=== PATIENT | male | born 1930 | race Caucasian/White ===

== ENCOUNTER 2018-06-18 09:21 | Observation (INO) | payer OTHER ==
[2018-06-18 09:54] LABS: Absolute Lymphocytes (CBC) 0.6 K/uL (0.7-4.9); Absolute Monocytes 0.5 K/uL (0.1-1.3); Basophils % 0.8 % (0-1.3); Eosinophils % 1.4 % (0-4.4); Hematocrit 35.7 % (39.6-49.0); Lymphocytes % 14.3 % (15.3-44.8); MCH 29.4 pg (27.0-35.0); MCV 88.3 fL (80-100); Monocytes % 11.3 % (3.3-12.3); RBC Red Blood Cell Count 4.05 M/uL (4.33-5.43)
[2018-06-18 09:59] LABS: Potassium 3.8 mmol/L (3.5-5.1)
--- NOTE | 2018-06-18 10:04 | RAD REPORT ---
EXAM DESCRIPTION: CT - CTHCSPWOC - 06/18/2018 9:44 am CLINICAL HISTORY: Fall, head and neck injury COMPARISON: CT trauma study January 2017 TECHNIQUE: Axial 5 mm thick images of the head were obtained. Axial 2 mm thick images of the cervic al spine were obtained with sagittal and coronal reconstruction images generated and reviewed. All CT scans are performed using dose optimization technique as appropriate and may include automated exposure control or mA/KV adjustment according to patient size. FINDINGS: No intracranial hemorrhage, mass, edema or acute intracranial finding. No suspicion for acute infarct ion. Moderate atrophy and chronic ischemic changes are present. Ventricles are in proportion to volum e loss. Mastoid air cells and paranasal sinuses are clear. No globe or orbit abnormality seen. Stable or chronic C4 and C5 partial compression noted similar to the examination 16 months earlier. C 4-5 and C5-6 disc space narrowing seen with posterior endplate spurring. No fracture or acute bony ab normality. Dense carotid calcifications are present. Prominent facet joint degenerative change presen t on the left at C2-3 and on the right at C3-4. Prominent endplate spurring and facet hypertrophy cau ses significant bony foraminal encroachment on the left at C4-5 with mild to moderate bilateral willian inal encroachment at C5-6. C4-5 canal of is stenotic. Severe facet degenerative change at C6-7. No paraspinal mass or hematoma. IMPRESSION: Moderate atrophy and chronic ischemic change with no acute intracranial finding. No sign ificant change from January 2017. Advanced cervical spine degenerative change as detailed. No fracture seen and no significant change f rom comparison.
[2018-06-18] MEDS ORDERED: D50W 25 GM/50 ML SYRINGE IV ONE (10:59)
[2018-06-18] MEDS ORDERED: D5 0.9 NS 1,000 ML IV ONE (11:14)
--- NOTE | 2018-06-18 11:19 | ER ---
Nurse's Notes [facility] Name: Dalton Díaz Age: 87 yrs Sex: Male : 1930 Arrival Date: 06/18/2018 Time: 09:26 Bed 4 Private MD: Diagnosis: Bradycardia, unspecified;Hypoglycemia, unspecified Presentation: 06/18 09:20 Presenting complaint: EMS states: unwitnessed fall by [facility] employees. c/o pain all sv over, pt was alert to person but normally is A\T\O x4. BS-48 oral glucose given BS-58, 22G left hand started and D10 administered, BS-66 before arrival to ER. Care prior to arrival: IV initiated. 22 GA, in the left hand, Glucose check: 48. Mechanism of Injury: Fall unknown from where. Trauma event details: Injury occurred in the [facility], Injury occurred: at home. Injury occurred: June 18, 2018. 09:20 Acuity: LEÓN 2 sv 09:20 Method Of Arrival: EMS: [facility] sv 09:20 Transition of care: patient was received from another setting of care (long-term care facility), [facility]. Onset of symptoms was June 18, 2018. Risk Assessment: Do you want to hurt yourself or someone else? Patient reports no desire to harm self or others. Initial Sepsis Screen: Does the patient meet any 2 criteria? No. Patient's initial sepsis screen is negative. Does the patient have a suspected source of infection? No. Patient's initial sepsis screen is negative. Trauma Activation: Alert Physician: ED Physician; Name: Dr Balderas; Notified At: 09:18; Arrived At: Physician: General Surgeon; Name: ; Notified At: 09:18; Arrived At: Physician: Radiology; Name: Negra Odom Jennifer, Tracy; Notified At: 09:18; Arrived At: 09:21 Physician: Respiratory; Name: ; Notified At: 09:18; Arrived At: Physician: Lab; Name: ; Notified At: 09:18; Arrived At: Historical: - Allergies: 09:46 Amoxicillin; sv - Home Meds: 09:46 bumetanide 1 mg Oral tab 1 tab 2 times per day [Active]; Coreg 3.125 mg oral tab 2 sv times per day [Active]; docusate sodium 100 mg Oral tab 1 tab 2 times per day [Active]; finasteride 5 mg Oral tab 1 tab once daily [Active]; gabapentin 600 mg Oral tab 3 times per day [Active]; Levemir FlexTouch 100 unit/mL (3 mL) subcutaneous inpn 33 unit nightly [Active]; Levemir FlexTouch 100 unit/mL (3 mL) subcutaneous inpn 30 unit daily [Active]; Glucophage 1,000 mg oral tab 2 times per day [Active]; metolazone 5 mg oral tab 3x weekly [Active]; pravastatin 20 mg Oral tab 1 tab once daily [Active]; spironolactone 25 mg oral tab once daily [Active]; Flomax 0.4 mg Oral cp24 1 cap once daily [Active]; Victoza 2-Jacob 0.6 mg/0.1 mL (18 mg/3 mL) subcutaneous pnij [Active]; Vitamin D2 50,000 unit oral cap 1 cap once wkly [Active]; warfarin 13 mg daily Oral tab [Active]; - PMHx: 09:46 Dementia; Diabetes - NIDDM; Hyperlipidemia; Hypertension; CHF; COPD; Atrial Fib; BPH; sv venous insufficiency; Neuropathy; Chronic hyponatremia; constipation; - Immunization history: Last tetanus immunization: - up to date. - Social history:: Smoking status: Patient/guardian denies using tobacco. - Ebola Screening: : No symptoms or risks identified at this time. Screenin:47 Abuse screen: Denies threats or abuse. Denies injuries from another. Nutritional sv screening: No deficits noted. Tuberculosis screening: No symptoms or risk factors identified. Fall Risk No fall in past 12 months (0 pts). Secondary diagnosis (15 points) dementia, IV access (20 points). Ambulatory Aid- None/Bed Rest/Nurse Assist (0 pts). Gait- Normal/Bed Rest/Wheelchair (0 pts) Mental Status- Overestimates/Forgets Limitations (15 pts.). Total Yan Fall Scale indicates High Risk Score (45 or more points). Fall prevention measures have been instituted. Side Rails Up X 2 Placed Close to Nursing Station Frequent Obs/Assessments Occuring As available patient and family educated on Fall Prevention Program and Strategies. Primary Survey: 09:25 A: Airway: patent, No supplemental oxygen in use on arrival. Oral cavity: clear, sv Trachea midline. Breathing/Chest: Respiratory pattern: regular, Respiratory effort: spontaneous, unlabored, Chest inspection: symmetrical rise and fall of the chest. Circulation: Heart tones present. Pulses: palpable right radial artery and left radial artery. Skin color: pink, Skin temperature: warm, dry. Disability Alert. 09:54 Reassessment Airway Airway Patent Oxygen No O2 Oral cavity Clear Trachea Midline sv Breathing/Chest Respiratory pattern Regular Respiratory effort Spontaneous Unlabored Chest inspection Symmetrical Circulation Heart tones Present Pulses Palpable Color [place] Temperature Warm Dry Disability Alert. Secondary Survey: 09:25 HEENT: No deficits noted. Gastrointestinal: No deficits noted. : No deficits noted. sv Musculoskeletal: No deficits noted. Assessment: 11:02 Reassessment: Patient appears in no apparent distress at this time. Patient and/or sv family updated on plan of care and expected duration. Pain level reassessed. Pt sleeping upon entry to the room but easily woken up with verbal stimuli. Son at bedside. 11:35 Reassessment: Patient appears in no apparent distress at this time. Patient and/or sv family updated on plan of care and expected duration. Pain level reassessed. 12:46 Reassessment: Patient appears in no apparent distress at this time. Patient and/or sv family updated on plan of care and expected duration. Pain level reassessed. Vital Signs: 09:30 BP 156 / 80; Pulse 56; Resp 18; Temp 98.8; Pulse Ox 96% ; Pain 0/10; sv 10:00 BP 158 / 70; Pulse 54; Resp 16; Temp 98.8; Pulse Ox 95% on R/A; sv 10:30 BP 160 / 74; Pulse 42; Resp 12; Pulse Ox 96% on R/A; sv 10:40 Pulse 32; sv 11:00 BP 147 / 68; Pulse 45; Resp 11; Pulse Ox 98% on R/A; sv 11:36 BP 159 / 73; Pulse 47; Resp 18; Pulse Ox 96% ; jb1 12:00 BP 147 / 67; Pulse 41; Resp 11; Pulse Ox 97% ; sv 10:40 Notified Valdemar HENSLEY, repeat EKG ordered sv [place] Coma Score: 09:25 Eye Response: spontaneous(4). Verbal Response: confused(4). Motor Response: obeys sv commands(6). Total: 14. Trauma Score (Adult): 09:25 Eye Response: spontaneous(1); Verbal Response: confused(1); Motor Response: obeys sv commands(2); Systolic BP: > 89 mm Hg(4); Respiratory Rate: 10 to 29 per min(4); Theo Score: 14; Trauma Score: 12 ED Course: 09:20 Maintain EMS IV. Dressing intact. Good blood return noted. Site clean \T\ dry. Gauge \T\ sv site: 22G left hand. 09:26 Patient arrived in ED. jr8 09:26 Valdemar Garcia PA is PHCP. jr8 09:26 Mitchel Balderas MD is Attending Physician. jr8 09:30 Patient has correct armband on for positive identification. Placed in gown. Bed in low sv position. Side rails up X2. radiation monitor on. Pulse ox on. NIBP on. Door closed. Warm blanket given. Pillow given. Head of bed elevated. 09:30 Arm band placed on. sv 09:34 Tere Crooks, ASIA is Primary Nurse. sv 09:37 Triage completed. sv 09:44 CT Head C Spine In Process Unspecified. EDMS 09:51 Patient maintains SpO2 saturation greater than 95% on room air. sv 09:[address]. sv 09:53 Thermoregulation: warm blanket given to patient. sv 09:54 XRAY Chest (1 view) In Process Unspecified. EDMS 09:54 XRAY Pelvis In Process Unspecified. EDMS 09:55 Awaiting lab results, Awaiting radiology results. Awaiting re-evaluation by ER provider.sv 10:00 EKG done, by ED staff, reviewed by Valdemar HENSLEY. jb1 11:00 EKG done, by ED staff, reviewed by Valdemar HENSLEY. jb1 11:18 Gabriel Slaughter MD is Hospitalizing Provider. jr8 11:35 Urine collected: clean catch specimen, cloudy, josselyn colored. jb1 12:20 Urine Dipstick--Ancillary (enter results) Sent. sv 12:46 No provider procedures requiring assistance completed. Patient admitted, IV remains in sv place. intact. Administered Medications: 11:05 Drug: D50W 50 ml Route: IVP; Site: left hand; sv 11:30 Follow up: Response: No adverse reaction; Blood sugar is elevated sv 11:11 Drug: D5-NS 1000 ml Route: IV; Rate: 75 ml/hr; Site: left hand; sv 11:30 Follow up: Response: No adverse reaction; Rate change 50 ml/hr sv 12:20 Follow up: Response: No adverse reaction; IV Status: Infusion continued upon admission sv Point of Care Testing: Blood Glucose: 09:20 Blood Glucose: 250 mg/dL; sv 11:03 Blood Glucose: 47 mg/dL; sv 11:35 Blood Glucose: 121 mg/dL; jb1 Ranges: Intake: 09:25 PO: 0ml; Total: 0ml. sv Output: 09:25 Urine: 0ml; Total: 0ml. sv Outcome: 11:19 Decision to Hospitalize by Provider. jrLalitha 12:46 Admitted to Tele accompanied by tech, family with patient, via stretcher, room 419, sv with chart, Report called to Lidya RN 12:46 Condition: stable 12:46 Instructed on the need for admit. 13:10 Patient's length of stay in the Emergency Department was greater than 2 hours. sv Patient's length of stay was extended due to staffing issues within the emergency department. 13:16 Patient left the ED. sv Signatures: Dispatcher [employer] EDLuis Fox jb1 Tere Crooks, RN RN sv Valdemar Garcia PA PA jr8 Corrections: (The following items were deleted from the chart) 09:59 09:25 Blood Glucose: Blood Glucose Oonwxir=848 mg/dL. sv sv 09:59 09:58 Blood Glucose: Blood Glucose Dolrzub=781 mg/dL. sv sv
--- NOTE | 2018-06-18 11:19 | EDPHYS ---
Physician Documentation [facility] Name: Dalton Díaz Age: 87 yrs Sex: Male : 1930 Arrival Date: 06/18/2018 Time: 09:26 Bed 4 Private MD: ED Physician Mitchel Balderas HPI: 06/18 11:22 This 87 yrs old Male presents to ER via EMS with complaints of Fall Injury. jr8 11:22 Details of fall: The patient fell from an upright position. Onset: The symptoms/episode jr8 began/occurred acutely, today. Associated injuries: The patient sustained no obvious injury. Severity of symptoms: At their worst the symptoms were mild, in the emergency department the symptoms are unchanged. It is unknown whether or not the patient has had similar symptoms in the past. The patient has not recently seen a physician. Patient was found at skilled nursing [facility] but laying on bathroom floor. Stated that they had brought his morning insulin and medicine at 0500. Came to check on him from breakfast around 0800 when they found him. Patient with initial glucose of 48. A\T\O x 4 upon arrival. General discomfort but no specific pain . Historical: - Allergies: 09:46 Amoxicillin; sv - Home Meds: 09:46 bumetanide 1 mg Oral tab 1 tab 2 times per day [Active]; Coreg 3.125 mg oral tab 2 sv times per day [Active]; docusate sodium 100 mg Oral tab 1 tab 2 times per day [Active]; finasteride 5 mg Oral tab 1 tab once daily [Active]; gabapentin 600 mg Oral tab 3 times per day [Active]; Levemir FlexTouch 100 unit/mL (3 mL) subcutaneous inpn 33 unit nightly [Active]; Levemir FlexTouch 100 unit/mL (3 mL) subcutaneous inpn 30 unit daily [Active]; Glucophage 1,000 mg oral tab 2 times per day [Active]; metolazone 5 mg oral tab 3x weekly [Active]; pravastatin 20 mg Oral tab 1 tab once daily [Active]; spironolactone 25 mg oral tab once daily [Active]; Flomax 0.4 mg Oral cp24 1 cap once daily [Active]; Victoza 2-Jacob 0.6 mg/0.1 mL (18 mg/3 mL) subcutaneous pnij [Active]; Vitamin D2 50,000 unit oral cap 1 cap once wkly [Active]; warfarin 13 mg daily Oral tab [Active]; - PMHx: 09:46 Dementia; Diabetes - NIDDM; Hyperlipidemia; Hypertension; CHF; COPD; Atrial Fib; BPH; sv venous insufficiency; Neuropathy; Chronic hyponatremia; constipation; - Immunization history: Last tetanus immunization: - up to date. - Social history:: Smoking status: Patient/guardian denies using tobacco. - Ebola Screening: : No symptoms or risks identified at this time. ROS: 11:22 Eyes: Negative for injury, pain, redness, and discharge, ENT: Negative for injury, jr8 pain, and discharge, Neck: Negative for injury, pain, and swelling, Cardiovascular: Negative for chest pain, palpitations, and edema, Respiratory: Negative for shortness of breath, cough, wheezing, and pleuritic chest pain, Abdomen/GI: Negative for abdominal pain, nausea, vomiting, diarrhea, and constipation, Back: Negative for injury and pain, MS/Extremity: Negative for injury and deformity, Skin: Negative for injury, rash, and discoloration, Neuro: Negative for headache, weakness, numbness, tingling, and seizure. Exam: 11:22 Eyes: Pupils equal round and reactive to light, extra-ocular motions intact. Lids and jr8 lashes normal. Conjunctiva and sclera are non-icteric and not injected. Cornea within normal limits. Periorbital areas with no swelling, redness, or edema. ENT: Nares patent. No nasal discharge, no septal abnormalities noted. Tympanic membranes are normal and external auditory canals are clear. Oropharynx with no redness, swelling, or masses, exudates, or evidence of obstruction, uvula midline. Mucous membranes moist. Neck: Trachea midline, no thyromegaly or masses palpated, and no cervical lymphadenopathy. Supple, full range of motion without nuchal rigidity, or vertebral point tenderness. No Meningismus. Cardiovascular: sinus bradycardia with a normal S1 and S2. No gallops, murmurs, or rubs. Normal PMI, no JVD. No pulse deficits. Respiratory: Lungs have equal breath sounds bilaterally, clear to auscultation and percussion. No rales, rhonchi or wheezes noted. No increased work of breathing, no retractions or nasal flaring. Abdomen/GI: Soft, non-tender, with normal bowel sounds. No distension or tympany. No guarding or rebound. No evidence of tenderness throughout. Back: No spinal tenderness. No costovertebral tenderness. Full range of motion. Skin: Warm, dry with normal turgor. Normal color with no rashes, no lesions, and no evidence of cellulitis. smal avulsion of skin to right wrist region MS/ Extremity: Pulses equal, no cyanosis. Neurovascular intact. Full, normal range of motion. Mild pain with palpation or right hip. No pain with ROM Neuro: Awake and alert, GCS 15, oriented to person, place, time, and situation. Cranial nerves II-XII grossly intact. Motor strength 5/5 in all extremities. Sensory grossly intact. Cerebellar exam normal. Normal gait. Vital Signs: 09:30 BP 156 / 80; Pulse 56; Resp 18; Temp 98.8; Pulse Ox 96% ; Pain 0/10; sv 10:00 BP 158 / 70; Pulse 54; Resp 16; Temp 98.8; Pulse Ox 95% on R/A; sv 10:30 BP 160 / 74; Pulse 42; Resp 12; Pulse Ox 96% on R/A; sv 10:40 Pulse 32; sv 11:00 BP 147 / 68; Pulse 45; Resp 11; Pulse Ox 98% on R/A; sv 11:36 BP 159 / 73; Pulse 47; Resp 18; Pulse Ox 96% ; jb1 12:00 BP 147 / 67; Pulse 41; Resp 11; Pulse Ox 97% ; sv 10:40 Notified Valdemar HENSLEY, repeat EKG ordered sv Theo Coma Score: 09:25 Eye Response: spontaneous(4). Verbal Response: confused(4). Motor Response: obeys sv commands(6). Total: 14. Trauma Score (Adult): 09:25 Eye Response: spontaneous(1); Verbal Response: confused(1); Motor Response: obeys sv commands(2); Systolic BP: > 89 mm Hg(4); Respiratory Rate: 10 to 29 per min(4); Theo Score: 14; Trauma Score: 12 MDM: 09:26 Patient medically screened. [facility] 11:17 Data reviewed: vital signs, nurses notes, lab test result(s), EKG, radiologic studies, jr CT scan, plain films, and as a result, I will admit patient. Data interpreted: Pulse oximetry: on room air is 96 %. Interpretation: normal. Counseling: I had a detailed discussion with the patient and/or guardian regarding: the historical points, exam findings, and any diagnostic results supporting the discharge/admit diagnosis, lab results, radiology results, the need for further work-up and treatment in the hospital. Physician consultation: Gabriel Slaughter MD was called at 11:18, was contacted at 11:18, regarding admission, to the telemetry unit. consult, patient's condition, and will see patient. 06/18 09:27 Order name: CBC with Diff; Complete Time: 10:58 jr8 06/18 09:27 Order name: Basic Metabolic Panel; Complete Time: 10:58 jr8 06/18 09:33 Order name: Glucose, Ancillary Testing; Complete Time: 09:42 EDMS 06/18 10:54 Order name: Glucose, Ancillary Testing; Complete Time: 10:58 EDMS 06/18 11:44 Order name: Urine Dipstick--Ancillary (enter results) eb 06/18 12:12 Order name: Urine Dipstick-Ancillary; Complete Time: 12:13 EDMS 06/18 09:27 Order name: CT Head C Spine; Complete Time: 10:58 jr8 06/18 09:27 Order name: XRAY Chest (1 view); Complete Time: 12:41 jr8 06/18 09:27 Order name: XRAY Pelvis; Complete Time: 12:41 jr8 06/18 09:27 Order name: Glucose Level; Complete Time: 09:56 jr8 06/18 09:27 Order name: IV; Complete Time: 09:56 [facility] 06/18 10:45 Order name: EKG; Complete Time: 10:45 sv 06/18 10:45 Order name: EKG - Nurse/Tech; Complete Time: 10:54 sv Administered Medications: 11:05 Drug: D50W 50 ml Route: IVP; Site: left hand; sv 11:30 Follow up: Response: No adverse reaction; Blood sugar is elevated sv 11:11 Drug: D5-NS 1000 ml Route: IV; Rate: 75 ml/hr; Site: left hand; sv 11:30 Follow up: Response: No adverse reaction; Rate change 50 ml/hr sv 12:20 Follow up: Response: No adverse reaction; IV Status: Infusion continued upon admission sv Point of Care Testing: Blood Glucose: 09:20 Blood Glucose: 250 mg/dL; sv 11:03 Blood Glucose: 47 mg/dL; sv 11:35 Blood Glucose: 121 mg/dL; jb1 Ranges: Critical Glucose Levels:Adult <50 mg/dl or >400 mg/dl <40 mg/dl or >180 mg/dl Disposition: 17:51 Co-signature as Attending Physician, Mitchel Balderas MD. Disposition: 06/18/18 11:19 Hospitalization ordered by Gabriel Slaughter for Inpatient Admission. Preliminary diagnosis are Bradycardia, unspecified, Hypoglycemia, unspecified. - Bed requested for Telemetry/MedSurg (Inpatient). - Status is Inpatient Admission. sv - Condition is Stable. - Problem is new. - Symptoms have improved. UTI on Admission? No Signatures: Dispatcher [employer] EDMS Tere Crooks RN RN Valdemar Garcia, PA PA jr8 Mitchel Balderas MD MD Jerilyn Harry Corrections: (The following items were deleted from the chart) 12:14 11:19 Hospitalization Ordered by Gabriel Slaughter MD for Inpatient Admission. eb Preliminary diagnosis is Bradycardia, unspecified; Hypoglycemia, unspecified. Bed requested for Telemetry/MedSurg (Inpatient). Status is Inpatient Admission. Condition is Stable. Problem is new. Symptoms have improved. UTI on Admission? No. jr8 12:15 12:14 06/18/2018 11:19 Hospitalization Ordered by Gabriel Slaughter MD for Inpatient eb Admission. Preliminary diagnosis is Bradycardia, unspecified; Hypoglycemia, unspecified. Bed requested for [facility] ER HOLD. Status is Inpatient Admission. Condition is Stable. Problem is new. Symptoms have improved. UTI on Admission? No. eb 13:16 12:15 06/18/2018 11:19 Hospitalization Ordered by Gabriel Slaughter MD for Inpatient sv Admission. Preliminary diagnosis is Bradycardia, unspecified; Hypoglycemia, unspecified. Bed requested for Telemetry/MedSurg (Inpatient). Status is Inpatient Admission. Condition is Stable. Problem is new. Symptoms have improved. UTI on Admission? No. eb
[2018-06-18 12:11] LABS: Urine Blood TRACE (NEG); Urine Glucose NEGATIVE (NEG); Urine Protein NEGATIVE (NEG); Urine Specific Gravity 1.015 (1.005-1.030)
--- NOTE | 2018-06-18 12:38 | RAD REPORT ---
EXAM DESCRIPTION: RAD - Pelvis - 06/18/2018 10:01 am CLINICAL HISTORY: Fall, pelvic pain COMPARISON: None. TECHNIQUE: AP imaging of the pelvis was obtained. FINDINGS: No fracture of the bony pelvis. No fracture, dislocation or other acute hip joint finding. SI joint degenerative changes are present. SI joints and sacral ala are obscured by osteopenia and o verlying bowel content. Prominent lower lumbar degenerative changes only partially imaged. Hip joint degenerative changes mild for age. Dense arterial tree calcifications. No soft tissue abnormality. IMPRESSION: Negative pelvis for acute or significant findings. Degenerative changes are present.
--- NOTE | 2018-06-18 12:38 | RAD REPORT ---
EXAM DESCRIPTION: RAD - Chest Single View - 06/18/2018 9:54 am CLINICAL HISTORY: Chest pain, chest trauma COMPARISON: January 2017 TECHNIQUE: AP portable chest image was obtained 0937 hours . FINDINGS: Diffusely prominent interstitial markings are present. Pattern is not substantially differ ent from the comparison. Interstitial edema and infiltrate are easily masked. Patient has a pronounce d cardiomegaly. Upper lobe vasculature is slightly increased but not clearly different from compariso n. Heart size is similar to slightly enlarged. No pneumothorax. Right costophrenic angle blunting is present. No acute bony abnormality seen. No acute aortic findings suspected. IMPRESSION: Diffuse interstitial lung disease not substantially different from comparison. This can mask early edema or infiltrate. Significant cardiomegaly.
[2018-06-18] MEDS ORDERED: GLUCAGON 1 MG/VIAL IM PRN (13:17)
[2018-06-18] MEDS ORDERED: D50W 25 GM/50 ML SYRINGE IV PRN (13:17)
[2018-06-18 13:40] VITALS: BMI 32.3
[2018-06-18] MEDS ORDERED: LACTULOSE 20 GM/30 ML UCUP PO PRN (22:48)
[2018-06-19] MEDS ORDERED: TEMAZEPAM 15 MG CAP PO PRN (00:33)
--- NOTE | 2018-06-19 04:14 | P.HP ---
Certification for Inpatient Patient admitted to: Inpatient With expected LOS: >2 Midnights Patient will require the following post-hospital care: None Practitioner: I am a practitioner with admitting privileges, knowledge of patient current condition, hospital course, and medical plan of care. Services: Services provided to patient in accordance with Admission requirements found in Title 42 Section 412.3 of the Code of Federal Regulations Patient History Date of Service: 06/19/18 Reason for admission: Altered mental status History of Present Illness: Patient is an 87-year-old gentleman who came into the hospital with altered mental status. Patient had apparently suffered a fall at the assisted living. He suffered some abrasions and when he was evaluated it was found that his blood sugars were in the 50s. He was brought into the hospital for further evaluation. Patient still feeling weak; however, he does feel better than he did earlier today. He is requesting something to help him sleep tonight. We will go ahead and check his A1c level. Will also check is insulin level. Will monitor his blood sugars throughout the next 24 hr then he may get to go home in the morning. Allergies amoxicillin Allergy (Verified 01/25/17 10:28) Rash Home Medications: Bumetanide 1 mg PO BID 06/18/18 Carvedilol 3.125 mg PO BID 06/18/18 Docusate Sodium 100 mg PO DAILY 06/18/18 Ergocalciferol (Vitamin D2) [Vitamin D2] 50,000 unit PO EVERY 7TH DAY 06/18/18 Finasteride [Proscar*] 5 mg PO DAILY 06/18/18 Gabapentin 600 mg PO TID 06/18/18 Insulin Detemir [Levemir Flextouch] 30 units SQ DAILY 06/18/18 Insulin Detemir [Levemir Flextouch] 33 units SQ BEDTIME 06/18/18 Lactulose 1 tbsp PO Q8HP PRN 06/18/18 Liraglutide [Victoza 2-Jacob] 0.6 mcg SQ DAILY 06/18/18 Metformin HCl 1,000 mg PO BID 06/18/18 Metolazone [Zaroxolyn] 5 mg PO M,W,F 06/18/18 Pravastatin Sodium 20 mg PO BEDTIME 06/18/18 Spironolactone [Aldactone*] 25 mg PO DAILY 06/18/18 Tamsulosin HCl 0.4 mg PO BEDTIME 06/18/18 Warfarin Sodium 13 mg PO DAILY 6PM 06/18/18 - Past Medical/Surgical History Diabetic: Yes -: Diabetes mellitus type 2 -: HTN -: Atrial fibrillation, chronic anti coagulation-Coumadin -: CHF -: PVD -: Hyperlipidemia -: Cataracts -: Dementia -: COPD -: History of falls -: History of hypoglycemia -: Diabetic Neuropathy -: (R) upper lobectomy -: Appendectomy -: Tonsillectomy Psychosocial/ Personal History: The patient is a . He has 3 children. He currently lives at [facility]. - Family History Father Medical History: Other (see notes) Notes: parkinsons Brother Medical History: Heart disease, Diabetes - Social History Smoking Status: Former smoker Alcohol use: No CD- Drugs: No Caffeine use: No Place of Residence: [facility] Review of Systems 10-point ROS is otherwise unremarkable Physical Examination - Vital Signs Temperature: 98.8 F Blood Pressure: 125/64 Pulse: 57 Respirations: 18 Pulse Ox (%): 93 - Physical Exam General: Alert, In no apparent distress, Oriented x2 HEENT: Atraumatic, PERRLA, Mucous membr. moist/pink, EOMI, Sclerae nonicteric Neck: Supple, 2+ carotid pulse no bruit, No LAD, Without JVD or thyroid abnormality Respiratory: Clear to auscultation bilaterally, Normal air movement Cardiovascular: Regular rate/rhythm, Normal S1 S2, Systolic murmur Gastrointestinal: Normal bowel sounds, Soft and benign, Non-distended, No tenderness Musculoskeletal: No clubbing, No swelling, No tenderness Integumentary: No rashes Neurological: Normal speech, Normal tone, Sensation intact, Cranial nerves 3-12 intact, Normal affect, Abnormal gait, Abnormal strength Lymphatics: No axilla or inguinal lymphadenopathy - Studies Laboratory Data (last 24 hrs) 06/18/18 09:25: Sodium 134 L, Potassium 3.8, BUN 22 H, Creatinine 1.00, Glucose 319 H 06/18/18 09:25: WBC 4.2 L, Hgb 11.9 L, Hct 35.7 L, Plt Count 108 L Assessment & Plan - Problems (Diagnosis) (1) Hypoglycemia Current Visit: Yes Status: Acute (2) Altered mental status Current Visit: Yes Status: Acute (3) Acute exacerbation of CHF (congestive heart failure) Onset Date: 01/08/17 Current Visit: No Status: Acute Qualifiers: Qualified Code(s): I50.23 - Acute on chronic systolic (congestive) heart failure (4) Diabetes type 2, controlled Onset Date: 01/08/17 Current Visit: No Status: Acute Qualifiers: Diabetes mellitus oysterman insulin use: without oysterman use Diabetes mellitus complication status: with unspecified complications Qualified Code(s) : E11.8 - Type 2 diabetes mellitus with unspecified complications (5) Fall Onset Date: 01/26/17 Current Visit: No Status: Acute Qualifiers: Encounter type: initial encounter Qualified Code(s): W19.XXXA - Unspecified fall, initial encounter (6) Warfarin-induced coagulopathy Onset Date: 01/08/17 Current Visit: No Status: Acute (7) Atrial fibrillation Onset Date: 01/08/17 Current Visit: No Status: Chronic Qualifiers: Atrial fibrillation type: chronic Qualified Code(s): I48.2 - Chronic atrial fibrillation (8) COPD (chronic obstructive pulmonary disease) Onset Date: 01/26/17 Current Visit: No Status: Chronic Qualifiers: COPD type: chronic bronchitis Chronic bronchitis type: unspecified Qualified Code(s): J42 - Unspecified chronic bronchitis (9) Dementia Onset Date: 01/26/17 Current Visit: No Status: Chronic Qualifiers: Dementia type: unspecified type Dementia behavioral disturbance: without behavioral disturbance Qualified Code(s): F03.90 - Unspecified dementia without behavioral disturbance (10) Diabetes mellitus Onset Date: 01/26/17 Current Visit: No Status: Chronic Qualifiers: Diabetes mellitus type: type 2 Diabetes mellitus oysterman insulin use: with correction use Diabetes mellitus complication status: with hypoglycemia Diabetes mellitus complication detail: without coma Qualified Code(s): E11.649 - Type 2 diabetes mellitus with hypoglycemia without coma; Z79.4 - longterm (current) use of insulin (11) Hyperlipidemia Onset Date: 01/26/17 Current Visit: No Status: Chronic Qualifiers: Hyperlipidemia type: unspecified Qualified Code(s): E78.5 - Hyperlipidemia , unspecified (12) Hypertension Onset Date: 01/08/17 Current Visit: No Status: Chronic Qualifiers: Hypertension type: essential hypertension Qualified Code(s): I10 - Essential (primary) hypertension - Plan Plan: 1. IV hydration 2. Monitor blood sugars closely 3. Hold insulin 4. Check A1c 5. Check insulin level 6. Check thyroid and cortisol level 7. Check additional labs in the morning and make adjustments a long-acting insulin 8. GI and DVT prophylax Discharge Plan: Home Plan to discharge in: 48 Hours - Advance Directives Does patient have a Living Will: No Does patient have a Durable POA for Healthcare: Yes - Code Status/Comfort Care Code Status Assessed: Yes Code Status: Full Code Critical Care: No Time Spent Managing PTS Care (In Minutes): 50
[2018-06-19 06:33] LABS: Absolute Lymphocytes (CBC) 1.1 K/uL (0.7-4.9); Absolute Monocytes 0.7 K/uL (0.1-1.3); Absolute Neutrophil 2.7 K/uL (1.8-8.0); Basophils % 1.2 % (0-1.3); Eosinophils % 4.6 % (0-4.4); Hematocrit 34.7 % (39.6-49.0); Lymphocytes % 22.8 % (15.3-44.8); MCH 29.4 pg (27.0-35.0); MCV 86.1 fL (80-100); MPV 7.9 fL (7.6-11.3); Monocytes % 14.7 % (3.3-12.3); RBC Red Blood Cell Count 4.03 M/uL (4.33-5.43)
[2018-06-19 06:51] LABS: Albumin 3.5 g/dL (3.4-5.0); Bilirubin Total 1.1 mg/dL (0.2-1.0); Magnesium 1.7 mg/dL (1.8-2.4); Phosphorus 2.7 mg/dL (2.5-4.9); Protein, Total 6.5 g/dL (6.4-8.2); Protime INR 3.85
[2018-06-19 06:56] LABS: Thyroid Stimulating Hormone 2.02 uIU/mL (0.360-3.740)
[2018-06-19] MEDS: INSULIN GLARGINE 100 UNITS/ML SQ SCH ×2 (08:56→20:28)
[2018-06-19] MEDS: BUMETANIDE 1 MG TABLET PO SCH ×2 (08:56→20:27)
[2018-06-19] MEDS: SPIRONOLACTONE 25 MG TABLET PO SCH (08:57)
[2018-06-19] MEDS: DOCUSATE NA 100 MG CAP PO SCH (08:57)
[2018-06-19] MEDS: FINASTERIDE 5 MG TAB PO SCH (08:58)
[2018-06-19] MEDS: GABAPENTIN 300 MG CAP PO SCH ×3 (08:58→20:29)
[2018-06-19] MEDS: METFORMIN HCL 500 MG TAB PO SCH ×2 (08:58→20:28)
[2018-06-19] MEDS ORDERED: LIRAGLUTIDE SQ SCH (09:00)
[2018-06-19] MEDS ORDERED: CARVEDILOL 3.125 MG TAB PO SCH (09:00)
[2018-06-19 17:19] VITALS: O2SAT 95
[2018-06-19] MEDS ORDERED: WARFARIN SODIUM PO SCH (18:00)
--- NOTE | 2018-06-19 18:31 | PN ---
Subjective: Currently, the patient lying in bed. He looks comfortable. He had no chest pain. No a bdominal pain. No fever. No chills overnight. His heart rate in the range of 50 to 61. He has not had any bradycardia below 50 today. His son at the bedside. Review of Systems: Otherwise as below. Physical Examination: Vital Signs: Blood pressure is 148/70, respiratory rate 20, pulse 55, temperature 98.6. General: The patient is alert and oriented x3. Does not look in any distress. HEENT: Atraumatic, normocephalic. PERRLA. Oral mucosa is moist. Neck: Supple. No JVD. No bruits. Chest: Clear to auscultation. No expiratory wheezing. Heart: Regular rate and rhythm. S1, S2 normal. No gallop or murmur. Abdomen: Soft, nontender. No masses. No hepatosplenomegaly. Positive bowel sounds. Obese. Extremities: No clubbing, cyanosis, or edema. No calf tenderness. Neurologic: Grossly intact. The patient has some tenderness in his buttocks secondary to his recent fall. Laboratory Data: Labs today showed CBC within normal except for hemoglobin of 11.8, platelets 124, I NR is 3.85. Chemistry today within normal except for GFR of 80, carbon dioxide of 34, glucose 115, m agnesium 1.7. Assessment And Plan: 1.Hypoglycemia episode with recent fall, most likely secondary to hypoglycemia. The patient was not getting his snack while he was on insulin. Son discussed that with the assisted living facility and they will make sure the patient receives his snack before his insulin given in the morning. 2.Altered mental status resolved, most likely secondary to his recent episode of hypoglycemia. 3.History of CHF, well compensated. Continue home medication. I will hold Coreg given the episode of bradycardia, pending Cardiology eval. 4.New onset of bradycardia with history of atrial fibrillation. Coreg is on hold. Dr. Pelayo will be consulted for further recommendation. The patient's heart rate went all the way down to 30 yeste rday. 5.Warfarin-induced coagulopathy. INR is still high at 3.85. I will hold Coumadin. I think with th e dangerous fluctuation of the patient's INR according to his son and recent fall, it would be much m ore safe to place the patient on Eliquis or Xarelto upon discharge, but will discuss that with Cardio logy. 6.History of COPD, well compensated. 7.History of enlarged prostate. Continue Flomax. 8.Insomnia. Continue Restoril at bedtime. 9.History of constipation. He is on p.r.n. lactulose. 10.History of hyperlipidemia. Continue atorvastatin at bedtime. 11.Discharge plan will depend on Cardiology and if any further workup needing or placement of a pace maker. REUBEN/CALEB Voice ID: [id number] Report ID: [id number]
--- NOTE | 2018-06-19 19:17 | EKG ---
Test Date: 2018-06-18 Test Time: 10:57:48 Janitor Cleaner: JORDI MEASUREMENT RESULTS: Intervals: Rate: 41 AR: QRSD: 140 QT: 512 QTc: 422 Lena: P: AR: QRS: -41 T: -4 INTERPRETIVE STATEMENTS: Atrial fibrillation with slow ventricular response Left axis deviation Nonspecific intraventricular block Nonspecific T wave abnormality, probably digitalis effect Abnormal ECG Compared to ECG 01/25/2017 02:50:56 T-wave abnormality now present Ventricular premature complex(es) no longer present Electronically Signed On 06-19-18 19:14:56 CDT by August Pelayo
[2018-06-19] MEDS: TAMSULOSIN 0.4 MG SR CAP PO SCH (20:28)
[2018-06-19] MEDS: ATORVASTATIN 10 MG TAB PO SCH (20:29)
--- NOTE | 2018-06-20 04:02 | CON ---
Date of Consultation: 06/19/[address] Slaughter's service on 06/18/2018, the patient seen on 06/19/2018. Reason For Consultation: Syncope and fall, also bradycardia. History Of Present Illness: Mr. Díaz is an 87-year-old. He has chronic bradycardia. In 2016, his EKG showed a heart rate of 50, atrial fibrillation. Echocardiogram in December of 2016 showed an ejectio n fraction between 45% to 49%. He came in with syncope. Does not have any symptoms before or afterw ards. Denied any chest pain, nausea, vomiting, diaphoresis, PND, orthopnea, palpitation or pedal olga ma. His workup so far includes an INR of 3.85 on Coumadin. He has an EKG showed atrial fibrillation , magnesium 1.7. Past Medical History: Includes dementia, CHF, diabetes, dyslipidemia, hypertension, atrial fibrillat ion, and COPD. Allergies: AMOXICILLIN. Review of Systems: Negative. Social History: Negative. Family History: Noncontributory. Physical Examination: Vital Signs: Stable, in atrial fibrillation, rate of 56. HEENT: Negative. Neck: Supple, no bruit. Chest: Clear. Cardiac: Revealed atrial fibrillation. No murmurs, gallops, or rubs. Abdomen: Benign. Extremities: Revealed no clubbing, cyanosis, or edema. Diagnostic Data: As stated earlier. Impression And Plan: 1.Chronic bradycardia and atrial fibrillation. I would hold his Coreg. 2.Syncope. I would get an echocardiogram and consider a carotid Doppler and he is on telemetry. I think his syncope is most likely orthostatic secondary to his multiple medication. The patient is pr esently taking Coreg, Bumex, Zaroxolyn, Pravachol, insulin, glyburide, Victoza, Coumadin, Aldactone. 3.Dementia. 4.History of congestive heart failure. 5.Diabetes. 6.Dyslipidemia. 7.Hypertension. 8.Chronic obstructive pulmonary disease. We will see what his echocardiogram shows and his other wo rkup. Hold the beta-vladimir. Hopefully, he will be able to go home. I do not feel the need of norris strong any further cardiac workup at this point. SWATI/DENISSEL Voice ID: [id number] Report ID: [id number]
[2018-06-20] MEDS: BUMETANIDE 1 MG TABLET PO SCH ×2 (09:41→20:04)
[2018-06-20] MEDS: INSULIN GLARGINE 100 UNITS/ML SQ SCH ×2 (09:41→21:00)
[2018-06-20] MEDS: GABAPENTIN 300 MG CAP PO SCH ×3 (09:42→20:05)
[2018-06-20] MEDS: METFORMIN HCL 500 MG TAB PO SCH (09:42)
[2018-06-20] MEDS: SPIRONOLACTONE 25 MG TABLET PO SCH (09:42)
[2018-06-20] MEDS: FINASTERIDE 5 MG TAB PO SCH (09:42)
[2018-06-20] MEDS: DOCUSATE NA 100 MG CAP PO SCH (09:43)
[2018-06-20 11:59] LABS: Protime INR 1.98
--- NOTE | 2018-06-20 15:58 | ECHO ---
HEIGHT: 6 ft 5 in WEIGHT: 272 lb 6.4 oz DATE OF STUDY: 06/20/[address]: August Pelayo MD 2-DIMENSIONAL: YES M.MODE: YES DOPPLER: YES COLOR FLOW: YES TDS: YES PORTABLE: NO DEFINITY: NO BUBBLE STUDY: NO DIAGNOSIS: CONGESTIVE HEART FAILURE CARDIAC HISTORY: CATHERIZATION: NO SURGERY: NO PROSTHETIC VALVE: NO PACEMAKER: NO MEASUREMENTS (cm) DIASTOLIC (NORMALS) SYSTOLIC (NORMALS) IVSd (0.6-1.2) LA Diam (1.9-4.0) LVEF 60-69% LVIDd (3.5-5.7) LVIDs (2.0-3.5) %FS % LVPWd (0.6-1.2) Ao Diam (2.0-3.7) 2 DIMENSIONAL ASSESSMENT: RIGHT ATRIUM: DILATED LEFT ATRIUM: DILATED RIGHT VENTRICLE: NORMAL LEFT VENTRICLE: NORMAL TRICUSPID VALVE: NORMAL MITRAL VALVE: MITRAL ANNULAR CALCIFICATION PULMONIC VALVE: NORMAL AORTIC VALVE: SCLEROSIS PERICARDIAL EFFUSION: NONE AORTIC ROOT: NORMAL LEFT VENTRICULAR WALL MOTION: PARADOXICAL SEPTAL MOTION. DOPPLER/COLOR FLOW: MILD TRICUSPID REGURGITATION. NORMAL RIGHT VENTRICULAR SYSTOLIC PRESSURE. COMMENTS: NORMAL LEFT VENTRICULAR EJECTION FRACTION WITH PARADOXICAL SEPTAL MOTION. DILATED LEFT AND RIGHT ATRIUM. MITRAL ANNULAR CALCIFICATION. AORTIC SCLEROSIS WITH NO AORTIC STENOSIS OR AORTIC REGURGITATION. MILD TRICUSPID REGURGITATION. ATRIAL FIBRILLATION. HEART RATE 50-60 BEATS PER MINUTE. TECHNOLOGIST: Audrey LAURENT
[2018-06-20] MEDS ORDERED: ONDANSETRON 4 MG/2 ML VIAL IV PRN (16:09)
[2018-06-20] MEDS ORDERED: METOLAZONE 5 MG TABLET PO SCH (17:00)
--- NOTE | 2018-06-20 18:14 | P.PN ---
Subjective Date of Service: 06/20/18 Chief Complaint: Altered mental status Patient seen and examined at bedside. 7 bedside. Mentation back to baseline. Patient denying any complaints at this time. He is on multiple medications. Review of Systems As noted above Physical Examination - Vital Signs Temperature: 98.7 F Blood Pressure: 168/77 Pulse: 73 Respirations: 18 Pulse Ox (%): 98 - Physical Exam General: Alert, In no apparent distress HEENT: Atraumatic, PERRLA, EOMI Neck: Supple, JVD not distended Respiratory: Clear to auscultation bilaterally, Normal air movement Cardiovascular: Regular rate/rhythm, Normal S1 S2 Gastrointestinal: Normal bowel sounds, No tenderness Musculoskeletal: No tenderness Integumentary: No rashes Neurological: Normal speech, Normal tone, Normal affect Lymphatics: No axilla or inguinal lymphadenopathy - Studies Medications List Reviewed: Yes Assessment And Plan - Plan - hypoglycemic episode with recent fall, most likely secondary to hypoglycemia. He is on insulin and her son, with did not get this back at assisted living like it normally does. - altered mental status, back to baseline. Likely secondary to his hypoglycemic episode. - history of CHF, well compensated continues home medications. Hold [facility] cardiology evaluation. - in new onset bradycardia with history of AFib. Coreg is on hold. Cardiology consulted, appreciate recommendations. Stable at this time. - warfarin induced coagulopathy INR back to cold. Restart Coumadin at a regular dosage. Monitor INR. Will discuss switched to his cerebral toe or eloquent upon discharge. - history of COPD: Stable - BPH: Continue Flomax, stable - insomnia: Continue home resttorill -history of constipation: P.r.n. lactulose - hyperlipidemia: Continue atorvastatin Will need a med reconciliation prior to discharge. Likely tomorrow
[2018-06-20] MEDS: TAMSULOSIN 0.4 MG SR CAP PO SCH (20:05)
[2018-06-20] MEDS: ATORVASTATIN 10 MG TAB PO SCH (20:05)
--- NOTE | 2018-06-21 03:32 | PN ---
Date of Progress Note: 06/20/2018 Mr. Díaz had an issue with bradycardia, but off beta blockers. Heart rate was 60. Echocardiogram today that was done showed a normal ejection fraction, some aortic sclerosis, but no wall motion abno rmalities. No effusion. He is fairly asymptomatic today. His vital signs remained stable. He was afebrile. He can go home from our standpoint. I will see him in the office in the next 2 weeks. SWATI/CALEB Voice ID: [id number] Report ID: [id number]
[2018-06-21] MEDS: INSULIN GLARGINE 100 UNITS/ML SQ SCH (10:51)
[2018-06-21] MEDS: DOCUSATE NA 100 MG CAP PO SCH (10:52)
[2018-06-21] MEDS: SPIRONOLACTONE 25 MG TABLET PO SCH (10:52)
[2018-06-21] MEDS: BUMETANIDE 1 MG TABLET PO SCH (10:52)
[2018-06-21] MEDS: GABAPENTIN 300 MG CAP PO SCH ×2 (10:53→13:14)
[2018-06-21] MEDS: FINASTERIDE 5 MG TAB PO SCH (10:53)
[2018-06-21 12:53] VITALS: BP 138/67; TEMP 98
--- NOTE | 2018-06-21 13:02 | P.DS ---
Admission Date: 06/18/18 Discharge Date: 06/21/18 Disposition: ROUTINE DISCHARGE Discharge Condition: GOOD Reason for Admission: Altered mental status Consultations: Cardiology Brief History of Present Illness: Patient is an 87-year-old gentleman who came into the hospital with altered mental status. Patient had apparently suffered a fall at the assisted living. He suffered some abrasions and when he was evaluated it was found that his blood sugars were in the 50s. He was brought into the hospital for further evaluation. Patient still feeling weak; however, he does feel better than he did earlier today. He is requesting something to help him sleep tonight. We will go ahead and check his A1c level. Will also check is insulin level. Will monitor his blood sugars throughout the next 24 hr then he may get to go home in the morning. Hospital Course: Patient was admitted for hypoglycemia episodes, with a fall. It seems like the patient was not getting his back while he was on insulin. He is currently on an insulin, metformin and victoza. I will not make any changes to his medications, as he does have a follow up with his primary care physician in less than 1 week. Did discuss with son about talking to assisted living about seeing him take his insulin/medications about 30 min to an hr prior to eating. The son discussed this with the assisted-living, they agreed. Hypoglycemic symptoms/signs discussed with patient and son. Altered mental status on admission, which resolved. This is likely secondary to his hypoglycemia. See above for discharge instructions. For his history of CHF, we continued his home medications. We did hold his Coreg since he was bradycardic on admission. Cardiology was consulted. Throughout the rest of his stay his heart rate remained at a stable 50s. Restarted his Coreg, with instructions for patient is to discuss with primary care physician/hired worker on Coreg dosage changes if necessary. Warfarin induced coagulopathy, INR subtherapeutic at 3 point any feminine mission. At the time of discharge INR was in therapeutic range. Will restart the Coumadin though patient may need to be switched to Eliquis or Xarelto . Instructed patient and son to discuss this with cardiology outpatient. For his COPD/BPH/constipation and hyperlipidemia, no medication changes were made throughout the stay and he remained stable. Discussed in detail with the son and patient at the bedside. Vital Signs/Physical Exam: Temp Pulse Resp BP Pulse Ox 98.0 F 55 18 138/67 95 06/21/18 12:00 06/21/18 12:00 06/21/18 12:00 06/21/18 12:00 06/21/18 12:00 General: Alert, In no apparent distress HEENT: Atraumatic, PERRLA, EOMI Neck: Supple, JVD not distended Respiratory: Clear to auscultation bilaterally, Normal air movement Cardiovascular: Regular rate/rhythm, Normal S1 S2 Gastrointestinal: Normal bowel sounds, No tenderness Musculoskeletal: No tenderness Integumentary: No rashes Neurological: Normal speech, Normal tone, Normal affect Laboratory Data at Discharge: WBC 4.8 K/uL (4.3-10.9) D 06/19/18 05:38 Hgb 11.8 g/dL (13.6-17.9) L 06/19/18 05:38 Hct 34.7 % (39.6-49.0) L 06/19/18 05:38 Plt Count 124 K/uL (152-406) L 06/19/18 05:38 PT 23.5 SECONDS (9.5-12.5) H 06/20/18 11:38 INR 1.98 06/20/18 11:38 Sodium 140 mmol/L (136-145) 06/19/18 05:38 Potassium 4.0 mmol/L (3.5-5.1) 06/19/18 05:38 BUN 17 mg/dL (7-18) 06/19/18 05:38 Creatinine 0.90 mg/dL (0.55-1.3) 06/19/18 05:38 Glucose 115 mg/dL (74-106) H 06/19/18 05:38 Phosphorus 2.7 mg/dL (2.5-4.9) 06/19/18 05:38 Magnesium 1.7 mg/dL (1.8-2.4) L 06/19/18 05:38 Total Bilirubin 1.1 mg/dL (0.2-1.0) H 06/19/18 05:38 AST 24 U/L (15-37) 06/19/18 05:38 ALT 21 U/L (12-78) 06/19/18 05:38 Alkaline Phosphatase 66 U/L (45-117) 06/19/18 05:38 Home Medications: Bumetanide 1 mg PO BID 06/18/18 Carvedilol 3.125 mg PO BID 06/18/18 Docusate Sodium 100 mg PO DAILY 06/18/18 Ergocalciferol (Vitamin D2) [Vitamin D2] 50,000 unit PO EVERY 7TH DAY 06/18/18 Finasteride [Proscar*] 5 mg PO DAILY 06/18/18 Gabapentin 600 mg PO TID 06/18/18 Insulin Detemir [Levemir Flextouch] 30 units SQ DAILY 06/18/18 Insulin Detemir [Levemir Flextouch] 33 units SQ BEDTIME 06/18/18 Lactulose 1 tbsp PO Q8HP PRN 06/18/18 Liraglutide [Victoza 2-Jacob] 0.6 mcg SQ DAILY 06/18/18 Metformin HCl 1,000 mg PO BID 06/18/18 Metolazone [Zaroxolyn] 5 mg PO M,W,F 06/18/18 Pravastatin Sodium 20 mg PO BEDTIME 06/18/18 Spironolactone [Aldactone*] 25 mg PO DAILY 06/18/18 Tamsulosin HCl 0.4 mg PO BEDTIME 06/18/18 Warfarin Sodium 13 mg PO DAILY 6PM 06/18/18 Patient Discharge Instructions: Please follow up with their primary care physician in 1 week. Please be sure if you are taking insulin and her other diabetes medications, you eat regularly. Please continue the Coreg as previously taking. Discuss with cardiology. Follow up with cardiology in 1-2 weeks. For Coumadin, her INR was very high on admission. It has now stabilized though I would like you to discuss checking an INR when you go to your primary care physician in 1 week Diet: ADA Activity: Fall precautions Followup: Inna Torres MD [Primary Care Provider] - Time spent managing pt's care (in minutes): 55
[2018-06-25] MEDS ORDERED: DRISDOL (VITAMIN D=ERGOCALCIFEROL) 50000 UNIT CAP PO SCH (09:00)
== END 2018-06-21 15:07 | disposition home health service (06) ==
LOC: ER 09:21 → INTOOBSV 11:33 → ERHOLD 11:33 → 4TH 12:21
PROVIDERS: ADMIT Internal Medicine; ATTEND Hospitalist
DX: E11.649 Type 2 diabetes mellitus with hypoglycemia without coma (principal); I48.2 Chronic atrial fibrillation; R00.1 Bradycardia, unspecified; J44.9 Chronic obstructive pulmonary disease, unspecified; E78.5 Hyperlipidemia, unspecified; D68.8 Other specified coagulation defects; G47.00 Insomnia, unspecified; N40.0 Benign prostatic hyperplasia without lower urinary tract symptoms; I11.0 Hypertensive heart disease with heart failure; I50.22 Chronic systolic (congestive) heart failure; Z79.01 Long term (current) use of anticoagulants; Z88.0 Allergy status to penicillin
CPT/HCPCS: 36415 ×2; 70450; 71045; 72125; 72170; 80048; 80053; 81003; 82533; 82962 ×16; 83036; 83525; 83735; 84100; 84439; 84443; 85025 ×2; 85610 ×2; 93005; 93306; 96365; 96375; 99285; G0378 ×2; J2405

== ENCOUNTER 2018-09-14 15:09 | Emergency (ER) | payer OTHER ==
--- NOTE | 2018-09-14 15:47 | RAD REPORT ---
EXAM DESCRIPTION: CT - [id number] - 09/14/2018 3:26 pm CLINICAL HISTORY: Fall, trauma to the posterior skull, head and neck pain COMPARISON: CT head and cervical May 2018 TECHNIQUE: Axial 5 mm thick images of the head were obtained. Axial 2 mm thick images of the cervic al spine were obtained with sagittal and coronal reconstruction images generated and reviewed. All CT scans are performed using dose optimization technique as appropriate and may include automated exposure control or mA/KV adjustment according to patient size. FINDINGS: No intracranial hemorrhage, mass, edema or acute intracranial finding. No suspicion for ac [place] infarction. Moderate severity atrophy and chronic ischemic changes are present. Ventricles are in proportion to volume loss. Mastoid air cells and paranasal sinuses are clear. No globe or orbit abno rmality seen. Moderate right posterior scalp hematoma is present. Underlying bone is intact. Dense ar terial tree calcifications are present. Cervical body height is similar to the comparison. No acute fracture changes identifiable. Advanced d egenerative changes present at the dens C1 articulation with there is calcification of the transverse ligament and prominent calcifications along the superior and inferior margin of the anterior arch C1 . C4-5 and C5-6 disc space narrowing seen. There is a mild anterior subluxation of C5 relative to 6. Prominent facet joint degenerative changes are present on the left at C2-3 and the right on C3-4. Jordan ateral foraminal encroachment, left greater than right at C4-5. Prominent right facet degenerative ch [place] at C5-6 without significant foramen stenosis. Central canal detail is inherently limited. No paraspinal mass or hematoma. IMPRESSION: Prominent atrophy and chronic ischemic change with ventricular size in proportion. No he morrhage or acute intracranial finding. Moderate-sized posterior right scalp hematoma with underlying bone intact. Advanced cervical spine degenerative change as detailed. Findings are similar to May 2018. No fra cture or acute finding.
[2018-09-14 16:07] LABS: Absolute Lymphocytes (CBC) 1.4 K/uL (0.7-4.9); Absolute Monocytes 0.5 K/uL (0.1-1.3); Absolute Neutrophil 2.7 K/uL (1.8-8.0); Eosinophils % 4.7 % (0-4.4); Hematocrit 39.6 % (39.6-49.0); Lymphocytes % 28.9 % (15.3-44.8); MPV 8.2 fL (7.6-11.3); Monocytes % 10.6 % (3.3-12.3)
[2018-09-14] MEDS ORDERED: ACETAMINOPHEN 500 MG TAB ONE (16:09)
[2018-09-14 16:12] LABS: Protime INR 1.54
[2018-09-14] MEDS ORDERED: LIDOCAINE 1% W/EPI 1:100,000 MDV 50 ML VIAL ONE (16:24)
[2018-09-14] MEDS ORDERED: LIDOCAINE VISCOUS 2% SOLN 15 ML UDC ONE (16:26)
[2018-09-14 16:43] LABS: Potassium 2.7 mmol/L (3.5-5.1)
[2018-09-14] MEDS ORDERED: POTASSIUM 25 MEQ EFFERV TAB ONE ×2 (17:00→19:32)
[2018-09-14] MEDS ORDERED: KCL 20 MEQ/100 mL IVPB 20 MEQ/100 ML BAG IV ONE (17:00)
[2018-09-14] MEDS ORDERED: NA CHLORIDE 0.9% 1,000 ML ONE (17:00)
[2018-09-14 19:06] LABS: Potassium 3.3 mmol/L (3.5-5.1)
--- NOTE | 2018-09-14 19:15 | ER ---
Nurse's Notes [facility] Name: Dalton Díaz Age: 88 yrs Sex: Male : 1930 Arrival Date: 09/14/2018 Time: 15:11 Bed 6 Private MD: Diagnosis: Other slipping, tripping and stumbling and falls;Laceration without foreign body of scalp;Hypokalemia Presentation: 09/14 15:12 Presenting complaint: EMS states: Pt attempting to pull up pants after voiding, lost jl7 his footing and fell and hit the back of his head, small laceration noted, denies LOC. Care prior to arrival: None. Mechanism of Injury: Fall from standing position. Trauma event details: Injury occurred in the [facility], Injury occurred: at home. Injury occurred: September 14, 2018 Injury occurred at: 14:50. 15:12 Acuity: LEÓN 3 jl7 15:12 Method Of Arrival: EMS: [facility] jl7 15:22 Transition of care: patient was not received from another setting of care. Onset of jl7 symptoms was September 14, 2018 at 14:50. Risk Assessment: Do you want to hurt yourself or someone else? Patient reports no desire to harm self or others. Initial Sepsis Screen: Does the patient meet any 2 criteria? No. Patient's initial sepsis screen is negative. Does the patient have a suspected source of infection? No. Patient's initial sepsis screen is negative. Trauma Activation: Alert Physician: ED Physician; Name: Joy; Notified At: 15:03; Arrived At: 15:03 Physician: General Surgeon; Name: ; Notified At: 15:03; Arrived At: Physician: Radiology; Name: Rigoberto; Notified At: 15:03; Arrived At: 15:03 Physician: Respiratory; Name: ; Notified At: 15:03; Arrived At: Physician: Lab; Name: ; Notified At: 15:03; Arrived At: Historical: - Allergies: 15:28 Amoxicillin; jl7 - Home Meds: 15:28 warfarin 13 mg daily Oral tab [Active]; bumetanide 1 mg Oral tab 1 tab 2 times per day jl7 [Active]; docusate sodium 100 mg Oral tab 1 tab 2 times per day [Active]; finasteride 5 mg Oral tab 1 tab once daily [Active]; gabapentin 600 mg Oral tab 3 times per day [Active]; Levemir FlexTouch 100 unit/mL (3 mL) subcutaneous inpn 33 unit nightly [Active]; metolazone 5 mg Oral tab 3x weekly [Active]; metformin 500 mg Oral tab 2 tabs 2 times per day [Active]; pravastatin 20 mg Oral tab 1 tab once daily [Active]; spironolactone 25 mg Oral tab once daily [Active]; tamsulosin 0.4 mg oral cp24 1 cap once daily [Active]; Victoza 2-Jacob 0.6 mg/0.1 mL (18 mg/3 mL) subcutaneous pnij [Active]; Vitamin D2 50,000 unit Oral cap 1 cap once wkly [Active]; - PMHx: 15:28 Diabetes - NIDDM; CHF; Hypertension; Atrial Fib; Hyperlipidemia; COPD; BPH; venous jl7 insufficiency; neuropathy; Chronic hyponatremia; constipation; Dementia; - Immunization history: Last tetanus immunization: unknown. - Social history:: Smoking status: unknown. - Ebola Screening: : No symptoms or risks identified at this time. Screenin:12 Abuse screen: Denies threats or abuse. Denies injuries from another. Tuberculosis jl7 screening: No symptoms or risk factors identified. 15:30 Nutritional screening: No deficits noted. jl7 15:30 Fall Risk Fall in past 12 months (25 points). Secondary diagnosis (15 points) dementia, jl7 IV access (20 points). Ambulatory Aid- None/Bed Rest/Nurse Assist (0 pts). Gait- Normal/Bed Rest/Wheelchair (0 pts) Mental Status- Oriented to own ability (0 pts). Total Yan Fall Scale indicates High Risk Score (45 or more points). Fall prevention measures have been instituted. Side Rails Up X 2 Placed Close to Nursing Station Frequent Obs/Assessments Occuring Family Present and informed to notify staff if the need to leave the bedside As available patient and family educated on Fall Prevention Program and Strategies. Primary Survey: 15:12 NO uncontrolled hemorrhage observed. Breathing/Chest: Respiratory pattern: regular, jl7 Respiratory effort: spontaneous, unlabored, Chest inspection: symmetrical rise and fall of the chest. Circulation: Skin color: pink, Skin temperature: warm. Disability Alert. Exposure/Environment: There is no evidence of uncontrolled external bleeding. Obvious injury(ies) are noted at this time: laceration noted to posterior scalp A warming method has been applied: A warm blanket has been provided to the patient. 15:30 Reassessment Airway Airway Patent Breathing/Chest Respiratory pattern Regular jl7 Respiratory effort Spontaneous Unlabored Breath sounds Clear Chest inspection Symmetrical Circulation Heart tones Present Color [place] Disability Alert. Secondary Survey: 15:30 HEENT: Head Other laceration noted to posterior scalp. Gastrointestinal: No deficits jl7 noted. : No deficits noted. Musculoskeletal: No deficits noted. Assessment: 15:12 General: Appears in no apparent distress. uncomfortable, Behavior is calm, cooperative, jl7 appropriate for age. Pain: Complains of pain in occipital area Pain does not radiate. Pain currently is 5 out of 10 on a pain scale. Pain began 30 min ago. Is continuous. Neuro: Level of Consciousness is awake, alert, obeys commands, Oriented to person, place, time, situation. EENT: No signs and/or symptoms were reported regarding the EENT system. Cardiovascular: Patient's skin is warm and dry. Respiratory: Airway is patent Respiratory effort is even, unlabored, Respiratory pattern is regular, symmetrical. GI: No signs and/or symptoms were reported involving the gastrointestinal system. : No signs and/or symptoms were reported regarding the genitourinary system. Derm: Skin is pink, warm \T\ dry. Musculoskeletal: No signs and/or symptoms reported regarding the musculoskeletal system. Injury Description: Laceration sustained to occipital area is 0.5 to 2.5 cm long, was sustained less than 30 minutes ago. a small amount of bleeding noted at this time. 16:30 Reassessment: Patient appears in no apparent distress at this time. Patient and/or jl7 family updated on plan of care and expected duration. Pain level reassessed. Patient is alert, oriented x 3, equal unlabored respirations, skin warm/dry/pink. 17:30 Reassessment: Patient appears in no apparent distress at this time. Patient and/or jl7 family updated on plan of care and expected duration. Pain level reassessed. Patient is alert, oriented x 3, equal unlabored respirations, skin warm/dry/pink. 18:24 Reassessment: Patient appears in no apparent distress at this time. No changes from jl7 previously documented assessment. Patient and/or family updated on plan of care and expected duration. Pain level reassessed. Patient is alert, oriented x 3, equal unlabored respirations, skin warm/dry/pink. Vital Signs: 15:12 BP 169 / 67; Pulse 47; Resp 16 S; Temp 98(O); Pulse Ox 99% on R/A; Pain 5/10; jl7 15:30 BP 146 / 76; Pulse 45; Resp 16 S; Pulse Ox 99% on R/A; jl7 16:00 BP 150 / 79; Pulse 49; Resp 16 S; Pulse Ox 100% on R/A; jl7 17:00 BP 138 / 63; Pulse 51; Resp 12 S; Pulse Ox 97% on R/A; jl7 18:00 BP 127 / 67; Pulse 47; Resp 18 S; Pulse Ox 97% on R/A; jl7 19:09 BP 136 / 83; Pulse 51; Resp 16; Pulse Ox 97% ; ea [place] Coma Score: 15:12 Eye Response: spontaneous(4). Verbal Response: oriented(5). Motor Response: obeys jl7 commands(6). Total: 15. 19:09 Eye Response: spontaneous(4). Verbal Response: oriented(5). Motor Response: obeys ea commands(6). Total: 15. Trauma Score (Adult): 15:12 Eye Response: spontaneous(1); Verbal Response: oriented(1); Motor Response: obeys jl7 commands(2); Systolic BP: > 89 mm Hg(4); Respiratory Rate: 10 to 29 per min(4); [place] Score: 15; Trauma Score: 12 15:30 Eye Response: spontaneous(1); Verbal Response: oriented(1); Motor Response: obeys jl7 commands(2); Systolic BP: > 89 mm Hg(4); Respiratory Rate: 10 to 29 per min(4); [place] Score: 15; Trauma Score: 12 16:00 Eye Response: spontaneous(1); Verbal Response: oriented(1); Motor Response: obeys jl7 commands(2); Systolic BP: > 89 mm Hg(4); Respiratory Rate: 10 to 29 per min(4); [place] Score: 15; Trauma Score: 12 17:00 Eye Response: spontaneous(1); Verbal Response: oriented(1); Motor Response: obeys jl7 commands(2); Systolic BP: > 89 mm Hg(4); Respiratory Rate: 10 to 29 per min(4); Theo Score: 15; Trauma Score: 12 18:00 Eye Response: spontaneous(1); Verbal Response: oriented(1); Motor Response: obeys jl7 commands(2); Systolic BP: > 89 mm Hg(4); Respiratory Rate: 10 to 29 per min(4); Theo Score: 15; Trauma Score: 12 ED Course: 15:11 Patient arrived in ED. em1 15:12 Jean Bridges, ASIA is Primary Nurse. jl7 15:12 Patient has correct armband on for positive identification. Placed in gown. Bed in low jl7 position. Call light in reach. Side rails up X2. 15:12 Patient maintains SpO2 saturation greater than 95% on room air. Thermoregulation: warm jl7 blanket given to patient. 15:14 Kvng Siegel PA is PHCP. cp 15:14 Jeyson Hamilton MD is Attending Physician. cp 15:15 Triage completed. jl7 15:[address] nj 15:25 CT completed. Patient tolerated procedure well. Patient moved back from CT. nj 15:30 Arm band placed on. jl7 15:30 Initial lab(s) drawn, by ny, sent to lab. Inserted saline lock: 20 gauge in right jl7 forearm, using aseptic technique. Blood collected. 15:34 CT Head C Spine In Process Unspecified. EDMS 15:40 EKG done, by injection maintenance technician. reviewed by Kvng HENSLEY. sm3 16:50 Assist provider with laceration repair on occipital area that was between 2.6 to 7.5 cm jl7 using jose alberto. Set up tray. Performed by Kvng HENSLEY Dressed with Neosporin, non-stick gauze Patient tolerated well. 19:30 IV discontinued, intact, bleeding controlled, No redness/swelling at site. Pressure ea dressing applied. Administered Medications: 16:02 Drug: Tylenol 1000 mg Route: PO; jl7 17:00 Follow up: Response: No adverse reaction; Pain is decreased jl7 16:21 Drug: Viscous Lidocaine Liquid (4 %) 5 ml Route: Mucous Membrane; jl7 16:45 Follow up: Response: No adverse reaction; Pain is decreased 7 16:45 Drug: Marcaine-Epinephrine (0.25 %) 10 ml {Note: administered by SHELLIE Fragoso.} jl7 Route: Infiltration; 17:00 Follow up: Response: No adverse reaction; Pain is decreased 7 17:00 Drug: Potassium Effervescent Tablet 50 mEq Route: PO; jl7 18:25 Follow up: Response: No adverse reaction 7 17:00 Drug: Potassium Chloride 20 mEq Route: IV; Rate: calculated rate; Site: right forearm; jl7 18:30 Follow up: Response: No adverse reaction; IV Status: Completed infusion 7 17:00 Drug: NS 0.9% 250 ml Route: IV; Rate: bolus; Site: right forearm; jl7 17:30 Follow up: Response: No adverse reaction; IV Status: Completed infusion 7 19:20 Drug: Potassium Effervescent Tablet 50 mEq Route: PO; ea Intake: 19:36 PO: 8ml (Juice); Total: 8ml. ea Outcome: 19:14 Discharge ordered by . cp 19:30 Patient's length of stay in the Emergency Department was greater than 2 hours. awaiting ea on follow up labsPatient's length of stay extended due to 19:35 Discharged to home via wheelchair, with family. ea 19:35 Condition: improved 19:35 Discharge instructions given to patient, family, Instructed on discharge instructions, follow up and referral plans. Demonstrated understanding of instructions, follow-up care. 19:37 Patient left the ED. ea Signatures: Dispatcher [employer] EDMS Jay Lucero em1 Kvng Siegel PA PA cp Jordan, Nathan nj Leal, Jahala RN RN jl7 Dee Dee Brumfield RN RN Concepcion Montilla 3
--- NOTE | 2018-09-14 19:16 | EDPHYS ---
Physician Documentation [facility] Name: Dalton Díaz Age: 88 yrs Sex: Male : 1930 Arrival Date: 09/14/2018 Time: 15:11 Bed 6 Private MD: ED Physician Jeyson Hamilton HPI: 09/14 15:24 This 88 yrs old Male presents to ER via EMS with complaints of Fall Injury. cp 15:25 Details of fall: The patient fell from an upright position, while standing, and struck cp a tile surface. Onset: The symptoms/episode began/occurred just prior to arrival. Associated injuries: The patient sustained injury to the head, contusion, swelling, tenderness. Historical: - Allergies: 15:28 Amoxicillin; jl7 - Home Meds: 15:28 warfarin 13 mg daily Oral tab [Active]; bumetanide 1 mg Oral tab 1 tab 2 times per day jl7 [Active]; docusate sodium 100 mg Oral tab 1 tab 2 times per day [Active]; finasteride 5 mg Oral tab 1 tab once daily [Active]; gabapentin 600 mg Oral tab 3 times per day [Active]; Levemir FlexTouch 100 unit/mL (3 mL) subcutaneous inpn 33 unit nightly [Active]; metolazone 5 mg Oral tab 3x weekly [Active]; metformin 500 mg Oral tab 2 tabs 2 times per day [Active]; pravastatin 20 mg Oral tab 1 tab once daily [Active]; spironolactone 25 mg Oral tab once daily [Active]; tamsulosin 0.4 mg oral cp24 1 cap once daily [Active]; Victoza 2-Jacob 0.6 mg/0.1 mL (18 mg/3 mL) subcutaneous pnij [Active]; Vitamin D2 50,000 unit Oral cap 1 cap once wkly [Active]; - PMHx: 15:28 Diabetes - NIDDM; CHF; Hypertension; Atrial Fib; Hyperlipidemia; COPD; BPH; venous jl7 insufficiency; neuropathy; Chronic hyponatremia; constipation; Dementia; - Immunization history: Last tetanus immunization: unknown. - Social history:: Smoking status: unknown. - Ebola Screening: : No symptoms or risks identified at this time. ROS: 15:30 Constitutional: Negative for body aches, chills, fever, poor PO intake. cp 15:30 Eyes: Negative for injury, pain, redness, and discharge. cp 15:30 Cardiovascular: Negative for chest pain, edema, palpitations. cp 15:30 Respiratory: Negative for cough, shortness of breath, wheezing. cp 15:30 Abdomen/GI: Negative for abdominal pain, nausea, vomiting, and diarrhea, black/tarry stool, rectal bleeding. 15:30 : Negative for urinary symptoms. 15:30 Skin: Positive for laceration(s), of the scalp. 15:30 Neuro: Positive for headache, Negative for altered mental status, dizziness, loss of consciousness, syncope, weakness. 15:30 All other systems are negative. Exam: 15:35 ECG was reviewed by the Attending Physician. cp 15:35 Constitutional: The patient appears in no acute distress, alert, awake, cp non-diaphoretic, non-toxic, well developed, well nourished. 15:35 Head/face: Noted is a laceration(s), that is linear, 4 cm(s), of the scalp, swelling, cp that is moderate, tenderness, that is moderate. 15:35 Eyes: Periorbital structures: appear normal, Pupils: equal, round, and reactive to light and accomodation, Extraocular movements: intact throughout, Conjunctiva: normal, no exudate, no injection, Lids and lashes: appear normal, bilaterally. 15:35 ENT: External ear(s): are unremarkable, Ear canal(s): are normal, clear, TM's: bulging, is not appreciated, bilaterally, dullness, bilaterally, erythema, is not appreciated, bilaterally, Nose: is normal, Mouth: Lips: moist, Oral mucosa: moist, Posterior pharynx: is normal, airway is patent, no erythema, no exudate. 15:35 Neck: C-spine: vertebral tenderness, is not appreciated, crepitus, is not appreciated, ROM/movement: pain, is not appreciated, limited range of motion, is not appreciated, nuchal rigidity, is not appreciated. 15:35 Chest/axilla: Inspection: normal, Palpation: is normal, no crepitus, no tenderness. 15:35 Cardiovascular: Rate: bradycardic, Rhythm: irregularly irregular, Pulses: Pulses are 2+ in right radial artery and left radial artery. JVD: is not appreciated. 15:35 Respiratory: the patient does not display signs of respiratory distress, Respirations: normal, no use of accessory muscles, no retractions, no splinting, no tachypnea, labored breathing, is not present, Breath sounds: are clear throughout, no decreased breath sounds, no stridor, no wheezing. 15:35 Abdomen/GI: Inspection: abdomen appears normal, Bowel sounds: active, all quadrants, Palpation: abdomen is soft and non-tender, in all quadrants, rebound tenderness, is not appreciated, voluntary guarding, is not appreciated, involuntary guarding, is not appreciated. 18:44 ECG was reviewed by the Attending Physician. cp Vital Signs: 15:12 BP 169 / 67; Pulse 47; Resp 16 S; Temp 98(O); Pulse Ox 99% on R/A; Pain 5/10; jl7 15:30 BP 146 / 76; Pulse 45; Resp 16 S; Pulse Ox 99% on R/A; jl7 16:00 BP 150 / 79; Pulse 49; Resp 16 S; Pulse Ox 100% on R/A; jl7 17:00 BP 138 / 63; Pulse 51; Resp 12 S; Pulse Ox 97% on R/A; jl7 18:00 BP 127 / 67; Pulse 47; Resp 18 S; Pulse Ox 97% on R/A; jl7 19:09 BP 136 / 83; Pulse 51; Resp 16; Pulse Ox 97% ; ea Theo Coma Score: 15:12 Eye Response: spontaneous(4). Verbal Response: oriented(5). Motor Response: obeys jl7 commands(6). Total: 15. 19:09 Eye Response: spontaneous(4). Verbal Response: oriented(5). Motor Response: obeys ea commands(6). Total: 15. Trauma Score (Adult): 15:12 Eye Response: spontaneous(1); Verbal Response: oriented(1); Motor Response: obeys jl7 commands(2); Systolic BP: > 89 mm Hg(4); Respiratory Rate: 10 to 29 per min(4); [place] Score: 15; Trauma Score: 12 15:30 Eye Response: spontaneous(1); Verbal Response: oriented(1); Motor Response: obeys jl7 commands(2); Systolic BP: > 89 mm Hg(4); Respiratory Rate: 10 to 29 per min(4); [place] Score: 15; Trauma Score: 12 16:00 Eye Response: spontaneous(1); Verbal Response: oriented(1); Motor Response: obeys jl7 commands(2); Systolic BP: > 89 mm Hg(4); Respiratory Rate: 10 to 29 per min(4); [place] Score: 15; Trauma Score: 12 17:00 Eye Response: spontaneous(1); Verbal Response: oriented(1); Motor Response: obeys jl7 commands(2); Systolic BP: > 89 mm Hg(4); Respiratory Rate: 10 to 29 per min(4); Theo Score: 15; Trauma Score: 12 18:00 Eye Response: spontaneous(1); Verbal Response: oriented(1); Motor Response: obeys jl7 commands(2); Systolic BP: > 89 mm Hg(4); Respiratory Rate: 10 to 29 per min(4); [place] Score: 15; Trauma Score: 12 Laceration: 17:00 Wound Repair of 4cm ( 1.6in ) subcutaneous laceration to scalp. Linear shaped.. Distal cp neuro/vascular/tendon intact. Anesthesia: Wound infiltrated with 4 mls of 1% lidocaine w/ Epi. Wound prep: Moderate cleansing by nurse, Wound irrigation by nurse. Skin closed with ivette Ivette using staple gun. Dressed with Bacitracin, 4x4's, Kerlix. Patient tolerated well. MDM: 15:15 Patient medically screened. cp 19:13 Data reviewed: vital signs, nurses notes, lab test result(s), EKG, radiologic studies, cp CT scan, I have discussed the patient's presentation/case with the attending Emergency Department Physician; and as a result, I will discharge patient. 19:13 Test interpretation: by ED physician or midlevel provider: ECG. 09/14 15:19 Order name: Basic Metabolic Panel; Complete Time: 16:49 09/14 17:02 Interpretation: Normal except: NA 130; K 2.7; CL 90; GLUC 298; BUN 24; GFR 66. 09/14 15:19 Order name: CBC with Diff; Complete Time: 16:49 09/14 17:03 Interpretation: Normal except: PLT 137. 09/14 15:19 Order name: Creatinine for Radiology; Complete Time: 16:49 09/14 15:19 Order name: Type And Screen; Complete Time: 17:02 09/14 15:19 Order name: PT-INR; Complete Time: 16:49 cp 09/14 15:19 Order name: Ptt, Activated; Complete Time: 16:49 cp 09/14 15:19 Order name: CT Head C Spine; Complete Time: 15:56 cp 09/14 15:58 Interpretation: Reviewed report. cp 09/14 16:50 Order name: ABO/RH no charge; Complete Time: 17:02 EDMS 09/14 18:30 Order name: BMP; Complete Time: 19:12 cp 09/14 19:12 Interpretation: Normal except: NA 130; K 3.3; CL 93; GLUC 233; BUN 23; GFR 80. cp 09/14 15:19 Order name: Labs collected and sent; Complete Time: 15:56 cp 09/14 15:20 Order name: Wound Care: please clean head wound; Complete Time: 16:23 cp 09/14 15:24 Order name: EKG; Complete Time: 15:25 cp 09/14 15:24 Order name: EKG - Nurse/Tech; Complete Time: 16:02 cp 09/14 18:30 Order name: EKG; Complete Time: 18:30 cp 09/14 18:30 Order name: EKG - Nurse/Tech; Complete Time: 18:51 cp EC:35 Rate is 49 beats/min. Rhythm is irregularly irregular. QRS interval is prolonged at 160 cp msec. QT interval is normal. T waves are Inverted in lead aVR. Interpreted by me. Reviewed by me. 18:44 Rate is 39 beats/min. QRS interval is prolonged at 150 msec. QT interval is normal. cp Interpreted by me. Reviewed by me. Administered Medications: 16:02 Drug: Tylenol 1000 mg Route: PO; jl7 17:00 Follow up: Response: No adverse reaction; Pain is decreased jl7 16:21 Drug: Viscous Lidocaine Liquid (4 %) 5 ml Route: Mucous Membrane; jl7 16:45 Follow up: Response: No adverse reaction; Pain is decreased jl7 16:45 Drug: Marcaine-Epinephrine (0.25 %) 10 ml {Note: administered by PA. Fouzia} jl7 Route: Infiltration; 17:00 Follow up: Response: No adverse reaction; Pain is decreased jl7 17:00 Drug: Potassium Effervescent Tablet 50 mEq Route: PO; jl7 18:25 Follow up: Response: No adverse reaction 17:00 Drug: Potassium Chloride 20 mEq Route: IV; Rate: calculated rate; Site: right forearm; 18:30 Follow up: Response: No adverse reaction; IV Status: Completed infusion 17:00 Drug: NS 0.9% 250 ml Route: IV; Rate: bolus; Site: right forearm; 17:30 Follow up: Response: No adverse reaction; IV Status: Completed infusion 19:20 Drug: Potassium Effervescent Tablet 50 mEq Route: PO; ea Disposition: 19:45 Chart complete. cp Disposition: 09/14/18 19:14 Discharged to Home. Impression: Other slipping, tripping and stumbling and falls, Laceration without foreign body of scalp, Hypokalemia. - Condition is Stable. - Discharge Instructions: Potassium Content of Foods, Head Injury, Adult, Stitches, [place], or Adhesive Wound Closure, Hypokalemia. - Medication Reconciliation Form, Thank You Letter, Antibiotic Education, Prescription Opioid Use form. - Follow up: Private Physician; When: Tomorrow; Reason: Recheck today's complaints, as scheduled. - Problem is new. - Symptoms have improved. Addendum: 09/17/2018 07:04 Co-signature as Attending Physician, Jeyson Hamilton MD. r n Signatures: Dispatcher [employer] EDJeyson Perez MD MD rn Page, Corey, PA PA cp Leal, Jahala, RN RN jl7 Antunez, Elena, RN RN ea Corrections: (The following items were deleted from the chart) 09/14 19:37 19:14 09/14/2018 19:14 Discharged to Home. Impression: Other slipping, tripping and ea stumbling and falls; Laceration without foreign body of scalp; Hypokalemia. Condition is Stable. Forms are Medication Reconciliation Form, Thank You Letter, Antibiotic Education, Prescription Opioid Use. Follow up: Private Physician; When: Tomorrow; Reason: Recheck today's complaints, as scheduled. Problem is new. Symptoms have improved. cp
--- NOTE | 2018-09-14 19:46 | EKG ---
Test Date: 2018-09-14 Test Time: 15:30:36 Mental Health Advanced Practice Nurse: ARIANNA MEASUREMENT RESULTS: Intervals: Rate: 49 MN: QRSD: 160 QT: 488 QTc: 440 [place]: P: MN: QRS: -31 T: 71 INTERPRETIVE STATEMENTS: Atrial fibrillation with slow ventricular response Left axis deviation Left bundle branch block Abnormal ECG Compared to ECG 06/18/2018 10:57:48 Left bundle-branch block now present T-wave abnormality no longer present Electronically Signed On 09-14-18 19:45:25 DRILL PRESSER by August Pelayo
[2018-09-14 19:58] VITALS: TEMP 98
[2018-09-14 20:02] VITALS: O2SAT 97
[2018-09-14 20:05] VITALS: BP 136/83
--- NOTE | 2018-09-15 10:45 | EKG ---
Test Date: 2018-09-14 Test Time: 18:32:17 Retail Sales Advisor: MG MEASUREMENT RESULTS: Intervals: Rate: 39 ME: QRSD: 150 QT: 522 QTc: 420 [place]: P: ME: QRS: -18 T: -5 INTERPRETIVE STATEMENTS: Idioventricular rhythm with premature supraventricular complexes in a pattern of bigeminy Left bundle branch block Abnormal ECG Compared to ECG 09/14/2018 15:30:36 Atrial premature complex(es) now present Atrial fibrillation no longer present Left-axis deviation no longer present Electronically Signed On 09-15-18 10:42:57 FLOORMAN by August Pelayo
== END 2018-09-14 19:37 | disposition home or self-care (01) ==
LOC: ER 15:09
PROC: 0JQ00ZZ Repair Scalp Subcutaneous Tissue and Fascia, Open Approach (ICD-10-PCS; principal; 2018-09-14)
DX: S01.01XA Laceration without foreign body of scalp, initial encounter (principal); E87.6 Hypokalemia; W01.0XXA Fall on same level from slipping, tripping and stumbling without subsequent striking against object, initial encounter; Y93.01 Activity, walking, marching and hiking; Y92.9 Unspecified place or not applicable; Z79.4 Long term (current) use of insulin; Z79.01 Long term (current) use of anticoagulants; Z88.1 Allergy status to other antibiotic agents; I10 Essential (primary) hypertension; E11.9 Type 2 diabetes mellitus without complications; I48.91 Unspecified atrial fibrillation; E78.5 Hyperlipidemia, unspecified; F03.90 Unspecified dementia, unspecified severity, without behavioral disturbance, psychotic disturbance, mood disturbance, and anxiety; I50.9 Heart failure, unspecified
CPT/HCPCS: 12002; 36415; 70450; 72125; 80048 ×2; 82962; 85025; 85610; 85730; 86850; 86900; 86901; 93005 ×2; 96365; 99285; J7030; 96368

== ENCOUNTER 2019-01-06 16:40 | Inpatient (IN) | payer OTHER ==
--- NOTE | 2019-01-06 18:01 | P.HP ---
Certification for Inpatient Patient admitted to: Inpatient With expected LOS: >2 Midnights Patient will require the following post-hospital care: Residential Practitioner: I am a practitioner with admitting privileges, knowledge of patient current condition, hospital course, and medical plan of care. Services: Services provided to patient in accordance with Admission requirements found in Title 42 Section 412.3 of the Code of Federal Regulations Patient History Date of Service: 01/06/19 Primary Care Provider: Dr. Vega; Surgery-Dr. Melendez Reason for admission: Osteomyelitis of the left 3rd toe History of Present Illness: 88-year-old male with multiple medical problems was direct admitted for IV antibiotic therapy for osteomyelitis of the left 3rd toe. This all started early in December when he noted an ulcer to the left 3rd distal toe. Patient was given treatment. Inflammation and erythema persisted. His condition did not improve. Patient was seen by surgery. Debridement was done yesterday. X-rays indicate osteomyelitis of the distal toe. Surgery recommends IV antibiotic therapy-vancomycin for 6 weeks. Patient will require a PICC line. Patient was admitted to initiate treatment and arrange for skilled placement. Patient with mild pain to the area. Patient with underlying history of atrial fibrillation on chronic anti coagulation therapy, hypertension, diabetes, CHF, COPD, dementia. When I saw the patient he appeared comfortable. Swelling and erythema noted to the distal 3rd toe. Varicosities noted to the feet. Some swelling noted to the foot as well. Allergies amoxicillin Allergy (Verified 01/25/17 10:28) Rash Home medications list reviewed: Yes Home Medications: Bumetanide 1 mg PO BID 06/18/18 Carvedilol 3.125 mg PO BID 06/18/18 Docusate Sodium 100 mg PO DAILY 06/18/18 Ergocalciferol (Vitamin D2) [Vitamin D2] 50,000 unit PO EVERY 7TH DAY 06/18/18 Finasteride [Proscar*] 5 mg PO DAILY 06/18/18 Gabapentin 600 mg PO TID 06/18/18 Insulin Detemir [Levemir Flextouch] 30 units SQ DAILY 06/18/18 Insulin Detemir [Levemir Flextouch] 33 units SQ BEDTIME 06/18/18 Lactulose 1 tbsp PO Q8HP PRN 06/18/18 Liraglutide [Victoza 2-Jacob] 0.6 mcg SQ DAILY 06/18/18 Metformin HCl 1,000 mg PO BID 06/18/18 Metolazone [Zaroxolyn] 5 mg PO M,W,F 06/18/18 Pravastatin Sodium 20 mg PO BEDTIME 06/18/18 Spironolactone [Aldactone*] 25 mg PO DAILY 06/18/18 Tamsulosin HCl 0.4 mg PO BEDTIME 06/18/18 Warfarin Sodium 13 mg PO DAILY 6PM 06/18/18 - Past Medical/Surgical History Diabetic: Yes -: Diabetes mellitus type 2 -: HTN -: Atrial fibrillation, chronic anti coagulation-Coumadin -: CHF -: PVD -: Hyperlipidemia -: Cataracts -: Dementia -: COPD -: History of falls -: History of hypoglycemia -: Diabetic Neuropathy -: (R) upper lobectomy -: Appendectomy -: Tonsillectomy Psychosocial/ Personal History: The patient is a . He has 3 children. He currently lives at [facility] - Family History Father -: Other (see notes) Notes: parkinsons Brother -: Heart disease, Diabetes - Social History Smoking Status: Former smoker Alcohol use: No CD- Drugs: No Caffeine use: No Place of Residence: Skilled Nursing (Assisted living facility) Review of Systems General: As per HPI Eyes: Unremarkable ENT: Unremarkable Respiratory: Unremarkable Cardiovascular: Unremarkable Gastrointestinal: Unremarkable Genitourinary: Unremarkable Musculoskeletal: Pedal edema, As per HPI Integumentary: As per HPI Neurological: Unremarkable Lymphatics: Unremarkable Physical Examination - Physical Exam General: Alert, In no apparent distress, Oriented x3, Cooperative HEENT: Atraumatic, Normocephalic, Mucous membr. moist/pink Neck: Supple, No Thyromegaly Respiratory: Clear to auscultation bilaterally, Normal air movement Cardiovascular: Normal pulses, Regular rate/rhythm Gastrointestinal: Normal bowel sounds, Soft and benign, Non-distended, No tenderness, No masses, No rebound, No guarding Musculoskeletal: No contractures Integumentary: Other (Ulcer to the left distal 3rd toe. Erythema and swelling noted. Varicosities noted to the feet. Some swelling noted to the feet as well.) Assessment and Plan - Plan Impression: Osteomyelitis of the left distal 3rd toe likely with underlying peripheral vascular disease Atrial fibrillation on chronic anti coagulation therapy Hypertension Chronic diastolic CHF Diabetes mellitus type 2, insulin-dependent BPH Diabetic neuropathy COPD Former tobacco use Plan: Osteomyelitis of the left distal 3rd toe likely with underlying peripheral vascular disease: Will start IV vancomycin. Will have pharmacy monitor and adjust. Will arrange for PICC line. Case discussed at length with surgery. Will obtain arterial Doppler to evaluate for peripheral vascular disease. Will consult director social welfare to arrange for skilled placement and long-term IV antibiotic therapy for 6 weeks. Will continue with wound care as per surgery. If his condition does not improve patient may require amputation in the near future. Patient and son understand this. Will elevate leg when sitting or lying. I will turn the service over to Dr. Anton tomorrow. I will go over the plan of care with her. Anticipate discharge to skilled facility as early as Wednesday if arrangements for antibiotics can be arranged. Atrial fibrillation on chronic anti coagulation therapy: Will continue with Coumadin 13 mg daily. Will hold Coumadin if INR greater than 3.0. Will need to adjust antibiotic therapy since he continues on Coumadin. Hypertension: Continue with medication. Will monitor and adjust appropriately. Chronic diastolic CHF: Continue with diuretic therapy. Continue 1500 cc per day fluid restriction. Will monitor weight daily. Diabetes mellitus type 2, insulin-dependent: Will provide basal insulin and sliding scale. Will monitor and adjust appropriately. BPH: Will continue with his medications. Diabetic neuropathy: Continue with his medication gabapentin. COPD: Will maintain sats above 90%. Will provide medication. Former tobacco use: Patient no longer smokes. Discharge Plan: Other (Skilled facility) Plan to discharge in: 72 Hours - Advance Directives Does patient have a Living Will: No Does patient have a Durable POA for Healthcare: Yes - Code Status/Comfort Care Code Status Assessed: No (Will need to address advanced directives.) Time Spent Managing Pts Care (In Minutes): 55
[2019-01-06] MEDS ORDERED: ACETAMINOPHEN 500 MG TAB PO PRN (18:33)
[2019-01-06] MEDS ORDERED: HYDRALAZINE HCL 20 MG/ML VIAL IV PRN (18:33)
[2019-01-06] MEDS ORDERED: GLUCAGON 1 MG/VIAL IM PRN (18:33)
[2019-01-06] MEDS ORDERED: D50W 25 GM/50 ML SYRINGE IV PRN (18:33)
[2019-01-06] MEDS ORDERED: IPRATROPIUM BROM 0.5MG/2.5ML NEB PRN (18:33)
[2019-01-06] MEDS ORDERED: ONDANSETRON 4 MG/2 ML VIAL IV PRN (18:33)
[2019-01-06 18:44] VITALS: BMI 29.2
[2019-01-06 19:15] LABS: Absolute Lymphocytes (CBC) 2.2 K/uL (0.7-4.9); Absolute Monocytes 1.1 K/uL (0.1-1.3); Absolute Neutrophil 5.9 K/uL (1.8-8.0); Basophils % 1.2 % (0-1.3); Eosinophils % 2.9 % (0-4.4); Hematocrit 40.4 % (39.6-49.0); Lymphocytes % 22.8 % (15.3-44.8); MPV 7.1 fL (7.6-11.3); Monocytes % 11.1 % (3.3-12.3)
[2019-01-06 19:26] LABS: Protime INR 2.44
[2019-01-06 19:33] LABS: Magnesium 1.9 mg/dL (1.8-2.4); Potassium 3.6 mmol/L (3.5-5.1)
--- NOTE | 2019-01-06 19:58 | RAD REPORT ---
EXAM DESCRIPTION: US - Lower Extremity Arterial Bilat - 01/06/2019 7:47 pm CLINICAL HISTORY: Osteomyelitis, peripheral vascular disease COMPARISON: None. TECHNIQUE: Bilateral brachial artery pressure measurements were obtained. Waveforms were obtained al scottie the length of each lower extremity. Ankle pressure measurements were obtained with index values c alculated. Visual inspection of the lower extremity arterial tree performed. FINDINGS: Brachial artery pressure measurements are relatively symmetric. CHINO value on the right is normal range at 0.96 in value. Toe index is also normal range at 0.66 in value. Left CHINO is far below normal at 0.37 value. Left toe index could not be obtained. A biphasic to monophasic waveform pattern was seen along the length of the right lower extremity. Lef t lower extremity showed monophasic waveform along the entire length. Arterial calcifications are misty ntifiable. No one focal flow restricting lesions seen. No occlusion. Significant elevation seen in th e right superficial femoral artery without a specific associated lesion. IMPRESSION: Right lower extremity shows normal CHINO and normal toe index values. However, there is a biphasic or monophasic waveform pattern present. Left lower extremity abnormal CHINO value with monophasic waveform pattern. Patient likely has signific ant left iliac disease. No occlusion and no one focal flow restricting lesion was identifiable.
[2019-01-06] MEDS: INSULIN GLARGINE 100 UNITS/ML SQ SCH (20:48)
[2019-01-06] MEDS: ATORVASTATIN 10 MG TAB PO SCH (20:49)
[2019-01-06] MEDS: SPIRONOLACTONE 25 MG TABLET PO SCH (20:49)
[2019-01-06] MEDS: TAMSULOSIN 0.4 MG SR CAP PO SCH (20:50)
[2019-01-06] MEDS: GABAPENTIN 300 MG CAP PO SCH (20:50)
[2019-01-06] MEDS: DOCUSATE NA 100 MG CAP PO SCH (20:50)
[2019-01-06] MEDS: FINASTERIDE 5 MG TAB PO SCH (20:50)
[2019-01-06] MEDS: INSULIN -REGULAR HUMAN 50 UNIT/0.5 ML ML SQ SCH (20:51)
[2019-01-06] MEDS: CARVEDILOL 3.125 MG TAB PO SCH (20:53)
[2019-01-06] MEDS ORDERED: VANCOMYCIN/NS 1 gm 1 GM/250 ML BAG IVPB SCH (21:00)
[2019-01-06] MEDS: BUMETANIDE 1 MG TABLET PO SCH (22:19)
[2019-01-06] MEDS: ARFORMOTEROL TARTRATE 15 MCG/2 ML VIAL.NEB NEB SCH (22:30)
[2019-01-07 02:08] LABS: Urine Appearance CLEAR; Urine Bilirubin NEGATIVE (NEG); Urine Blood NEGATIVE (NEG); Urine Color YELLOW; Urine Glucose NEGATIVE (NEG); Urine Protein NEGATIVE (NEG); Urine Urobilinogen 0.2 mg/dL (0.2-1.0); Urine pH 6.5 (5.0-7.0)
[2019-01-07 02:19] LABS: Urine Microscopic Reflex NO UMIC
[2019-01-07] MEDS: CARVEDILOL 3.125 MG TAB PO SCH ×2 (05:05→17:18)
[2019-01-07 05:58] LABS: Protime INR 2.73
[2019-01-07 05:59] LABS: Absolute Lymphocytes (CBC) 1.7 K/uL (0.7-4.9); Absolute Monocytes 0.8 K/uL (0.1-1.3); Absolute Neutrophil 3.4 K/uL (1.8-8.0); Basophils % 1.2 % (0-1.3); Eosinophils % 3.9 % (0-4.4); Hematocrit 36.4 % (39.6-49.0); Lymphocytes % 27.7 % (15.3-44.8); MPV 7.5 fL (7.6-11.3); Monocytes % 12.2 % (3.3-12.3)
[2019-01-07 06:08] LABS: Magnesium 1.7 mg/dL (1.8-2.4)
[2019-01-07 06:12] LABS: Potassium 2.9 mmol/L (3.5-5.1)
[2019-01-07] MEDS: INSULIN -REGULAR HUMAN 50 UNIT/0.5 ML ML SQ SCH ×4 (07:30→21:03)
[2019-01-07] MEDS: ARFORMOTEROL TARTRATE 15 MCG/2 ML VIAL.NEB NEB SCH ×2 (08:10→20:00)
[2019-01-07] MEDS: BUMETANIDE 1 MG TABLET PO SCH ×2 (08:32→21:02)
[2019-01-07] MEDS: GABAPENTIN 300 MG CAP PO SCH ×3 (08:32→21:04)
[2019-01-07] MEDS: DOCUSATE NA 100 MG CAP PO SCH ×2 (08:39→21:04)
[2019-01-07] MEDS: SPIRONOLACTONE 25 MG TABLET PO SCH ×2 (08:43→21:05)
[2019-01-07] MEDS ORDERED: VANCOMYCIN 1 GM in NA CHLORIDE 0.9% 500 ML IVPB SCH (09:00)
[2019-01-07] MEDS ORDERED: MAGNESIUM SULFATE 1 gm IVPB 1 GM/100 ML BAG IV ONE (09:00)
[2019-01-07] MEDS: KCL 20 MEQ/100 mL IVPB 20 MEQ/100 ML BAG IV SCH ×3 (09:48→15:15)
[2019-01-07] MEDS ORDERED: NA CHLORIDE 0.9% 250 ML ONE (09:55)
[2019-01-07] MEDS: VANCOMYCIN 2 GM in NA CHLORIDE 0.9% 500 ML IVPB SCH (10:19)
--- NOTE | 2019-01-07 14:02 | P.PN ---
Subjective Date of Service: 01/07/19 Primary Care Provider: Dr. Vega; Surgery-Dr. Melendez Chief Complaint: Osteomyelitis of the left 3rd toe pt seen and examined no overnight events on IV vancomycin for OM of left middle toe cardiology consulted for angiogram of left iliac disease Review of Systems 10-point ROS is otherwise unremarkable Physical Examination - Vital Signs Temperature: 97.8 F Blood Pressure: 128/55 Pulse: 53 Respirations: 16 Pulse Ox (%): 97 - Physical Exam General: Alert, In no apparent distress, Oriented x3 HEENT: Atraumatic, Normocephalic, PERRLA Neck: JVD not distended Respiratory: Clear to auscultation bilaterally, Normal air movement Cardiovascular: No edema, Regular rate/rhythm, Normal S1 S2 Gastrointestinal: Normal bowel sounds, Soft and benign, Non-distended, No tenderness Musculoskeletal: No clubbing, No swelling, No erythema Integumentary: No rashes Neurological: Normal speech Other Physical/Emotional Findings: left middle toe ulcer with erythema - Studies Laboratory Data (last 24 hrs) 01/07/19 05:00: Sodium 137, Potassium 2.9 L*, BUN 29 H, Creatinine 1.11, Glucose 88, Magnesium 1.7 L 01/07/19 05:00: PT 31.0 H, INR 2.73 01/07/19 05:00: WBC 6.2 D, Hgb 13.1 L, Hct 36.4 L, Plt Count 174 D 01/06/19 19:08: PT 27.8 H, INR 2.44 01/06/19 19:08: Sodium 136, Potassium 3.6, BUN 30 H, Creatinine 1.13, Glucose 112 H, Magnesium 1.9 01/06/19 19:08: WBC 9.5, Hgb 14.1, Hct 40.4, Plt Count 225 Microbiology Data (last 24 hrs): 01/07/19 05:30 Wound - Other Gram Stain - Final Assessment And Plan - Plan Osteomyelitis of the left middle toe PVD Atrial fibrillation on Coumadin Hypertension-controlled Chronic diastolic CHF-not in exacerbation Diabetes mellitus type 2, insulin-dependent BPH Diabetic neuropathy COPD-not in exacerbation Plan: IV abx vancomycin to finish 6 weeks pt had picc line placed monitor esr pending snf placment with IV abx arrangement cardiology consult for angiogram continue other home meds for other comorbidities dvt ppx Discharge Plan: [facility] Plan to discharge in: 72 Hours
[2019-01-07] MEDS: COLLAGENASE 30 GM OINTMENT TOP SCH (15:21)
--- NOTE | 2019-01-07 15:40 | RAD REPORT ---
EXAM DESCRIPTION: - CT ANGIO ABD/PELVIS W CONTRAST - 01/07/2019 3:11 pm CLINICAL HISTORY: Peripheral vascular disease/osteomyelitis left foot Abdominal pain COMPARISON: None TECHNIQUE: Computed tomography angiography of the abdomen and pelvis were obtained. 100 cc Isovue 37 0 was administered intravenously. Coronal and sagittal reconstruction were performed. MIP 3D reconstruction was performed All CT scans are performed using dose optimization technique as appropriate and may include automated exposure control or mA/KV adjustment according to patient size. FINDINGS: An aortic dissection is not seen. An aortic aneurysm is not displayed. Moderate calcified plaque is present within the abdominal aorta, common iliac, internal and external iliac arteries and common femoral arteries. A high-grade stenosis is not present. Mild to moderate calcified plaque origin of the celiac artery. Moderate calcified plaque origin super ior mesenteric artery. DERICK is patent Mild calcified plaque renal arteries Marked chronic compression L5 vertebral body. Spondylosis lumbar spine resulting in spinal stenosis IMPRESSION: Moderate calcified plaque is present within the abdominal aorta, common iliac, internal and external iliac and common femoral arteries without visualization of a high-grade stenosis. Moderate stenosis superior mesenteric artery
--- NOTE | 2019-01-07 16:14 | CON ---
Date of Consultation: 01/07/2019 Chief Complaint: Left foot third toe with gangrene. Reason For Cardiology Consult: Doppler still showing severe left iliac artery stenosis. History Of Present Illness: Mr. Díaz has not had any peripheral vascular interventions before. Fo r quite some time his legs have hurt him a lot, and he has not sought medical attention at least that he remembers, but it is fairly evident he has pretty bad peripheral vascular disease. Studies: Doppler study showed ankle-brachial indices around 0.4 on the left and most of the problem seems to be in the iliac artery rather than the superficial femoral or common femoral. The waveforms are monophasic, but no focal stenosis. He is now getting antibiotics. It is presumed he has osteom yelitis of the toe. He has underlying diabetes, hypertension, atrial fibrillation, chronic congestiv e heart failure, dyslipidemia, cataracts, dementia, history of falling, history of diabetic neuropath y. He has had a right upper lobectomy, appendectomy, and tonsillectomy. He does not use tobacco now . Physical Examination: General: He is awake, alert, slightly confused, not in distress. There seems to be a left femoral b ruit. The left foot looks dusky and blue. Distal pulses are not palpable. Pulses on the right are diminished but palpable and much better than on the left. Heart: Exam does not reveal any significant abnormalities. Impression: The patient probably has a left iliac stenosis that if treated would probably make heali ng of the wounds in his left foot much better. I am not sure if an amputation is planned, but it loo ks like there is gangrene and osteomyelitis in that toe, so most likely at least a total amputation i s planned and I think healing would be much more likely to occur if we can get better blood flow. I have recommended a CT angio of the aorta and iliac, femoral arteries, and we can plan a simple approach to put a stent in the left iliac artery based on the CT results. RICK/CALEB Voice ID: [id number] Report ID: [id number]
--- NOTE | 2019-01-07 16:35 | CON ---
Date of Consultation: 01/06/2019 Reason: Osteo of left third toe. History Of Present Illness: The patient is an 88-year-old gentleman with multiple medical problems w yecenia [facility] He had an open wound with left third toe. I suspe cted osteomyelitis. He was started on oral antibiotics. X-ray was ordered and the x-ray showed the patient had osteomyelitis. Therefore he needs IV antibiotics. His wound was debrided a little bit b ut could not be aggressively debrided as he is on Coumadin therapy. So, the patient was supposed to have an outpatient PICC line, however, he lives at an assisted living facility group home. Therefo re he was admitted for discharge planning, wound care, and further workup. He had a venous Doppler i n lower extremity, does not show any DVT but he does have evidence of I believe varicose veins. He i s awake, but he is somewhat confused and he does not really complain about the foot. The wound was n oted by his son approximately 10 days ago. Review of Systems: No fever or chills. No purulent discharge. Otherwise unremarkable. Past Medical History: Significant for diabetes type 2, hypertension, AFib on chronic anticoagulation Coumadin, CHF, peripheral vascular disease, hyperlipidemia, dementia, COPD, weakness, debility, hist ory of falls, hyperglycemia, and diabetic neuropathy. Past Surgical History: Right upper lobectomy, appendectomy, tonsillectomy. Allergies: AMOXICILLIN, RASH. Social History: The patient currently does not smoke or drink. He used to smoke in the past. Family History: Significant for heart disease and diabetes and father with Parkinson's. Physical Examination: Vital Signs: Stable. He is afebrile. General: He is awake, alert, confused. Head and Neck: No masses. Chest: Clear. Heart: S1 and S2. Abdomen: Soft. Extremities: Diminished dorsalis pedis and posterior tibial pulses. There is evidence of varicositi es in both lower extremities with venous stasis. There is also an open wound on the distal part of t he left third toe. Wound itself has an eschar as well as some necrotic tissue. Again, some of it wa s debr[facility] the [facility] and the patient was started on collagenase dressing. Once thi s softens up, it could probably be debrided in the clinic. Laboratory Data: He had a sed rate as 36, white count is 6.2, and INR is 2.73, potassium is low, mag nesium is low being replaced. He had a Doppler study done, which right lower extremity shows normal CHINO, normal toe index values, however, there are biphasic and monophasic wave pattern present. Left lower extremity, abnormal CHINO value of 0.66 with monophasic waveform pattern. The patient likely has significant left iliac disease. No occlusion and one focal flow-restrictive lesion was identifiable . Assessment: An 88-year-old gentleman with left third toe osteomyelitis and peripheral vascular disea se. Recommendations: We will start patient on vancomycin, collagenase dressing for the wound as I could debride the wound further or do a partial toe amputation as an outpatient. He needs discharge planni for 6 weeks IV antibiotics. We will get Cardiology to evaluate the patient for angiogram to see i f there is any intervention necessary with the iliac disease. Further care is discussed in detail with Dr. Anton. /MODL Voice ID: [id number] Report ID: [id number]
[2019-01-07] MEDS ORDERED: WARFARIN SODIUM 5 MG TAB PO SCH (17:00)
[2019-01-07] MEDS: WARFARIN SODIUM 5 MG TAB PO SCH ×2 (17:17)
[2019-01-07] MEDS ORDERED: POTASSIUM CL SA 10 MEQ TAB PO ONE (20:52)
[2019-01-07] MEDS: INSULIN GLARGINE 100 UNITS/ML SQ SCH (21:02)
[2019-01-07] MEDS: FINASTERIDE 5 MG TAB PO SCH (21:04)
[2019-01-07] MEDS: TAMSULOSIN 0.4 MG SR CAP PO SCH (21:04)
[2019-01-07] MEDS: ATORVASTATIN 10 MG TAB PO SCH (21:04)
[2019-01-08] MEDS: VANCOMYCIN 2 GM in NA CHLORIDE 0.9% 500 ML IVPB SCH ×2 (02:20→21:23)
[2019-01-08 04:50] LABS: Protime INR 3.44
[2019-01-08 04:58] LABS: Magnesium 1.9 mg/dL (1.8-2.4); Potassium 3.3 mmol/L (3.5-5.1)
[2019-01-08 04:59] LABS: Absolute Lymphocytes (CBC) 1.5 K/uL (0.7-4.9); Absolute Monocytes 0.8 K/uL (0.1-1.3); Absolute Neutrophil 4.1 K/uL (1.8-8.0); Basophils % 1.1 % (0-1.3); Eosinophils % 3.8 % (0-4.4); Hematocrit 38.2 % (39.6-49.0); Lymphocytes % 21.7 % (15.3-44.8); MPV 7.5 fL (7.6-11.3); Monocytes % 11.9 % (3.3-12.3); RBC Red Blood Cell Count 4.51 M/uL (4.33-5.43)
[2019-01-08] MEDS: CARVEDILOL 3.125 MG TAB PO SCH ×2 (05:20→17:59)
[2019-01-08] MEDS ORDERED: POTASSIUM 25 MEQ EFFERV TAB PO ONE (06:34)
[2019-01-08] MEDS ORDERED: POTASSIUM CL SA 10 MEQ TAB PO ONE ×3 (06:35→17:35)
[2019-01-08] MEDS: ARFORMOTEROL TARTRATE 15 MCG/2 ML VIAL.NEB NEB SCH ×2 (08:38→20:15)
[2019-01-08] MEDS: GABAPENTIN 300 MG CAP PO SCH ×3 (09:59→21:24)
[2019-01-08] MEDS: BUMETANIDE 1 MG TABLET PO SCH ×2 (09:59→21:25)
[2019-01-08] MEDS: DOCUSATE NA 100 MG CAP PO SCH ×2 (09:59→21:24)
[2019-01-08] MEDS: INSULIN -REGULAR HUMAN 50 UNIT/0.5 ML ML SQ SCH ×4 (10:00→21:00)
[2019-01-08] MEDS: SPIRONOLACTONE 25 MG TABLET PO SCH ×2 (10:00→21:23)
[2019-01-08] MEDS: LACTULOSE 20 GM/30 ML UCUP PO PRN (10:00)
[2019-01-08] MEDS: COLLAGENASE 30 GM OINTMENT TOP SCH (10:01)
--- NOTE | 2019-01-08 12:45 | P.PN ---
Subjective Date of Service: 01/08/19 Primary Care Provider: Dr. Vega; Surgery-Dr. Melendez Chief Complaint: Osteomyelitis of the left 3rd toe pt seen and examined no overnight events on IV vancomycin for OM of left middle toe Review of Systems 10-point ROS is otherwise unremarkable Physical Examination - Vital Signs Temperature: 97.7 F Blood Pressure: 144/63 Pulse: 58 Respirations: 16 Pulse Ox (%): 99 - Physical Exam General: Alert, Oriented x3 HEENT: Atraumatic, Normocephalic, PERRLA Neck: Supple, JVD not distended Respiratory: Clear to auscultation bilaterally, Normal air movement Cardiovascular: No edema, Regular rate/rhythm, Normal S1 S2 Gastrointestinal: Normal bowel sounds, Soft and benign, Non-distended Musculoskeletal: No swelling, No erythema, No tenderness Integumentary: No rashes Neurological: Normal speech Other Physical/Emotional Findings: left middle toe ulcer with erythema - Studies Laboratory Data (last 24 hrs) 01/08/19 04:14: Sodium 138, Potassium 3.3 L, BUN 27 H, Creatinine 0.99, Glucose 171 H, Magnesium 1.9 01/08/19 04:14: PT 38.7 H, INR 3.44 01/08/19 04:14: WBC 6.7, Hgb 13.0 L, Hct 38.2 L, Plt Count 173 01/07/19 19:59: Potassium 3.6 Microbiology Data (last 24 hrs): 01/07/19 05:30 Wound - Other Gram Stain - Final Assessment And Plan - Plan Osteomyelitis of the left middle toe PVD Atrial fibrillation on Coumadin Hypertension-controlled Chronic diastolic CHF-not in exacerbation Diabetes mellitus type 2, insulin-dependent BPH Diabetic neuropathy COPD-not in exacerbation Plan: IV abx vancomycin to finish 6 weeks pt had picc line placed monitor esr pending snf placment with IV abx arrangement cardiology consult for angiogram continue other home meds for other comorbidities dvt ppx
--- NOTE | 2019-01-08 13:42 | CON ---
Date of Consultation: 01/08/2019 History Of Present Illness: Mr. Díaz is an 88-year-old male with past medical history significant for history of severe diastolic heart failure, peripheral vascular disease, type 2 diabetes, and mild dementia, who lives at an assisted living facility. He was evaluated few weeks ago for severe swell ing in his right lower extremity and he had a Doppler done, which was negative for DVT, however, he a lso was noted to have ulcer on his second toe. He was referred to Dr. Melendez for further evaluation a nd he underwent debridement of the ulcer in his second toe and was noted to have osteomyelitis and sherman s been recommended PICC line placement and initiation of IV antibiotics. In the meanwhile, the patien charlotte has been to the [place] and had blood work and urine analysis done over there and was told that he had u rinary tract infection and was prescribed antibiotics as well. The patient has been having altered m ental status and has been belligerent with the staff over at the assisted living facility and hence evelyn sampson has been admitted to the hospital for further evaluation and for optimization of antibiotics and to set him up at the snf for PICC line placement and antibiotics. The patient states that he is doing much better at this time and denies any other complaints. Past Medical History: Significant for history of type 2 diabetes, which has been uncontrolled most r ecently secondary to noncompliance with diet, history of AFib on anticoagulation with Coumadin, histo ry of chronic venous insufficiency with lower extremity edema, history of diastolic heart failure. Evelyn sampson is also noted to have severe left iliac artery stenosis and he is planned for a CT angio of the aor ta and iliac and femoral arteries. Social History: He lives at assisted living facility. Remote history of smoking. No history of alc ohol use reported. Family History: Noncontributory. Review of Systems: Positive for pain in his right toe. Otherwise, denies any other complaints. Physical Examination: Vital Signs: Showing temperature of 98, pulse rate of 52, respiratory rate of 15, and blood pressure of 141/63. General: He appears, in no acute distress. HEENT: Atraumatic head. Lungs: Clear to auscultation. Heart: Auscultation of the heart revealed irregular rate and rhythm. Abdomen: Soft, obese, and nontender. Extremities: Right lower extremity was noted to be in dressing. Laboratory Data: At this time are showing stable hemoglobin, hematocrit, and platelet count. No justice kocytosis was noted. BMP results showing sodium of 138, potassium of 3.3, chloride of 98, BUN of 27, creatinine of 0.9. Current Medications: Include Tylenol p.r.n. for pain, atorvastatin, Bumex 1 mg p.o. b.i.d., carvedil ol 3.125 mg b.i.d., docusate, finasteride, gabapentin 600 mg 3 times a day, hydralazine p.r.n., Lantu s 10 units at bedtime, metolazone 5 mg on Wednesday and Wednesday, potassium replacement x1 time dose yeste rd and again today, spironolactone 25 mg b.i.d., tramadol p.r.n. for pain and Coumadin per protocol . He is receiving vancomycin 2 g every 18 hours for his osteomyelitis. Impression: 1.Chronic renal insufficiency secondary to type 2 diabetes, currently with stable renal function. 2.Hypokalemia secondary to diuretic use, being repleted. Continue with spironolactone. 3.Osteomyelitis of the toes with severe iliac artery stenosis. The patient is being planned for a C TA and possible revascularization and stent placement. He is also receiving antibiotics for osteomye litis of the toe and PICC line has been placed. 4.Atrial fibrillation, on Coumadin. Continue to monitor Coumadin levels and adjust as needed. Plan: The patient is doing okay at this time. Agree with antibiotics. Continue potassium replaceme nt. Volume status is doing okay. Continue with current diuretic therapy. Thank you very much for this consultation. Please do not hesitate to call us with any questions or c oncerns. VV/MODL Voice ID: [id number] Report ID: [id number]
--- NOTE | 2019-01-08 14:27 | PN ---
Date of Progress Note: 01/08/2019 Subjective: The patient is awake and alert. No new complaint. Objective: Vital Signs: Stable, afebrile. Physical exam; no change in the wound. Dr. Hill saw the patient, thinks that he may need intervention on the left iliac. We will await hi s recommendation further. Assessment: Osteomyelitis with peripheral vascular disease, left lower extremity. Recommendation: Await cardiology recommendations. IV antibiotics and discharge planning. [facility]. We will determine the timing of the toe amputation versus further debri foster as an outpatient. /MODL Voice ID: [id number] Report ID: [id number]
[2019-01-08] MEDS: WARFARIN SODIUM 5 MG TAB PO SCH ×2 (16:26)
--- NOTE | 2019-01-08 16:59 | PN ---
Mr. Díaz's CT angio of the aorta and iliac shows plaque, but no stenosis and I do not think we shou ld proceed with any angiography or attempt at stenting. He probably has microvascular disease withou t any focal stenosis and trying to do an angiogram would be more likely to cause complications than h elp any. I will sign off the case and I think he could undergo a toe amputation whenever Dr. Nora hopkins it is appropriate to do so. RICK/CALEB Voice ID: [id number] Report ID: [id number]
[2019-01-08] MEDS: INSULIN GLARGINE 100 UNITS/ML SQ SCH (21:23)
[2019-01-08] MEDS: FINASTERIDE 5 MG TAB PO SCH (21:23)
[2019-01-08] MEDS: ATORVASTATIN 10 MG TAB PO SCH (21:24)
[2019-01-08] MEDS: TAMSULOSIN 0.4 MG SR CAP PO SCH (21:24)
[2019-01-08] MEDS: TRAMADOL HCL 50 MG TAB PO PRN (23:16)
[2019-01-09 04:59] LABS: Absolute Lymphocytes (CBC) 1.5 K/uL (0.7-4.9); Absolute Monocytes 0.7 K/uL (0.1-1.3); Absolute Neutrophil 4.7 K/uL (1.8-8.0); Basophils % 1.2 % (0-1.3); Eosinophils % 4.4 % (0-4.4); Hematocrit 38.9 % (39.6-49.0); Lymphocytes % 20.7 % (15.3-44.8); MPV 7.5 fL (7.6-11.3); RBC Red Blood Cell Count 4.54 M/uL (4.33-5.43)
[2019-01-09] MEDS: CARVEDILOL 3.125 MG TAB PO SCH ×2 (05:16→17:28)
[2019-01-09 05:20] LABS: Protime INR 3.01
[2019-01-09 05:28] LABS: Magnesium 1.7 mg/dL (1.8-2.4); Potassium 3.2 mmol/L (3.5-5.1)
[2019-01-09] MEDS ORDERED: POTASSIUM CL SA 10 MEQ TAB PO ONE ×2 (05:36→21:00)
[2019-01-09] MEDS ORDERED: MAGNESIUM SULFATE 1 gm IVPB 1 GM/100 ML BAG IV ONE (05:37)
[2019-01-09] MEDS ORDERED: METOLAZONE 5 MG TABLET PO SCH (08:00)
[2019-01-09] MEDS: INSULIN -REGULAR HUMAN 50 UNIT/0.5 ML ML SQ SCH ×4 (08:19→21:10)
[2019-01-09] MEDS: LACTULOSE 20 GM/30 ML UCUP PO PRN (08:21)
[2019-01-09] MEDS: SPIRONOLACTONE 25 MG TABLET PO SCH ×2 (08:21→20:58)
[2019-01-09] MEDS: DOCUSATE NA 100 MG CAP PO SCH ×2 (08:21→20:58)
[2019-01-09] MEDS ORDERED: GABAPENTIN 100 MG CAP ONE ×2 (08:21→08:40)
[2019-01-09] MEDS: BUMETANIDE 1 MG TABLET PO SCH ×2 (08:21→20:58)
[2019-01-09] MEDS: COLLAGENASE 30 GM OINTMENT TOP SCH (08:23)
[2019-01-09] MEDS: ARFORMOTEROL TARTRATE 15 MCG/2 ML VIAL.NEB NEB SCH ×2 (08:36→20:15)
[2019-01-09] MEDS: GABAPENTIN 300 MG CAP PO SCH ×3 (08:36→20:58)
--- NOTE | 2019-01-09 10:24 | P.PN ---
Subjective Date of Service: 01/09/19 Primary Care Provider: Dr. Vega; Surgery-Dr. Melendez Chief Complaint: Osteomyelitis of the left 3rd toe Pt seen and examined at bedside. Chart Reviewed. Case DW with CM and Pt at bedside. Awaiting Placement for IV abx Review of Systems 10-point ROS is otherwise unremarkable Physical Examination - Vital Signs Temperature: 97.8 F Blood Pressure: 138/63 Pulse: 56 Respirations: 18 Pulse Ox (%): 99 - Physical Exam General: Alert, In no apparent distress Respiratory: Clear to auscultation bilaterally, Normal air movement Cardiovascular: Regular rate/rhythm, Normal S1 S2 Gastrointestinal: Normal bowel sounds, No tenderness Musculoskeletal: No tenderness Integumentary: Skin lesion, Tenderness/swelling Neurological: Normal speech, Normal tone, Normal affect Lymphatics: No axilla or inguinal lymphadenopathy Other Physical/Emotional Findings: left middle toe ulcer with erythema - Studies Laboratory Data (last 24 hrs) 01/09/19 04:20: Sodium 137, Potassium 3.2 L, BUN 28 H, Creatinine 0.91, Glucose 226 H, Magnesium 1.7 L 01/09/19 04:20: PT 34.0 H, INR 3.01 01/09/19 04:20: WBC 7.3, Hgb 13.1 L, Hct 38.9 L, Plt Count 152 01/08/19 16:16: Potassium 3.6 01/08/19 13:00: Sodium Cancelled, Potassium Cancelled, BUN Cancelled, Creatinine Cancelled, Glucose Cancelled 01/08/19 13:00: WBC Cancelled, Hgb Cancelled, Hct Cancelled, Plt Count Cancelled Microbiology Data (last 24 hrs): 01/07/19 05:30 Wound - Other Gram Stain - Final Medications List Reviewed: Yes Assessment And Plan - Current Problems (Diagnosis) (1) Osteomyelitis Current Visit: No Status: Suspected Plan: Osteomyelitis most likely 2.2 to Uncontrolled DM and PVD -MRI of the foot with OSteomyelitis -IV vancomycin for 6 weeks -pt had picc line placed -pending snf placment for 6 weeks of IV antibiotics Qualifiers: Osteomyelitis type: acute hematogenous (2) Atrial fibrillation Onset Date: 01/08/17 Current Visit: No Status: Chronic Plan: On beta-vladimir and anti coagulation at this time Qualifiers: Atrial fibrillation type: chronic Qualified Code(s): I48.2 - Chronic atrial fibrillation (3) CHF (congestive heart failure) Onset Date: 01/26/17 Current Visit: No Status: Chronic Qualifiers: Qualified Code(s): I50.22 - Chronic systolic (congestive) heart failure (4) COPD (chronic obstructive pulmonary disease) Onset Date: 01/26/17 Current Visit: No Status: Chronic Plan: Duo nebs, oxygen as needed Qualifiers: COPD type: chronic bronchitis Chronic bronchitis type: unspecified Qualified Code(s): J42 - Unspecified chronic bronchitis (5) Dementia Onset Date: 01/26/17 Current Visit: No Status: Chronic Qualifiers: Dementia type: unspecified type Dementia behavioral disturbance: without behavioral disturbance Qualified Code(s): F03.90 - Unspecified dementia without behavioral disturbance (6) Diabetes mellitus Onset Date: 01/26/17 Current Visit: No Status: Chronic Plan: Insulin sliding scale and Accu-Chek Qualifiers: Diabetes mellitus type: type 2 Diabetes mellitus long-term insulin use: with long-term use Diabetes mellitus complication status: with hypoglycemia Diabetes mellitus complication detail: without coma Qualified Code(s): E11.649 - Type 2 diabetes mellitus with hypoglycemia without coma; 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
--- NOTE | 2019-01-09 13:50 | RAD REPORT ---
EXAM DESCRIPTION: RAD - Chest Single View - 01/07/2019 2:21 am CLINICAL HISTORY: 8 years Male, PICC placement COMPARISON: None FINDINGS/IMPRESSION: Placement of right upper cavity PICC terminating in the distal SVC. Diffuse prominence of the interstitium and cephalization of the venous structures. No pleural effusion. No pneumothorax. Advanced cardiomegaly. No acute osseous abnormality. Electronically signed by: Mason Gaspar DO 01/07/2019 2:45 AM CDT Due to temporary technical issues with the PACS/Fluency reporting system, reports are being signed by the in house radiologist as a courtesy to ensure prompt reporting. The interpreting radiologist is f ully responsible for the content of the report.
[2019-01-09] MEDS: VANCOMYCIN 2 GM in NA CHLORIDE 0.9% 500 ML IVPB SCH (15:41)
--- NOTE | 2019-01-09 17:16 | P.PN ---
Date of Service: 01/09/19 Vital Signs Temp Pulse Resp BP Pulse Ox 98.5 F 57 16 129/61 97 01/09/19 12:00 01/09/19 12:00 01/09/19 12:00 01/09/19 12:00 01/09/19 12:00 Medications Acetaminophen (Tylenol -Extra Strength) 500 mg PO Q4HP PRN PRN Reason: TEMP > 101' F Stop: 02/05/19 18:34 Arformoterol Tartrate (Brovana) 15 mcg NEB BIDRESP GERSON Stop: 02/05/19 20:01 Last Admin: 01/09/19 08:36 Dose: 15 mcg Atorvastatin Calcium (Lipitor) 10 mg PO BEDTIME GERSON Stop: 02/05/19 21:01 Last Admin: 01/08/19 21:24 Dose: 10 mg Bumetanide (Bumex) 1 mg PO BID GERSON Stop: 02/05/19 21:01 Last Admin: 01/09/19 08:21 Dose: 1 mg Carvedilol (Coreg) 3.125 mg PO BID 6AM 6PM GERSON Stop: 02/05/19 18:34 Last Admin: 01/09/19 05:16 Dose: 3.125 mg Collagenase (Santyl Ointment) 1 appl TOP DAILY GERSON Stop: 02/06/19 10:01 Last Admin: 01/09/19 08:23 Dose: 1 appl Dextrose (Dextrose 50% Syringe) 12.5 gm IV PRN PRN; Protocol PRN Reason: HYPOGLYCEMIA Stop: 02/05/19 18:34 Docusate Sodium (Colace Cap) 100 mg PO BID GERSON Stop: 02/05/19 21:01 Last Admin: 01/09/19 08:21 Dose: 100 mg Finasteride (Proscar) 5 mg PO BEDTIME GERSON Stop: 02/05/19 21:01 Last Admin: 01/08/19 21:23 Dose: 5 mg Gabapentin (Neurontin) 600 mg PO TID GERSON Stop: 02/05/19 21:01 Last Admin: 01/09/19 13:42 Dose: 600 mg Glucagon (Glucagen) 1 mg IM 1X PRN; Protocol PRN Reason: HYPOGLYCEMIA Stop: 02/05/19 18:34 Hydralazine HCl (Apresoline) 10 mg IV Q6HP PRN PRN Reason: Titrate to SBP (MUST DEFINE) Stop: 02/05/19 18:34 Vancomycin HCl 2 gm/ Sodium (Chloride) 500 mls @ 250 mls/hr IVPB Q18H [facility] Stop: 02/06/19 09:01 Last Admin: 01/09/19 15:41 Dose: 500 mls Insulin Glargine (Lantus) 10 units SQ BEDTIME GERSON Stop: 02/05/19 21:01 Last Admin: 01/08/19 21:23 Dose: 10 units Insulin Human Regular (Novolin -R) 0 unit SQ ACHS GERSON; Protocol Stop: 02/05/19 21:01 Last Admin: 01/09/19 11:35 Dose: 8 unit Ipratropium [place] (Atrovent Neb) 0.5 mg NEB [id number] PRN PRN Reason: SHORTNESS OF BREATH Stop: 02/05/19 18:34 Lactulose (Cephulac) 10 gm PO BID PRN PRN Reason: CONSTIPATION Stop: 02/05/19 18:34 Last Admin: 01/09/19 08:21 Dose: 10 gm Levofloxacin (Levaquin) 500 mg PO 1700 [facility] Stop: 02/08/19 17:01 Metolazone (Zaroxolyn) 5 mg PO MoFr@0800 [facility] Stop: 02/08/19 08:01 Last Admin: 01/09/19 08:20 Dose: 5 mg Ondansetron HCl (Zofran) 4 mg IV Q6HP PRN PRN Reason: NAUSEA / VOMITING Stop: 02/05/19 18:34 Sodium Chloride (Normal Saline Flush) 10 ml IV BID [facility] Stop: 02/05/19 21:01 Last Admin: 01/09/19 08:23 Dose: 10 ml Spironolactone (Aldactone) 25 mg PO BID [facility] Stop: 02/05/19 21:01 Last Admin: 01/09/19 08:21 Dose: 25 mg Tamsulosin HCl (Flomax) 0.4 mg PO BEDTIME [facility] Stop: 02/05/19 21:01 Last Admin: 01/08/19 21:24 Dose: 0.4 mg Tramadol HCl (Ultram) 50 mg PO TID PRN PRN Reason: PAIN Stop: 02/05/19 18:34 Last Admin: 01/08/19 23:16 Dose: 50 mg Warfarin Sodium (Coumadin) 10 mg PO DAILY 5 PM GERSON Stop: 02/06/19 17:01 Last Admin: 01/08/19 16:26 Dose: Not Given Warfarin Sodium (Coumadin) 3 mg PO DAILY 5 PM GERSON Stop: 02/06/19 17:01 Last Admin: 01/08/19 16:26 Dose: Not Given Lab Results (last 24 hrs) 01/09/19 20:00: Vancomycin Trough Cancelled 01/09/19 13:35: Vancomycin Trough 18.6 01/09/19 12:05: Potassium 3.7 01/09/19 11:19: POC Glucose 388 H 01/09/19 07:58: POC Glucose 339 H 01/09/19 04:20: Sodium 137, Potassium 3.2 L, Chloride 99, Carbon Dioxide 32, BUN 28 H, Creatinine 0.91, Estimated GFR 79 L, Glucose 226 H, Calcium 9.6, Magnesium 1.7 L 01/09/19 04:20: PT 34.0 H, INR 3.01 01/09/19 04:20: WBC 7.3, RBC 4.54, Hgb 13.1 L, Hct 38.9 L, MCV 85.6, MCH 28.9, MCHC 33.7, RDW 14.6, Plt Count 152, MPV 7.5 L, Neutrophils % 63.7, Lymphocytes % 20.7, Monocytes % 10.0, Eosinophils % 4.4, Basophils % 1.2, Absolute Neutrophils 4.7, Absolute Lymphocytes 1.5, Absolute Monocytes 0.7, Absolute Eosinophils 0.3, Absolute Basophils 0.1 01/08/19 20:12: POC Glucose 195 H Microbiology Results 01/07/19 05:30 Wound - Other Gram Stain - Final 01/07/19 05:30 Wound - Other Culture & Sensitivity - Preliminary Serratia Marcescens Assessment/ Plan: Nephrology Doing well. CPS stable without CP or SOB. No acute events overnight. Vitals, medications, blood work and imaging reviewed in the chart. NAD. MMM. Neck supple. CTA. Irregular. Soft Abd. No C/C/E. No rash. LE varicosities. Left foot wound. AAO. Normal speech. EXAM DESCRIPTION: RAD - Chest Single View - 01/07/2019 2:21 am CLINICAL HISTORY: 8 years Male, PICC placement COMPARISON: None FINDINGS/IMPRESSION: Placement of right upper cavity PICC terminating in the distal SVC. Diffuse prominence of the interstitium and cephalization of the venous structures. No pleural effusion. No pneumothorax. Advanced cardiomegaly. No acute osseous abnormality. EXAM DESCRIPTION: - CT ANGIO ABD/PELVIS W CONTRAST - 01/07/2019 3:11 pm CLINICAL HISTORY: Peripheral vascular disease/osteomyelitis left foot Abdominal pain COMPARISON: None TECHNIQUE: Computed tomography angiography of the abdomen and pelvis were obtained. 100 cc Isovue 370 was administered intravenously. Coronal and sagittal reconstruction were performed. MIP 3D reconstruction was performed All CT scans are performed using dose optimization technique as appropriate and may include automated exposure control or mA/KV adjustment according to patient size. FINDINGS: An aortic dissection is not seen. An aortic aneurysm is not displayed. Moderate calcified plaque is present within the abdominal aorta, common iliac, internal and external iliac arteries and common femoral arteries. A high-grade stenosis is not present. Mild to moderate calcified plaque origin of the celiac artery. Moderate calcified plaque origin superior mesenteric artery. DERICK is patent Mild calcified plaque renal arteries Marked chronic compression L5 vertebral body. Spondylosis lumbar spine resulting in spinal stenosis IMPRESSION: Moderate calcified plaque is present within the abdominal aorta, common iliac, internal and external iliac and common femoral arteries without visualization of a high-grade stenosis. Moderate stenosis superior mesenteric artery A/ SHASHI, improved. Hypokalemia. Hypomagnesemia. DM II. HTN. Serratia Marcescens Osteomyelitis of the left foot. PAD. P/ Continue current POC and Medications. Replete potassium and magnesium. Continue diuretics. May need to increase spironolactone. Agree with abx. Monitor vanc level. Low sodium/ ADA diet. No NSAIDs. AM labs. Daily weight.
[2019-01-09] MEDS: WARFARIN SODIUM 5 MG TAB PO SCH ×2 (17:27)
[2019-01-09] MEDS: levoFLOXacin 500 MG TAB PO SCH (17:28)
[2019-01-09] MEDS: TAMSULOSIN 0.4 MG SR CAP PO SCH (20:57)
[2019-01-09] MEDS: ATORVASTATIN 10 MG TAB PO SCH (20:58)
[2019-01-09] MEDS: FINASTERIDE 5 MG TAB PO SCH (20:58)
[2019-01-09] MEDS: INSULIN GLARGINE 100 UNITS/ML SQ SCH (21:10)
[2019-01-10 03:47] LABS: UR MICROALBUMIN 2.5 mg/dL (< 1.9)
[2019-01-10] MEDS: CARVEDILOL 3.125 MG TAB PO SCH ×2 (05:45→17:08)
[2019-01-10 06:18] LABS: Absolute Lymphocytes (CBC) 1.4 K/uL (0.7-4.9); Absolute Monocytes 0.7 K/uL (0.1-1.3); Basophils % 1.4 % (0-1.3); Hematocrit 39.6 % (39.6-49.0); Lymphocytes % 21.3 % (15.3-44.8); MPV 7.6 fL (7.6-11.3); Monocytes % 10.6 % (3.3-12.3); RBC Red Blood Cell Count 4.69 M/uL (4.33-5.43)
[2019-01-10 06:36] LABS: Phosphorus 2.1 mg/dL (2.5-4.9); Potassium 3.6 mmol/L (3.5-5.1)
[2019-01-10 07:01] LABS: Urine Appearance CLEAR; Urine Bilirubin NEGATIVE (NEG); Urine Blood NEGATIVE (NEG); Urine Color YELLOW; Urine Glucose 1+ (NEG); Urine Protein NEGATIVE (NEG); Urine Specific Gravity 1.015 (1.005-1.030); Urine pH 6.5 (5.0-7.0)
[2019-01-10 07:28] LABS: Urine Bacteria <20 /HPF (NONE SEEN); Urine RBC <5 /HPF (NONE SEEN)
[2019-01-10 07:29] LABS: Urine Culture Reflex Order NOT NEEDED; Urine Mucus 1+ /HPF (NONE SEEN)
[2019-01-10] MEDS: GABAPENTIN 100 MG CAP ONE ×2 (07:38→08:11)
[2019-01-10] MEDS: BUMETANIDE 1 MG TABLET PO SCH ×2 (08:10→20:29)
[2019-01-10] MEDS: DOCUSATE NA 100 MG CAP PO SCH ×2 (08:10→20:30)
[2019-01-10] MEDS: SPIRONOLACTONE 25 MG TABLET PO SCH ×2 (08:11→20:30)
[2019-01-10] MEDS: INSULIN -REGULAR HUMAN 50 UNIT/0.5 ML ML SQ SCH ×4 (08:12→20:31)
[2019-01-10] MEDS: COLLAGENASE 30 GM OINTMENT TOP SCH (08:18)
[2019-01-10] MEDS: ARFORMOTEROL TARTRATE 15 MCG/2 ML VIAL.NEB NEB SCH ×2 (08:20→20:13)
[2019-01-10] MEDS: GABAPENTIN 300 MG CAP PO SCH ×3 (08:21→20:30)
[2019-01-10] MEDS: VANCOMYCIN 2 GM in NA CHLORIDE 0.9% 500 ML IVPB SCH (10:16)
[2019-01-10] MEDS: MAGNESIUM OXIDE 400 MG TAB PO SCH ×2 (10:17→20:30)
--- NOTE | 2019-01-10 16:39 | P.PN ---
Subjective Date of Service: 01/10/19 Primary Care Provider: Dr. Vega; Surgery-Dr. Melendez Chief Complaint: Osteomyelitis of the left 3rd toe Pt seen and examined at bedside. Chart Reviewed. Case DW with CM and Pt at bedside. Awaiting Placement for IV vancomycin 2g q18h for total of 6 weeks Review of Systems 10-point ROS is otherwise unremarkable Physical Examination - Vital Signs Temperature: 98.0 F Blood Pressure: 123/72 Pulse: 54 Respirations: 16 Pulse Ox (%): 98 - Physical Exam General: Alert, In no apparent distress HEENT: Atraumatic, PERRLA, EOMI Neck: Supple, JVD not distended Respiratory: Clear to auscultation bilaterally, Normal air movement Cardiovascular: Regular rate/rhythm, Normal S1 S2 Gastrointestinal: Normal bowel sounds, No tenderness Musculoskeletal: No tenderness Integumentary: Diabetic ulcer Neurological: Normal speech, Normal tone, Normal affect Lymphatics: No axilla or inguinal lymphadenopathy Other Physical/Emotional Findings: left middle toe ulcer with erythema - Studies Laboratory Data (last 24 hrs) 01/10/19 14:05: PT 23.0 H, INR 2.00 01/10/19 05:45: Sodium 137, Potassium 3.6, BUN 28 H, Creatinine 0.97, Glucose 229 H, Uric Acid 7.0, Phosphorus 2.1 L, Magnesium 2.0 01/10/19 05:45: WBC 6.6, Hgb 13.5 L, Hct 39.6, Plt Count 167 Microbiology Data (last 24 hrs): 01/07/19 05:30 Wound - Other Gram Stain - Final Medications List Reviewed: Yes Assessment And Plan - Current Problems (Diagnosis) (1) Osteomyelitis Current Visit: No Status: Suspected Plan: Osteomyelitis most likely 2.2 to Uncontrolled DM and PVD -MRI of the foot with OSteomyelitis -IV vancomycin for 6 weeks -pt had picc line placed -pending snf placment for 6 weeks of IV antibiotics -No plans for amputation -Pt can f.u with Wound care Dr Hooper at the [place] Qualifiers: Osteomyelitis type: acute hematogenous (2) Atrial fibrillation Onset Date: 01/08/17 Current Visit: No Status: Chronic Plan: On beta-vladimir and anti coagulation at this time Qualifiers: Atrial fibrillation type: chronic Qualified Code(s): I48.2 - Chronic atrial fibrillation (3) CHF (congestive heart failure) Onset Date: 01/26/17 Current Visit: No Status: Chronic Qualifiers: Qualified Code(s): I50.22 - Chronic systolic (congestive) heart failure (4) COPD (chronic obstructive pulmonary disease) Onset Date: 01/26/17 Current Visit: No Status: Chronic Plan: Duo nebs, oxygen as needed Qualifiers: COPD type: chronic bronchitis Chronic bronchitis type: unspecified Qualified Code(s): J42 - Unspecified chronic bronchitis (5) Dementia Onset Date: 01/26/17 Current Visit: No Status: Chronic Qualifiers: Dementia type: unspecified type Dementia behavioral disturbance: without behavioral disturbance Qualified Code(s): F03.90 - Unspecified dementia without behavioral disturbance (6) Diabetes mellitus Onset Date: 01/26/17 Current Visit: No Status: Chronic Plan: Insulin sliding scale and Accu-Chek Qualifiers: Diabetes mellitus type: type 2 Diabetes mellitus 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 Diabetes mellitus complication status: with hypoglycemia Diabetes mellitus complication detail: without coma Qualified Code(s): E11.649 - Type 2 diabetes mellitus with hypoglycemia without coma; 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 Not on isolation here and will not need isolation. Discharge Plan: [facility] Plan to discharge in: 48 Hours - Code Status/Comfort Care Code Status Assessed: Yes Critical Care: No
[2019-01-10] MEDS: levoFLOXacin 500 MG TAB PO SCH (17:07)
[2019-01-10] MEDS: WARFARIN SODIUM 5 MG TAB PO SCH ×2 (17:07→17:08)
[2019-01-10] MEDS: TAMSULOSIN 0.4 MG SR CAP PO SCH (20:29)
[2019-01-10] MEDS: ATORVASTATIN 10 MG TAB PO SCH (20:30)
[2019-01-10] MEDS: FINASTERIDE 5 MG TAB PO SCH (20:30)
[2019-01-10] MEDS: INSULIN GLARGINE 100 UNITS/ML SQ SCH (20:31)
--- NOTE | 2019-01-10 20:53 | PN ---
Date of Progress Note: 01/10/2019 Subjective: Mr. Díaz is an 88-year-old who was admitted by Dr. Gomez for osteomyelitis. He was no leighton on a CT angiogram to have mostly peripheral arterial disease below the knee distal and diffuse. No proximal iliac or common femoral SFA stenosis. We decided not to do an angiography. There were n o need for intervening from a vascular standpoint. Apparently, amputation was not done. The plan is for medical therapy. A PICC line was done today. The patient has other issues include dementia, at rial fibrillation, CHF, COPD, diabetes, and dyslipidemia, all of which are stable. We will sign off his case for now. SWATI/CALEB Voice ID: [id number] Report ID: [id number]
--- NOTE | 2019-01-10 22:06 | P.PN ---
Date of Service: 01/10/19 Vital Signs Temp Pulse Resp BP Pulse Ox 98.0 F 60 16 123/57 L 98 01/10/19 16:39 01/10/19 20:30 01/10/19 16:39 01/10/19 20:30 01/10/19 16:39 Medications Acetaminophen (Tylenol -Extra Strength) 500 mg PO Q4HP PRN PRN Reason: TEMP > 101' F Stop: 02/05/19 18:34 Arformoterol Tartrate (Brovana) 15 mcg NEB BIDRESP [facility]ERSON Stop: 02/05/19 20:01 Last Admin: 01/10/19 20:13 Dose: 15 mcg Atorvastatin Calcium (Lipitor) 10 mg PO BEDTIME [facility] Stop: 02/05/19 21:01 Last Admin: 01/10/19 20:30 Dose: 10 mg Bumetanide (Bumex) 1 mg PO BID [facility] Stop: 02/05/19 21:01 Last Admin: 01/10/19 20:29 Dose: 1 mg Carvedilol (Coreg) 3.125 mg PO BID 6AM 6PM [facility] Stop: 02/05/19 18:34 Last Admin: 01/10/19 17:08 Dose: 3.125 mg Collagenase (Santyl Ointment) 1 appl TOP DAILY [facility] Stop: 02/06/19 10:01 Last Admin: 01/10/19 08:18 Dose: 1 appl Dextrose (Dextrose 50% Syringe) 12.5 gm IV PRN PRN; Protocol PRN Reason: HYPOGLYCEMIA Stop: 02/05/19 18:34 Docusate Sodium (Colace Cap) 100 mg PO BID [facility]ERSON Stop: 02/05/19 21:01 Last Admin: 01/10/19 20:30 Dose: 100 mg Finasteride (Proscar) 5 mg PO BEDTIME [facility] Stop: 02/05/19 21:01 Last Admin: 01/10/19 20:30 Dose: 5 mg Gabapentin (Neurontin) 600 mg PO TID [facility] Stop: 02/05/19 21:01 Last Admin: 01/10/19 20:30 Dose: 600 mg Glucagon (Glucagen) 1 mg IM 1X PRN; Protocol PRN Reason: HYPOGLYCEMIA Stop: 02/05/19 18:34 Hydralazine HCl (Apresoline) 10 mg IV Q6HP PRN PRN Reason: Titrate to SBP (MUST DEFINE) Stop: 02/05/19 18:34 Vancomycin HCl 2 gm/ Sodium (Chloride) 500 mls @ 250 mls/hr IVPB Q18H [facility] Stop: 02/06/19 09:01 Last Admin: 01/10/19 10:16 Dose: 500 mls Insulin Glargine (Lantus) 10 units SQ BEDTIME [facility] Stop: 02/05/19 21:01 Last Admin: 01/10/19 20:31 Dose: 10 units Insulin Human Regular (Novolin -R) 0 unit SQ ACHS [facility]; Protocol Stop: 02/05/19 21:01 Last Admin: 01/10/19 20:31 Dose: 2 unit Ipratropium [place] (Atrovent Neb) 0.5 mg NEB [id number] PRN PRN Reason: SHORTNESS OF BREATH Stop: 02/05/19 18:34 Lactulose (Cephulac) 10 gm PO BID PRN PRN Reason: CONSTIPATION Stop: 02/05/19 18:34 Last Admin: 01/09/19 08:21 Dose: 10 gm Levofloxacin (Levaquin) 500 mg PO 1700 [facility] Stop: 02/08/19 17:01 Last Admin: 01/10/19 17:07 Dose: 500 mg Metolazone (Zaroxolyn) 5 mg PO MoFr@0800 [facility] Stop: 02/08/19 08:01 Last Admin: 01/09/19 08:20 Dose: 5 mg Ondansetron HCl (Zofran) 4 mg IV Q6HP PRN PRN Reason: NAUSEA / VOMITING Stop: 02/05/19 18:34 Sodium Chloride (Normal Saline Flush) 10 ml IV BID [facility] Stop: 02/05/19 21:01 Last Admin: 01/10/19 20:31 Dose: 10 ml Spironolactone (Aldactone) 25 mg PO BID [facility] Stop: 02/05/19 21:01 Last Admin: 01/10/19 20:30 Dose: 25 mg Tamsulosin HCl (Flomax) 0.4 mg PO BEDTIME [facility] Stop: 02/05/19 21:01 Last Admin: 01/10/19 20:29 Dose: 0.4 mg Tramadol HCl (Ultram) 50 mg PO TID PRN PRN Reason: PAIN Stop: 02/05/19 18:34 Last Admin: 01/08/19 23:16 Dose: 50 mg Warfarin Sodium (Coumadin) 10 mg PO DAILY 5 PM [facility] Stop: 02/06/19 17:01 Last Admin: 01/10/19 17:07 Dose: 10 mg Warfarin Sodium (Coumadin) 3 mg PO DAILY 5 PM [facility] Stop: 02/06/19 17:01 Last Admin: 01/10/19 17:08 Dose: 3 mg Lab Results (last 24 hrs) 01/10/19 19:56: POC Glucose 242 H 01/10/19 14:05: PT 23.0 H, INR 2.00 01/10/19 07:48: POC Glucose 246 H 01/10/19 05:45: Urine Color Yellow, Urine Appearance Clear, Urine pH 6.5, Ur Specific [place] 1.015, Urine Ketones Negative, Urine Blood Negative, Urine Nitrite Negative, Urine Bilirubin Negative, Urine Urobilinogen 1.0, Ur Leukocyte Esterase Negative, Urine RBC <5, Urine WBC <5, Ur Squamous Epith Cells 10-20 H, Urine Bacteria <20, Urine Mucus 1+, Urine Culture Reflexed Not needed, Urine Glucose 1+ H, Urine Total Protein Negative 01/10/19 05:45: Urine RBC Cancelled, Urine WBC Cancelled, Ur Squamous Epith Cells Cancelled, Ur Urothelial Cells Cancelled, Calcium Oxalate Crystal Cancelled, Uric Acid Crystals Cancelled, Triple Phos Crystals Cancelled, Other Crystals Cancelled, Amorphous Sediment Cancelled, Glitter Cells Cancelled, Urine Bacteria Cancelled, Hyaline Casts Cancelled, Fine Granular Casts Cancelled , Coarse Granular Casts Cancelled, Waxy Casts Cancelled, RBC Casts Cancelled, WBC Casts Cancelled, Urine Mucus Cancelled, Urine Other Cancelled, Urine Trichomonas Cancelled, Urine Yeast Cancelled, Ur Yeast w Hyphae Cancelled, Urine Yeast (Budding) Cancelled, Urine Sperm Cancelled, Urine Culture Reflexed Cancelled, Urine Total Volume Cancelled 01/10/19 05:45: Sodium 137, Potassium 3.6, Chloride 98, Carbon Dioxide 32, BUN 28 H, Creatinine 0.97, Estimated GFR 73 L, Glucose 229 H, Uric Acid 7.0, Calcium 9.9, Phosphorus 2.1 L, Magnesium 2.0, NT-Pro-B Natriuret Pep 594 H 01/10/19 05:45: WBC 6.6, RBC 4.69, Hgb 13.5 L, Hct 39.6, MCV 84.3, MCH 28.7, MCHC 34.1, RDW 14.4, Plt Count 167, MPV 7.6, Neutrophils % 60.7, Lymphocytes % 21.3, Monocytes % 10.6, Eosinophils % 6.0 H, Basophils % 1.4 H, Absolute Neutrophils 4.0, Absolute Lymphocytes 1.4, Absolute Monocytes 0.7, Absolute Eosinophils 0.4, Absolute Basophils 0.1 01/10/19 03:20: Ur Random Microalbumin 2.5 H, Urine Creatinine 80.0, Microalb/ Creat Ratio 31.3 H 01/09/19 20:27: POC Glucose 285 H Microbiology Results 01/07/19 05:30 Wound - Other Gram Stain - Final 01/07/19 05:30 Wound - Other Culture & Sensitivity - Preliminary Serratia Marcescens Assessment/ Plan: Nephrology Doing well. Constipation. CPS stable without CP or SOB. No acute events overnight. Vitals, medications, blood work and imaging reviewed in the chart. NAD. MMM. Neck supple. CTA. Irregular. Soft Abd. No C/C/E. No rash. LE varicosities. Left foot wound. AAO. Normal speech. EXAM DESCRIPTION: RAD - Chest Single View - 01/07/2019 2:21 am CLINICAL HISTORY: 8 years Male, PICC placement COMPARISON: None FINDINGS/IMPRESSION: Placement of right upper cavity PICC terminating in the distal SVC. Diffuse prominence of the interstitium and cephalization of the venous structures. No pleural effusion. No pneumothorax. Advanced cardiomegaly. No acute osseous abnormality. EXAM DESCRIPTION: - CT ANGIO ABD/PELVIS W CONTRAST - 01/07/2019 3:11 pm CLINICAL HISTORY: Peripheral vascular disease/osteomyelitis left foot Abdominal pain COMPARISON: None TECHNIQUE: Computed tomography angiography of the abdomen and pelvis were obtained. 100 cc Isovue 370 was administered intravenously. Coronal and sagittal reconstruction were performed. MIP 3D reconstruction was performed All CT scans are performed using dose optimization technique as appropriate and may include automated exposure control or mA/KV adjustment according to patient size. FINDINGS: An aortic dissection is not seen. An aortic aneurysm is not displayed. Moderate calcified plaque is present within the abdominal aorta, common iliac, internal and external iliac arteries and common femoral arteries. A high-grade stenosis is not present. Mild to moderate calcified plaque origin of the celiac artery. Moderate calcified plaque origin superior mesenteric artery. DERICK is patent Mild calcified plaque renal arteries Marked chronic compression L5 vertebral body. Spondylosis lumbar spine resulting in spinal stenosis IMPRESSION: Moderate calcified plaque is present within the abdominal aorta, common iliac, internal and external iliac and common femoral arteries without visualization of a high-grade stenosis. Moderate stenosis superior mesenteric artery A/ SHASHI, improved. Hypokalemia. Hypomagnesemia. DM II. HTN. Serratia Marcescens Osteomyelitis of the left foot. PAD. Slow transit constipation. P/ Continue current POC and Medications. Replete potassium and magnesium as needed. Give MagOx for constipation. Continue diuretics. May need to increase spironolactone. Agree with abx. Monitor vanc level. Low sodium/ ADA diet. No NSAIDs. AM labs. Daily weight.
[2019-01-11] MEDS: TRAMADOL HCL 50 MG TAB PO PRN (02:06)
[2019-01-11] MEDS: VANCOMYCIN 2 GM in NA CHLORIDE 0.9% 500 ML IVPB SCH (04:50)
[2019-01-11] MEDS: CARVEDILOL 3.125 MG TAB PO SCH (05:00)
[2019-01-11 05:25] LABS: Absolute Lymphocytes (CBC) 1.2 K/uL (0.7-4.9); Absolute Monocytes 0.7 K/uL (0.1-1.3); Absolute Neutrophil 7.5 K/uL (1.8-8.0); Basophils % 1.1 % (0-1.3); Eosinophils % 2.7 % (0-4.4); Hematocrit 40.3 % (39.6-49.0); Lymphocytes % 11.9 % (15.3-44.8); MPV 7.6 fL (7.6-11.3); Monocytes % 7.5 % (3.3-12.3); RBC Red Blood Cell Count 4.76 M/uL (4.33-5.43)
[2019-01-11 05:40] LABS: Phosphorus 2.1 mg/dL (2.5-4.9); Potassium 3.5 mmol/L (3.5-5.1)
[2019-01-11] MEDS: INSULIN -REGULAR HUMAN 50 UNIT/0.5 ML ML SQ SCH ×3 (07:30→12:16)
[2019-01-11] MEDS: ARFORMOTEROL TARTRATE 15 MCG/2 ML VIAL.NEB NEB SCH (08:04)
[2019-01-11 08:32] VITALS: O2SAT 93
[2019-01-11] MEDS: GABAPENTIN 300 MG CAP PO SCH ×2 (08:32→14:05)
[2019-01-11] MEDS: DOCUSATE NA 100 MG CAP PO SCH (08:32)
[2019-01-11] MEDS: BUMETANIDE 1 MG TABLET PO SCH (08:32)
[2019-01-11] MEDS: SPIRONOLACTONE 25 MG TABLET PO SCH (08:33)
[2019-01-11] MEDS ORDERED: POTASSIUM CL SA 10 MEQ TAB PO ONE (09:00)
[2019-01-11 09:01] VITALS: TEMP 98.2
--- NOTE | 2019-01-11 12:15 | P.DS ---
Admission Date: 01/06/19 Discharge Date: 01/11/19 Primary Care Provider: Dr. Vega; Surgery-Dr. Melendez Disposition: TRANSFER TO JAIL Discharge Condition: GOOD Reason for Admission: Osteomyelitis of the left 3rd toe Consultations: General surgery - Problems (1) Osteomyelitis Current Visit: No Status: Suspected Qualifiers: Osteomyelitis type: acute hematogenous (2) Atrial fibrillation Onset Date: 01/08/17 Current Visit: No Status: Chronic Qualifiers: Atrial fibrillation type: chronic Qualified Code(s): I48.2 - Chronic atrial fibrillation (3) CHF (congestive heart failure) Onset Date: 01/26/17 Current Visit: No Status: Chronic Qualifiers: Qualified Code(s): I50.22 - Chronic systolic (congestive) heart failure (4) COPD (chronic obstructive pulmonary disease) Onset Date: 01/26/17 Current Visit: No Status: Chronic Qualifiers: COPD type: chronic bronchitis Chronic bronchitis type: unspecified Qualified Code(s): J42 - Unspecified chronic bronchitis (5) Dementia Onset Date: 01/26/17 Current Visit: No Status: Chronic Qualifiers: Dementia type: unspecified type Dementia behavioral disturbance: without behavioral disturbance Qualified Code(s): F03.90 - Unspecified dementia without behavioral disturbance (6) Diabetes mellitus Onset Date: 01/26/17 Current Visit: No Status: Chronic Qualifiers: Diabetes mellitus type: type 2 Diabetes mellitus jail insulin 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 Diabetes mellitus complication status: with hypoglycemia Diabetes mellitus complication detail: without coma Qualified Code(s): E11.649 - Type 2 diabetes mellitus with hypoglycemia without coma; Z79.4 - jinrikisha driver (current) use of insulin (7) Hyperlipidemia Onset Date: 01/26/17 Current Visit: No Status: Chronic Qualifiers: Hyperlipidemia type: mixed hyperlipidemia Qualified Code(s): E78.2 - Mixed hyperlipidemia (8) Hypertension Onset Date: 01/08/17 Current Visit: No Status: Chronic Qualifiers: Hypertension type: essential hypertension Qualified Code(s): I10 - Essential (primary) hypertension Brief History of Present Illness: 88-year-old male with multiple medical problems was direct admitted for IV antibiotic therapy for osteomyelitis of the left 3rd toe. This all started early in December when he noted an ulcer to the left 3rd distal toe. Patient was given treatment. Inflammation and erythema persisted. His condition did not improve. Patient was seen by surgery. Debridement was done yesterday. X-rays indicate osteomyelitis of the distal toe. Surgery recommends IV antibiotic therapy-vancomycin for 6 weeks. Patient will require a PICC line. Patient was admitted to initiate treatment and arrange for skilled placement. Patient with mild pain to the area. Patient with underlying history of atrial fibrillation on chronic anti coagulation therapy, hypertension, diabetes, CHF, COPD, dementia. When I saw the patient he appeared comfortable. Swelling and erythema noted to the distal 3rd toe. Varicosities noted to the feet. Some swelling noted to the foot as well. Hospital Course: Overall during the hospital stay patient remained stable Patient was initially admitted to the hospital for right foot diabetic ulcer that was feeling outpatient therapy. General surgery was consulted here in the hospital. Patient had right foot MRI along with extremity ultrasound done. Right foot MRI was consistent with osteomyelitis. Patient also had wound cultures done from the area. General surgery recommending at that time that patient can have IV antibiotics for total of 6 weeks for osteomyelitis. Patient 's wound culture was positive for Serratia and Klebsiella which was sensitive to oral antibiotics as patient was also started on p.o. Levaquin Patient was given IV vancomycin for osteomyelitis. At that time long term facility [facility] was consulted for transfer to nursing facility for further IV antibiotics. Patient will need total of 6 weeks of IV antibiotics specifically vancomycin for osteomyelitis and will need to complete Levaquin for wound culture that was positive for Serratia Klebsiella. Infectious disease doctor care home was consulted agreed with the plan. Once patient was accepted at the care home he was transferred there for further care. While here in the hospital patient also had cardiology consulted for clearance Whipple surgery however at this time medical management was opted. Patient will be followed up with infectious disease and wound care the care home. Will continue IV antibiotics for 6 weeks along with oral antibiotics for 14 days. Vital Signs/Physical Exam: Temp Pulse Resp BP Pulse Ox 98.2 F 53 18 128/67 98 01/11/19 08:00 01/11/19 08:33 01/11/19 08:00 01/11/19 08:33 01/11/19 08:00 General: Alert, In no apparent distress HEENT: Atraumatic, PERRLA, EOMI Neck: Supple, JVD not distended Respiratory: Clear to auscultation bilaterally, Normal air movement Cardiovascular: Regular rate/rhythm, Normal S1 S2 Gastrointestinal: Normal bowel sounds, No tenderness Integumentary: No rashes Neurological: Normal speech, Normal tone, Normal affect Lymphatics: No axilla or inguinal lymphadenopathy Other Physical/Emotional Findings: left middle toe ulcer with erythema Laboratory Data at Discharge: WBC 9.7 K/uL (4.3-10.9) D 01/11/19 05:00 Hgb 14.0 g/dL (13.6-17.9) 01/11/19 05:00 Hct 40.3 % (39.6-49.0) 01/11/19 05:00 Plt Count 142 K/uL (152-406) L 01/11/19 05:00 PT 23.0 SECONDS (9.5-12.5) H 01/10/19 14:05 INR 2.00 01/10/19 14:05 Sodium 136 mmol/L (136-145) 01/11/19 05:00 Potassium 3.5 mmol/L (3.5-5.1) 01/11/19 05:00 BUN 34 mg/dL (7-18) H 01/11/19 05:00 Creatinine 1.04 mg/dL (0.55-1.3) 01/11/19 05:00 Glucose 273 mg/dL (74-106) H 01/11/19 05:00 Uric Acid 7.0 mg/dL (3.5-7.2) 01/10/19 05:45 Phosphorus 2.1 mg/dL (2.5-4.9) L 01/11/19 05:00 Magnesium 2.0 mg/dL (1.8-2.4) 01/10/19 05:45 Home Medications: Bumetanide 1 mg PO BID 01/06/19 Carvedilol [Coreg*] 3.125 mg PO BID 01/06/19 Docusate Sodium 100 mg PO DAILY 01/06/19 Ergocalciferol (Vitamin D2) [Vitamin D2] 50,000 unit PO SEECOM 01/06/19 Finasteride [Proscar*] 5 mg PO DAILY 01/06/19 Gabapentin 600 mg PO TID 01/06/19 Insulin Detemir [Levemir Flextouch] 34 units SQ BEDTIME 01/06/19 Insulin Detemir [Levemir Flextouch] 40 units SQ DAILY 01/06/19 Metformin HCl 1,000 mg PO BID 01/06/19 Potassium Chloride [K-Dur] 20 meq PO DAILY 01/06/19 Pravastatin Sodium [Pravachol] 20 mg PO BEDTIME 01/06/19 Semaglutide [Ozempic] 0.5 mg SQ SEECOM 01/06/19 Spironolactone [Aldactone*] 25 mg PO BID 01/06/19 Tamsulosin HCl 0.4 mg PO BEDTIME 01/06/19 Warfarin Sodium 13 mg PO BEDTIME 01/06/19 metOLazone [Zaroxolyn*] 5 mg PO SEECOM 01/06/19 Vancomycin [Vancomycin 1 Gram/250 ml Ns Ivpb] 2 gm IV Q18H #21 bag 01/10/19 levoFLOXacin [Levaquin*] 500 mg PO 1700 #14 tab 01/10/19 New Medications: levoFLOXacin [Levaquin*] 500 mg PO 1700 #14 tab Vancomycin [Vancomycin 1 Gram/250 ml Ns Ivpb] 2 gm IV Q18H #21 bag Diet: Regular Activity: Ad rodrigue Followup: Ryan Hooper MD [ACTIVE - CAN ADMIT] - 1 Week
[2019-01-11 12:19] VITALS: BP 115/51
--- NOTE | 2019-01-11 18:21 | PN ---
Date of Progress Note: 01/11/2019 Subjective: The patient was seen and examined at bedside. He is unable to give much history seconda ry to his dementia, but otherwise no overnight events were noted. Objective: Vital Signs: Reviewed and are stable. General: He appears in no acute distress. Lungs: Clear to auscultation. Abdomen: Soft and nontender. Extremities: Left lower extremity was noted to be in dressing. Current Medications: Have been reviewed in detail. Laboratory Data: Has been also reviewed as well. Impression: 1.Uncontrolled type 2 diabetes leading to diabetic foot ulcer leading to osteomyelitis of the toe. The patient is receiving intravenous vancomycin and p.o. Levaquin for Serratia and Klebsiella noted f rom his cultures. The patient is being transferred to group home for antibiotics as well as wound care. 2.Chronic congestive heart failure. Remains on Bumex and metolazone 2 times a week with stable volu me status. 3.Congestive heart failure, stable. 4.Atrial fibrillation, rate controlled. 5.Chronic anticoagulation for atrial fibrillation. Remains on Coumadin. INR is at goal. 6.Hypertension, stable. 7.Dementia. Plan: The patient is overall doing okay. Has been evaluated by Cardiology for possible stent, but w as only found to have small-vessel distal disease. Hence, no intervention was planned. Continue antibiotics as recommended and continue wound care and will follow up as outpatient. JUVENAL/CALEB Voice ID: [id number] Report ID: [id number]
== END 2019-01-11 15:22 | DRG 638 ==
LOC: 4TH 17:17
PROVIDERS: ADMIT Family Medicine; ATTEND Family Medicine
PROC: 02HV33Z Insertion of Infusion Device into Superior Vena Cava, Percutaneous Approach (ICD-10-PCS; principal; 2019-01-06)
DX: E11.69 Type 2 diabetes mellitus with other specified complication (principal); M86.072 Acute hematogenous osteomyelitis, left ankle and foot; I50.32 Chronic diastolic (congestive) heart failure; B96.89 Other specified bacterial agents as the cause of diseases classified elsewhere; B96.1 Klebsiella pneumoniae [K. pneumoniae] as the cause of diseases classified elsewhere; E11.51 Type 2 diabetes mellitus with diabetic peripheral angiopathy without gangrene; E11.40 Type 2 diabetes mellitus with diabetic neuropathy, unspecified; I70.201 Unspecified atherosclerosis of native arteries of extremities, right leg; N17.9 Acute kidney failure, unspecified; I48.2 Chronic atrial fibrillation; I11.0 Hypertensive heart disease with heart failure; J44.9 Chronic obstructive pulmonary disease, unspecified; E78.2 Mixed hyperlipidemia; F03.90 Unspecified dementia, unspecified severity, without behavioral disturbance, psychotic disturbance, mood disturbance, and anxiety; E11.65 Type 2 diabetes mellitus with hyperglycemia; Z91.11 Patient's noncompliance with dietary regimen; E11.649 Type 2 diabetes mellitus with hypoglycemia without coma; E87.6 Hypokalemia; E83.42 Hypomagnesemia; N40.0 Benign prostatic hyperplasia without lower urinary tract symptoms; K59.01 Slow transit constipation; Z79.4 Long term (current) use of insulin; Z79.01 Long term (current) use of anticoagulants; Z87.891 Personal history of nicotine dependence; Z90.2 Acquired absence of lung [part of]; Z88.1 Allergy status to other antibiotic agents
CPT/HCPCS: 11042; 36415; 71045; 74174; 80048; 80202; 81001; 81003; 82043; 82570; 82962; 83735; 83880; 84100; 84132; 84550; 85025; 85610; 85652; 87070; 87077; 87186; 87205; 93925; 94640; 96365; 96367; 99204; J2405; J3370; J3475; J3590; J7605; Q9967

== ENCOUNTER 2019-04-14 13:56 | Inpatient (IN) | payer OTHER ==
[2019-04-14 15:11] LABS: Absolute Lymphocytes (CBC) 1.1 K/uL (0.7-4.9); Basophils % 0.8 % (0-1.3); Hematocrit 33.2 % (39.6-49.0); MPV 8.2 fL (7.6-11.3); RBC Red Blood Cell Count 3.98 M/uL (4.33-5.43)
[2019-04-14 15:19] LABS: Protime INR 2.32
[2019-04-14 15:35] LABS: ALT/SGPT 22 U/L (12-78); AST/SGOT 16 U/L (15-37); Albumin 3.5 g/dL (3.4-5.0); Alkaline Phosphatase 88 U/L (45-117); BUN Blood Urea Nitrogen 44 mg/dL (7-18); Bicarbonate 31 mmol/L (21-32); Bilirubin Direct 0.2 mg/dL (0-0.2); Bilirubin Total 0.5 mg/dL (0.2-1.0); Glucose Level 255 mg/dL (74-106); Magnesium 2.3 mg/dL (1.8-2.4); NT PRO-BNP 981 pg/mL (<450); Protein, Total 6.9 g/dL (6.4-8.2); Sodium Level 131 mmol/L (136-145); Troponin (Emerg Dept Use Only) < 0.02 ng/mL (0.0-0.045)
[2019-04-14 15:36] LABS: Potassium 2.6 mmol/L (3.5-5.1)
--- NOTE | 2019-04-14 16:00 | RAD REPORT ---
EXAM DESCRIPTION: RAD - Chest Single View - 04/14/2019 3:31 pm CLINICAL HISTORY: Shortness of breath, hypokalemia, rapidly 18 COMPARISON: December 2018 TECHNIQUE: AP portable chest image was obtained 1503 hours . FINDINGS: Patient has a significant baseline interstitial lung disease pattern. Interstitial thicken ing is present on the prior examination. Vasculature has increased. Cardiac silhouette is enlarged si milar to comparison. Trachea is in midline. No pneumothorax is present. No large pleural effusion. Dodson rgical clips are present at the right hilum. No acute bony abnormality seen. No acute aortic findings suspected. IMPRESSION: CHF/volume overload pattern is present. No focal consolidation.
--- NOTE | 2019-04-14 16:53 | EDPHYS ---
Physician Documentation [facility] Name: Dalton Díaz Age: 88 yrs Sex: Male : 1930 Arrival Date: 04/14/2019 Time: 13:58 Bed 20 Private MD: Inna Torres ED Physician Kvng Mcclain HPI: 04/14 14:28 This 88 yrs old Male presents to ER via Ambulatory with complaints of jmm Abnormal Lab Results. 14:28 abnormal lab results, increased weight. Onset: The symptoms/episode began/occurred jmm gradually. This is an 88 year old male that presents to the ED with no focal complaints. Patient was advised to go to the ED due to abnormal k result which was low along with weight gain over the past week. Son states the patient appears short of breath. . Historical: - Allergies: 14:10 No Known Allergies; la1 - Home Meds: 16:18 finasteride 5 mg Oral tab 1 tab once daily [Active]; docusate sodium 100 mg Oral tab 1 em tab 2 times per day [Active]; carvedilol 3.125 mg oral tab 1 tab 2 times per day [Active]; bumetanide 1 mg Oral tab 1 tab 2 times per day [Active]; gabapentin 600 mg Oral tab 3 times per day [Active]; Levemir FlexTouch 100 unit/mL (3 mL) subcutaneous inpn 33 unit nightly [Active]; metformin 1,000 mg oral tab [Active]; metolazone 5 mg Oral tab 3x weekly [Active]; pravastatin 20 mg Oral tab 1 tab once daily [Active]; pravastatin 20 mg oral tab 1 tab once daily [Active]; spironolactone 25 mg Oral tab [Active]; Flomax 0.4 mg Oral cp24 1 cap once daily [Active]; Victoza 2-Jacob 0.6 mg/0.1 mL (18 mg/3 mL) subcutaneous pnij [Active]; warfarin 13 mg Oral tab [Active]; lactulose 10 gram/15 mL Oral soln [Active]; - PMHx: 14:10 Atrial Fib; BPH; CHF; Chronic hyponatremia; constipation; COPD; Dementia; Diabetes - la1 NIDDM; Hyperlipidemia; Hypertension; neuropathy; venous insufficiency; - Immunization history:: Adult Immunizations up to date. - Social history:: Smoking status: Patient/guardian denies using tobacco. - Ebola Screening: : No symptoms or risks identified at this time. ROS: 14:28 Constitutional: Negative for fever, chills, and weight loss, Cardiovascular: Negative jm for chest pain, palpitations, and edema. 14:28 Respiratory: Positive for shortness of breath. 14:28 All other systems are negative. Exam: 14:28 Constitutional: This is a well developed, well nourished patient who is awake, alert, jmm and in no acute distress. Head/Face: atraumatic. Eyes: EOMI, no conjunctival erythema appreciated ENT: Moist Mucus Membranes Neck: Trachea midline, Supple Chest/axilla: Normal chest wall appearance and motion. Cardiovascular: Regular rate and rhythm. No edema appreciated Respiratory: Normal respirations, no respiratory distress appreciated Abdomen/GI: Non distended, soft Back: Normal ROM Skin: General appearance color normal MS/ Extremity: Moves all extremities, no obvious deformities appreciated, no edema noted to the lower extremities Neuro: Awake and alert, normal gait Psych: Behavior is normal, Mood is normal, Patient is cooperative and pleasant Vital Signs: 14:10 BP 132 / 53; Pulse 85; Resp 16; Temp 98.4; Pulse Ox 98% on R/A; Weight 113.4 kg; la1 15:23 BP 124 / 68; Pulse 51; Resp 15; Pulse Ox 97% on R/A; Pain 0/10; em 16:30 BP 126 / 48; Pulse 52; Resp 18; Pulse Ox 99% on R/A; em 17:29 BP 120 / 46; Pulse 45; Resp 14; Pulse Ox 99% on R/A; Pain 0/10; em 19:35 BP 137 / 53; Pulse 43; Resp 17 S; Temp 98.3(O); Pulse Ox 97% on R/A; Pain 0/10; cc3 20:08 BP 131 / 61; Pulse 50; Resp 16 S; Pulse Ox 99% on R/A; cc3 MDM: 14:28 Patient medically screened. tony 16:46 Data reviewed: vital signs, nurses notes. Counseling: I had a detailed discussion with vitaly the patient and/or guardian regarding: the historical points, exam findings, and any diagnostic results supporting the discharge/admit diagnosis, lab results, radiology results, the need for further work-up and treatment in the hospital. ED course: I discussed the patient with Dr. Cabral whom accepted admission. . 04/14 14:39 Order name: Basic Metabolic Panel; Complete Time: 15:55 [facility] 04/14 14:39 Order name: CBC with Diff; Complete Time: 15:35 [facility] 04/14 14:39 Order name: LFT's; Complete Time: 15:55 [facility] 04/14 14:39 Order name: Magnesium; Complete Time: 15:55 [facility] 04/14 14:39 Order name: NT PRO-BNP; Complete Time: 15:55 [facility] 04/14 14:39 Order name: PT-INR; Complete Time: 15:35 [facility] 04/14 14:39 Order name: Troponin (emerg Dept Use Only); Complete Time: 15:55 [facility] 04/14 14:39 Order name: XRAY Chest (1 view); Complete Time: 16:03 [facility] 04/14 14:39 Order name: EKG; Complete Time: 14:41 [facility] 04/14 14:39 Order name: Cardiac monitoring; Complete Time: 15:03 [facility] 04/14 14:39 Order name: EKG - Nurse/Tech; Complete Time: 15:03 [facility] 04/14 14:54 Order name: Phosphorus; Complete Time: 15:55 [facility] 04/14 17:32 Order name: Diet Ada 1800 Celestino; Complete Time: 17:32 em 04/14 14:39 Order name: IV Saline Lock; Complete Time: 15:03 [facility] 04/14 14:39 Order name: Labs collected and sent; Complete Time: 15:03 [facility] 04/14 14:39 Order name: O2 Per Protocol; Complete Time: 15:03 [facility] 04/14 14:39 Order name: O2 Sat Monitoring; Complete Time: 15:03 [facility] Administered Medications: 17:28 Drug: Potassium Chloride 20 mEq Route: IV; Rate: calculated rate; Site: right wrist; em 19:40 Follow up: Response: No adverse reaction; IV Status: Completed infusion; IV Intake: cc3 100ml Disposition: 04/15 09:10 Co-signature as Attending Physician, Kvng Mcclain MD I agree with the assessment and tony plan of care. Disposition: 04/14/19 16:52 Hospitalization ordered by Francesca Cabral for Inpatient Admission. Preliminary diagnosis are Hypokalemia, Bradycardia, unspecified, Acute on chronic combined systolic (congestive) and diastolic (congestive) heart failure. - Bed requested for Telemetry/MedSurg (Inpatient). - Status is Inpatient Admission. cc3 - Condition is Stable. - Problem is new. - Symptoms are unchanged. UTI on Admission? No Signatures: Dispatcher [employer] EDKvng Jhaveri MD MD cha Mickail, Joel, PA PA vitaly Rodriguez, Abhay, SEPHORA OPERATIONS CONSULTANT SEPHORA OPERATIONS CONSULTANT em Dionisio Mccain RN RN la1 Rose Marie Cole RN RN Annamaria Spaulding cc3 Corrections: (The following items were deleted from the chart) 04/14 19:15 16:52 Hospitalization Ordered by Francesca Cabral MD for Inpatient Admission. Preliminary cg diagnosis is Hypokalemia; Bradycardia, unspecified; Acute on chronic combined systolic (congestive) and diastolic (congestive) heart failure. Bed requested for Telemetry/MedSurg (Inpatient). Status is Inpatient Admission. Condition is Stable. Problem is new. Symptoms are unchanged. UTI on Admission? No. [facility] 20:49 19:15 04/14/2019 16:52 Hospitalization Ordered by Francesca Cabral MD for Inpatient cc3 Admission. Preliminary diagnosis is Hypokalemia; Bradycardia, unspecified; Acute on chronic combined systolic (congestive) and diastolic (congestive) heart failure. Bed requested for Telemetry/MedSurg (Inpatient). Status is Inpatient Admission. Condition is Stable. Problem is new. Symptoms are unchanged. UTI on Admission? No. cg
--- NOTE | 2019-04-14 16:53 | ER ---
Nurse's Notes [facility] Name: Dalton Díaz Age: 88 yrs Sex: Male : 1930 Arrival Date: 04/14/2019 Time: 13:58 Bed 20 Private MD: Inna Torres Diagnosis: Hypokalemia;Bradycardia, unspecified;Acute on chronic combined systolic (congestive) and diastolic (congestive) heart failure Presentation: 04/14 14:08 Presenting complaint: Patient states: My potassium has been running low and they say I la1 have gained almost 40 pounds in the last few days. Transition of care: patient was not received from another setting of care. Onset of symptoms was April 14, 2019. Risk Assessment: Do you want to hurt yourself or someone else? Patient reports no desire to harm self or others. Initial Sepsis Screen: Does the patient meet any 2 criteria? No. Patient's initial sepsis screen is negative. Does the patient have a suspected source of infection? No. Patient's initial sepsis screen is negative. Care prior to arrival: None. 14:08 Method Of Arrival: Ambulatory la1 14:08 Acuity: LEÓN 3 la1 Historical: - Allergies: 14:10 No Known Allergies; la1 - Home Meds: 16:18 finasteride 5 mg Oral tab 1 tab once daily [Active]; docusate sodium 100 mg Oral tab 1 em tab 2 times per day [Active]; carvedilol 3.125 mg oral tab 1 tab 2 times per day [Active]; bumetanide 1 mg Oral tab 1 tab 2 times per day [Active]; gabapentin 600 mg Oral tab 3 times per day [Active]; Levemir FlexTouch 100 unit/mL (3 mL) subcutaneous inpn 33 unit nightly [Active]; metformin 1,000 mg oral tab [Active]; metolazone 5 mg Oral tab 3x weekly [Active]; pravastatin 20 mg Oral tab 1 tab once daily [Active]; pravastatin 20 mg oral tab 1 tab once daily [Active]; spironolactone 25 mg Oral tab [Active]; Flomax 0.4 mg Oral cp24 1 cap once daily [Active]; Victoza 2-Jacob 0.6 mg/0.1 mL (18 mg/3 mL) subcutaneous pnij [Active]; warfarin 13 mg Oral tab [Active]; lactulose 10 gram/15 mL Oral soln [Active]; - PMHx: 14:10 Atrial Fib; BPH; CHF; Chronic hyponatremia; constipation; COPD; Dementia; Diabetes - la1 NIDDM; Hyperlipidemia; Hypertension; neuropathy; venous insufficiency; - Immunization history:: Adult Immunizations up to date. - Social history:: Smoking status: Patient/guardian denies using tobacco. - Ebola Screening: : No symptoms or risks identified at this time. Screenin:50 Abuse screen: Denies threats or abuse. Nutritional screening: No deficits noted. em Tuberculosis screening: No symptoms or risk factors identified. Fall Risk None identified. Assessment: 14:40 General: Appears in no apparent distress. comfortable, Behavior is calm, cooperative, em Denies fever. Pain: Denies pain. Neuro: Level of Consciousness is awake, alert, obeys commands, Oriented to person, place, time, situation, Denies weakness. Cardiovascular: Denies chest pain, Capillary refill < 3 seconds. Respiratory: Airway is patent Respiratory effort is even, unlabored, Respiratory pattern is regular, symmetrical, Denies cough, shortness of breath. GI: Abdomen is round non-distended, Abd is soft and non tender X 4 quads. Patient currently denies nausea, vomiting. : Denies burning with urination. Derm: Skin is intact, is thin, Skin is pink, warm \T\ dry. Musculoskeletal: Capillary refill < 3 seconds, Range of motion: intact in all extremities. 14:45 General: The previous assessment is accurate, call light remains within reach. . ss 15:44 Reassessment: Patient appears in no apparent distress at this time. Patient and/or em family updated on plan of care and expected duration. Pain level reassessed. Patient is alert, oriented x 3, equal unlabored respirations, skin warm/dry/pink. 16:45 Reassessment: Patient appears in no apparent distress at this time. Patient and/or em family updated on plan of care and expected duration. Pain level reassessed. Patient is alert, oriented x 3, equal unlabored respirations, skin warm/dry/pink. Patient denies pain at this time. 17:31 Reassessment: Patient appears in no apparent distress at this time. Patient and/or em family updated on plan of care and expected duration. Pain level reassessed. Patient is alert, oriented x 3, equal unlabored respirations, skin warm/dry/pink. Patient denies pain at this time. 18:12 Reassessment: Patient appears in no apparent distress at this time. son at bedside, em took pt hearing aides home, dinner tray given. 18:50 Reassessment: Patient appears in no apparent distress at this time. Patient and/or em family updated on plan of care and expected duration. Pain level reassessed. Patient is alert, oriented x 3, equal unlabored respirations, skin warm/dry/pink. pending bed assignment Patient denies pain at this time. 19:20 Reassessment: Patient appears in no apparent distress at this time. Patient and/or cc3 family updated on plan of care and expected duration. Pain level reassessed. Patient is alert, oriented x 3, equal unlabored respirations, skin warm/dry/pink. Received this male patient from morning shift [facility] as a case of hypokalemia, bradycardia and acute on chronic CHF for admission waiting for room availability. With IV cannula gauge 22 at the right wrist with ongoing potassium chloride infusion 20 mEq in 100 mL at 50 mL/hr infusing well and about to be completed. Patient denies pain at this time. General: Appears in no apparent distress. comfortable, Behavior is calm, cooperative, appropriate for age. Pain: Denies pain. Neuro: Level of Consciousness is awake, alert, obeys commands, Oriented to person, place, time, situation, Appropriate for age. Cardiovascular: Denies chest pain, diaphoresis, fatigue, lightheadedness, nausea, palpitations, shortness of breath, vomiting, Capillary refill < 3 seconds Patient's skin is warm and dry. Rhythm is bradycardic. Respiratory: Airway is patent Respiratory effort is even, unlabored, Respiratory pattern is regular, symmetrical. GI: Abdomen is round non-distended. : No signs and/or symptoms were reported regarding the genitourinary system. EENT: No signs and/or symptoms were reported regarding the EENT system. Derm: Skin is intact, is fragile, is thin, Skin is pink, warm \T\ dry. normal. Musculoskeletal: Circulation, motion, and sensation intact. Range of motion: intact in all extremities. 19:30 Reassessment: Room available at 213, called for report but was told by in charge Pernell luu that the nurse who will receive will just call me back. Patient denies pain at this time. 20:30 Reassessment: Patient appears in no apparent distress at this time. Patient and/or cc3 family updated on plan of care and expected duration. Pain level reassessed. Patient is alert, oriented x 3, equal unlabored respirations, skin warm/dry/pink. Report called and handed over to RN Pernell for continuity of care and management. Patient denies pain at this time. Patient states feeling better. Patient states symptoms have improved. 20:49 Reassessment: Patient appears in no apparent distress at this time. Patient and/or cc3 family updated on plan of care and expected duration. Pain level reassessed. Patient is alert, oriented x 3, equal unlabored respirations, skin warm/dry/pink. Patient left ER for admission vitally stable by stretcher escorted by cytology technologist Mere and the patient's son. No valuables left in the patient's room. Patient denies pain at this time. Patient states feeling better. Patient states symptoms have improved. Vital Signs: 14:10 BP 132 / 53; Pulse 85; Resp 16; Temp 98.4; Pulse Ox 98% on R/A; Weight 113.4 kg; la1 15:23 BP 124 / 68; Pulse 51; Resp 15; Pulse Ox 97% on R/A; Pain 0/10; em 16:30 BP 126 / 48; Pulse 52; Resp 18; Pulse Ox 99% on R/A; em 17:29 BP 120 / 46; Pulse 45; Resp 14; Pulse Ox 99% on R/A; Pain 0/10; em 19:35 BP 137 / 53; Pulse 43; Resp 17 S; Temp 98.3(O); Pulse Ox 97% on R/A; Pain 0/10; cc3 20:08 BP 131 / 61; Pulse 50; Resp 16 S; Pulse Ox 99% on R/A; cc3 ED Course: 13:58 Patient arrived in ED. mr 13:59 Inna Torres MD is Private Physician. mr 14:09 Triage completed. la1 14:10 Arm band placed on left wrist. la1 14:13 [facility] 14:13 Kvng Mcclain MD is Attending Physician. [facility] 14:42 Abhay Rodriguez LVN is Primary Nurse. em 14:50 Patient has correct armband on for positive identification. Placed in gown. Bed in low em position. Call light in reach. Adult w/ patient. Pulse ox on. NIBP on. 15:02 Initial lab(s) drawn, by me, sent to lab. Inserted saline lock: 22 gauge in right lt1 wrist, using aseptic technique. 15:36 XRAY Chest (1 view) In Process Unspecified. EDMS 16:52 Francesca Cabral MD is Hospitalizing Provider. [facility] 20:30 No provider procedures requiring assistance completed. Patient admitted, IV remains in cc3 place. Administered Medications: 17:28 Drug: Potassium Chloride 20 mEq Route: IV; Rate: calculated rate; Site: right wrist; em 19:40 Follow up: Response: No adverse reaction; IV Status: Completed infusion; IV Intake: cc3 100ml Intake: 19:40 IV: 100ml; Total: 100ml. cc3 Outcome: 16:52 Decision to Hospitalize by Provider. [facility] 20:30 Admitted to Med/surg accompanied by tech, family with patient, via stretcher, room 213, cc3 with chart, Report called to ASIA Gimenez 20:30 Condition: stable 20:30 Instructed on the need for admit, Demonstrated understanding of instructions. 20:49 Patient left the ED. cc3 Signatures: Dispatcher [employer] EDMS Jean Sorensen PA PA jmm ChinoElisa mr Abhay Rodriguez, SOHEILA MANAGER RETAIL Annalisa Persaud RN RN Dionisio Mccain RN RN la1 Cordel, Charlene cc3 Huong Moss [facility]
[2019-04-14] MEDS ORDERED: KCL 20 MEQ/100 mL IVPB 20 MEQ/100 ML BAG IV ONE (17:15)
[2019-04-14] MEDS ORDERED: NA CHLORIDE 0.9% 250 ML ONE (17:16)
[2019-04-14] MEDS ORDERED: D50W 25 GM/50 ML SYRINGE IV PRN (20:56)
[2019-04-14] MEDS ORDERED: ONDANSETRON 4 MG/2 ML VIAL IV PRN (20:56)
[2019-04-14] MEDS ORDERED: GLUCAGON 1 MG/VIAL IM PRN (20:56)
[2019-04-14] MEDS ORDERED: ACETAMINOPHEN 500 MG TAB PO PRN (20:56)
[2019-04-14] MEDS: INSULIN -REGULAR HUMAN 50 UNIT/0.5 ML ML SQ SCH (21:00)
[2019-04-14] MEDS: FUROSEMIDE 40 MG/4 ML VIAL IV SCH (22:49)
--- NOTE | 2019-04-15 02:45 | HP ---
Date of Admission: 04/14/2019 Code Status: Full. Chief Complaint: Abnormal labs, shortness of breath. Primary Care Physician: Dr. Torres. History Of Present Illness: Patient is an 88-year-old male with past medical history of diabetes, hy pertension, peripheral vascular disease, hyperlipidemia, recent history of osteomyelitis, currently b eing seen at the wound healing center, has been having difficulty with his potassium. Patient also r ecently reported gaining 20 pounds of weight. His diuretics have been adjusted. Patient's home [facility] nurse came today to recheck his potassium level and found to be low. Therefore, her PCP recommend ed that he go to the ER. Patient's symptoms also included some shortness of breath. Patient does us e a walker and is a resident of assisted living facility at [facility]. Patient's workup revealed a po tassium of 2.6, sodium was 131. BNP was elevated at 981. Chest x-ray showed volume overload. Kadeem jurado's potassium was replaced and was referred for admission. When seen in the ER, he was awake, alert , oriented x3, in some mild distress. Past Medical History: Diabetes mellitus type 2; hypertension; atrial fibrillation, on anticoagulatio n with Coumadin; congestive heart failure; peripheral vascular disease; hyperlipidemia. Patient also has dementia, COPD, and history of lung cancer status post lobectomy and radiation therapy. Past Surgical History: Cataract surgery, right upper lobectomy for lung cancer, appendectomy, and to nsillectomy. Allergies: TO AMOXICILLIN CAUSES RASH. Medications: List reviewed. Social History: Patient smoked in the past, has not smoked for 30 years. No alcohol use or illicit drug use. Patient is a , 3 children. Lives at [facility]. Family History: Father had Parkinson's. A brother had heart disease and diabetes. Review of Systems: Ten-point system reviewed, negative except as per HPI. Physical Examination: Vital Signs: Blood pressure 132/53, pulse 85, respirations 16, temperature 98.4, O2 of 98% on room a ir. General: Awake, alert, oriented x3. No acute distress. Elderly male. HEENT: Normocephalic, atraumatic. PERRLA. EOMI. Moist mucous membranes. Oropharynx is clear. Po or dentition. Conjunctivae anicteric. Neck: Supple. Trachea midline. CV: S1, S2. Irregularly irregular. Peripheral pulses weak. Respiratory: Diminished breath sounds. Crackles heard. No wheezing or stridor. No use of accessor y muscles. Gastrointestinal: Abdomen is soft, nontender, nondistended. Positive bowel sounds. No guarding or rigidity. Extremities: No clubbing or cyanosis. Patient has 3+ peripheral edema bilaterally. No calf tendern ess. Neuro: Cranial nerves 2 through 12 intact grossly. No focal neurological deficits. Patient does sherman ve overall generalized weakness. Speech is normal. Skin: Patient has a wound on the left 3rd toe. No acute signs of infection. Laboratory Data: Sodium 131, potassium 2.6, chloride 92, CO2 of 31. BUN 44, creatinine 1.21, glucos e 255, calcium 9.2. Phosphorus 2.7, magnesium 2.3. Troponin less than 0.02. BNP 981. INR 2.32. W BCs 6.3, H and H 11.6 and 33.2, platelets 130, neutrophils 67%. Chest x-ray personally reviewed show s volume overload, CHF pattern. No focal consolidation. Surgical clips present in the right hilum. Assessment: 88-year-old male with: 1.Acute congestive heart failure, diastolic dysfunction. We will continue with congestive heart reji lure guidelines. We will continue on fluid restriction and monitor I's and O's, daily weights. 2.Hypokalemia. We will replace and monitor. 3.Atrial fibrillation, chronic, on anticoagulation with Coumadin. INR is therapeutic. We will cont inue to monitor INR. 4.Diabetes mellitus type 2, insulin requiring. We will continue with sliding scale insulin and chele tor blood glucose levels. 5.Benign prostatic hypertrophy. Resume home medications. 6.Chronic obstructive pulmonary disease, chronic bronchitis. We will continue with nebulizer treatm ents as needed. 7.History of right upper lobectomy. 8.Wound on the distal left 3rd toe. No active disease. Currently undergoing wound care. We will c ontinue with wound care. 9.Peripheral vascular disease. 10.Essential hypertension, stable. 11.Hyperlipidemia, stable. 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 Plan: We will admit patient to med-surg, place as inpatient. Length of stay greater than 2 midnight rupert [place]EB Voice ID: [id number]
[2019-04-15 06:21] LABS: Absolute Lymphocytes (CBC) 1.3 K/uL (0.7-4.9); Basophils % 1.2 % (0-1.3); Hematocrit 32.6 % (39.6-49.0); Lymphocytes % 25.6 % (15.3-44.8); MPV 8.5 fL (7.6-11.3); RBC Red Blood Cell Count 3.91 M/uL (4.33-5.43)
[2019-04-15 06:37] LABS: Albumin 3.4 g/dL (3.4-5.0); Bilirubin Total 0.5 mg/dL (0.2-1.0); Magnesium 2.4 mg/dL (1.8-2.4); Phosphorus 2.5 mg/dL (2.5-4.9); Protein, Total 6.6 g/dL (6.4-8.2)
[2019-04-15 06:40] LABS: Potassium 2.6 mmol/L (3.5-5.1)
[2019-04-15] MEDS ORDERED: POTASSIUM CL 40 MEQ in NA CHLORIDE 0.9% 500 ML IV SCH (07:00)
[2019-04-15] MEDS ORDERED: NA CHLORIDE 0.9% 0 ML ONE (07:32)
[2019-04-15] MEDS ORDERED: KCL 20 MEQ/100 mL IVPB 20 MEQ/100 ML BAG IV SCH (08:00)
[2019-04-15] MEDS ORDERED: POLYETHYL GLY 3350 17 GM/DOSE PO PRN (08:44)
[2019-04-15] MEDS: FUROSEMIDE 40 MG/4 ML VIAL IV SCH ×2 (08:53→17:10)
[2019-04-15] MEDS: POTASSIUM CL SA 10 MEQ TAB PO SCH ×3 (08:53→17:11)
[2019-04-15] MEDS: INSULIN -REGULAR HUMAN 50 UNIT/0.5 ML ML SQ SCH ×4 (08:54→21:11)
[2019-04-15] MEDS ORDERED: POTASSIUM CL SA 10 MEQ TAB PO SCH (09:00)
[2019-04-15] MEDS ORDERED: LISINOPRIL 10 MG TAB PO SCH (09:00)
[2019-04-15] MEDS: DOCUSATE NA 100 MG CAP PO SCH ×2 (09:01→21:11)
[2019-04-15] MEDS ORDERED: LACTULOSE PO PRN (10:58)
[2019-04-15] MEDS ORDERED: METOLAZONE 5 MG TABLET PO SCH (11:00)
[2019-04-15] MEDS ORDERED: COLLAGENASE 30 GM OINTMENT TOP SCH (11:00)
[2019-04-15 12:10] LABS: Protime INR 1.78
--- NOTE | 2019-04-15 12:38 | P.CNS ---
Date of Consult: 04/15/19 Reason for Consult: Hypokalemia. Requesting Physician: Francesca Cabral Chief Complaint: Weight gain/ Edema. History of Present Illness: Patient is an 88-year-old male with past medical history of diabetes, hypertension, peripheral vascular disease, hyperlipidemia, recent history of osteomyelitis, currently being seen at the wound healing center, has been having difficulty with his potassium. Patient also recently reported gaining 20 pounds of weight. His diuretics have been adjusted. Patient's home health nurse came today to recheck his potassium level and found to be low. Therefore , her PCP recommended that he go to the ER. Patient's symptoms also included some shortness of breath. Patient does use a walker and is a resident of assisted living facility at [facility]. Patient's workup revealed a potassium of 2.6, sodium was 131. BNP was elevated at 981. Chest x-ray showed volume overload. Patient's potassium was replaced and was referred for admission. When seen in the ER, he was awake, alert, oriented x3, in some mild distress. 14:28 This 88 yrs old Male presents to ER via Ambulatory with complaints of jmm Abnormal Lab Results. 14:28 abnormal lab results, increased weight. Onset: The symptoms/episode began/ occurred jmm gradually. This is an 88 year old male that presents to the ED with no focal complaints. Patient was advised to go to the ED due to abnormal k result which was low along with weight gain over the past week. Son states the patient appears short of breath Allergies amoxicillin Allergy (Verified 01/25/17 10:28) Rash Home medications list reviewed: Yes Home Medications: Bumetanide 2 mg PO BID 01/06/19 Carvedilol [Coreg*] 3.125 mg PO BID 01/06/19 Docusate Sodium 100 mg PO DAILY 01/06/19 Finasteride [Proscar*] 5 mg PO DAILY 01/06/19 Gabapentin 600 mg PO TID 01/06/19 Insulin Detemir [Levemir Flextouch] 33 units SQ DAILY AT SUPPER 01/06/19 Insulin Detemir [Levemir Flextouch] 35 units SQ BREAKFAST 01/06/19 Metformin HCl 1,000 mg PO BID 01/06/19 Pravastatin Sodium [Pravachol] 20 mg PO BEDTIME 01/06/19 Spironolactone [Aldactone*] 25 mg PO DAILY 01/06/19 Tamsulosin HCl 0.4 mg PO BEDTIME 01/06/19 Warfarin Sodium 13 mg PO BEDTIME 01/06/19 metOLazone [Zaroxolyn*] 5 mg PO SEECOM 01/06/19 Lactulose 1 tbsp PO Q8HR PRN 01/11/19 Liraglutide [Victoza 2-Jacob] 0.6 mcg SQ DAILY 01/11/19 Collagenase [Santyl Ointment*] 1 appl TOP SEECOM 04/14/19 Potassium Chloride 20 meq PO BID 04/14/19 - Past Medical/Surgical History Diabetic: Yes -: Diabetes mellitus type 2 -: HTN -: Atrial fibrillation, chronic anti coagulation-Coumadin -: CHF -: PVD -: Hyperlipidemia -: Cataracts -: Dementia -: COPD -: History of falls -: History of hypoglycemia -: Diabetic Neuropathy -: Right upper lobectomy -: Appendectomy -: Tonsillectomy -: Hemorrhoidectomy -: Prostate Surgery -: I&D to left 3rd toe Psychosocial/ Personal History: The patient is a . He has 3 children. He currently lives at [facility] - Family History Father Medical History: Other (see notes) Notes: parkinsons Brother Medical History: Heart disease, Diabetes - Social History Smoking Status: Unknown if ever smoked Alcohol use: No CD- Drugs: No Caffeine use: Yes Place of Residence: Residential Review of Systems 10-point ROS is otherwise unremarkable General: Weakness, Malaise Respiratory: SOB with Excertion Cardiovascular: Edema Physical Examination Temp Pulse Resp BP Pulse Ox 97.2 F 51 18 132/82 98 04/15/19 08:00 04/15/19 08:54 04/15/19 08:00 04/15/19 08:54 04/15/19 08:00 General: Alert, In no apparent distress, Oriented x3, Cooperative HEENT: Atraumatic Neck: Supple Respiratory: Clear to auscultation bilaterally Cardiovascular: Regular rate/rhythm, No rubs, Edema Gastrointestinal: Soft and benign, Non-distended, No guarding Musculoskeletal: No clubbing, No contractures Integumentary: No rashes, No cyanosis, Skin breakdown, Diabetic ulcer Neurological: Normal speech Laboratory Data (last 24 hrs) 04/14/19 15:00: Phosphorus 2.7 04/14/19 15:00: PT 26.5 H, INR 2.32 04/14/19 15:00: WBC 6.3, Hgb 11.6 L, Hct 33.2 L, Plt Count 130 L 04/14/19 15:00: Sodium 131 L, Potassium 2.6 L*, BUN 44 H, Creatinine 1.21, Glucose 255 H, Magnesium 2.3, Total Bilirubin 0.5, AST 16, ALT 22, Alkaline Phosphatase 88 Imagings Data: EXAM DESCRIPTION: RAD - Chest Single View - 04/14/2019 3:31 pm CLINICAL HISTORY: Shortness of breath, hypokalemia, rapidly 18 COMPARISON: December 2018 TECHNIQUE: AP portable chest image was obtained 1503 hours . FINDINGS: Patient has a significant baseline interstitial lung disease pattern. Interstitial thickening is present on the prior examination. Vasculature has increased. Cardiac silhouette is enlarged similar to comparison. Trachea is in midline. No pneumothorax is present. No large pleural effusion. Surgical clips are present at the right hilum. No acute bony abnormality seen. No acute aortic findings suspected. IMPRESSION: CHF/volume overload pattern is present. No focal consolidation. Conclusions/Impression: A/ SHASHI likely CRS, improved. Hypokalemia. Hyponatremia. Alkalosis. CKD III. Diastolic CHF, A/C. DM II with CKD. HTN with CKD/ CHF. Anemia in chronic illness. BPH with LUTS. P/ Continue current POC and Medications. Continue diuresis. Increase spironolactone. Reduce Lisinopril. Replete potassium. Low sodium/ ADA diet. No NSAIDs. AM labs. Daily weight. Thank you kindly for the consultation.
[2019-04-15] MEDS ORDERED: SPIRONOLACTONE 25 MG TABLET PO ONE (13:00)
[2019-04-15] MEDS: GABAPENTIN 300 MG CAP PO SCH ×2 (13:20→21:11)
--- NOTE | 2019-04-15 14:52 | PN ---
Date of Progress Note: 04/15/2019 Subjective: Patient seen and examined. Chart reviewed and case discussed with RN and Dr. Roberson. Patient seems to be doing better. No acute complaints other than constipation. Medications: List reviewed. Physical Examination: Vital Signs: Temperature 97.2, heart rate 51, blood pressure 132/82, respirations 18, O2 of 98% on room air. General: Awake, alert, oriented x2, elderly male, obese. CV: S1, S2, irregularly irregular. Peripheral pulses present. Respiratory: Moving air well bilaterally. No wheezing or stridor. Gastrointestinal: Abdomen is soft, nontender, nondistended. Positive bowel sounds. Extremities: No clubbing, cyanosis, or edema. Neurologic: Nonfocal. Laboratory Data: Sodium 136, potassium 2.6, chloride 95, CO2 of 34, BUN 37, creatinine 1.03, glucose 158, calcium 9.3, phosphorus 2.5, magnesium 2.4. WBC 5.2, H and H 11.4 and 32.6, platelets 122. Assessment And Plan: An 88-year-old male with: 1. Acute congestive heart failure, diastolic dysfunction. We will continue with CHF guidelines. Continue fluid restriction. Monitor I's and O's. Daily weights. Patient seems to be breathing better. We will repeat chest x-ray in a.m. 2. Hypokalemia. We will replace and monitor. 3. Atrial fibrillation, chronic. On anticoagulation with Coumadin. We will recheck INR. 4. Diabetes mellitus type 2, insulin requiring with hyperglycemia. We will continue sliding scale insulin. Monitor blood glucose levels. 5. Benign prostatic hypertrophy. We will continue home medications. 6. Chronic obstructive pulmonary disease, chronic bronchitis. Albuterol as needed. Stable. 7. History of right upper lobectomy. 8. Wound of the distal left 3rd toe. No active disease. Continue with wound care. 9. Peripheral vascular disease, stable. 10. Essential hypertension, stable. Resume home medications as tolerated. 11. Mixed hyperlipidemia, stable. 12. 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 Stable. 13. Constipation. We will add Colace and MiraLax. 14. Disposition. Likely discharge in the next 24 hours once potassium is improved and responding clinically. /CALEB Voice ID: [id number] Report ID: [id number] MTDD
[2019-04-15 15:12] LABS: Urine Appearance CLEAR; Urine Bilirubin NEGATIVE (NEG); Urine Blood 1+ (NEG); Urine Color YELLOW; Urine Glucose 1+ (NEG); Urine Protein NEGATIVE (NEG); Urine Urobilinogen 0.2 mg/dL (0.2-1.0); Urine pH 7.5 (5.0-7.0)
[2019-04-15 15:27] LABS: UR MICROALBUMIN 1.9 mg/dL (< 1.9)
--- NOTE | 2019-04-15 15:51 | EKG ---
Test Date: 2019-04-14 Test Time: 14:52:42 Spiral Winding Machine Helper: AG/V MEASUREMENT RESULTS: Intervals: Rate: 45 NV: QRSD: 170 QT: 520 QTc: 449 [place]: P: NV: QRS: -33 T: 134 INTERPRETIVE STATEMENTS: Atrial fibrillation with slow ventricular response with premature ventricular or aberrantly conducted complexes Left axis deviation Left bundle branch block Abnormal ECG Compared to ECG 09/14/2018 18:32:17 Ventricular premature complex(es) now present Left-axis deviation now present Atrial premature complex(es) no longer present Electronically Signed On 04-15-19 15:50:35 CDT by Sagar Hill
[2019-04-15 15:57] LABS: Urine Bacteria <20 /HPF (NONE SEEN); Urine Culture Reflex Order REFLEXED
[2019-04-15] MEDS: INSULIN GLARGINE 100 UNITS/ML SQ SCH (17:09)
[2019-04-15] MEDS: CARVEDILOL 3.125 MG TAB PO SCH (18:49)
[2019-04-15] MEDS ORDERED: WARFARIN SODIUM PO SCH (21:00)
[2019-04-15] MEDS ORDERED: ATORVASTATIN 10 MG TAB PO SCH (21:00)
[2019-04-15] MEDS ORDERED: TAMSULOSIN 0.4 MG SR CAP PO SCH (21:00)
[2019-04-16 06:14] LABS: Absolute Lymphocytes (CBC) 1.4 K/uL (0.7-4.9); Basophils % 1.2 % (0-1.3); Hematocrit 31.5 % (39.6-49.0); Lymphocytes % 25.5 % (15.3-44.8); MPV 8.2 fL (7.6-11.3); RBC Red Blood Cell Count 3.78 M/uL (4.33-5.43)
[2019-04-16 06:22] LABS: Albumin 3.3 g/dL (3.4-5.0); Bilirubin Total 0.7 mg/dL (0.2-1.0); Magnesium 2.3 mg/dL (1.8-2.4); Phosphorus 3.1 mg/dL (2.5-4.9)
[2019-04-16] MEDS ORDERED: LACTULOSE 20 GM/30 ML UCUP PO PRN (07:15)
[2019-04-16] MEDS: INSULIN -REGULAR HUMAN 50 UNIT/0.5 ML ML SQ SCH ×3 (07:30→16:20)
[2019-04-16] MEDS ORDERED: INSULIN GLARGINE 100 UNITS/ML SQ SCH (08:00)
[2019-04-16] MEDS: FINASTERIDE 5 MG TAB PO SCH ×2 (08:31→08:32)
[2019-04-16] MEDS: POTASSIUM CL SA 10 MEQ TAB PO SCH (08:32)
[2019-04-16] MEDS: FUROSEMIDE 40 MG/4 ML VIAL IV SCH ×2 (08:32→15:53)
[2019-04-16] MEDS: GABAPENTIN 300 MG CAP PO SCH ×2 (08:33→13:15)
[2019-04-16] MEDS: DOCUSATE NA 100 MG CAP PO SCH (08:33)
[2019-04-16] MEDS: CARVEDILOL 3.125 MG TAB PO SCH (08:34)
[2019-04-16] MEDS ORDERED: COLLAGENASE 30 GM OINTMENT PO SCH (09:00)
[2019-04-16] MEDS ORDERED: SPIRONOLACTONE 25 MG TABLET PO SCH ×2 (09:00)
[2019-04-16] MEDS ORDERED: LISINOPRIL 5 MG TAB PO SCH (09:00)
--- NOTE | 2019-04-16 10:43 | EKG ---
Test Date: 2019-04-15 Test Time: 16:31:21 Manager [employer]fit: TASHI Villanueva MEASUREMENT RESULTS: Intervals: Rate: 42 MD: QRSD: 168 QT: 556 QTc: 464 [place]: P: MD: QRS: -37 T: 85 INTERPRETIVE STATEMENTS: Junctional rhythm with occasional PVC s Left bundle branch block Abnormal ECG Compared to ECG 04/14/2019 14:52:42 Atrial fibrillation no longer present Electronically Signed On 04-16-19 10:43:01 CDT by Sagar Hill
[2019-04-16 11:34] VITALS: O2SAT 97
--- NOTE | 2019-04-16 12:19 | RAD REPORT ---
EXAM DESCRIPTION: RAD - Chest Single View - 04/16/2019 12:12 pm CLINICAL HISTORY: CHF Chest pain. COMPARISON: Chest Single View dated 04/14/2019; Chest Single View dated 01/07/2019; Chest Single View dated 06/18/2018; Chest Single View dated 01/25/2017 FINDINGS: Portable technique limits examination quality. Mild interstitial pulmonary edema is again seen, unchanged. No focal consolidation detected. Moderate to significant cardiomegaly. Surgical clips seen right hilum. IMPRESSION: Moderate CHF, unchanged.
--- NOTE | 2019-04-16 14:11 | P.PN ---
Date of Service: 04/16/19 Vital Signs Temp Pulse Resp BP Pulse Ox 97.1 F 51 18 104/53 L 99 04/16/19 12:00 04/16/19 12:00 04/16/19 12:00 04/16/19 12:00 04/16/19 12:00 Medications Acetaminophen (Tylenol -Extra Strength) 500 mg PO Q4HP PRN PRN Reason: Pain scale 2-4 (Mild) Stop: 05/14/19 20:57 Atorvastatin Calcium (Lipitor) 10 mg PO BEDTIME GERSON Stop: 05/15/19 21:01 Last Admin: 04/15/19 21:11 Dose: 10 mg Carvedilol (Coreg) 3.125 mg PO BID GERSON Stop: 05/15/19 21:01 Last Admin: 04/16/19 08:34 Dose: Not Given Dextrose (Dextrose 50% Syringe) 12.5 gm IV PRN PRN; Protocol PRN Reason: HYPOGLYCEMIA Stop: 05/14/19 20:57 Docusate Sodium (Colace Cap) 100 mg PO BID GERSON Stop: 05/15/19 09:01 Last Admin: 04/16/19 08:33 Dose: 100 mg Finasteride (Proscar) 5 mg PO DAILY GERSON Stop: 05/16/19 09:01 Last Admin: 04/16/19 08:32 Dose: 5 mg Furosemide (Lasix) 40 mg IV BIDL GERSON Stop: 05/14/19 21:01 Last Admin: 04/16/19 08:32 Dose: 40 mg Gabapentin (Neurontin) 600 mg PO TID GERSON Stop: 05/15/19 14:01 Last Admin: 04/16/19 13:15 Dose: 600 mg Glucagon (Glucagen) 1 mg IM 1X PRN; Protocol PRN Reason: HYPOGLYCEMIA Stop: 05/14/19 20:57 Home Med (Warfarin Sodium [Warfarin Sodium]) 13 mg PO BEDTIME GERSON Stop: 05/15/19 21:01 Last Admin: 04/15/19 21:00 Dose: Not Given Home Med (Home Med) 1 ea PO DAILY GERSON Stop: 05/16/19 09:01 Insulin Glargine (Lantus) 33 units SQ 1700 GERSON Stop: 05/15/19 17:01 Last Admin: 04/15/19 17:09 Dose: 33 units Insulin Glargine (Lantus) 35 units SQ BREAKFAST [facility] Stop: 05/16/19 08:01 Last Admin: 04/16/19 08:00 Dose: 35 units Insulin Human Regular (Novolin -R) 0 unit SQ ACHS [facility]; Protocol Stop: 05/14/19 21:01 Last Admin: 04/16/19 11:31 Dose: 6 unit Lactulose (Cephulac) 10 gm PO Q8HR PRN PRN Reason: until has a bowel movement Stop: 05/16/19 07:16 Lisinopril (Prinivil) 5 mg PO DAILY GERSON Stop: 05/16/19 09:01 Last Admin: 04/16/19 08:31 Dose: 5 mg Ondansetron HCl (Zofran) 4 mg IV Q4H PRN PRN Reason: NAUSEA / VOMITING Stop: 05/14/19 20:57 Polyethylene Glycol (Glycolax) 17 gm PO DAILY PRN PRN Reason: CONSTIPATION Stop: 05/15/19 08:45 Last Admin: 04/15/19 11:51 Dose: 17 gm Potassium Chloride (Klor-Con 10 Meq Tab) 40 meq PO DAILY GERSON Stop: 05/15/19 09:01 Last Admin: 04/16/19 08:32 Dose: 40 meq Potassium Chloride (Klor-Con 10 Meq Tab) 40 meq PO 1X ONE Stop: 04/16/19 14:06 Sodium Chloride (Normal Saline Flush) 10 ml IV BID GERSON Stop: 05/14/19 21:01 Last Admin: 04/16/19 08:36 Dose: 10 ml Spironolactone (Aldactone) 50 mg PO DAILY GERSON Stop: 05/16/19 09:01 Last Admin: 04/16/19 08:30 Dose: 50 mg Tamsulosin HCl (Flomax) 0.4 mg PO BEDTIME GERSON Stop: 05/15/19 21:01 Last Admin: 04/15/19 21:10 Dose: 0.4 mg Assessment/ Plan: Nephrology. CPS improved without CP or SOB. No acute events overnight. Feeling better. Ambulating. Vitals, medications, blood work and imaging reviewed in the chart. General: Alert, In no apparent distress, Oriented x3, Cooperative HEENT: Atraumatic Neck: Supple Respiratory: Clear to auscultation bilaterally Cardiovascular: Regular rate/rhythm, No rubs, Edema Gastrointestinal: Soft and benign, Non-distended, No guarding Musculoskeletal: No clubbing, No contractures Integumentary: No rashes, No cyanosis, Skin breakdown, Diabetic ulcer Neurological: Normal speech Laboratory Data (last 24 hrs) 04/14/19 15:00: Phosphorus 2.7 04/14/19 15:00: PT 26.5 H, INR 2.32 04/14/19 15:00: WBC 6.3, Hgb 11.6 L, Hct 33.2 L, Plt Count 130 L 04/14/19 15:00: Sodium 131 L, Potassium 2.6 L*, BUN 44 H, Creatinine 1.21, Glucose 255 H, Magnesium 2.3, Total Bilirubin 0.5, AST 16, ALT 22, Alkaline Phosphatase 88 Imagings Data: EXAM DESCRIPTION: RAD - Chest Single View - 04/14/2019 3:31 pm CLINICAL HISTORY: Shortness of breath, hypokalemia, rapidly 18 COMPARISON: December 2018 TECHNIQUE: AP portable chest image was obtained 1503 hours . FINDINGS: Patient has a significant baseline interstitial lung disease pattern. Interstitial thickening is present on the prior examination. Vasculature has increased. Cardiac silhouette is enlarged similar to comparison. Trachea is in midline. No pneumothorax is present. No large pleural effusion. Surgical clips are present at the right hilum. No acute bony abnormality seen. No acute aortic findings suspected. IMPRESSION: CHF/volume overload pattern is present. No focal consolidation. Conclusions/Impression: A/ SHASHI likely CRS, improved. Hypokalemia. Hyponatremia. Alkalosis. CKD III with proteinuria. Diastolic CHF, A/C. DM II with CKD. HTN with CKD/ CHF. Anemia in chronic illness. BPH with LUTS. P/ Continue current POC and Medications. Continue diuresis. Replete potassium. Low sodium/ ADA diet. No NSAIDs. AM labs. Daily weight.
[2019-04-16] MEDS ORDERED: POTASSIUM CL SA 10 MEQ TAB PO ONE ×2 (14:12→17:00)
[2019-04-16 15:55] VITALS: BP 150/66
[2019-04-16] MEDS: INSULIN GLARGINE 100 UNITS/ML SQ SCH (16:20)
[2019-04-16 16:48] VITALS: TEMP 97.6
[2019-04-16 17:15] VITALS: BMI 29.9
--- NOTE | 2019-04-16 18:04 | DS ---
Hooker Laster: Dr. Roberson with Nephrology. Admitting Diagnoses: 1.Acute congestive heart failure diastolic dysfunction. 2.Hypokalemia. 3.Atrial fibrillation, chronic. 4.Diabetes mellitus type 2, insulin requiring. 5.Benign prostatic hypertrophy. 6.Chronic obstructive pulmonary disease, chronic bronchitis. 7.History of right upper lobectomy. 8.Wound on the distal left 3rd toe. 9.Peripheral vascular disease. 10.Essential hypertension. 11.Hyperlipidemia. 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 Discharge Diagnoses: 1.Acute diastolic congestive heart failure, improved. 2.Hypokalemia, corrected. 3.Atrial fibrillation, chronic on anticoagulation. 4.Diabetes mellitus type 2 insulin requiring. 5.Benign prostatic hypertrophy, stable. 6.Chronic obstructive pulmonary disease, chronic bronchitis, stable. 7.History of right upper lobectomy. 8.Wound on the distal left 3rd toe. No active infections, stable. 9.Peripheral vascular disease. 10.Essential hypertension, stable. 11.Hyperlipidemia mixed, stable. 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 Hospital Course: The patient is an 88-year-old male who was admitted for abnormal labs, shortness of breath. Patient was found to have hypokalemia on lab check by home health and was instructed to go to the ER by primary care physician, Dr. Torres. Patient does have history of systolic heart failu re and is a resident of assisted living facility at [facility]. Patient was started on potassium repla cement. He was also given diuretics for his acute heart failure. Patient's symptoms improved. He w as doing well. He was able to be weaned off O2. His cardiac enzymes were negative. Patient's elect rolytes were replaced, including the potassium. Patient was seen by Nephrology, Dr. Roberson. His me dications were adjusted. Aldactone dose was increased. Repeat chest x-ray showed mild interstitial edema, unchanged, however, clinically patient was improving. He was able to ambulate without getting significantly short of breath. He does use a walker. Patient also reported some constipation, was continued on stool softeners. Patient's repeat potassium had improved. He was doing well clinically and was then cleared for discharge from Nephrology standpoint. His wound on the left third toe was stable and did not look infected. There were no signs of sepsis. His white blood cell count was nor mal. His to continue following up with [facility]iatry and [facility] and continue with local wound care. Patient was then discharged back to [facility] in a stable condition. Activity: Fall precautions. Ambulate with assist. Diet: Diabetic. Followup: Follow up with Dr. Torres in 2-3 days. Return to ER for worsening condition. Repeat po tassium level in 2-3 days. Medications: As per medication reconciliation list. Physical Examination: General: Awake, alert, oriented x3. Elderly male. CV: S1, S2. Respiratory: Some diminished breath sounds, otherwise moving air well at the apices. Gastrointestinal: Abdomen is soft, nontender, nondistended. Positive bowel sounds. Extremities: No clubbing, cyanosis, or edema. Neurologic: Nonfocal. Time Spent: Total time spent discharging patient was 36 minutes. VENUS Voice ID: [id number] Report ID: [id number]
== END 2019-04-16 17:35 | disposition home or self-care (01) | DRG 291 ==
LOC: ER 13:56 → ERHOLD 17:18 → 2ND 20:32
PROVIDERS: ADMIT Family Medicine; ATTEND Family Medicine
DX: I13.0 Hypertensive heart and chronic kidney disease with heart failure and stage 1 through stage 4 chronic kidney disease, or unspecified chronic kidney disease (principal); I50.31 Acute diastolic (congestive) heart failure; N17.9 Acute kidney failure, unspecified; E87.3 Alkalosis; E87.1 Hypo-osmolality and hyponatremia; E87.6 Hypokalemia; I48.2 Chronic atrial fibrillation; N40.0 Benign prostatic hyperplasia without lower urinary tract symptoms; J44.9 Chronic obstructive pulmonary disease, unspecified; I73.9 Peripheral vascular disease, unspecified; E78.2 Mixed hyperlipidemia; G30.0 Alzheimer's disease with early onset; F02.80 Dementia in other diseases classified elsewhere, unspecified severity, without behavioral disturbance, psychotic disturbance, mood disturbance, and anxiety; S90.935A Unspecified superficial injury of left lesser toe(s), initial encounter; K59.00 Constipation, unspecified; N18.3 Chronic kidney disease, stage 3 (moderate); E11.22 Type 2 diabetes mellitus with diabetic chronic kidney disease; Z85.118 Personal history of other malignant neoplasm of bronchus and lung; Z79.01 Long term (current) use of anticoagulants; Z88.0 Allergy status to penicillin
CPT/HCPCS: 17250; 36415; 71045; 80048; 80053; 80076; 81001; 82043; 82570; 82962; 83735; 83880; 84100; 84132; 84484; 84550; 85025; 85610; 87086; 87088; 93005; 94760; 96365; 96366; 97110; 97116; 97161; 97530; 97597; 99285; J1940

== ENCOUNTER 2019-08-11 04:32 | Inpatient (IN) | payer OTHER ==
[2019-08-11] MEDS ORDERED: FENTANYL CITR 100 MCG/2 ML ONE ×2 (04:44→05:21)
[2019-08-11] MEDS ORDERED: NA CHLORIDE 0.9% 1,000 ML ONE (05:21)
[2019-08-11 05:22] LABS: Absolute Lymphocytes (CBC) 1.9 K/uL (0.7-4.9); Basophils % 1.1 % (0-1.3); Hematocrit 40.5 % (39.6-49.0); Lymphocytes % 32.1 % (15.3-44.8); RBC Red Blood Cell Count 4.84 M/uL (4.33-5.43)
[2019-08-11 05:23] LABS: Protime INR 2.03
[2019-08-11 06:01] LABS: Albumin 3.8 g/dL (3.4-5.0); Bilirubin Total 0.5 mg/dL (0.2-1.0); Protein, Total 7.1 g/dL (6.4-8.2)
[2019-08-11 06:03] LABS: Potassium 2.9 mmol/L (3.5-5.1)
--- NOTE | 2019-08-11 06:06 | ER ---
Nurse's Notes [facility] Name: Dalton Fields Age: 88 yrs Sex: Male : 1930 Arrival Date: 08/11/2019 Time: 04:34 Bed 6 Private MD: Diagnosis: Displaced fracture of base of neck of left femur Presentation: 08/11 04:35 Presenting complaint: EMS states: patient from [facility] while washing his laundry he rr5 accidentally fell down hit his left hip. unable to straighten his left leg. negative for LOC. 04:35 Transition of care: patient was received from another setting of care (long-term care [facility]), [facility]. Onset of symptoms was August 11, 2019. Risk Assessment: Do you want to hurt yourself or someone else? Patient reports no desire to harm self or others. Initial Sepsis Screen: Does the patient meet any 2 criteria? No. Patient's initial sepsis screen is negative. Does the patient have a suspected source of infection? No. Patient's initial sepsis screen is negative. Care prior to arrival: Placed on backboard. Mechanism of Injury: Fall from standing position to ground. 04:35 Method Of Arrival: EMS: [facility] rr5 04:35 Acuity: LEÓN 2 rr5 Historical: - Allergies: 04:35 No Known Allergies; rr5 - Home Meds: 04:35 bumetanide 1 mg Oral tab 1 tab 2 times per day [Active]; carvedilol 3.125 mg Oral tab 1 rr5 tab 2 times per day [Active]; docusate sodium 100 mg Oral tab 1 tab 2 times per day [Active]; finasteride 5 mg Oral tab 1 tab once daily [Active]; Flomax 0.4 mg Oral cp24 1 cap once daily [Active]; gabapentin 600 mg Oral tab 3 times per day [Active]; Levemir FlexTouch 100 unit/mL (3 mL) subcutaneous inpn 33 unit nightly [Active]; lactulose 10 gram/15 mL Oral soln [Active]; metformin 1,000 mg Oral tab [Active]; metolazone 5 mg Oral tab 3x weekly [Active]; pravastatin 20 mg Oral tab 1 tab once daily [Active]; pravastatin 20 mg Oral tab 1 tab once daily [Active]; spironolactone 25 mg Oral tab [Active]; Victoza 2-Jacob 0.6 mg/0.1 mL (18 mg/3 mL) subcutaneous pnij [Active]; warfarin 13 mg Oral tab [Active]; - PMHx: 04:35 Atrial Fib; BPH; CHF; Chronic hyponatremia; constipation; COPD; Diabetes - NIDDM; rr5 Dementia; Hyperlipidemia; Hypertension; neuropathy; venous insufficiency; - PSHx: 07:00 partial lung removed; Appendectomy; rr5 - Immunization history:: Adult Immunizations up to date. - Social history:: Smoking status: Patient/guardian denies using tobacco. - Ebola Screening: : Patient negative for fever greater than or equal to 101.5 degrees Fahrenheit, and additional compatible Ebola Virus Disease symptoms Patient denies exposure to infectious person Patient denies travel to an Ebola-affected area in the 21 days before illness onset. Screenin:01 Abuse screen: Denies threats or abuse. Denies injuries from another. Nutritional rr5 screening: No deficits noted. Tuberculosis screening: No symptoms or risk factors identified. Fall Risk Fall in past 12 months (25 points). IV access (20 points). Gait- Impaired (20 pts.). Total Yan Fall Scale indicates High Risk Score (45 or more points). Fall prevention measures have been instituted. Side Rails Up X 2 Placed Close to Nursing Station Frequent Obs/Assessments Occuring Family Present and informed to notify staff if the need to leave the bedside As available patient and family educated on Fall Prevention Program and Strategies. Assessment: 04:35 General: Appears in no apparent distress. uncomfortable, Behavior is calm, cooperative. rr5 Pain: Complains of pain in left hip Pain does not radiate. Pain currently is 8 out of 10 on a pain scale. Quality of pain is described as aching, Pain began suddenly, Is intermittent. 04:35 Neuro: Level of Consciousness is awake, alert, obeys commands, Oriented to person, rr5 place, time, situation, Denies LOC. Cardiovascular: Capillary refill < 3 seconds Patient's skin is warm and dry. Respiratory: Airway is patent Respiratory effort is even, unlabored, Respiratory pattern is regular, symmetrical. GI: No signs and/or symptoms were reported involving the gastrointestinal system. : No signs and/or symptoms were reported regarding the genitourinary system. EENT: No signs and/or symptoms were reported regarding the EENT system. Derm: Skin is fragile, is thin, Skin temperature is warm. Musculoskeletal: Capillary refill < 3 seconds, Range of motion: limited in left hip and left knee Reports pain in left hip and left leg. 04:35 Reassessment: as per ED provider not for trauma alert. rr5 05:20 Reassessment: Patient appears in no apparent distress at this time. performing xray of rr5 pelvis at bedside. 05:20 Reassessment: external rotation left leg noted. rr5 05:47 Reassessment: Patient appears in no apparent distress at this time. Patient is alert, rr5 oriented x 3, equal unlabored respirations, skin warm/dry/pink. for CT scan of the pelvis. 06:15 Reassessment: Patient appears in no apparent distress at this time. fentanyl 50 mcg/IV rr5 given prior shifting to CT scan. 06:36 Reassessment: Patient appears in no apparent distress at this time. back from CTscan. rr5 patient for admission updated the patient. 06:50 Reassessment: Patient appears in no apparent distress at this time. Patient and/or rr5 family updated on plan of care and expected duration. Pain level reassessed. Patient is alert, oriented x 3, equal unlabored respirations, skin warm/dry/pink. for admission. hospitalist at bedside. assessing the patient. Rickey fields ( son) [phone] contact number. 07:50 Reassessment: Pt resting comfortably w/ stable vitals, report called to TJ on second ph floor, will check BGL before pt going to floor. 08:10 Reassessment: BGL up to 103 (from 68), pt taken to 4th floor via stretcher. ph Vital Signs: 04:35 BP 117 / 57; Pulse 53; Resp 20; Temp 97.5; Pulse Ox 96% ; Weight 108.86 kg; Height 6 rr5 ft. 5 in. (195.58 cm); Pain 8/10; 05:15 BP 131 / 63; Pulse 51; Resp 19; Pulse Ox 90% on 2 lpm NC; rr5 05:20 Pulse Ox 97% on 2 lpm NC; rr5 06:15 BP 121 / 70; Pulse 56; Resp 16; Pulse Ox 100% 2 lpm ; Pain 8/10; rr5 06:46 BP 142 / 65; Pulse 49; Resp 18; Temp 97.5; Pulse Ox 98% on 2 lpm NC; Pain 7/10; rr5 07:45 BP 133 / 68; Pulse 54; Resp 14; Temp 97.4; Pulse Ox 100% on 2 lpm NC; ph 04:35 Body Mass Index 28.46 (108.86 kg, 195.58 cm) rr5 ED Course: 04:34 Patient arrived in ED. cl3 04:35 Damián Ying MD is Attending Physician. tw4 04:35 Arm band placed on. rr5 04:35 Patient has correct armband on for positive identification. Placed in gown. Bed in low rr5 position. Call light in reach. Side rails up X2. 04:35 front desk monitor on. Pulse ox on. NIBP on. rr5 04:44 Yuan Laws RN is Primary Nurse. rr5 04:49 Triage completed. rr5 04:55 Missed attempt(s): 20 gauge in right antecubital area. Inserted saline lock: 20 gauge lp1 in right forearm, using aseptic technique. Blood collected. 05:36 Hip Left 2 View In Process Unspecified. EDMS 05:37 Pelvis In Process Unspecified. EDMS 06:03 Morenita Garrett MD is Hospitalizing Provider. tw4 06:50 CT-ABD In Process Unspecified. EDMS 08:08 No provider procedures requiring assistance completed. Patient admitted, IV remains in ph place. Administered Medications: 05:00 Drug: fentaNYL (PF) 100 mcg {Note: rass 0.} Route: IVP; Site: right forearm; rr5 05:55 Follow up: Response: No adverse reaction; RASS: Alert and Calm (0) rr5 06:15 Drug: fentaNYL (PF) 50 mcg {Note: rass 0.} Route: IVP; Site: right forearm; rr5 08:11 Follow up: Response: No adverse reaction; Pain is decreased; RASS: Drowsy (-1) ph 06:45 Drug: Potassium Effervescent Tablet 50 mEq {Note: K 2.9.} Route: PO; rr5 08:10 Follow up: Response: No adverse reaction ph Outcome: 06:04 Decision to Hospitalize by Provider. tw4 08:08 Admitted to Med/surg accompanied by tech, family with patient, via stretcher, room 229, ph with oxygen, with chart, Report called to TJ 08:08 Condition: stable 08:08 Instructed on the need for admit. 08:11 Patient left the ED. ph Signatures: Dispatcher [employer] EDOxana Francis, RN RN lp1 Tayler Chaparro RN RN ph Damián Ying MD MD tw4 Yuan Laws RN RN rr5 Abad Kim cl3
--- NOTE | 2019-08-11 06:07 | EDPHYS ---
Physician Documentation [facility] Name: Dalton Díaz Age: 88 yrs Sex: Male : 1930 Arrival Date: 08/11/2019 Time: 04:34 Bed 6 Private MD: ED Physician Damián Ying HPI: 08/11 04:53 This 88 yrs old Male presents to ER via EMS with complaints of Fall Injury. tw4 04:53 Details of fall: The patient fell from an upright position, while standing, while tw4 walking. Onset: The symptoms/episode began/occurred just prior to arrival. Associated injuries: The patient sustained left hip. Severity of symptoms: At their worst the symptoms were severe, in the emergency department the symptoms are unchanged. The patient has not experienced similar symptoms in the past. Historical: - Allergies: 04:35 No Known Allergies; rr5 - Home Meds: 04:35 bumetanide 1 mg Oral tab 1 tab 2 times per day [Active]; carvedilol 3.125 mg Oral tab 1 rr5 tab 2 times per day [Active]; docusate sodium 100 mg Oral tab 1 tab 2 times per day [Active]; finasteride 5 mg Oral tab 1 tab once daily [Active]; Flomax 0.4 mg Oral cp24 1 cap once daily [Active]; gabapentin 600 mg Oral tab 3 times per day [Active]; Levemir FlexTouch 100 unit/mL (3 mL) subcutaneous inpn 33 unit nightly [Active]; lactulose 10 gram/15 mL Oral soln [Active]; metformin 1,000 mg Oral tab [Active]; metolazone 5 mg Oral tab 3x weekly [Active]; pravastatin 20 mg Oral tab 1 tab once daily [Active]; pravastatin 20 mg Oral tab 1 tab once daily [Active]; spironolactone 25 mg Oral tab [Active]; Victoza 2-Jacob 0.6 mg/0.1 mL (18 mg/3 mL) subcutaneous pnij [Active]; warfarin 13 mg Oral tab [Active]; - PMHx: 04:35 Atrial Fib; BPH; CHF; Chronic hyponatremia; constipation; COPD; Diabetes - NIDDM; rr5 Dementia; Hyperlipidemia; Hypertension; neuropathy; venous insufficiency; - PSHx: 07:00 partial lung removed; Appendectomy; rr5 - Immunization history:: Adult Immunizations up to date. - Social history:: Smoking status: Patient/guardian denies using tobacco. - Ebola Screening: : Patient negative for fever greater than or equal to 101.5 degrees Fahrenheit, and additional compatible Ebola Virus Disease symptoms Patient denies exposure to infectious person Patient denies travel to an Ebola-affected area in the 21 days before illness onset. ROS: 04:53 Constitutional: Negative for fever, chills, and weight loss, Eyes: Negative for injury, tw4 pain, redness, and discharge, Cardiovascular: Negative for chest pain, palpitations, and edema, Respiratory: Negative for shortness of breath, cough, wheezing, and pleuritic chest pain, Abdomen/GI: Negative for abdominal pain, nausea, vomiting, diarrhea, and constipation, Back: Negative for injury and pain, Skin: Negative for injury, rash, and discoloration, Neuro: Negative for headache, weakness, numbness, tingling, and seizure. 04:53 MS/extremity: Positive for injury or acute deformity, decreased range of motion, deformity, pain, tenderness, Negative for abrasion, bite, contusion, erythema, laceration, paresthesias, tingling, warmth. Exam: 04:53 Constitutional: This is a well developed, well nourished patient who is awake, alert, tw4 and in no acute distress. Head/Face: Normocephalic, atraumatic. Chest/axilla: Normal chest wall appearance and motion. Nontender with no deformity. No lesions are appreciated. Cardiovascular: Regular rate and rhythm with a normal S1 and S2. No gallops, murmurs, or rubs. Normal PMI, no JVD. No pulse deficits. Respiratory: Lungs have equal breath sounds bilaterally, clear to auscultation and percussion. No rales, rhonchi or wheezes noted. No increased work of breathing, no retractions or nasal flaring. Abdomen/GI: Soft, non-tender, with normal bowel sounds. No distension or tympany. No guarding or rebound. No evidence of tenderness throughout. Skin: Warm, dry with normal turgor. Normal color with no rashes, no lesions, and no evidence of cellulitis. Neuro: Awake and alert, GCS 15, oriented to person, place, time, and situation. Cranial nerves II-XII grossly intact. Motor strength 5/5 in all extremities. Sensory grossly intact. Cerebellar exam normal. Normal gait. 04:53 Constitutional: The patient appears in obvious distress, mildly distressed, in obvious pain. 04:53 Musculoskeletal/extremity: Extremities: noted in the left hip: decreased ROM, deformity, pain, tenderness, There is no evidence of abrasion, bite, ecchymosis, erythema, laceration, puncture, rash, swelling. Vital Signs: 04:35 BP 117 / 57; Pulse 53; Resp 20; Temp 97.5; Pulse Ox 96% ; Weight 108.86 kg; Height 6 rr5 ft. 5 in. (195.58 cm); Pain 8/10; 05:15 BP 131 / 63; Pulse 51; Resp 19; Pulse Ox 90% on 2 lpm NC; rr5 05:20 Pulse Ox 97% on 2 lpm NC; rr5 06:15 BP 121 / 70; Pulse 56; Resp 16; Pulse Ox 100% 2 lpm ; Pain 8/10; rr5 06:46 BP 142 / 65; Pulse 49; Resp 18; Temp 97.5; Pulse Ox 98% on 2 lpm NC; Pain 7/10; rr5 07:45 BP 133 / 68; Pulse 54; Resp 14; Temp 97.4; Pulse Ox 100% on 2 lpm NC; ph 04:35 Body Mass Index 28.46 (108.86 kg, 195.58 cm) rr5 MDM: 04:35 Patient medically screened. tw4 06:01 Differential diagnosis: abrasion, contusion, fracture, multiple trauma, sprain. Data tw4 reviewed: vital signs, nurses notes, lab test result(s), CBC, white blood cell count, hemoglobin, hematocrit, platelets, electrolytes, sodium, potassium, chloride, serum bicarbonate, BUN, creatinine, serum glucose, radiologic studies, plain films. Data interpreted: Pulse oximetry: Interpretation: normal. Counseling: I had a detailed discussion with the patient and/or guardian regarding: the historical points, exam findings, and any diagnostic results supporting the discharge/admit diagnosis, radiology results. Physician consultation: Morenita Garrett MD regarding admission, to the telemetry unit. patient's condition, and will see patient in inpatient room. 08/11 04:37 Order name: Basic Metabolic Panel tw4 08/11 04:37 Order name: CBC with Diff tw4 08/11 04:37 Order name: Creatinine for Radiology tw4 08/11 04:37 Order name: Type And Screen tw4 08/11 04:37 Order name: PT-INR tw4 08/11 04:37 Order name: Ptt, Activated tw4 08/11 04:37 Order name: XRAY Pelvis tw4 08/11 04:37 Order name: Hip Left 2 View XRAY tw4 08/11 05:01 Order name: CBC with Automated Diff; Complete Time: 05:53 EDMS 08/11 05:54 Interpretation: Normal except: PLT 133; EOSINOPHIL % 5.0. tw4 08/11 05:02 Order name: Comprehensive Metabolic Panel EDMS 08/11 05:02 Order name: Protime (+INR); Complete Time: 05:53 EDMS 08/11 05:53 Interpretation: Abnormal: PT 23.3. tw4 08/11 05:02 Order name: PTT, Activated Partial Thromb; Complete Time: 05:53 EDMS 08/11 05:53 Interpretation: Abnormal: PTT 39.5. tw4 08/11 05:08 Order name: Creatinine (Radiology Only); Complete Time: 05:53 EDMS 08/11 05:08 Order name: Type and Screen EDMS 08/11 04:37 Order name: Labs collected and sent; Complete Time: 04:58 tw4 08/11 05:02 Order name: Hip Left 2 View EDMS 08/11 05:02 Order name: Pelvis EDMS 08/11 05:50 Order name: CT-ABD EDMS Administered Medications: 05:00 Drug: fentaNYL (PF) 100 mcg {Note: rass 0.} Route: IVP; Site: right forearm; rr5 05:55 Follow up: Response: No adverse reaction; RASS: Alert and Calm (0) rr5 06:15 Drug: fentaNYL (PF) 50 mcg {Note: rass 0.} Route: IVP; Site: right forearm; rr5 08:11 Follow up: Response: No adverse reaction; Pain is decreased; RASS: Drowsy (-1) ph 06:45 Drug: Potassium Effervescent Tablet 50 mEq {Note: K 2.9.} Route: PO; rr5 08:10 Follow up: Response: No adverse reaction ph Disposition: 08/11/19 06:04 Hospitalization ordered by Morenita Garrett for Inpatient Admission. Preliminary diagnosis is Displaced fracture of base of neck of left femur. - Bed requested for Telemetry/MedSurg (Inpatient). - Status is Inpatient Admission. ph - Condition is Fair. - Problem is new. - Symptoms are unchanged. UTI on Admission? No Signatures: Dispatcher [employer] EDMS Tayler Chaparro RN RN Damián Ying MD MD tw4 Jerilyn Harry Raymond RN RN rr5 Corrections: (The following items were deleted from the chart) 07:41 06:04 Hospitalization Ordered by Morenita Garrett MD for Inpatient Admission. Preliminary eb diagnosis is Displaced fracture of base of neck of left femur. Bed requested for Telemetry/MedSurg (Inpatient). Status is Inpatient Admission. Condition is Fair. Problem is new. Symptoms are unchanged. UTI on Admission? No. tw4 08:11 07:41 08/11/2019 06:04 Hospitalization Ordered by Morenita Garrett MD for Inpatient ph Admission. Preliminary diagnosis is Displaced fracture of base of neck of left femur. Bed requested for Telemetry/MedSurg (Inpatient). Status is Inpatient Admission. Condition is Fair. Problem is new. Symptoms are unchanged. UTI on Admission? No. eb
[2019-08-11] MEDS ORDERED: POTASSIUM 25 MEQ EFFERV TAB ONE (06:39)
--- NOTE | 2019-08-11 07:24 | RAD REPORT ---
EXAM DESCRIPTION: RAD - Pelvis - 08/11/2019 5:36 am CLINICAL HISTORY: Fall, pelvic and hip pain COMPARISON: Pelvis May 2018 TECHNIQUE: AP imaging of the pelvis was obtained. FINDINGS: Single view of the pelvis was obtained. The inferior aspect of each ischium is cut off the field of view. The patient is also significantly rotated to the right limiting this exam significant ly. Prominent lumbar spine degenerative changes are present. Compression at L5 is not excluded and can be further evaluated with CT imaging. No gross fracture of the imaged portions of the pelvis. Sclerotic focus in the iliac crest has not ch anged. Sacral ala assessment is too limited due to the rotation. Right femoral head is in normal position. Remainder of the right femur is obscured. Left femoral neck fracture is evident but poorly visualized. No pathologic component. IMPRESSION: Very limited pelvic examination showing no gross evidence for pelvic fracture. Left femoral neck fracture incompletely visualized. Lumbar spine degenerative change with possible L5 compression. This is also limited examination. If the patient cannot be adequately positioned for pelvis and hip imaging, follow-up CT scan could be performed.
--- NOTE | 2019-08-11 07:25 | RAD REPORT ---
EXAM DESCRIPTION: RAD - Hip Left 2 View - 08/11/2019 5:35 am CLINICAL HISTORY: Fall, hip pain COMPARISON: None. FINDINGS: Single view of the left hip was obtained. Patient is obliquely positioned, rotated to the right. The left femoral neck fracture is present. This appears to be subcapital location with impacti on superiorly. Pathologic component is not evident. No intertrochanteric extension seen on this exami nation. Partially imaged pelvis is grossly normal. Limited imaging of the right femur shows no acute finding . No significant soft tissue finding. IMPRESSION: Limited or incomplete left hip examination showing impacted subcapital fracture.
[2019-08-11] MEDS ORDERED: ACETAMINOPHEN 500 MG TAB PO PRN (08:25)
[2019-08-11] MEDS ORDERED: TRAMADOL HCL 50 MG TAB PO PRN (08:25)
[2019-08-11] MEDS: INSULIN -REGULAR HUMAN 50 UNIT/0.5 ML ML SQ SCH ×4 (08:25→21:13)
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
[2019-08-11 09:11] VITALS: BMI 30.8
[2019-08-11 09:48] LABS: Urine Appearance CLEAR; Urine Bilirubin NEGATIVE (NEG); Urine Blood NEGATIVE (NEG); Urine Color YELLOW; Urine Glucose NEGATIVE (NEG); Urine Protein NEGATIVE (NEG); Urine Specific Gravity 1.015 (1.005-1.030); Urine Urobilinogen 0.2 mg/dL (0.2-1.0)
[2019-08-11 09:51] LABS: Urine Microscopic Reflex NO UMIC
[2019-08-11] MEDS: BUMETANIDE 1 MG TABLET PO SCH ×2 (10:15→21:12)
[2019-08-11] MEDS: TAMSULOSIN 0.4 MG SR CAP PO SCH (10:15)
[2019-08-11] MEDS: GABAPENTIN 300 MG CAP PO SCH ×3 (10:16→21:13)
[2019-08-11] MEDS: HYDROCODONE/APAP 7.5/325 MG TAB PO PRN ×2 (10:16→23:24)
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
[2019-08-11] MEDS: ONDANSETRON 4 MG/2 ML VIAL IV PRN (11:02)
[2019-08-11] MEDS ORDERED: NA CHLORIDE 0.9% 250 ML ONE ×2 (11:52→23:21)
[2019-08-11] MEDS: KCL 20 MEQ/100 mL IVPB 20 MEQ/100 ML BAG IV SCH ×4 (11:56→23:23)
[2019-08-11] MEDS: MORPHINE 2 MG/ML SYR IV PRN (11:58)
[2019-08-11] MEDS ORDERED: LACTULOSE PO PRN (12:37)
[2019-08-11] MEDS ORDERED: LACTULOSE 20 GM/30 ML UCUP PO PRN (12:53)
[2019-08-11] MEDS ORDERED: COLLAGENASE PO SCH (13:00)
[2019-08-11] MEDS: PROMETHAZINE INJ 25 MG/ML AMP IV PRN ×2 (13:55→19:02)
[2019-08-11] MEDS: carvediloL 3.125 MG TAB PO SCH (17:59)
[2019-08-11] MEDS: FINASTERIDE 5 MG TAB PO SCH (21:12)
[2019-08-11] MEDS: ATORVASTATIN 10 MG TAB PO SCH (21:13)
[2019-08-12] MEDS: KCL 20 MEQ/100 mL IVPB 20 MEQ/100 ML BAG IV SCH ×3 (01:20→15:55)
[2019-08-12] MEDS: MORPHINE 2 MG/ML SYR IV PRN ×2 (02:01→11:16)
[2019-08-12] MEDS: carvediloL 3.125 MG TAB PO SCH ×3 (06:00→18:03)
[2019-08-12 06:32] LABS: Absolute Lymphocytes (CBC) 0.6 K/uL (0.7-4.9); Basophils % 0.5 % (0-1.3); Hematocrit 40.5 % (39.6-49.0); MPV 8.2 fL (7.6-11.3); RBC Red Blood Cell Count 4.73 M/uL (4.33-5.43)
[2019-08-12 06:49] LABS: Magnesium 2.1 mg/dL (1.8-2.4)
[2019-08-12] MEDS: INSULIN -REGULAR HUMAN 50 UNIT/0.5 ML ML SQ SCH ×4 (08:12→20:21)
[2019-08-12] MEDS: GABAPENTIN 300 MG CAP PO SCH ×3 (08:13→20:20)
[2019-08-12] MEDS: TAMSULOSIN 0.4 MG SR CAP PO SCH (08:13)
[2019-08-12] MEDS: SPIRONOLACTONE 25 MG TABLET PO SCH (08:14)
[2019-08-12] MEDS: BUMETANIDE 1 MG TABLET PO SCH ×2 (08:15→20:20)
[2019-08-12] MEDS: PROMETHAZINE INJ 25 MG/ML AMP IV PRN (08:46)
[2019-08-12] MEDS ORDERED: HOME MED 1 EA UNK (Spironolactone [Aldactone] 50 MG) PO SCH (09:00)
[2019-08-12] MEDS ORDERED: NA CHLORIDE 0.9% 250 ML ONE (13:32)
[2019-08-12] MEDS: HYDROCODONE/APAP 7.5/325 MG TAB PO PRN ×2 (13:42→22:17)
--- NOTE | 2019-08-12 15:35 | RAD REPORT ---
EXAM DESCRIPTION: Sharmila Single View08/12/2019 2:03 pm CLINICAL HISTORY: Shortness of breath COMPARISON: March 2019 FINDINGS: Mild bilateral interstitial lung opacities. The heart is markedly enlarged IMPRESSION: Mild CHF
[2019-08-12] MEDS ORDERED: INSULIN DETEMIR 33 UNIT SQ SCH (17:00)
[2019-08-12] MEDS: METFORMIN HCL 500 MG TAB PO SCH (17:01)
[2019-08-12] MEDS: INSULIN GLARGINE 100 UNITS/ML SQ SCH (17:02)
--- NOTE | 2019-08-12 17:29 | PN ---
Subjective: Currently patient lying in bed. He is eating his lunch. His son at the bedside. Patie nt has no pain, no chest pain, no shortness of breath, no hip pain. He looks very comfortable. Objective: Vital Signs: Blood pressure 164/71, respiratory rate 18, pulse 65, temperature 98.5. General: Patient is alert and oriented x3. Does not look in any distress. HEENT: Atraumatic, normocephalic. PERRLA. Oral mucosa is moist. Neck: Supple. No JVD. No bruits. Chest: Clear to auscultation. Good air entry. Heart: Irregular rate and rhythm. S1, S2 normal. No gallop. Abdomen: Soft, nontender. No masses. No hepatosplenomegaly. Positive bowel sounds. Extremities: No clubbing, no cyanosis. Trace edema. Varicose vein in the lower extremity. Has mil d tenderness in the left leg, which was externally rotated. Neurologic: Grossly intact. Cranial nerve exam 2 through 12 intact. Normal sensation. Normal refl exes. Normal muscle strength. Laboratory Data: Labs today showed CBC normal except for hemoglobin 13.4, platelets of 110. Clinical Resource Nurse ry within normal limit except for sodium 135, potassium 3, creatinine 1.16, glucose is very high at [address] of the abdomen did not show any acute findings. Assessment And Plan: 88-year-old gentleman with history of diabetes, hypertension, atrial fibrillati on, congestive heart failure, dementia presented with fall and fracture of the left femoral neck. 1.Left femoral neck fracture. Pending surgery, pending cardiology clearance as well as repeat INR. INR today is 2. We will give patient FFP if patient is going to have surgery in a.m. 2.Atrial fibrillation without RVR. Patient on Coreg. We will continue that for now for heart rate control. 3.History of benign prostatic hypertrophy. Patient on Flomax, we will continue, as well as finaster misty. That will need to be addressed with the primary care physician in outpatient because that can c ause orthostatic hypotension. 4.Hyperlipidemia. We will continue statin. 5.Symptomatic treatment for pain with morphine. 6.Hyperglycemia. I will check his hemoglobin A1c. He is on insulin sliding scale. I will resume h is metformin 1000 mg twice a day. 7.Hypokalemia, severe. I will replace with potassium 40 mEq today. He is already on potassium repl acement protocol. 8.Deep vein thrombosis prophylaxis. No need because patient on Coumadin and his INR is high. 9.History of congestive heart failure. Patient on Coreg and Aldactone as well as Bumex. 10.Symptomatic treatment for pain with tramadol and morphine. MT/MODL Voice ID: [id number] Report ID: [id number]
[2019-08-12] MEDS: FINASTERIDE 5 MG TAB PO SCH (20:20)
[2019-08-12] MEDS: ATORVASTATIN 10 MG TAB PO SCH (20:21)
[2019-08-12] MEDS ORDERED: HOME MED 1 EA UNK (Metformin Hcl [Metformin Hcl] 1,000 MG) PO SCH (21:00)
[2019-08-12] MEDS ORDERED: VITAMIN K (ADULT) 10 MG/ML SQ SCH (22:00)
--- NOTE | 2019-08-12 22:40 | CON ---
Date of Consultation: 08/11/2019 Reason For Consultation: Cardiac clearance for hip surgery and chronic atrial fibrillation. History Of Present Illness: Mr. Díaz is 88. He has a history of dementia, hypertension, dyslipide cyndie. He has had a partial lobectomy before. He has a history of venous insufficiency, diabetes, zuri ropathy, chronic atrial fibrillation, chronic diastolic congestive heart failure as well as COPD, adm itted with a hip fracture. INR was elevated. No cardiac symptoms reported. Denied chest pain, naus ea, vomiting, diaphoresis, PND, orthopnea, pedal edema, palpitation, or syncope. Allergies: NONE. Review of Systems: Negative. Social History: Negative. Family History: Negative. Medications: At home include metformin, Pravachol, Aldactone, potassium, Bumex, insulin, Flomax, Cou madin, and Coreg. Physical Examination: Vital Signs: Stable. He was in atrial fibrillation at a rate of 50. HEENT: Negative. Neck: Supple. No bruit. Chest: Clear. Cardiac: Revealed atrial fibrillation. Abdomen: Benign. Extremities: Revealed no clubbing, cyanosis, or edema. Diagnostic Data: His PT was 23.3. Echocardiogram in May 2018 was normal. Potassium was 2.9, sherman s been supplemented. Impression And Plan: 1.This is a patient with chronic diastolic congestive heart failure, normal ejection fraction, chron ic atrial fibrillation with a rate of 50 with no cardiac symptoms. His INR needs to be 1.5 or less b efore he should undergo surgery. From a cardiovascular standpoint, he is otherwise clear once his IN R is adequate. I do not think we need to do any further cardiac workup. He does not have any clinic al evidence of congestive heart failure or coronary artery disease at this point. 2.Dementia. 3.Hypertension, well controlled. 4.Chronic obstructive pulmonary disease. 5.Dyslipidemia, well controlled. 6.Status post partial lobectomy. 7.Venous insufficiency, that is chronic. 8.Diabetes, well controlled. 9.Neuropathy. We will continue to follow him. SWATI/MODL Voice ID: [id number] Report ID: [id number]
--- NOTE | 2019-08-12 22:55 | PN ---
Date of Progress Note: 08/12/2019 Mr. Díaz has a history of chronic atrial fibrillation, rate of 50 with no cardiac symptoms. Has a history of dementia, hypertension, chronic diastolic congestive heart failure, COPD, dyslipidemia, ve nous insufficiency, as well as diabetes and status post partial lobectomy. He is cleared for surgery from my standpoint. No cardiac evidence of CHF or CAD at this point. His last INR was 2. He will still have to wait until his INR is about 1.5 or less prior to surgery. His potassium is still 3.0. I would continue potassium supplementation. Consider continuing the Aldactone without the Bumex and see if his potassium improves. We will be available for questions if the need arises. SWATI/CALEB Voice ID: [id number] Report ID: [id number]
[2019-08-13] MEDS ORDERED: NA CHLORIDE 0.9% 250 ML ONE (00:33)
--- NOTE | 2019-08-13 01:06 | CON ---
Date of Consultation: 08/11/2019 Reason For Consultation: Left hip pain. History Of Present Illness: Mr. Díaz is an 88-year-old male who presented to the ER after sustaini ng a fall early in the morning onto his left side with subsequent pain in his left hip and inability to bear weight. He was brought to the emergency room and had x-rays, which demonstrated a displaced left femoral neck fracture. He was admitted to the hospital on the hospitalist service. He denies a ny other musculoskeletal complaints at this time. He does take Coumadin at home for atrial fibrillat ion. Review of Systems: As above, otherwise negative. Past Medical History: Includes diabetes, hypertension, AFib, CHF, peripheral vascular disease, hyper lipidemia, dementia, COPD. Past Surgical History: Includes right upper lobectomy, appendectomy, tonsillectomy, hemorrhoidectomy , prostate surgery. Allergies: TO AMOXICILLIN. Home Medications: Bumetanide, Colace, Proscar, gabapentin, insulin, metformin, pravastatin, Coumadin , tamsulosin, carvedilol, lactulose, Victoza, potassium chloride, and spironolactone. Social History: Denies any active tobacco or alcohol use. He is a former smoker. He currently live s at [facility]. Physical Examination: General: No apparent distress. HEENT: Normocephalic, atraumatic. Neck: Supple Cardiovascular: Brisk cap refill to all digits. Chest: Nonlabored breathing. Abdomen: Nondistended. Musculoskeletal: Bilateral upper extremities functional range of motion without pain. No gross defo rmities. No obvious dislocations. Right lower extremity functional range of motion without pain. N o gross deformities. No obvious dislocations to left lower extremity. Pain with range of motion in the left hip. Tenderness to palpation on the left hip. No tenderness to palpation over the knee, ti sammy, foot, or ankle. X-rays: X-rays of the left hip demonstrate a displaced left femoral neck fracture. Assessment And Plan: Mr. Díaz is an 88-year-old male with a left displaced femoral neck fracture. Discussed with the patient and his son at length risks and benefits associated with operative and no noperative treatment. Given the displaced fracture pattern, I recommended left hip hemiarthroplasty. With history of AFib and Coumadin use, we will need to wait until his INR normalizes, currently is 2.[address] Reynoso and we will hold Coumadin and monitor the INR. Plan for surgery w hen INR less than 1.5. CV/MODL Voice ID: [id number] Report ID: [id number]
[2019-08-13] MEDS: ONDANSETRON 4 MG/2 ML VIAL IV PRN ×2 (01:41→12:37)
[2019-08-13] MEDS: KCL 20 MEQ/100 mL IVPB 20 MEQ/100 ML BAG IV SCH ×2 (03:04→05:09)
[2019-08-13] MEDS ORDERED: PANTOPRAZOLE 40 MG INJ IVP ONE (03:19)
[2019-08-13] MEDS ORDERED: SODIUM CHLORIDE 0.9% 10ML INJ IV PRN (03:19)
[2019-08-13] MEDS: MORPHINE 2 MG/ML SYR IV PRN ×2 (03:44→16:29)
[2019-08-13 05:36] LABS: Absolute Lymphocytes (CBC) 0.7 K/uL (0.7-4.9); Basophils % 0.5 % (0-1.3); Hematocrit 39.6 % (39.6-49.0); Lymphocytes % 7.3 % (15.3-44.8); MPV 8.2 fL (7.6-11.3); RBC Red Blood Cell Count 4.62 M/uL (4.33-5.43)
[2019-08-13] MEDS: FAMOTIDINE 20 MG/2 ML VIAL IV SCH ×3 (05:36→20:57)
[2019-08-13] MEDS: carvediloL 3.125 MG TAB PO SCH ×2 (05:36→16:28)
[2019-08-13 05:38] LABS: Protime INR 1.8
[2019-08-13 05:54] LABS: Albumin 3.6 g/dL (3.4-5.0); Magnesium 2.3 mg/dL (1.8-2.4); Potassium 3.6 mmol/L (3.5-5.1); Protein, Total 6.9 g/dL (6.4-8.2)
[2019-08-13 06:52] LABS: Anisocytosis 1+; Blood Morphology Comment NOTED (NOT SEEN); Platelet Estimate ADEQ
[2019-08-13] MEDS ORDERED: INSULIN DETEMIR 35 UNIT SQ SCH (08:00)
[2019-08-13] MEDS: INSULIN GLARGINE 100 UNITS/ML SQ SCH ×2 (09:21→16:47)
[2019-08-13] MEDS: INSULIN -REGULAR HUMAN 50 UNIT/0.5 ML ML SQ SCH ×4 (09:21→20:57)
[2019-08-13] MEDS: GABAPENTIN 300 MG CAP PO SCH ×3 (09:22→20:57)
[2019-08-13] MEDS: METFORMIN HCL 500 MG TAB PO SCH ×2 (09:22→16:27)
[2019-08-13] MEDS: BUMETANIDE 1 MG TABLET PO SCH (09:22)
[2019-08-13] MEDS: TAMSULOSIN 0.4 MG SR CAP PO SCH (09:23)
[2019-08-13] MEDS: SPIRONOLACTONE 25 MG TABLET PO SCH (09:23)
[2019-08-13] MEDS ORDERED: VITAMIN K (ADULT) 10 MG/ML IVP SCH (10:00)
[2019-08-13] MEDS: HYDROCODONE/APAP 7.5/325 MG TAB PO PRN ×2 (12:38→21:53)
[2019-08-13 14:45] LABS: Protime INR 1.41
--- NOTE | 2019-08-13 16:10 | PN ---
Subjective: Currently, patient is lying in bed. He looks comfortable. No chest pain. No abdominal pain. No fever, no chills. Review of Systems: Otherwise negative. Objective: Vital Signs: Blood pressure 135/60, respiratory rate 18, pulse 75, temperature 98.7. General: Patient is alert and oriented x3. Does not look in any distress. HEENT: Atraumatic, normocephalic. PERRLA. Oral mucosa moist. Neck: Supple. No JVD. No carotid bruits. Chest: Clear to auscultation. Good air entry. Heart: Regular rate and rhythm. S1-S2 normal. No gallop or murmur. Abdomen: Soft, nontender. No mass. No hepatosplenomegaly. Positive bowel sounds. Neurologic: Grossly intact. Laboratory Data: Today showed CBC normal except for mild anemia of 13.1, platelets of 115. Chemistr y within normal. Potassium 3.6 today, replaced. BUN is 37, creatinine 1.09. Assessment/plan: 1.An 88-year-old gentleman with history of diabetes, hypertension, atrial fibrillation, congestive h eart failure, dementia presented with fall and fracture of the left femoral neck. 2.Femoral neck fracture. Surgery hopefully in a.m., status post cardiology clearance done yesterday by Dr. Pelayo. Pending INR to be below 1.5. 3.Atrial fibrillation without RVR. Patient is on Coreg, continue. He is in rate control. 4.History of benign prostatic hypertrophy. Patient is on Flomax and. 5.finasteride. 6.Hyperlipidemia. Continue statin. 7.Pain, well controlled. 8.Hypokalemia, resolved, on replacement course. 9.Diabetes mellitus, not well controlled. Restarted his metformin and insulin yesterday. We may ne ed to adjust the doses tomorrow if continues not well controlled. We will re-initiate his insulin de temir 33 units. 10.Deep vein thrombosis prophylaxis, on hold for now. Patient is going for surgery. 11.Congestive heart failure history. Patient is on Coreg, Aldactone, and Bumex. I will stop the Bu jaime per Dr. Pelayo's recommendation for now. MT/MODL Voice ID: [id number] Report ID: [id number]
[2019-08-13] MEDS: ATORVASTATIN 10 MG TAB PO SCH (20:57)
[2019-08-13] MEDS: FINASTERIDE 5 MG TAB PO SCH (20:57)
[2019-08-14] MEDS: ONDANSETRON 4 MG/2 ML VIAL IV PRN (04:08)
[2019-08-14] MEDS: MORPHINE 2 MG/ML SYR IV PRN ×3 (04:08→21:41)
[2019-08-14 05:02] LABS: Protime INR 1.18
[2019-08-14 05:03] LABS: Absolute Lymphocytes (CBC) 1.3 K/uL (0.7-4.9); Basophils % 0.7 % (0-1.3); Hematocrit 38.4 % (39.6-49.0); Lymphocytes % 14.3 % (15.3-44.8); RBC Red Blood Cell Count 4.44 M/uL (4.33-5.43)
[2019-08-14 05:14] LABS: Magnesium 1.9 mg/dL (1.8-2.4); Potassium 3.9 mmol/L (3.5-5.1)
[2019-08-14] MEDS: carvediloL 3.125 MG TAB PO SCH ×2 (05:27→17:22)
[2019-08-14] MEDS: INSULIN -REGULAR HUMAN 50 UNIT/0.5 ML ML SQ SCH ×4 (07:30→21:00)
[2019-08-14] MEDS: METFORMIN HCL 500 MG TAB PO SCH ×2 (08:00→16:16)
--- NOTE | 2019-08-14 08:17 | ECHO ---
HEIGHT: 6 ft 5 in WEIGHT: 260 lb 0 oz DATE OF STUDY: 08/11/[address]: Scot Reynoso DO 2-DIMENSIONAL: YES M.MODE: YES DOPPLER: YES COLOR FLOW: YES TDS: YES PORTABLE: NO DEFINITY: NO BUBBLE STUDY: NO DIAGNOSIS: CARDIAC CLEARANCE, ATRIAL FIBRILLATION, HYPERTENSION CARDIAC HISTORY: CATHERIZATION: NO SURGERY: NO PROSTHETIC VALVE: NO PACEMAKER: NO MEASUREMENTS (cm) DIASTOLIC (NORMALS) SYSTOLIC (NORMALS) IVSd 1.1 (0.6-1.2) LA Diam 6.3 (1.9-4.0) LVEF 55% LVIDd 5.5 (3.5-5.7) LVIDs 3.9 (2.0-3.5) %FS 29% LVPWd 1.2 (0.6-1.2) Ao Diam 2.8 (2.0-3.7) 2 DIMENSIONAL ASSESSMENT: RIGHT ATRIUM: NORMAL LEFT ATRIUM: DILATED RIGHT VENTRICLE: NORMAL LEFT VENTRICLE: NORMAL TRICUSPID VALVE: NORMAL MITRAL VALVE: MITRAL ANNULAR CALCIFICATION PULMONIC VALVE: NORMAL AORTIC VALVE: SCLEROSIS PERICARDIAL EFFUSION: NONE AORTIC ROOT: NORMAL LEFT VENTRICULAR WALL MOTION: NORMAL EJECTION FRACTION. DOPPLER/COLOR FLOW: MILD TRICUSPID REGURGITATION. COMMENTS: ATRIAL FIBRILLATION. LEFT ATRIAL ENLARGEMENT, MITRAL ANNULAR CALCIFICATION. AORTIC SCLEROSIS. NORMAL LEFT VENTRICULAR SIZE AND FUNCTION. TECHNOLOGIST: YOLANDA LAURENT
[2019-08-14] MEDS: FAMOTIDINE 20 MG/2 ML VIAL IV SCH ×2 (08:18→21:42)
[2019-08-14] MEDS: TAMSULOSIN 0.4 MG SR CAP PO SCH (08:19)
[2019-08-14] MEDS: GABAPENTIN 300 MG CAP PO SCH ×4 (08:19→21:45)
[2019-08-14] MEDS: SPIRONOLACTONE 25 MG TABLET PO SCH (08:19)
[2019-08-14] MEDS: INSULIN GLARGINE 100 UNITS/ML SQ SCH ×2 (08:19→16:16)
[2019-08-14] MEDS ORDERED: TRANEXAMIC ACID 1,000 MG in NA CHLORIDE 0.9% 50 ML IV SCH (09:00)
[2019-08-14] MEDS ORDERED: NA CHLORIDE 0.9% 1,000 ML ONE (09:30)
[2019-08-14] MEDS ORDERED: propofoL 200 MG/20 ML VIAL IV ONE (10:03)
[2019-08-14] MEDS ORDERED: FENTANYL CITR 100 MCG/2 ML ONE (10:03)
[2019-08-14] MEDS ORDERED: LIDOCAINE 2% MPF 5 ML VIAL ONE (10:03)
[2019-08-14] MEDS ORDERED: BUPIVACAINE 0.75% (PF) 2 ML SP ONE (10:12)
[2019-08-14] MEDS ORDERED: BUPIVACA 0.5%/EPI 0.0005%/PF 30 ML VIAL ONE (10:21)
[2019-08-14] MEDS ORDERED: ETOMIDATE 20 MG/10 ML VIAL IV ONE (10:30)
[2019-08-14] MEDS ORDERED: CLINDAMYCIN INJ 600 MG in NA CHLORIDE 0.9% 50 ML IV ONE (10:30)
[2019-08-14] MEDS ORDERED: CLINDAMYCIN 600MG/D5W 600 MG/50 ML BAG IV ONE (10:30)
[2019-08-14] MEDS ORDERED: ROCURONIUM 50 MG/5 ML VIAL IV ONE (10:33)
[2019-08-14] MEDS ORDERED: EPHEDRINE SULF 50 MG/ML VIAL ONE (12:22)
[2019-08-14] MEDS ORDERED: GLYCOPYRROLATE 0.2 MG/ML SYR ONE ×2 (12:23→12:45)
[2019-08-14] MEDS ORDERED: NEOSTIGMINE 1 MG/ML -5 ML ONE (13:02)
[2019-08-14] MEDS ORDERED: Ringers Lactate 1,000 ML IV ONE (13:04)
--- NOTE | 2019-08-14 13:17 | P.BOP ---
Preoperative diagnosis: left femoral neck fracture Postoperative diagnosis: same Primary procedure: left hip hemiarthroplasty Secondary procedure: none Systems Analyst Engineer: NONE,NONE Estimated blood loss: 350 cc Specimen: left femoral head Findings: see dictation Anesthesia: General Complications: None Implants: Biomet Size 13 Echo stem, 15 mm centralizer, 58 mm shee, 28 mm std head Fluids & blood products: per anesthesia record Transferred to: Recovery Room Condition: Good
[2019-08-14] MEDS ORDERED: DOCUSATE NA 100 MG CAP PO PRN (13:42)
[2019-08-14 14:35] LABS: Hematocrit 37.1 % (39.6-49.0)
--- NOTE | 2019-08-14 14:41 | RAD REPORT ---
EXAM DESCRIPTION: RAD - Hip Left 2 View - 08/14/2019 2:36 pm CLINICAL HISTORY: post op Left total hip arthroplasty COMPARISON: Hip Left 2 View dated 08/11/2019 FINDINGS: Left total hip arthroplasty has been performed. Skin jose alberto are noted laterally. No unexp ected postoperative finding.
[2019-08-14] MEDS: HYDROCODONE/APAP 7.5/325 MG TAB PO PRN (16:15)
[2019-08-14] MEDS: CLINDAMYCIN INJ 600 MG in NA CHLORIDE 0.9% 50 ML IV SCH (16:19)
[2019-08-14] MEDS ORDERED: POTASSIUM CL SA 10 MEQ TAB PO ONE (17:00)
--- NOTE | 2019-08-14 17:27 | PN ---
Date of Progress Note: 08/14/2019 Subjective: Patient seen and examined. Chart reviewed and case discussed with RN, Dr. Pelayo. Son at the bedside. Patient is going for surgery today for his hip. Medications: List reviewed. Code Status: Full code. Physical Examination: Vital Signs: Temperature 98.9, heart rate 75, blood pressure 134/63, respirations 20, O2 99% on 2 L via nasal cannula. General: Awake, alert, and oriented x3. Elderly male, in some mild distress due to pain. Obese. B IN 30.8. CV: S1, S2, irregularly irregular. Peripheral pulses present. Respiratory: Moving air well bilaterally. No wheezing or stridor. Gastrointestinal: Abdomen is soft, nontender, nondistended. Positive bowel sounds. Extremities: No clubbing, cyanosis, or edema. Neurologic: Nonfocal. Musculoskeletal: Left hip tenderness to palpation. Decreased range of motion. Laboratory Data: Sodium 137, potassium 3.9, chloride 96, CO2 of 39, BUN 45, creatinine 1.33, glucose 150, calcium 9.7. Magnesium 1.9. INR 1.18. WBC 9, H and H 12.9 and 38.4, platelets 113, neutrophi ls 62%. Echocardiogram shows EF of 55%, mitral annular calcification, aortic sclerosis. Assessment: An 88-year-old male with: 1.Left femoral neck fracture, initial encounter, patient going for surgery today, cleared by Cardiol ozzie. INR now below 1.5. 2.Atrial fibrillation with controlled ventricular rate. Patient is on Coreg. Anticoagulation has b een held usually on Coumadin. 3.History of BPH. Continue Flomax. 4.Hyperlipidemia. Continue statin. 5.Hypokalemia, corrected. 6.Diabetes mellitus type 2. Patient is insulin-requiring, takes insulin detemir 33 units. We will continue with sliding scale insulin. Monitor blood glucose levels. 7.Congestive heart failure diastolic dysfunction. EF is 55%. Bumex has been discontinued due to th e hypokalemia. 8.Deep venous thrombosis prophylaxis is on hold due to surgery. Plan: Anticipate surgery. We will likely need to be referred to rehab once medically cleared and garner rgery is completed. SA/MODL Voice ID: [id number] Report ID: [id number]
[2019-08-14] MEDS: FINASTERIDE 5 MG TAB PO SCH (21:44)
[2019-08-14] MEDS: ATORVASTATIN 10 MG TAB PO SCH (21:45)
[2019-08-14] MEDS ORDERED: NA CHLORIDE 0.9% 250 ML ONE (23:26)
[2019-08-15] MEDS: CLINDAMYCIN INJ 600 MG in NA CHLORIDE 0.9% 50 ML IV SCH ×2 (00:01→10:10)
[2019-08-15] MEDS ORDERED: LORazepam 2 MG/ML VIAL IV ONE (00:25)
[2019-08-15] MEDS ORDERED: HALOPERIDOL LACT 5 MG/ML INJ IV PRN (04:34)
[2019-08-15] MEDS ORDERED: ZIPRASIDONE MESYLA 20 MG/VIAL IM ONE (04:36)
[2019-08-15] MEDS ORDERED: WATER FOR INJ,STERILE 10 ML IM PRN (04:36)
[2019-08-15 05:49] LABS: Absolute Lymphocytes (CBC) 0.8 K/uL (0.7-4.9); Basophils % 0.7 % (0-1.3); Hematocrit 36.4 % (39.6-49.0); Lymphocytes % 8.2 % (15.3-44.8); MPV 8.1 fL (7.6-11.3); RBC Red Blood Cell Count 4.24 M/uL (4.33-5.43)
[2019-08-15 05:51] LABS: Protime INR 1.22
[2019-08-15] MEDS: carvediloL 3.125 MG TAB PO SCH ×2 (06:00→17:24)
[2019-08-15 06:06] LABS: Potassium 3.3 mmol/L (3.5-5.1)
[2019-08-15] MEDS: INSULIN -REGULAR HUMAN 50 UNIT/0.5 ML ML SQ SCH ×4 (07:30→20:52)
[2019-08-15] MEDS ORDERED: POTASSIUM CL SA 10 MEQ TAB PO ONE ×2 (09:00→21:00)
[2019-08-15] MEDS ORDERED: COLLAGENASE 30 GM OINTMENT TOP SCH (09:00)
[2019-08-15] MEDS: FAMOTIDINE 20 MG/2 ML VIAL IV SCH ×2 (10:10→20:51)
[2019-08-15] MEDS: GABAPENTIN 300 MG CAP PO SCH ×3 (10:10→20:52)
[2019-08-15] MEDS: INSULIN GLARGINE 100 UNITS/ML SQ SCH ×2 (10:10→17:26)
[2019-08-15] MEDS: SPIRONOLACTONE 25 MG TABLET PO SCH (10:10)
[2019-08-15] MEDS: METFORMIN HCL 500 MG TAB PO SCH ×2 (10:10→17:23)
[2019-08-15] MEDS: TAMSULOSIN 0.4 MG SR CAP PO SCH (10:10)
--- NOTE | 2019-08-15 16:13 | PN ---
Date of Progress Note: 08/15/2019 Subjective: Patient is seen and examined. Chart reviewed and case discussed with RN and Dr. Ramsay. Patient had multiple episodes of sundowning last night, pulling out his bandage, picking on his jose alberto, trying to get out of bed, pulling on his IVs, was given Ativan, now is somewhat lethargic this morning. Medication List: Reviewed. Physical Examination: Vital Signs: Temperature 98.7, heart rate 97, blood pressure 128/73, respirations 16, O2 of 95% on room air. General: Drowsy, but responds to voice. Elderly male, somewhat confused, obese , in some mild distress. CV: S1, S2. Respiratory: Moving air well bilaterally. Abdomen: Soft, nontender, nondistended. Positive bowel sounds. Extremities: No clubbing, cyanosis, or edema. Neurologic: Nonfocal. Skin: Left hip incision site clean, dry, intact. Laboratory Data: Sodium 141, potassium 3.3, chloride 102, CO2 of 33, BUN 41, glucose 141, calcium 9.5. Magnesium 2. WBC 9.2, H and H 12.3 and 36.4, platelets 122, neutrophils 72%. INR is 1.22. Assessment And Plan: 88-year-old male with: 1. Left hip femoral neck fracture, initial encounter, status post open reduction and internal fixation, postoperative day #1. Appreciate Dr. Ramsay's input. We will resume Lovenox at therapeutic dose and restart Coumadin. 2. Atrial fibrillation with controlled ventricular rate. Continue Coreg. Resume Coumadin. May need to bridge with Lovenox. INR is subtherapeutic. 3. Acute delirium secondary to prolonged anesthesia in the system due to the patient being elderly and having little muscle mass. We will discontinue benzos. We will use Haldol and Benadryl p.r.n. We will try to move close to nursing station, frequently orientation and requested family member to stay with him. Patient may need sitter and restraints if continues to pull on his IVs. 4. Mixed hyperlipidemia. Continue statin. 5. Hypokalemia. Replace and monitor and currently 3.3. 6. Diabetes mellitus type 2, insulin requiring. Continue with sliding scale insulin. Monitor blood glucose levels. 7. Diastolic congestive heart failure, compensated. We will monitor I's and O 's. 8. Benign prostatic hypertrophy. Continue Flomax. 9. Deep venous thrombosis prophylaxis. We will resume today. Discharge to rehab once accepted. VENUS Voice ID: [id number] Report ID: [id number] MTDD
[2019-08-15] MEDS ORDERED: WARFARIN SODIUM 7.5 MG TAB PO SCH (17:00)
[2019-08-15] MEDS ORDERED: WARFARIN SODIUM 7.5 MG TAB ONE (17:17)
[2019-08-15] MEDS ORDERED: Enoxaparin 120 MG/0.8 ML SYR SQ ONE (20:36)
[2019-08-15] MEDS: ATORVASTATIN 10 MG TAB PO SCH (20:52)
[2019-08-15] MEDS: FINASTERIDE 5 MG TAB PO SCH (20:52)
[2019-08-15] MEDS: ENOXAPARIN 100 MG/ML SYR SQ SCH (20:54)
--- NOTE | 2019-08-15 21:04 | OP ---
Date of Procedure: 08/14/2019 Surgeon: Milton Ramsay MD Preoperative Diagnosis: Left femoral neck fracture. Postoperative Diagnosis: Left femoral neck fracture. Procedure Performed: Left hip hemiarthroplasty. Anesthesia: General endotracheal. Fluids: Per Anesthesia record. Estimated Blood Loss: 350 cc. Complications: None. Specimens: Left femoral head. Implants: Biomet size 13 echo stem, 50 mm centralizer, 58 mm shell, and a 28 mm standard head. Indication For Procedure: Mr. Díaz is an 88-year-old male, who presented to the hospital after cristin taining a fall onto his left side with subsequent pain to his left hip and inability to bear weight. X-rays in the emergency room demonstrated a displaced left femoral neck fracture. Patient does have history of long-term use of Coumadin secondary to atrial fibrillation. His INR was over 2 upon admi ssion. Over the last 2 days, we are waiting on his INR to correct to less than 1.5 and this morning, it was 1.18 and ready to proceed with surgery. I discussed with the patient and his son at length r isks and benefits associated with operative and nonoperative treatment and they expressed understandi ng and elected to proceed with the operative treatment. Description Of Procedure: After informed consent was obtained, the patient was identified in the pre operative holding area. The left lower extremity was marked. Patient was then brought back to the o perating room, transferred to the operating table in supine fashion, placed under general endotrachea l anesthesia. He was then placed in the right lateral decubitus position with an axillary roll place d and his extremities well-padded. The left lower extremity was then prepped and draped in usual tessie rile fashion. A time-out was initiated. The correct patient and procedure were confirmed and identi fied. The patient had received his preoperative prophylactic antibiotics. Approximately, a 15 cm cu rvilinear incision centered over the greater trochanter and proceed with a posterior approach to the left hip. Dissection was taken down to the tensor fascia aidee, which was split and divided in line w ith position. Charnley retractor was then placed. Short external rotators were then identified afte r blunt dissection down to the hip. The piriformis and short external rotators were tacked using a # 5 Ethibond. A T-shaped capsulotomy was then performed. The hematoma was then evacuated and the frac ture was identified. The femoral head was then removed from the socket using a corkscrew. It was me asured and a size 58 mm head was selected. It was then placed with 58 mm head trial was then placed within the acetabulum and there was good overall fit. The trial head was then removed. Next, prepar ation was taken to the proximal femur. Cookie cutter was then placed within the proximal femur at th e fracture site followed by canal finder and lateralizer. The hip was then lean from 1 mm increments for size 8 mm reamer to a size 16 mm reamer with good overall fit. It was then followed and was the n broached in 1 mm increments from a size 8 mm broach to a size 16 mm broach with good overall fit. After hip would be fixed with cement with at least a 2 mm cement mantle, a size 13 mm echo fracture s tem was selected. Once a trial implant was then placed in a standard head and a 58 mm shell was then placed and the hip was reduced with good overall leg lengths and good overall stability with no disl ocation. Trial implants were then removed. Proximal femur and acetabulum and wound was then irrigat ed thoroughly with normal saline using pulsatile lavage. The femoral canal was then prepped for plac ement of cement. A foam block was placed just approximately 2 cm distal to the tip of the femoral st em and cement was prepared on the back table and placed in a cement gun under pressurization. The ce ment was placed down the femoral canal. Wounds of the femoral canal were filled with cement to the l evel of the bone block. The femoral stem was then placed. Excess cement was removed and femoral tessie m was held in position until cement was completely hard. Excess cement was removed using Fossil eleva tors as well as a small osteotome. Once cement was hardened, again was a trial head and shell was th en placed using standard head and a 58 mm shell. It was again reduced. There was good overall leg l engths and stability. Trial components were removed. Final standard head and a 58 mm bipolar shell was then placed, locked into position. The hip was then reduced with good overall leg length, range of motion, and stability. The wound was then irrigated thoroughly with normal saline. Hemostasis wa s achieved using Bovie electrocautery. Capsulotomy was approximated using a #5 Ethibond, followed by tagging and external rotators back to the greater trochanter using a drill and suture passer and tie d over the greater trochanter over bone tunnels. Next, the tensor fascia aidee was approximated using 0 Vicryl in interrupted fashion. The wound was then irrigated thoroughly and subcutaneous tissue wa s approximated using a 2-0 Vicryl. Skin was approximated using jose alberto. Sterile dressings were appl ied. The patient was awakened and transferred to PACU in stable condition. Postoperative Plan: He will be weightbearing as tolerated with posterior hip precautions. Physical Therapy will be consulted. STEPHANIE/CALEB Voice ID: [id number] Report ID: [id number]
[2019-08-16 05:11] VITALS: O2SAT 100
[2019-08-16 06:34] LABS: Protime INR 1.3
[2019-08-16 06:35] LABS: Absolute Lymphocytes (CBC) 1.2 K/uL (0.7-4.9); Basophils % 0.6 % (0-1.3); Hematocrit 35.8 % (39.6-49.0); Lymphocytes % 11.7 % (15.3-44.8); MPV 7.9 fL (7.6-11.3); RBC Red Blood Cell Count 4.19 M/uL (4.33-5.43)
[2019-08-16] MEDS: carvediloL 3.125 MG TAB PO SCH (06:36)
[2019-08-16 06:47] LABS: Magnesium 2.1 mg/dL (1.8-2.4); Potassium 3.3 mmol/L (3.5-5.1)
[2019-08-16] MEDS: INSULIN -REGULAR HUMAN 50 UNIT/0.5 ML ML SQ SCH ×2 (07:30→11:30)
[2019-08-16] MEDS: METFORMIN HCL 500 MG TAB PO SCH (08:50)
[2019-08-16] MEDS: GABAPENTIN 300 MG CAP PO SCH ×2 (08:50→14:20)
[2019-08-16] MEDS: TAMSULOSIN 0.4 MG SR CAP PO SCH (08:50)
[2019-08-16] MEDS: SPIRONOLACTONE 25 MG TABLET PO SCH (08:51)
[2019-08-16] MEDS: FAMOTIDINE 20 MG/2 ML VIAL IV SCH (08:51)
[2019-08-16] MEDS: INSULIN GLARGINE 100 UNITS/ML SQ SCH (08:52)
[2019-08-16] MEDS: ENOXAPARIN 100 MG/ML SYR SQ SCH (09:00)
[2019-08-16] MEDS ORDERED: Enoxaparin 120 MG/0.8 ML SYR SQ SCH (09:00)
[2019-08-16] MEDS: HYDROCODONE/APAP 7.5/325 MG TAB PO PRN (10:27)
[2019-08-16 12:13] VITALS: BP 131/49; TEMP 97.9
--- NOTE | 2019-08-16 14:00 | PN ---
Date of Progress Note: 08/16/2019 Subjective: Patient seen and examined. Chart reviewed and case discussed with Bora. Son at the bed side. Treatment plan explained. All questions answered. Patient was moved closer to the [facility]. Still having some sundowning with agitation, pulling on his dressing site last night. Medication List: Reviewed. Physical Examination: Vital Signs: Temperature 97.2, heart rate 78, blood pressure 116/49 respirations 16, O2 100% on room air. General: Awake, alert, oriented x3. Elderly male. Does not appear to be any acute distress, obese. CV: S1, S2, irregularly irregular. Peripheral pulses present. Respiratory: Diminished breath sounds at the bases, otherwise moving air well bilaterally. Gastrointestinal: Abdomen is soft, nontender, nondistended. Positive bowel sounds. No guarding or rigidity. Extremities: No clubbing, cyanosis, or edema. Neurologic: Nonfocal. Musculoskeletal: Left hip incision site clean, dry, intact. Mild pain with movement. Laboratory Data: Sodium 145, potassium 3.3, chloride 106, CO2 of 35, BUN 40, creatinine 1.09, glucos e 78, calcium 10.1, magnesium 2.1. INR is 1.3. WBC 9.9, H and H 12.1 and 35.8, platelets 125, neutr ophils 72%. Assessment: An 88-year-old male with: 1.Left hip femoral neck fracture, initial encounter, status post open reduction and internal fixatio n postoperative day #2. Patient is doing well. We will continue with deep venous thrombosis prophyl axis. Continue with physical therapy. Patient was too sedated yesterday after receiving Ativan to p articipate. 2.Acute delirium. Patient has sundowning, likely related to the effects of anesthesia and dementia. We will use Haldol p.r.n. Patient is much more awake and alert this morning. 3.Atrial fibrillation with controlled ventricular rate. Continue Coreg. Coumadin has been restarte d. INR is still subtherapeutic. We will continue with Lovenox until INR is above 2. 4.Benign prostatic hypertrophy. We will continue Flomax. 5.Mixed hyperlipidemia. We will continue statin. 6.Hypokalemia. Replace and monitor. 7.Diabetes mellitus type 2, insulin requiring with hyperglycemia. 8.Gastroesophageal reflux disease. We will continue sliding scale insulin. Monitor blood glucose l evels. 9.Diastolic congestive heart failure, chronic. Continue monitoring I's and O's, free fluid restrict ion. 10.Deep venous thrombosis prophylaxis. Patient is on Lovenox. Plan: Continue PT. Discharge to rehab once accepted. VENUS Voice ID: [id number] Report ID: [id number]
--- NOTE | 2019-08-16 15:42 | DS ---
Date of Discharge: 08/16/2019 Consultants: 1.Dr. Ramsay with orthopedic surgery. 2.Dr. Pelayo with Cardiology. Procedure: On 08/14/2019, left hip hemiarthroplasty. Admitting Diagnoses: 1.Femoral neck fracture initial encounter. 2.Atrial fibrillation with slow ventricular response. 3.Congestive heart failure, systolic dysfunction, chronic. 4.Chronic obstructive pulmonary disease, chronic bronchitis. 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 6.Diabetes mellitus type 2 with long-term use of insulin with hyperglycemia. 7.Mixed hyperlipidemia. 8.Essential hypertension. Discharge Diagnoses: 1.Left hip femoral neck fracture initial encounter status post open reduction and internal fixation, stable. 2.Atrial fibrillation with controlled ventricular rate, on Coumadin. 3.Benign prostatic hypertrophy, on Flomax. 4.Hyperlipidemia, on statin. 5.Hypokalemia, replaced. 6.Diabetes mellitus type 2, insulin requiring, now with hyperglycemia. 7.Diastolic congestive heart failure, chronic. 8.Acute delirium, resolved. 9.Dementia, Alzheimer's type with behavioral disturbance. 10.Peripheral vascular disease. Hospital Course: Patient is an 88-year-old male with past medical history of hypertension, diabetes, atrial fibrillation, on Coumadin, congestive heart failure, peripheral vascular disease, hyperlipide cyndie, dementia, COPD, neuropathy, comes in with a fall. Patient usually gets around with a walker. Evelyn sampson was admitted to the hospital for further evaluation. He was found to have a hip fracture on the . Due to his multiple comorbid conditions, he required cardiac clearance. Patient was seen by Dr. Pelayo. Echocardiogram was done. EF was 55%. Patient was cleared from Cardiology standpoint. Du e to his INR being above 2, surgery was not done until Wednesday when the INR was below 2. Patient travon rated the surgery well. He did develop some acute delirium likely due to the anesthesia side effects as well as his history of dementia. He pulled on his incision site and dressings. He pulled out hi s IVs and tried to get out of bed. He was moved closer to the nursing station. He was given sedativ e medications including benzos. The patient's mental status improved. Family member was with him as well. He was frequently reoriented. Patient was then able to work with Physical Therapy and was ac cepted to inpatient rehab. Patient was then transferred to inpatient rehab. His Coumadin was restar leighton. However, due to subtherapeutic INR, he will be bridged with Lovenox until INR is above 2. Coum joan dose to be adjusted according to INR. He does have possibility of bleeding due to the recent garner rgery. We will need to monitor his platelets and hemoglobin closely along with his INR. Condition: Stable. Activity: As per rehab. Medications: As per medication reconciliation list. Followup: Follow up with primary care physician in 2 to 3 days. Follow up with orthopedic surgeon, Dr. Ramsay in 7 to 10 days for wound check. Return to ER for worsening condition. INR check daily. C ontinue Lovenox until INR is greater than 2. Adjust Coumadin dose accordingly. Diet: Diabetic. For physical exam findings, please see progress note dictated on the day of discharge. Total time spent discharging the patient was 45 minutes. VENUS Voice ID: [id number] Report ID: [id number]
[2019-08-16] MEDS ORDERED: WARFARIN SODIUM 5 MG TAB PO SCH (17:00)
--- NOTE | 2019-08-24 16:27 | P.PN ---
Subjective Date of Service: 08/24/19 Chief Complaint: left femoral neck fracture Subjective: Working w/ PT Physical Examination - Vital Signs Temperature: 97.9 F Blood Pressure: 131/49 Pulse: 75 Respirations: 16 Pulse Ox (%): 96 - Physical Exam General: Alert, In no apparent distress Musculoskeletal: Other (LLE: incision with some increased serosanguionus drainage; minimal erythema; mild induration and swelling; moves LLE grossly) Assessment And Plan - Plan Dalton is an 88 yo male s/p left hip hemiarthroplasty POD#10 -continue to mobilize with PT; WBAT LLE: posterior hip precautions -patient is an elevated risk of dislocation secondary to confusion and will need to maintain hip precautions -patient with some increased drainage at incision with possible superficial skin infection; patient was noted to be scratching at skin incision during times of confusion postoperatively; start clindamycin and will continue to monitor -continue Coumadin for afib and DVT prophylaxis per primary team
[2019-08-24] MEDS ORDERED: CLINDAMYCIN INJ 600 MG in NA CHLORIDE 0.9% 50 ML IV SCH (17:00)
== END 2019-08-16 15:21 | DRG 470 ==
LOC: ER 04:32 → ERHOLD 07:03 → 2ND 07:58
PROVIDERS: ADMIT Family Medicine; ATTEND Family Medicine
PROC: 0SRS0J9 Replacement of Left Hip Joint, Femoral Surface with Synthetic Substitute, Cemented, Open Approach (ICD-10-PCS; principal; 2019-08-14 10:00)
DX: S72.012A Unspecified intracapsular fracture of left femur, initial encounter for closed fracture (principal); I48.20 Chronic atrial fibrillation, unspecified; I50.22 Chronic systolic (congestive) heart failure; F05 Delirium due to known physiological condition; I11.0 Hypertensive heart disease with heart failure; J42 Unspecified chronic bronchitis; E11.649 Type 2 diabetes mellitus with hypoglycemia without coma; E11.65 Type 2 diabetes mellitus with hyperglycemia; E78.2 Mixed hyperlipidemia; F03.90 Unspecified dementia, unspecified severity, without behavioral disturbance, psychotic disturbance, mood disturbance, and anxiety; E87.6 Hypokalemia; N40.0 Benign prostatic hyperplasia without lower urinary tract symptoms; K21.9 Gastro-esophageal reflux disease without esophagitis; I73.9 Peripheral vascular disease, unspecified; W18.30XA Fall on same level, unspecified, initial encounter; Y93.9 Activity, unspecified; Y92.099 Unspecified place in other non-institutional residence as the place of occurrence of the external cause
CPT/HCPCS: 36415; 36430; 71045; 72170; 74176; 80048; 80053; 81003; 82947; 83036; 83735; 84132; 85014; 85018; 85025; 85610; 85730; 86850; 86900; 86901; 86927; 88305; 88311; 93306; 96374; 97110; 97112; 97161; 97530; 99285; C9113; J1650; J1815; J2270; J2405; J2550; J2704; J2710; J3010; J3430; J3486; J7030; J7120; P9017; P9059

== ENCOUNTER 2019-08-16 12:35 | Inpatient (IN) | payer OTHER ==
--- NOTE | 2019-08-16 14:11 | R.PREADM ---
SCREENING DATE AND TIME 08/16/2019 12:45 (DUST HANDLER) ANTICIPATED REHAB ADMISSION DATE 08/18/2019 REFERRING FACILITY [facility] REFERRAL DATE AND TIME 08/16/2019 12:45 (DUST HANDLER) REFERRAL OFFICE PHONE [phone] REFERRAL ROOM# [id number] ACUTE ADMIT DATE 08/11/2019 Previous Rehabilitation(s): No. 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 Mode Gonzáles M.D. MR# [id number] NAME DALTON DÍAZ ADDRESS [address] [place] [address] PHONE [facility] [id number] DATE OF 1930 AGE 88 SSN# [id number] GENDER male MARITAL STATUS RACE white ADMIT FROM 02 - [facility] PRE-HOSPITAL LIVING SETTING 01 - Home (private home/apt. board/care, assisted living, intermediate, transitional living) HOME TYPE AND DETAILS Type of home: Assisted living # of levels in the residence: 1 # of steps within the residence: 0 # of steps to enter the residence: 0 PRE-HOSPITAL LIVING WITH Attendant FAMILY SUPPORT Yes PRIMARY FAMILY CONTACT NAME DALTON DÍAZ PRIMARY FAMILY CONTACT PHONE PRIMARY FAMILY CONTACT RELATIONSHIP Son PHONE PRIMARY FAMILY CONTACT ON ADM.? no IS PRIMARY FAMILY CONTACT AUTH. REP.? no 1ST EMERGENCY CONTACT DALTON DÍAZ 1ST CONTACT PHONE 1ST CONTACT RELATIONSHIP Son PHONE 1ST CONTACT ON ADM. no IS 1ST CONTACT AUTH. REP.? no PHONE 2ND CONTACT ON ADM.? no PATIENT EMPLOYMENT STATUS Retired (for age) PATIENT EMPLOYER No Employer PAYOR INFORMATION: 1ST PAYOR NAME MEDICARE 1ST PAYOR PHONE [phone] 1ST PAYOR INJURY/ILLNESS DUE TO ACCIDENT? No ANOTHER REPUBLICAN RESPONSIBLE? 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 therapy X-rays RISK FOR COMPLICATIONS: - Hypertension CVA Hypotension VA TIA - Atrial Fibrillation CVA Heart failure Limb embolus - PVD Amputation Gangrene Infection Ischemic ulcers Sepsis Wounds - COPD Acute Resp failure Pneumonia Resp. Arrest SUMMARY OF ACUTE HOSPITALIZATION: Pt. is a 88 yo Right-handed white male. On 08/11/2019 he was admitted to [facility] with diagnosis Left Femoral Neck Fr acture. His impairment category is Orthopaedic Disorders 08 - Unilateral Hip Fracture (08.11). Pre-morbidly, Pt. was independent/mod-I in Locomotion, Safety Awareness, Balance, Social Cognition, T ransfers Control, Sphincter Control, Self-Care, Communication, and Endurance; and he had good Locomot ion, Balance, Transfers Control, Self-Care, and Endurance. Currently, he has deficits of Locomotion, Safety Awareness, Balance, Social Cognition, Transfers Cont rol, Self-Care, and Endurance. Pt. is now referred to [facility] for acute in-patient rehabilitation in order to maximize patient's functional independence in activities of daily living, strength, ROM, and mobi lity. Patient has realistic goal of being discharged at assistance level 6-Andrae to reside at Home with Att endant. Dalton Díaz is an 88 year old male that lives in an assited living facility. Modified independent with all ADLs and self care and uses rollator to ambulate around the facility. On 08/11/2019, patient fell and was admitted to [facility] and treated. He is now medically stable but in need of 24-hour nursing, doctor supervision and oversite while receiving active and The patient is reasonably expected to participate in 3hours of therapy a day/15 hours per week and receive care with an intensive interdisciplinary approach. 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 Treatment - Per Physician's Or ders. REVIEW OF SYSTEMS: - Gen Alert and awake Lying in bed No apparent distress Oriented to: person, time, and place - Vital Signs Temperature: 97.9 F SBP/DBP: 131/49 Pulse: 75 Resp: 16 Vital signs stable, afebrile - CVS RRR VITAL SIGNS Temperature: 97.9 F SBP/DBP: 131/49 Pulse: 75 Resp: 16 Vital signs stable, afebrile MEDICATIONS/TREATMENT: Other- See attached MAR (Medication Administration Record). CURRENT SPHINCTER CONTROL: Pre-hospital bladder status: continent # of bladder accidents in the last 7 days prior to screenin Pre-hospital bowel status: continent # of bowel accidents in the last 7 days prior to screenin Last Bowel Movement Date: 08/15/2019 CURRENT LOCOMOTION STATUS: distance walked 0 feet DETAILED CURRENT FUNCTIONAL STATUS: - Bladder accident frequency: Ind - No accidents in the past 7 days - Bowel accident frequency: Ind - No accidents in the past 7 days - Walking score based on distance walked: 0(N/A) - Wheelchair score based on distance traveled: 0(N/A) QI SCORES: - Self-Care A. Eating 05-Setup or clean-up assistance B. Oral hygiene 05-Setup or clean-up assistance C. Toileting hygiene 03-Partial/moderate assistance E. Shower/bathe self 03-Partial/moderate assistance F. Upper body dressing 03-Partial/moderate assistance G. Lower body dressing 01-Dependent H. Putting on/taking off footwear 01-Dependent - Mobility A. Roll left and right 03-Partial/moderate assistance B. Sit to lying 02-Substantial/maximal assistance C. Lying to sitting on side of bed 02-Substantial/maximal assistance D. Sit to stand 01-Dependent E. Chair/[id number] transfer 01-Dependent F. Toilet transfer 01-Dependent G. Car transfer 88-Not attempted due to medical condition or safety concerns I. Walk 10 feet 88-Not attempted due to medical condition or safety concerns J. Walk 50 feet with two turns 88-Not attempted due to medical condition or safety concerns K. Walk 150 feet 88-Not attempted due to medical condition or safety concerns L. Walking 10 feet on uneven surfaces 88-Not attempted due to medical condition or safety concerns M. 1 step (curb) 88-Not attempted due to medical condition or safety concerns N. 4 steps 88-Not attempted due to medical condition or safety concerns O. 12 steps 88-Not attempted due to medical condition or safety concerns P. Picking up object 88-Not attempted due to medical condition or safety concerns R. Wheel 50 feet with two turns 88-Not attempted due to medical condition or safety concerns S. Wheel 150 feet 88-Not attempted due to medical condition or safety concerns - Bladder and Bowel Bladder continence 3-Incontinent daily Bowel continence 0-Always continent - Endurance Poor - Balance Fair - Safety Awareness Fair CURRENT FUNC. DEFICITS: Self-Care, Mobility, Endurance, Balance, and Safety Awareness CURRENT / PREVIOUS ASSISTIVE DEVICES: 3-in-1 Commode BSC Dentures Glasses Hearing Aid(s) Hospital Bed Rolling Walker Shower Chair Tub Bench Wheelchair CURRENT USE ASSISTIVE DEVICES: SCDs TEDs HISTORY OF FALLS. HAS THE PATIENT HAD TWO OR MORE FALLS IN THE PAST YEAR OR ANY FALL WITH INJURY IN T HE PAST YEAR?: Yes PRIOR SURGERY. DID THE PATIENT HAVE MAJOR SURGERY DURING THE 100 DAYS PRIOR TO ADMISSION?: No THERAPY NOTES FROM ACUTE CARE: Attached. SPECIAL NEEDS: - Safety Concerns Skin breakdown precautions needed due to skin breakdown risk PRECAUTIONS: - Posterior Hip Precaution No adduction across midline No external rotation No hip flexion >90 degrees No internal rotation No wheel chair propulsion - Weight Bearing Precaution WBAT left LE PATIENT NEEDS ACTIVE AND ONGOING THERAPEUTIC INTERVENTION OF MULTIPLE THERAPY DISCIPLINES, INCLUDING: - Dietary and Nutrition Adequate Nutrition. Nutritional Education. Nutritional Supplements. PATIENT NEEDS CLOSE MEDICAL SUPERVISION BY A REHABILITATION PHYSICIAN FOR: Coordination of Treatment Team Diabetes Management Medical and Co-Morbidity Management Wound Care PATIENT REQUIRES 24X7 REHAB NURSING FOR MEDICAL AND FUNCTIONAL MGT. OF THE FOLLOWING DEFICITS: Disease Management Medication Management Patient/Family Education Providing Safe Environment Skin Integrity PATIENT REQUIRES INTENSIVE, COORDINATED INTERDISCIPLINARY APPROACH TO REHAB: Arranging Home Equipment/Services Discharge Planning Family Intervention/Training Frame Stripper And Crusher/Case Management PATIENT REHAB POTENTIAL: Dariela DÍAZ is able and expected to receive 3 hours of individualized therapy daily on at least 5 of ev elia 7 days Dariela DÍAZ's prognosis for significant practical improvement within a reasonable period of time appear s Good Expected level of measurable improvement will be of a practical value to Dariela DÍAZ's functional capac ity or adaptations to impairments Has a viable Discharge Plan Medically appropriate; condition is sufficiently stable to participate in intensive rehab program DISCHARGE PLAN: - Estimated Length of Stay (days) 14. - Consensus on plan Discharge plan has been discussed with primary caregiver. Patient/Family is in agreement with the gaby n. Primary caregiver is in agreement with the plan. - Patient/Family Goals Return home with assistance. - Planned Living Setting Upon Discharge Home, to live with Attendant. RECOMMENDED CARE LEVEL: IRF RECOMMENDATION DETAILS: Recommended Admission to Comprehensive Rehabilitation Program to Increase Functional [place] SCREENER'S COMPLETENESS CONFIRMATION: - Screening Confirmation The patient data collection on this preadmission screening form is finished PHYSICIANS REVIEW AND ADMISSION DETERMINATION Admit - Based on my review of the Pre-Admission Screening results, in my medical judgment and experie nce, I concur with the findings and recommend admission to [facility], as this patient requires an IRF level of care. SIGNATURE PANEL: Clinical Liaison - [electronically] signed by Kati Tanner on 08/16/2019 at 13:26 (DUST HANDLER) Physician Reviewer - [electronically] signed by Dr. Mode Gonzáles M.D. on 08/16/2019 at 14:10 (DUST HANDLER )
[2019-08-16] MEDS ORDERED: GLUCAGON 1 MG/VIAL IM PRN (15:47)
[2019-08-16] MEDS ORDERED: D50W 25 GM/50 ML SYRINGE/VIAL IV PRN (15:47)
[2019-08-16] MEDS ORDERED: TRAMADOL HCL 50 MG TAB PO PRN (15:47)
[2019-08-16] MEDS ORDERED: ACETAMINOPHEN 500 MG TAB PO PRN (15:47)
[2019-08-16] MEDS ORDERED: ONDANSETRON 4 MG/2 ML VIAL IV PRN (15:47)
[2019-08-16] MEDS ORDERED: HYDROCODONE/APAP 7.5/325 MG TAB PO PRN (15:47)
[2019-08-16] MEDS ORDERED: DOCUSATE NA 100 MG CAP PO PRN (15:47)
[2019-08-16] MEDS ORDERED: MORPHINE 2 MG/ML SYR IV PRN (15:47)
[2019-08-16] MEDS ORDERED: ONDANSETRON 4 MG (ODT) TAB PO PRN (15:58)
[2019-08-16] MEDS: INSULIN -REGULAR HUMAN 50 UNIT/0.5 ML ML SQ SCH ×2 (16:30→20:58)
[2019-08-16] MEDS: WARFARIN SODIUM 5 MG TAB PO SCH (17:42)
[2019-08-16] MEDS: METFORMIN HCL 500 MG TAB PO SCH (17:42)
[2019-08-16] MEDS: carvediloL 3.125 MG TAB PO SCH (17:42)
[2019-08-16] MEDS: INSULIN GLARGINE 100 UNITS/ML SQ SCH (17:43)
[2019-08-16] MEDS ORDERED: FAMOTIDINE 20 MG/2 ML VIAL IV SCH (20:00)
[2019-08-16] MEDS: GABAPENTIN 300 MG CAP PO SCH (20:05)
[2019-08-16] MEDS: FINASTERIDE 5 MG TAB PO SCH (20:06)
[2019-08-16] MEDS: ATORVASTATIN 10 MG TAB PO SCH (20:06)
[2019-08-16] MEDS: FAMOTIDINE 20 MG TAB PO SCH (20:06)
[2019-08-16] MEDS: Enoxaparin 120 MG/0.8 ML SYR SQ SCH (20:58)
[2019-08-17 02:07] LABS: Urine Appearance CLEAR; Urine Bilirubin NEGATIVE (NEG); Urine Blood NEGATIVE (NEG); Urine Color YELLOW; Urine Glucose NEGATIVE (NEG); Urine Protein NEGATIVE (NEG); Urine pH 5.5 (5.0-7.0)
[2019-08-17 02:41] LABS: Urine Bacteria <20 /HPF (NONE SEEN); Urine Culture Reflex Order NOT NEEDED; Urine RBC <5 /HPF (NONE SEEN)
[2019-08-17] MEDS: carvediloL 3.125 MG TAB PO SCH ×2 (05:25→17:02)
[2019-08-17 06:21] LABS: Absolute Lymphocytes (CBC) 0.9 K/uL (0.7-4.9); Hematocrit 31.9 % (39.6-49.0); Lymphocytes % 7.6 % (15.3-44.8); MPV 7.9 fL (7.6-11.3); RBC Red Blood Cell Count 3.76 M/uL (4.33-5.43)
[2019-08-17 06:33] LABS: Protime INR 1.26
[2019-08-17 06:48] LABS: Albumin 2.8 g/dL (3.4-5.0); Magnesium 1.9 mg/dL (1.8-2.4); Potassium 3.7 mmol/L (3.5-5.1); Prealbumin 8.5 mg/dL (20-40)
[2019-08-17] MEDS: INSULIN -REGULAR HUMAN 50 UNIT/0.5 ML ML SQ SCH ×4 (07:30→21:36)
[2019-08-17] MEDS ORDERED: HOME MED 1 EA UNK PO SCH (08:00)
--- NOTE | 2019-08-17 08:46 | RAD REPORT ---
EXAM DESCRIPTION: RAD - Chest Single View - 08/17/2019 7:55 am CLINICAL HISTORY: increase cough Chest pain. COMPARISON: Chest Single View dated 08/12/2019; Chest Single View dated 04/16/2019; Chest Single View dated 04/14/2019; Chest Single View dated 01/07/2019 FINDINGS: Portable technique limits examination quality. Mild interstitial pulmonary edema is seen. The heart is significantly enlarged. No displaced fracture s. IMPRESSION: Mild CHF versus volume overload pattern.
[2019-08-17] MEDS: INSULIN GLARGINE 100 UNITS/ML SQ SCH ×2 (08:48→17:01)
[2019-08-17] MEDS: FAMOTIDINE 20 MG TAB PO SCH ×2 (08:49→20:31)
[2019-08-17] MEDS: GABAPENTIN 300 MG CAP PO SCH ×3 (08:49→20:31)
[2019-08-17] MEDS: METFORMIN HCL 500 MG TAB PO SCH ×2 (08:50→17:02)
[2019-08-17] MEDS: SPIRONOLACTONE 25 MG TABLET PO SCH (08:50)
[2019-08-17] MEDS: TAMSULOSIN 0.4 MG SR CAP PO SCH (08:50)
[2019-08-17] MEDS: Enoxaparin 120 MG/0.8 ML SYR SQ SCH ×2 (09:37→20:32)
[2019-08-17] MEDS ORDERED: TRAMADOL HCL 50 MG TAB PO PRN (10:11)
[2019-08-17] MEDS ORDERED: FUROSEMIDE 40 MG/4 ML VIAL IV ONE (12:45)
[2019-08-17] MEDS: ACETAMINOPHEN 500 MG TAB PO PRN ×2 (13:13→21:03)
[2019-08-17] MEDS: LIDOCAINE 4% PATCH TOP SCH (15:26)
--- NOTE | 2019-08-17 16:50 | R.HP ---
FACILITY: 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 board/care, assisted living, fpc, transitional living) PRE-HOSPITAL LIVING WITH Attendant ENCOUNTER PHYSICIAN: Dr. Mode Gonzáles M.D. 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 is a 88 yo Right-handed white male. On 08/11/[address] [facility] with diagnosis Left Femoral Neck Fr acture. His impairment category is Orthopaedic Disorders 08 - Unilateral Hip Fracture (08.11). Pre-morbidly, Pt. was independent/mod-I in Locomotion, Safety Awareness, Balance, Social Cognition, T ransfers Control, Sphincter Control, Self-Care, Communication, and Endurance; and he had good Locomot ion, Balance, Transfers Control, Self-Care, and Endurance. Currently, he has deficits of Locomotion, Safety Awareness, Balance, Social Cognition, Transfers Cont rol, Self-Care, and Endurance. Pt. is now referred to [facility] for acute in-patient rehabilitation in order to maximize patient's functional independence in activities of daily living, strength, ROM, and mobi lity. Patient has realistic goal of being discharged at assistance level 6-Andrae to reside at Home with Att endant. Dalton Díaz is an 88 year old male that lives in an assited living facility. Modified independent with all ADLs and self care and uses rollator to ambulate around the facility. On 08/11/2019, patient fell and was admitted to [facility] and treated. He is now medically stable but in need of 24-hour nursing, doctor supervision and oversite while receiving active and The patient is reasonably expected to participate in 3hours of therapy a day/15 hours per week and receive care with an intensive interdisciplinary approach. 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 REVIEW OF SYSTEMS: - Gen No Chills Fatigue No Fever - Eyes No Double Vision No itchiness - ENMT No Difficulty Swallowing - CVS No Chest Discomfort No Chest Pain No Fatigue No Weight Gain - Resp No Cough Shortness of Breath - GI Continent No Abdominal Pain No Constipation No Diarrhea - Continent No Kidney Pain No Painful Urination No Urinary Urgency - MSK No Joint Pain Muscle Cramps Stiffness - Skin No Itching No Rash No Suspicious Lesions - Neuro Coordination Difficulty Difficulty with Concentration No Memory Loss No Seizures Weakness - Psych No Anxiety No Depression No HIV Exposure No Persistent Infections No Seasonal Allergies - Endo No Cold/Heat Intolerance No Excessive Hunger No Excessive Thirst No Excessive Urination PHYSICAL EXAM - Gen Alert and awake Lying in bed No apparent distress Oriented to: person, time, and place - Skin No breakdown No numbness - Eyes No abnormalities - ENMT No abnormalities - Neck No abnormalities - CVS RRR - Chest No abnormalities - Resp Clear to auscultation - Abd + bowel sounds - GI Non distended Deferred - No abnormalities - Ext Left hip surgical site has good hemostasis. - MSK 4+/5 weakness in left lower extremity. - Neuro 4/5 strength left lower extremity. - Psych No abnormalities VITAL SIGNS Temperature: 97.9 F SBP/DBP: 131/49 Pulse: 75 Resp: 16 NURSING: - Shower allowing shower - Lab Results blood Sugar Check ACHS - Skin care per protocol PRECAUTIONS: - Posterior Hip Precaution No adduction across midline No external rotation No hip flexion >90 degrees No internal rotation No wheel chair propulsion - Weight Bearing Precaution WBAT left LE ACTIVITIES OOB only with supervision QI SCORES: - Self-Care A. Eating 05-Setup or clean-up assistance B. Oral hygiene 05-Setup or clean-up assistance C. Toileting hygiene 03-Partial/moderate assistance E. Shower/bathe self 03-Partial/moderate assistance F. Upper body dressing 03-Partial/moderate assistance G. Lower body dressing 01-Dependent H. Putting on/taking off footwear 01-Dependent - Mobility A. Roll left and right 03-Partial/moderate assistance B. Sit to lying 02-Substantial/maximal assistance C. Lying to sitting on side of bed 02-Substantial/maximal assistance D. Sit to stand 01-Dependent E. Chair/suo-tb-hgepu transfer 01-Dependent F. Toilet transfer 01-Dependent G. Car transfer 88-Not attempted due to medical condition or safety concerns I. Walk 10 feet 88-Not attempted due to medical condition or safety concerns J. Walk 50 feet with two turns 88-Not attempted due to medical condition or safety concerns K. Walk 150 feet 88-Not attempted due to medical condition or safety concerns L. Walking 10 feet on uneven surfaces 88-Not attempted due to medical condition or safety concerns M. 1 step (curb) 88-Not attempted due to medical condition or safety concerns N. 4 steps 88-Not attempted due to medical condition or safety concerns O. 12 steps 88-Not attempted due to medical condition or safety concerns P. Picking up object 88-Not attempted due to medical condition or safety concerns R. Wheel 50 feet with two turns 88-Not attempted due to medical condition or safety concerns S. Wheel 150 feet 88-Not attempted due to medical condition or safety concerns - Bladder and Bowel Bladder continence 3-Incontinent daily Bowel continence 0-Always continent - Endurance Poor - Balance Fair - Safety Awareness Fair CURRENT FUNC. DEFICITS: Self-Care, Mobility, Endurance, Balance, and Safety Awareness MEDICATIONS: - Other See attached MAR (Medication Administration Record) ASSESSMENT: Pt. is a 88 yo Right-handed white male.On 08/11/2019 he was admitted to [facility] with diagnosis Left Femoral Neck Fracture.His impairment category is Orthopaedic Disorders 08 - Unilateral Hip Fracture (08.11).Pre-morbidly, Pt. was independent/mod-I in Locomotion, Safety Awarene ss, Balance, Social Cognition, Transfers Control, Sphincter Control, Self-Care, Communication, and En durance; and he had good Locomotion, Balance, Transfers Control, Self-Care, and Endurance.Currently, he has deficits of Locomotion, Safety Awareness, Balance, Social Cognition, Transfers Control, Self-C are, and Endurance.Pt. is now referred to [facility] for acute in-patient reha bilitation in order to maximize patient's functional independence in activities of daily living, stre ngth, ROM, and mobility.- Rehab Goal Patient has realistic goal of being discharged at assistance level 6-Andrae to reside at Home with Att endant. Dalton Díaz is an 88 year old male that lives in an assited living facility. Modified independent with all ADLs and self care and uses rollator to ambulate around the facility. On 08/11/2019, patient fell and was admitted to [facility] and treated. He is now medically stable but in need of 24-hour nursing, doctor supervision and oversite while receiving active and The patient is reasonably expected to participate in 3hours of therapy a day/15 hours per week and receive care with an intensive interdisciplinary approach.REHAB PLAN: - Physical Therapy Decreased range of motion - to improve, our physical therapists will perform initial evaluation of pt 's status upon admission and devise an individualized program for increasing patient's Range of Motio n. Gait dysfunction - to improve, our physical therapists will perform initial evaluation of pt's status upon admission and devise an individualized program for Gait Training, and Wheel Chair mobility Inability to transfer - to improve, our physical therapists will perform initial evaluation of pt's s tatus upon admission and devise an individualized program for Bed mobility Need for home safety evaluation - to improve, our physical therapists will perform initial evaluation of pt's status upon admission and devise an individualized program for Home Evaluation Need in caregiver upon discharge - to improve, our physical therapists will perform initial evaluatio n of pt's status upon admission and devise an individualized program for Caregiver Training New precaution - to improve, our physical therapists will perform initial evaluation of pt's status u sadia admission and devise an individualized program for Patient precaution education Poor balance - to improve, our physical therapists will perform initial evaluation of pt's status upo n admission and devise an individualized program for Balance Training Poor endurance - to improve, our physical therapists will perform initial evaluation of pt's status u sadia admission and devise an individualized program for Endurance Training Weakness - to improve, our physical therapists will perform initial evaluation of pt's status upon ad mission and devise an individualized program for Aquatic Therapy, Neuromuscular Reeducation, and Stre ngthening Achieving independence - to improve, our physical therapists will perform initial evaluation of pt's status upon admission and devise an individualized program for Community Reintegration Activities - Occupational Therapy ADL deficits - to improve, our occupation therapists will perform initial evaluation of pt's status u sadia admission and devise an individualized program for Bathing, Bed mobility, Community Reintegration , Cooking, Dressing, Eating, Fine Motor Skills, Grooming, Homemaking, Kitchen Mobility, Laundry, Leslie ent Education, Safety Awareness, Splinting - Positioning, Transfers(Toilet, Tub, Shower), and Wheel C hair Management Cognitive deficits - to improve, our occupation therapists will perform initial evaluation of pt's st atus upon admission and devise an individualized program for Cognition - orientation Need for childcare aide - to improve, our occupation therapists will perform initial evaluation of pt's s tatus upon admission and devise an individualized program for Caregiver Training Weakness - to improve, our occupation therapists will perform initial evaluation of pt's status upon admission and devise an individualized program for Aquatic Therapy, Balance, Endurance, UE ROM, and U E strengthening MEDICAL PLAN: - Anterior Hip Precaution No abduction No active extension No adduction across midline No external rotation No hip flexion >90 degrees No internal rotation - Diet - Liquid Texture Start Regular - Tube Feed Start N/A - Diet Type Start Regular - Posterior Hip Precaution No adduction across midline No external rotation No hip flexion >90 degrees No internal rotation No wheel chair propulsion - Lab Results blood Sugar Check ACHS - Weight Bearing Precaution WBAT left LE - Skin care per protocol - Other See attached MAR (Medication Administration Record) - Diet - Solid Texture Regular - Shower shower DISCHARGE PLAN: - Estimated Length of Stay (days) 14. - Consensus on plan Discharge plan has been discussed with primary caregiver. Patient/Family is in agreement with the gaby n. Primary caregiver is in agreement with the plan. - Patient/Family Goals Return home with assistance. - Planned Living Setting Upon Discharge Home, to live with Attendant. 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
--- NOTE | 2019-08-17 16:51 | PAPE ---
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 Mode Gonzáles M.D. 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 PATIENT NEEDS CLOSE MEDICAL SUPERVISION BY A REHABILITATION PHYSICIAN FOR: Coordination of Treatment Team Diabetes Management Medical and Co-Morbidity Management Wound Care PATIENT REQUIRES 24X7 REHAB NURSING FOR MEDICAL AND FUNCTIONAL MGT. OF THE FOLLOWING DEFICITS: Disease Management Medication Management Patient/Family Education Providing Safe Environment Skin Integrity PATIENT REQUIRES INTENSIVE, COORDINATED INTERDISCIPLINARY APPROACH TO REHAB: Arranging Home Equipment/Services Discharge Planning Family Intervention/Training Library Science Instructor/Case Management LIST OF IDENTIFIED AND POTENTIAL PROBLEMS: Alteration in leisure activities Bladder, Incontinence Blood Pressure, Hypertension/hypotension Issues Bowel, Incontinence Diabetes, Hyperglycemia/hypoglycemia Issues Fluid volume overload related to Congestive Heart Failure (CHF) Infection, Actual or Potential Mobility Impaired Pain, Alteration in Comfort Self Care Deficit Skin Integrity, Actual or Potential Urinary Tract Infection (UTI), Actual or Potential RISK FOR COMPLICATIONS - Hypertension CVA. Hypotension. CA. TIA. - Atrial Fibrillation CVA. Heart failure. Limb embolus. - PVD Amputation. Gangrene. Infection. Ischemic ulcers. Sepsis. Wounds. - COPD Acute Resp failure. Pneumonia. Resp. Arrest. INTERVENTIONS - Hypertension - Atrial Fibrillation Anticoagulation. Medications. VS. - PVD Falcon exercises. Medications. - COPD 02 sats. Medications. Nebulizers. Oxygen. Resp. therapy. X-rays. PATIENT COULD BE AT RISK FOR COMPLICATIONS FROM ADVERSE MEDICAL CONDITIONS DUE TO HIS/HER COMORBIDITI ES AND THE RIGORS OF THE INTENSIVE REHABILLITATION PROGRAM. METHODS OR INTERVENTIONS TO AVOID COMPLIC ATIONS INCLUDE: - Bleeding Assess lab values and manage abnormalities. Nursing to teach precautions for anti-coagulation therapy . Wound to be assessed every shift. - Infection Clinical staff to assess and manage the signs and symptoms of infection including fever, redness, war mth, etc. - Urinary Tract Infection - Falls Patient will be evaluated for Fall Precautions and will be placed on Fall Precautions as indicated pe r protocol. - Skin Breakdown Nursing will assess skin daily using assessment tool and will place on Skin Breakdown Precautions as indicated per protocol. - Pain Clinical staff may employ non-medication methods such as massage, distraction, decrease stimulus, etc . as needed. Clinical staff will assess patient's pain level every shift per protocol to assess and e nsure pain management effectiveness. Medications will be given and the pain level re-assessed. PRELIMINARY PLAN OF CARE: - Physical Therapy Patient needs Physical Therapy for a daily minimum of 1.5 hours at least 5 out of 7 days, to improve: Mobility, Strengthening, Transfers, Stretching, ROM, Endurance, Ability to manage stairs, Gait, and Balance. - Speech Therapy Patient needs Speech Therapy for a daily minimum of 0.5 hours at least 5 out of 7 days, to improve: S wallowing, Cognition, Language Skills, and Compensatory Strategies. - Rehabilitation Nursing Patient requires 24x7 Rehabilitation Nursing for: Pain Issues, Identifying and preventing risk factor s, Monitoring and reporting current medical conditions, Assisting with ambulation and transfer, Chris ting with all ADL-s, Teaching patients about disease process and medications, Family teaching, Provid ing safe environment, Bowel and Bladder Issues, Skin Integrity, and Medication Management. Patient needs Library Science Instructor and/or Case Management for: Discharge Planning, Arranging Home Equipmen t or Services, and Family Interventions. - Dietary and Nutrition Services Patient needs Dietary and Nutrition Services for: Adequate Nutrition, Nutritional Supplements, and Nu tritional Education. - Occupational Therapy Patient needs Occupational Therapy for a daily minimum of 1.5 hours at least 5 out of 7 days, to impr ove Activities of Daily Living, including: Eating, Grooming, Bathing, Dressing, Toileting, Toilet Tra nsfers, Community Reintegration, Higher functional activities, Adaptive Equipment, Splinting, Househo ld Tasks, and Other activities as determined. QI SCORES: - Self-Care A. Eating 05-Setup or clean-up assistance B. Oral hygiene 05-Setup or clean-up assistance C. Toileting hygiene 03-Partial/moderate assistance E. Shower/bathe self 03-Partial/moderate assistance F. Upper body dressing 03-Partial/moderate assistance G. Lower body dressing 01-Dependent H. Putting on/taking off footwear 01-Dependent - Mobility A. Roll left and right 03-Partial/moderate assistance B. Sit to lying 02-Substantial/maximal assistance C. Lying to sitting on side of bed 02-Substantial/maximal assistance D. Sit to stand 01-Dependent E. Chair/ksq-od-[id number] transfer 01-Dependent F. Toilet transfer 01-Dependent G. Car transfer 88-Not attempted due to medical condition or safety concerns I. Walk 10 feet 88-Not attempted due to medical condition or safety concerns J. Walk 50 feet with two turns 88-Not attempted due to medical condition or safety concerns K. Walk 150 feet 88-Not attempted due to medical condition or safety concerns L. Walking 10 feet on uneven surfaces 88-Not attempted due to medical condition or safety concerns M. 1 step (curb) 88-Not attempted due to medical condition or safety concerns N. 4 steps 88-Not attempted due to medical condition or safety concerns O. 12 steps 88-Not attempted due to medical condition or safety concerns P. Picking up object 88-Not attempted due to medical condition or safety concerns R. Wheel 50 feet with two turns 88-Not attempted due to medical condition or safety concerns S. Wheel 150 feet 88-Not attempted due to medical condition or safety concerns - Bladder and Bowel Bladder continence 3-Incontinent daily Bowel continence 0-Always continent - Endurance Poor - Balance Fair - Safety Awareness Fair POTENTIAL FUNCTIONAL GOALS FOR PATIENT TO ACHIEVE BY DISCHARGE: - Safety Precaution Patient will remain free from falls or injury at time of discharge. - Bed Mobility Patient will perform bed mobility at 4-Raoul level of assistance. - Transfers Patient will complete transfers from bed to chair at 4-Raoul level of assistance. - Mobility Patient will ambulate 150 ft with 4-Raoul level of assistance with RW. PATIENT REHAB POTENTIAL Dariela WALDEN is able and expected to receive 3 hours of individualized therapy daily on at least 5 elia 7 days Dariela WALDEN's prognosis for significant practical improvement within a reasonable period of time appear s Good Expected level of measurable improvement will be of a practical value to Dariela WALDEN's functional capac ity or adaptations to impairments Has a viable Discharge Plan Medically appropriate; condition is sufficiently stable to participate in intensive rehab program DISCHARGE PLAN: - Estimated Length of Stay (days) 14. - Consensus on plan Discharge plan has been discussed with primary caregiver. Patient/Family is in agreement with the gaby n. Primary caregiver is in agreement with the plan. - Patient/Family Goals Return home with assistance. - Planned Living Setting Upon Discharge Home, to live with Attendant. CONCLUSION ON REHABILITATION NECESSITY: I have evaluated patient's pre-admission functional status and, comparing it to the patient's post-ad mission functional status now, I conclude that the pre-admission assessment was accurate. Patient's c ondition on admission supports the medical necessity of admission to IRF. It is safe to proceed with patient's therapy program. 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
[2019-08-17] MEDS: WARFARIN SODIUM 5 MG TAB PO SCH (17:03)
[2019-08-17] MEDS: TRAMADOL HCL 50 MG TAB PO PRN (17:27)
--- NOTE | 2019-08-17 17:34 | PN ---
Date of Progress Note: 08/17/2019 Subjective: Patient is seen and examined. Chart reviewed and case discussed with RN. Son at the be dside states that patient is still somewhat lethargic from pain medications. We will hold pain medic ation and switch to tramadol. Patient did work with physical therapy, sat at the edge of the bed and stood up. Medications: List reviewed. Code Status: Full. Physical Examination: Vital Signs: Temperature 97.3, heart rate 70, blood pressure 139/63, respirations 16, O2 97% on room air. General: Awake, alert, oriented x3. Elderly male, obese, somewhat ill-appearing. CV: S1, S2. Regular rate and rhythm. Peripheral pulses present. Respiratory: Diminished breath sounds. Some crackles present. No wheezing or stridor. Gastrointestinal: Abdomen is soft, nontender, nondistended. Positive bowel sounds. Extremities: No clubbing, cyanosis, or edema. Neurologic: Nonfocal. Skin: Left hip incision site clean, dry, intact. Laboratory Data: Sodium 137, potassium 3.7, chloride 98, CO2 of 33, BUN 44, creatinine 1.23, glucose 76, calcium 9.3, magnesium 1.9, albumin 2.8. WBC 11.5, H and H 10.7 and 31.9, platelets 137, neutro phils 74%. Chest x-ray shows mild CHF versus volume overload pattern. Assessment: 88-year-old male with: 1.Left hip femoral neck fracture, status post open reduction and internal fixation. Continue with P T. 2.Atrial fibrillation with controlled ventricular rate. Continue Coumadin. INR is still subtherape utic. We will continue with bridging with Lovenox due to hemoglobin dropping to 10 and recent surger y. We will continue with 10 mg of Coumadin instead of 13 mg. 3.Lethargy, delirium, likely due to anesthesia and pain medications. We will discontinue Bronson, swi tch to tramadol. 4.BPH. Continue Flomax. 5.Hyperlipidemia. Continue statin. 6.Pulmonary edema. Patient does have diastolic congestive heart failure, acute on chronic. We will give IV Lasix. Bumex was held due to hypokalemia. 7.Diabetes mellitus type 2 insulin requiring with hyperglycemia. We will continue to monitor blood glucose levels. Continue sliding scale insulin. 8.Alzheimer dementia with behavioral disturbance. 9.Peripheral vascular disease. We will continue to follow along with you. Monitor INR. /CALEB Voice ID: [id number] Report ID: [id number]
--- NOTE | 2019-08-17 19:04 | CON ---
Date of Consultation: 08/17/2019 Reason For Consult: Chronic renal insufficiency with multiple electrolyte abnormalities. History Of Present Illness: Mr. Díaz is an 88-year-old male with past medical history significant for history of type 2 diabetes, dementia, chronic diastolic heart failure and peripheral vascular dis ease, presented to [facility] after he sustained a fall on August 11 and sustained a fract ure of the left femoral neck, which was repaired and he has been admitted to rehab for further rehabi litation. Patient is unable to give much history and much of the history is obtained from review of records. Past Medical History: Significant for history of type 2 diabetes; uncontrolled hypertension; hyperli pidemia; history of AFib on long-term anticoagulation with warfarin; history of severe hypokalemia; h istory of chronic diastolic heart failure, is on Aldactone and Bumex; diabetic neuropathy; history of chronic venous insufficiency, status post surgery; history of prostate surgery; and history of incis ion and drainage of the left third toe recently. Social History: Lives at assisted living facility. No history of smoking or alcohol reported at thi s time. Family History: Noncontributory. Review of Systems: Unable to be obtained. Physical Examination: Vital Signs: Have been reviewed and seems to be stable at this time. He remains afebrile. Blood pr essures are stable and heart rate seems to be stable in the 70 range. General: He appears in no acute distress. Lungs: Clear to auscultation. Abdomen: Soft and nontender. Extremities: Without any evidence of any edema. Laboratory Data: At this time are showing sodium of 137, potassium of 3.7, chloride of 98, bicarb of 33, BUN of 44, and creatinine of 1.2. CBC showing stable hemoglobin, hematocrit, and platelet count . Mild leukocytosis was noted. Current Medications: Have been reviewed. Patient is on warfarin 10 mg p.o. daily, tramadol as neede d for pain, tamsulosin, spironolactone 50 mg a day, metformin 1000 mg b.i.d., Lantus 33 units in the morning and 35 units at dinner, Humulin per protocol, finasteride, Coreg and gabapentin. His INR was 1.26 today. Impression: 1.Chronic renal insufficiency secondary to cardiorenal syndrome, currently with overall stable renal function. 2.Chronic diastolic heart failure. Patient is only on spironolactone. Bumex is currently on hold. 3.History of BPH, on tamsulosin. 4.Recent left femur neck fracture status post repair. 5.Type 2 diabetes, on insulin and metformin. Plan: Overall patient's renal function is stable. His volume status also seems to be stable at this time. We will continue to monitor closely and reintroduce diuretics when appropriate. Continue to monitor blood sugars closely. Continue physical therapy and occupational therapy and we will follow up. JUVENAL/CALEB Voice ID: [id number] Report ID: [id number]
[2019-08-17] MEDS: FINASTERIDE 5 MG TAB PO SCH (20:31)
[2019-08-17] MEDS: DOCUSATE NA 100 MG CAP PO SCH (20:31)
[2019-08-17] MEDS: ATORVASTATIN 10 MG TAB PO SCH (20:31)
[2019-08-17] MEDS: PROMOD 30 ML DOSE PO SCH (20:32)
[2019-08-18] MEDS: TRAMADOL HCL 50 MG TAB PO PRN ×3 (04:15→14:25)
[2019-08-18] MEDS: carvediloL 3.125 MG TAB PO SCH ×2 (05:41→17:21)
[2019-08-18 06:47] LABS: Protime INR 1.27
[2019-08-18] MEDS: INSULIN -REGULAR HUMAN 50 UNIT/0.5 ML ML SQ SCH ×4 (07:12→19:25)
[2019-08-18] MEDS: Enoxaparin 120 MG/0.8 ML SYR SQ SCH ×2 (07:13→19:24)
[2019-08-18] MEDS: ACETAMINOPHEN 500 MG TAB PO PRN ×2 (08:35→19:25)
[2019-08-18] MEDS: INSULIN GLARGINE 100 UNITS/ML SQ SCH ×2 (08:35→17:22)
[2019-08-18] MEDS: METFORMIN HCL 500 MG TAB PO SCH ×2 (08:36→17:21)
[2019-08-18] MEDS: FE SULF/FA/VIT B COMP & C TAB PO SCH (08:36)
[2019-08-18] MEDS: GABAPENTIN 300 MG CAP PO SCH ×3 (08:36→19:25)
[2019-08-18] MEDS: DOCUSATE NA 100 MG CAP PO SCH ×2 (08:37→19:25)
[2019-08-18] MEDS: SPIRONOLACTONE 25 MG TABLET PO SCH (08:37)
[2019-08-18] MEDS: FERROUS SULFATE 325 MG TAB PO SCH (08:37)
[2019-08-18] MEDS: TAMSULOSIN 0.4 MG SR CAP PO SCH (08:37)
[2019-08-18] MEDS: FAMOTIDINE 20 MG TAB PO SCH ×2 (08:37→19:25)
[2019-08-18] MEDS: LIDOCAINE 4% PATCH TOP SCH (08:38)
[2019-08-18] MEDS: PROMOD 30 ML DOSE PO SCH ×2 (08:41→19:26)
--- NOTE | 2019-08-18 09:46 | P.RH.PN ---
Estimated Length of Stay: 14 Expected Discharge Date: 08/29/19 Discharge Disposition Plan: Home Family Support: Yes Shelter Goal: Mobility, Transfers, Self Care Vital Signs: Last Vital Signs Temp 98.0 F 08/18/19 06:58 Pulse 85 08/18/19 08:37 Resp 18 08/18/19 09:17 BP 117/58 L 08/18/19 08:37 Pulse Ox 92 08/18/19 09:17 Laboratory: Laboratory Last Values WBC 11.5 K/uL (4.3-10.9) H D 08/17/19 06:09 RBC 3.76 M/uL (4.33-5.43) L 08/17/19 06:09 Hgb 10.7 g/dL (13.6-17.9) L 08/17/19 06:09 Hct 31.9 % (39.6-49.0) L 08/17/19 06:09 MCV 84.8 fL (80-100) 08/17/19 06:09 MCH 28.5 pg (27.0-35.0) 08/17/19 06:09 MCHC 33.5 g/dL (32.0-36.0) 08/17/19 06:09 RDW 14.7 % (12.1-15.2) 08/17/19 06:09 Plt Count 137 K/uL (152-406) L 08/17/19 06:09 MPV 7.9 fL (7.6-11.3) 08/17/19 06:09 Neutrophils % 74.0 % (41.7-73.7) H 08/17/19 06:09 Lymphocytes % 7.6 % (15.3-44.8) L 08/17/19 06:09 Monocytes % 13.6 % (3.3-12.3) H 08/17/19 06:09 Eosinophils % 3.8 % (0-4.4) 08/17/19 06:09 Basophils % 1.0 % (0-1.3) 08/17/19 06:09 Absolute Neutrophils 8.5 K/uL (1.8-8.0) H 08/17/19 06:09 Absolute Lymphocytes 0.9 K/uL (0.7-4.9) 08/17/19 06:09 Absolute Monocytes 1.6 K/uL (0.1-1.3) H 08/17/19 06:09 Absolute Eosinophils 0.4 K/uL (0-0.5) 08/17/19 06:09 Absolute Basophils 0.1 K/uL (0-0.5) 08/17/19 06:09 PT 14.8 SECONDS (9.5-12.5) H 08/18/19 06:09 INR 1.27 08/18/19 06:09 Sodium 137 mmol/L (136-145) 08/17/19 06:09 Potassium 3.7 mmol/L (3.5-5.1) 08/17/19 06:09 Chloride 98 mmol/L (98-107) 08/17/19 06:09 Carbon Dioxide 33 mmol/L (21-32) H 08/17/19 06:09 BUN 44 mg/dL (7-18) H 08/17/19 06:09 Creatinine 1.23 mg/dL (0.55-1.3) 08/17/19 06:09 Estimated GFR 56 mL/min (=/>90) L 08/17/19 06:09 Glucose 76 mg/dL (74-106) 08/17/19 06:09 POC Glucose 192 mg/dl (65-120) H 08/18/19 06:28 Calcium 9.3 mg/dL (8.5-10.1) 08/17/19 06:09 Magnesium 1.9 mg/dL (1.8-2.4) 08/17/19 06:09 Albumin 2.8 g/dL (3.4-5.0) L 08/17/19 06:09 Prealbumin 8.5 mg/dL (20-40) L 08/17/19 06:09 Urine Color Yellow 08/17/19 01:20 Urine Appearance Clear 08/17/19 01:20 Urine pH 5.5 (5.0-7.0) 08/17/19 01:20 Ur Specific [place] 1.020 (1.005-1.030) 08/17/19 01:20 Urine Ketones Negative (NEG) 08/17/19 01:20 Urine Blood Negative (NEG) 08/17/19 01:20 Urine Nitrite Negative (NEG) 08/17/19 01:20 Urine Bilirubin Negative (NEG) 08/17/19 01:20 Urine Urobilinogen 1.0 mg/dL (0.2-1.0) 08/17/19 01:20 Ur Leukocyte Esterase Negative (NEG) 08/17/19 01:20 Urine RBC <5 /HPF (NONE SEEN) 08/17/19 01:20 Urine WBC <5 /HPF (<5) 08/17/19 01:20 Ur Squamous Epith Cells <5 /HPF (NONE SEEN) 08/17/19 01:20 Urine Bacteria <20 /HPF (NONE SEEN) 08/17/19 01:20 Urine Culture Reflexed Not needed 08/17/19 01:20 Urine Glucose Negative (NEG) 08/17/19 01:20 Urine Total Protein Negative (NEG) 08/17/19 01:20 Weight: 260 lb Wound Present: Yes Closed Surgical Incision Present: Yes Negative Pressure Wound Therapy Present: No Physician Update: WBC 11.5, Hgb is 10.7, INR 1.27, glucose 85 to 258, prealbumin 8.5. He has significant cognitive deficits. He is doing poorly so far. He has significant pain in the left hip surgical site. His tramadol frequency with be increased and gabapentin will be added. Medical Issues: Patient is incontinent daily with bladder and always continent with bowel. Pain Issues: Patient is taking Tramadol 50mg Q8H PO and Tylenol 500mg Q4H PO PRN for pain Speech Therapy Update: Patient obtained a 4/30 on the MOCA indicating severe cognitive-linguistic impairments characterized by confusion, disorientation, poor safety awareness, reduced auditory comprehension, memory loss, and reduced ability to solve problems. Skilled speech services are warranted to maximize his overall quality of life and communicative success by addressing aforementioned deficits, increasing problem solving skills, promoting safety awareness, improving carryover of safety techniques within tasks, increasing pt' s ability to participate in ADL's, and decreasing risk of falls/injuries. Summary: Patient's care plan and tank terminal gauger goals have been reviewed and revised as necessary. Please see the Rehabilitation Signature page for all necessary signatures.
[2019-08-18] MEDS ORDERED: D50W 25 GM/50 ML SYRINGE/VIAL IV PRN (11:41)
[2019-08-18] MEDS ORDERED: GLUCAGON 1 MG/VIAL IM PRN (11:41)
[2019-08-18] MEDS: INSULIN LISPRO 100 UNIT/1 ML SQ SCH ×2 (12:07→17:21)
--- NOTE | 2019-08-18 13:45 | FAST ---
ENCOUNTER DATE AND TIME: 08/17/2019 08:00 (COMMERCIAL PEST CONTROL REPRESENTATIVE) NAME MADELIN WALDEN DATE OF : 1930 DATE OF ADMISSION: 08/16/2019 15:33 (COMMERCIAL PEST CONTROL REPRESENTATIVE) PHONE: AGE: 88 N# [id number] GENDER: Male ENCOUNTER PHYSICIAN: Dr. Mode Gonzáles M.D. ADMISSION DIAGNOSIS: - Orthopaedic Disorders 08 - Unilateral Hip Fracture (08.11) Left Femoral Neck Fracture. EATING: Not assessed/no information CODE: - ORAL HYGIENE: Not assessed/no information CODE: - TOILETING HYGIENE: Not assessed/no information CODE: - BATHING: SHOWER/BATHE SELF - STEP 1: Does the patient complete the activity by him/herself with no assistance (physical, verbal/nonverbal cueing, setup/clean-up)? No. SHOWER/BATHE SELF - STEP 2: Does the patient need only setup/clean-up assistance from one helper? No. SHOWER/BATHE SELF - STEP 3: Does the patient need only verbal/nonverbal cueing or touching/steadying/contact guard assistance fro m one helper? No. SHOWER/BATHE SELF - STEP 4: Does the patient need physical assistance - for example lifting or trunk support from one helper - wi th the helper providing less than half of the effort? No. SHOWER/BATHE SELF - STEP 5: Does the patient need physical assistance - for example lifting or trunk support from one helper - wi th the helper providing more than half of the effort? No. SHOWER/BATHE SELF - STEP 6: Does the helper provide all of the effort? OR Is the assistance of two or more helpers required to co mplete the activity? Yes. 1. [id number] ADMISSION PERFORMANCE: Dependent CODE: 01 DRESSING - UPPER BODY: Not attempted due to environmental limitations (e.g., lack of equipment, weather constraints) CODE: 10 DRESSING - LOWER BODY: DRESSING - LOWER BODY - STEP 1: Does the patient complete the activity by him/herself with no assistance (physical, verbal/nonverbal cueing, setup/clean-up)? No. DRESSING - LOWER BODY - STEP 2: Does the patient need only setup/clean-up assistance from one helper? No. DRESSING - LOWER BODY - STEP 3: Does the patient need only verbal/nonverbal cueing or touching/steadying/contact guard assistance fro m one helper? No. DRESSING - LOWER BODY - STEP 4: Does the patient need physical assistance - for example lifting or trunk support from one helper - wi th the helper providing less than half of the effort? No. DRESSING - LOWER BODY - STEP 5: Does the patient need physical assistance - for example lifting or trunk support from one helper - wi th the helper providing more than half of the effort? No. DRESSING - LOWER BODY - STEP 6: Does the helper provide all of the effort? OR Is the assistance of two or more helpers required to co mplete the activity? Yes. 1. [id number] ADMISSION PERFORMANCE: Dependent CODE: 01 PUTTING ON/TAKING OFF FOOTWEAR: FOOTWEAR - STEP 1: Does the patient complete the activity by him/herself with no assistance (physical, verbal/nonverbal cueing, setup/clean-up)? No. FOOTWEAR - STEP 2: Does the patient need only setup/clean-up assistance from one helper? No. FOOTWEAR - STEP 3: Does the patient need only verbal/nonverbal cueing or touching/steadying/contact guard assistance fro m one helper? No. FOOTWEAR - STEP 4: Does the patient need physical assistance - for example lifting or trunk support from one helper - wi th the helper providing less than half of the effort? No. FOOTWEAR - STEP 5: Does the patient need physical assistance - for example lifting or trunk support from one helper - wi th the helper providing more than half of the effort? No. FOOTWEAR - STEP 6: Does the helper provide all of the effort? OR Is the assistance of two or more helpers required to co mplete the activity? Yes. 1. [id number] ADMISSION PERFORMANCE: Dependent CODE: 01 DOES THE PATIENT USE A WHEELCHAIR/SCOOTER? CODE: EXPR INDICATE THE TYPE OF WHEELCHAIR/SCOOTER USED: CODE: EXPR INDICATE THE TYPE OF WHEELCHAIR/SCOOTER USED: CODE: EXPR BLADDER AND BOWEL: CODE: EXPR CODE: EXPR SIGNATURE PANEL: The following modified sections: 1. [id number] Admission Performance, 1. [id number] Admission Performance, 1. [id number] Admission Performance were [electronically] signed by Lenora Rojo OT on WedAug 18 13:43:58 GMT-0600 (Central Standard Time)
--- NOTE | 2019-08-18 16:58 | PN ---
Date of Progress Note: 08/18/2019 Subjective: Patient is seen and examined. Chart reviewed and case discussed with RN and Dr. Keagan snider. Patient is doing well with physical therapy, much more awake and alert. Blood sugar still very e levated. Medications: List reviewed. Physical Examination: Vital Signs: Temperature 98, heart rate 85, blood pressure 117/58, respirations 18, O2 92% on room a ir. General: Awake, alert, oriented x3, not in any acute distress. Elderly male, obese. CV: S1, S2. Regular rate and rhythm. Peripheral pulses present. Respiratory: No wheezing or stridor. Gastrointestinal: Abdomen is soft, nontender, nondistended. Positive bowel sounds. Extremities: No clubbing, cyanosis, or edema. Neurologic: Nonfocal. Musculoskeletal: Left hip incision site clean, dry, intact. No tenderness to palpation. Laboratory Data: INR is 1.27. Blood glucose level is 279. Assessment And Plan: 88-year-old male with: 1.Left femoral neck fracture, nondisplaced initial encounter, status post open reduction and interna l fixation. We will continue with PT. 2.Atrial fibrillation with controlled ventricular rate. Patient is on Coumadin. INR 1.27. We will need to continue Lovenox until INR is greater than 2. We will continue to monitor H and H. 3.Delirium, likely due to anesthesia, pain medications, significantly improved. No further episodes . We will continue to monitor frequent reorientation. We will encourage family members to be by [facility] for familiarity. 4.Benign prostatic hypertrophy. Continue Flomax. 5.Mixed hyperlipidemia. Continue statin. 6.Diabetes mellitus type 2, insulin requiring with hyperglycemia. Patient's blood glucose levels in the morning around 85 to 100; however, during the day can go as high as 300. We will resume premeal insulin. Monitor closely. Continue with Accu-Cheks and sliding scale insulin. Patient does receiv e Lantus b.i.d. 7.Pulmonary edema, improved. We did give IV Lasix yesterday. 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 9.Peripheral vascular disease. Plan is to continue PT. Continue anticoagulation for Lovenox due to post surgery. We will continue to follow along with you. VENUS Voice ID: [id number] Report ID: [id number]
[2019-08-18] MEDS: WARFARIN SODIUM 5 MG TAB PO SCH (17:21)
[2019-08-18] MEDS: ATORVASTATIN 10 MG TAB PO SCH (19:25)
[2019-08-18] MEDS: FINASTERIDE 5 MG TAB PO SCH (19:26)
[2019-08-18] MEDS: MELATONIN 3 MG TABLET PO PRN (19:26)
[2019-08-19] MEDS: carvediloL 3.125 MG TAB PO SCH ×2 (05:04→16:58)
[2019-08-19] MEDS: TRAMADOL HCL 50 MG TAB PO PRN ×3 (06:20→16:57)
[2019-08-19] MEDS: LIDOCAINE 4% PATCH TOP SCH (06:21)
[2019-08-19] MEDS: Enoxaparin 120 MG/0.8 ML SYR SQ SCH ×2 (06:21→19:21)
[2019-08-19 06:56] LABS: Protime INR 1.29
[2019-08-19] MEDS: INSULIN -REGULAR HUMAN 50 UNIT/0.5 ML ML SQ SCH ×4 (07:23→19:22)
[2019-08-19] MEDS: INSULIN GLARGINE 100 UNITS/ML SQ SCH ×2 (08:33→17:21)
[2019-08-19] MEDS: INSULIN LISPRO 100 UNIT/1 ML SQ SCH ×3 (08:33→17:22)
[2019-08-19] MEDS: SPIRONOLACTONE 25 MG TABLET PO SCH (08:34)
[2019-08-19] MEDS: FERROUS SULFATE 325 MG TAB PO SCH (08:34)
[2019-08-19] MEDS: FE SULF/FA/VIT B COMP & C TAB PO SCH (08:34)
[2019-08-19] MEDS: DOCUSATE NA 100 MG CAP PO SCH ×2 (08:34→19:22)
[2019-08-19] MEDS: GABAPENTIN 300 MG CAP PO SCH ×3 (08:34→19:21)
[2019-08-19] MEDS: TAMSULOSIN 0.4 MG SR CAP PO SCH (08:34)
[2019-08-19] MEDS: METFORMIN HCL 500 MG TAB PO SCH ×2 (08:34→16:58)
[2019-08-19] MEDS: FAMOTIDINE 20 MG TAB PO SCH ×2 (08:34→19:22)
[2019-08-19] MEDS: PROMOD 30 ML DOSE PO SCH ×2 (08:35→19:22)
[2019-08-19] MEDS: ACETAMINOPHEN 500 MG TAB PO PRN ×2 (08:47→19:21)
[2019-08-19] MEDS: LACTULOSE 20 GM/30 ML UCUP PO PRN ×2 (12:48→19:20)
[2019-08-19] MEDS ORDERED: FLEET ENEMA ADULT PR PRN (14:13)
--- NOTE | 2019-08-19 14:21 | R.PN ---
ENCOUNTER DATE AND TIME: 08/19/2019 14:10 (RECOVERY RN) NAME MADELIN WALDEN DATE OF : 1930 DATE OF ADMISSION: 08/16/2019 15:33 (RECOVERY RN) Left Femoral Neck FractureCHIEF COMPLAINT: Left hip fracture SUBJECTIVE: Pt denied any depression. Pt denied any Shortness of Breath. Mr. Walden is making slow overall progress with therapy. He is moderately limited by poor cognition. His blood work is stable. Propelled wheelchair 25' with maximum assistance. He completed a simple maze with 75% accuracy. VITAL SIGNS Temperature: 98.0 F SBP/DBP: 134/63 Pulse: 62 Resp: 16 O2 sat: 98 on room air MEDICATION ALLERGIES: Amoxicillin ENVIRONMENTAL ALLERGIES: None Known - Substance Allergies None Known - Other Allergies None Known NURSING: - Shower allowing shower - Lab Results blood Sugar Check ACHS - Skin care per protocol PRECAUTIONS: - Posterior Hip Precaution No adduction across midline No external rotation No hip flexion >90 degrees No internal rotation No wheel chair propulsion - Weight Bearing Precaution WBAT left LE ACTIVITIES OOB only with supervision THERAPIES: - Dietary and Nutrition Adequate Nutrition. Nutritional Education. Nutritional Supplements. PHYSICAL EXAM - Gen Alert and awake Lying in bed No apparent distress Oriented to: person, time, and place - Skin No breakdown No numbness - Eyes No abnormalities - ENMT No abnormalities - Neck No abnormalities - CVS RRR - Chest No abnormalities - Resp Clear to auscultation - Abd + bowel sounds - GI Non distended Deferred - No abnormalities - Ext Left hip surgical site has good hemostasis. - MSK 4+/5 weakness in left lower extremity. - Neuro 4/5 strength left lower extremity. - Psych No abnormalities ASSESSMENT: Pt. is a 88 yo Right-handed white male.On 08/11/2019 he was admitted to [facility] with diagnosis Left Femoral Neck Fracture.His impairment category is Orthopaedic Disorders 08 - Unilateral Hip Fracture (08.11).Pre-morbidly, Pt. was independent/mod-I in Locomotion, Safety Awarene ss, Balance, Social Cognition, Transfers Control, Sphincter Control, Self-Care, Communication, and En durance; and he had good Locomotion, Balance, Transfers Control, Self-Care, and Endurance.Currently, he has deficits of Locomotion, Safety Awareness, Balance, Social Cognition, Transfers Control, Self-C are, and Endurance.Pt. is now referred to [facility] for acute in-patient reha bilitation in order to maximize patient's functional independence in activities of daily living, stre ngth, ROM, and mobility.- Rehab Goal Patient has realistic goal of being discharged at assistance level 6-Andrae to reside at Home with Att endant. MDM/PLAN: - Physical Therapy Decreased range of motion - to improve, our physical therapists will perform initial evaluation of p t's status upon admission and devise an individualized program for increasing patient's Range of Buddy on. Gait dysfunction - to improve, our physical therapists will perform initial evaluation of pt's statu s upon admission and devise an individualized program for Gait Training, and Wheel Chair mobility Inability to transfer - to improve, our physical therapists will perform initial evaluation of pt's status upon admission and devise an individualized program for Bed mobility Need for home safety evaluation - to improve, our physical therapists will perform initial evaluatio n of pt's status upon admission and devise an individualized program for Home Evaluation Need in caregiver upon discharge - to improve, our physical therapists will perform initial evaluati on of pt's status upon admission and devise an individualized program for Caregiver Training New precaution - to improve, our physical therapists will perform initial evaluation of pt's status upon admission and devise an individualized program for Patient precaution education Poor balance - to improve, our physical therapists will perform initial evaluation of pt's status up on admission and devise an individualized program for Balance Training Poor endurance - to improve, our physical therapists will perform initial evaluation of pt's status upon admission and devise an individualized program for Endurance Training Weakness - to improve, our physical therapists will perform initial evaluation of pt's status upon a dmission and devise an individualized program for Aquatic Therapy, Neuromuscular Reeducation, and Str engthening Achieving independence - to improve, our physical therapists will perform initial evaluation of pt's status upon admission and devise an individualized program for Community Reintegration Activities - Occupational Therapy ADL deficits - to improve, our occupation therapists will perform initial evaluation of pt's status upon admission and devise an individualized program for Bathing, Bed mobility, Community Reintegratio n, Cooking, Dressing, Eating, Fine Motor Skills, Grooming, Homemaking, Kitchen Mobility, Laundry, Pat ient Education, Safety Awareness, Splinting - Positioning, Transfers(Toilet, Tub, Shower), and Wheel Chair Management Cognitive deficits - to improve, our occupation therapists will perform initial evaluation of pt's s tatus upon admission and devise an individualized program for Cognition - orientation Need for childcare director - to improve, our occupation therapists will perform initial evaluation of pt's status upon admission and devise an individualized program for Caregiver Training Weakness - to improve, our occupation therapists will perform initial evaluation of pt's status upon admission and devise an individualized program for Aquatic Therapy, Balance, Endurance, UE ROM, and UE strengthening - Other See attached MAR (Medication Administration Record) - Anterior Hip Precaution No abduction No active extension No adduction across midline No external rotation No hip flexion >90 degrees No internal rotation - Diet - Liquid Texture Continue Regular - Tube Feed Continue N/A - Diet Type Continue Regular - Posterior Hip Precaution No adduction across midline No external rotation No hip flexion >90 degrees No internal rotation No wheel chair propulsion - Lab Results blood Sugar Check ACHS - Weight Bearing Precaution WBAT left LE - Skin care per protocol - Diet - Solid Texture Continue Regular - Shower allowing shower FUNCTIONAL STATUS: UPDATED AT WEEKLY TEAM CONFERENCE - Bladder Same accident frequency: 7-Ind - No accidents in the past 7 days - Bowel Same accident frequency: 7-Ind - No accidents in the past 7 days - Walking Same score based on distance walked: 0(N/A) - Wheelchair Same score based on distance traveled: 0(N/A) FUNCTIONAL STATUS: - Self-Care A. Eating sup B. Grooming sup C. Bathing modA D. Dressing - Upper Raoul E. Dressing - Lower modA F. Toileting modA - Sphincter Control G. Bladder control sup H. Bowel control sup - Transfers Control I. Bed/Chair/Wheelchair maxA J. Toilet maxA K. Tub/Shower maxA - Locomotion L. Walk/Wheelchair (B) maxA M. Stairs ADNO - Communication N. Comprehension (B) modA O. Expression (B) modA - Social Cognition P. Social Interaction Raoul Q. Problem Solving modA R. Memory maxA - Endurance Fair - Balance Poor - Safety Awareness Poor QI SCORES: - Self-Care A. Eating 05-Setup or clean-up assistance B. Oral hygiene 05-Setup or clean-up assistance C. Toileting hygiene 03-Partial/moderate assistance E. Shower/bathe self 03-Partial/moderate assistance F. Upper body dressing 03-Partial/moderate assistance G. Lower body dressing 01-Dependent H. Putting on/taking off footwear 01-Dependent - Mobility A. Roll left and right 03-Partial/moderate assistance B. Sit to lying 02-Substantial/maximal assistance C. Lying to sitting on side of bed 02-Substantial/maximal assistance D. Sit to stand 01-Dependent E. Chair/ibd-lv-[id number] transfer 01-Dependent F. Toilet transfer 01-Dependent G. Car transfer 88-Not attempted due to medical condition or safety concerns I. Walk 10 feet 88-Not attempted due to medical condition or safety concerns J. Walk 50 feet with two turns 88-Not attempted due to medical condition or safety concerns K. Walk 150 feet 88-Not attempted due to medical condition or safety concerns L. Walking 10 feet on uneven surfaces 88-Not attempted due to medical condition or safety concerns M. 1 step (curb) 88-Not attempted due to medical condition or safety concerns N. 4 steps 88-Not attempted due to medical condition or safety concerns O. 12 steps 88-Not attempted due to medical condition or safety concerns P. Picking up object 88-Not attempted due to medical condition or safety concerns R. Wheel 50 feet with two turns 88-Not attempted due to medical condition or safety concerns S. Wheel 150 feet 88-Not attempted due to medical condition or safety concerns - Bladder and Bowel Bladder continence 3-Incontinent daily Bowel continence 0-Always continent - Endurance Poor - Balance Fair - Safety Awareness Fair CURRENT FUNC. DEFICITS: Self-Care, Mobility, Endurance, Balance, and Safety Awareness SIGNATURE PANEL: (RECOVERY RN)
[2019-08-19] MEDS: BISACODYL 10 MG RECTAL SUPP PR PRN (16:41)
[2019-08-19] MEDS: WARFARIN SODIUM 5 MG TAB PO SCH (16:59)
[2019-08-19] MEDS: FINASTERIDE 5 MG TAB PO SCH (19:21)
[2019-08-19] MEDS: MELATONIN 3 MG TABLET PO PRN (19:22)
[2019-08-19] MEDS: ATORVASTATIN 10 MG TAB PO SCH (19:22)
[2019-08-20] MEDS: TRAMADOL HCL 50 MG TAB PO PRN ×2 (05:11→11:51)
[2019-08-20] MEDS: carvediloL 3.125 MG TAB PO SCH ×2 (05:11→16:36)
[2019-08-20 06:20] LABS: Protime INR 1.58
[2019-08-20] MEDS: LIDOCAINE 4% PATCH TOP SCH (06:27)
[2019-08-20] MEDS: Enoxaparin 120 MG/0.8 ML SYR SQ SCH ×2 (06:27→20:00)
[2019-08-20] MEDS: ACETAMINOPHEN 500 MG TAB PO PRN ×2 (07:20→19:59)
[2019-08-20] MEDS: INSULIN -REGULAR HUMAN 50 UNIT/0.5 ML ML SQ SCH ×4 (07:30→20:00)
[2019-08-20] MEDS: INSULIN GLARGINE 100 UNITS/ML SQ SCH ×2 (08:13→16:47)
[2019-08-20] MEDS: FAMOTIDINE 20 MG TAB PO SCH ×2 (08:14→19:59)
[2019-08-20] MEDS: INSULIN LISPRO 100 UNIT/1 ML SQ SCH ×3 (08:14→16:35)
[2019-08-20] MEDS: SPIRONOLACTONE 25 MG TABLET PO SCH (08:14)
[2019-08-20] MEDS: TAMSULOSIN 0.4 MG SR CAP PO SCH (08:15)
[2019-08-20] MEDS: FE SULF/FA/VIT B COMP & C TAB PO SCH (08:15)
[2019-08-20] MEDS: FERROUS SULFATE 325 MG TAB PO SCH (08:15)
[2019-08-20] MEDS: METFORMIN HCL 500 MG TAB PO SCH ×2 (08:15→16:37)
[2019-08-20] MEDS: GABAPENTIN 300 MG CAP PO SCH ×3 (08:15→19:59)
[2019-08-20] MEDS: DOCUSATE NA 100 MG CAP PO SCH ×2 (08:15→19:59)
[2019-08-20] MEDS: PROMOD 30 ML DOSE PO SCH ×2 (08:16→20:00)
--- NOTE | 2019-08-20 11:49 | EKG ---
Test Date: 2019-08-17 Test Time: 17:33:39 Mold Presser: NAVEEN MEASUREMENT RESULTS: Intervals: Rate: 91 VT: QRSD: 168 QT: 416 QTc: 511 [place]: P: VT: QRS: 3 T: 86 INTERPRETIVE STATEMENTS: Atrial fibrillation with premature ventricular or aberrantly conducted complexes Left bundle branch block Abnormal ECG Compared to ECG 04/15/2019 16:31:21 Junctional rhythm no longer present Electronically Signed On 08-20-19 11:42:49 POST HOLE DIGGING MACHINE OPERATOR by August Pelayo
[2019-08-20] MEDS: WARFARIN SODIUM 5 MG TAB PO SCH (16:37)
[2019-08-20] MEDS: MELATONIN 3 MG TABLET PO PRN (19:59)
[2019-08-20] MEDS: FINASTERIDE 5 MG TAB PO SCH (19:59)
[2019-08-20] MEDS: ATORVASTATIN 10 MG TAB PO SCH (19:59)
[2019-08-21] MEDS: carvediloL 3.125 MG TAB PO SCH ×2 (06:00→17:01)
[2019-08-21 06:42] LABS: Protime INR 1.97
[2019-08-21] MEDS: INSULIN -REGULAR HUMAN 50 UNIT/0.5 ML ML SQ SCH ×4 (07:30→20:50)
[2019-08-21] MEDS: LIDOCAINE 4% PATCH TOP SCH (07:45)
[2019-08-21] MEDS: Enoxaparin 120 MG/0.8 ML SYR SQ SCH (07:50)
[2019-08-21] MEDS: PROMOD 30 ML DOSE PO SCH ×2 (08:00→20:50)
[2019-08-21] MEDS: METFORMIN HCL 500 MG TAB PO SCH ×2 (08:54→16:43)
[2019-08-21] MEDS: SPIRONOLACTONE 25 MG TABLET PO SCH (08:54)
[2019-08-21] MEDS: GABAPENTIN 300 MG CAP PO SCH ×3 (08:54→20:49)
[2019-08-21] MEDS: TRAMADOL HCL 50 MG TAB PO PRN ×3 (08:54→16:44)
[2019-08-21] MEDS: FE SULF/FA/VIT B COMP & C TAB PO SCH (08:54)
[2019-08-21] MEDS: TAMSULOSIN 0.4 MG SR CAP PO SCH (08:54)
[2019-08-21] MEDS: FERROUS SULFATE 325 MG TAB PO SCH (08:54)
[2019-08-21] MEDS: DOCUSATE NA 100 MG CAP PO SCH ×2 (08:54→20:49)
[2019-08-21] MEDS: FAMOTIDINE 20 MG TAB PO SCH ×2 (08:54→20:49)
[2019-08-21] MEDS: INSULIN LISPRO 100 UNIT/1 ML SQ SCH ×3 (08:55→16:42)
[2019-08-21] MEDS: INSULIN GLARGINE 100 UNITS/ML SQ SCH ×2 (08:56→16:43)
[2019-08-21] MEDS: ACETAMINOPHEN 500 MG TAB PO PRN (09:26)
[2019-08-21] MEDS: HYDROCODONE/APAP 5/325 MG TAB PO PRN (14:21)
--- NOTE | 2019-08-21 16:23 | RAD REPORT ---
EXAM DESCRIPTION: RAD - Hip Left 2 View - 08/21/2019 3:54 pm CLINICAL HISTORY: Left hip surgery FINDINGS: A left hip prosthesis is in good position. No fracture or dislocation. Left thigh soft tissue swelling
[2019-08-21] MEDS: WARFARIN SODIUM 5 MG TAB PO SCH (16:44)
--- NOTE | 2019-08-21 18:59 | PN ---
Date of Progress Note: 08/21/2019 Subjective: Patient seen and examined. Chart reviewed and case discussed with RN. Patient continui ng to complain of pain and was started on [place] this morning. Medications: List reviewed. Physical Examination: Vital Signs: Temperature 97.3, heart rate 85, blood pressure 129/58, respirations 16, O2 of 97% on r oom air. General: Awake, alert, oriented x3, not in any acute distress. CV: S1, S2. Irregularly irregular rhythm. Peripheral pulses present. Respiratory: Moving air well bilaterally. No wheezing or stridor. Gastrointestinal: Abdomen is soft, nontender, nondistended. Positive bowel sounds. Extremities: No clubbing, cyanosis, edema. Neurologic: Nonfocal. Musculoskeletal: Left hip incision site clean, dry, intact. Patient does report some tenderness to palpation. Laboratory Data: Blood glucose levels between 78 and 178. Urine culture growing out mixed walter. Assessment And Plan: An 88-year-old male with: 1.Left hip femoral neck fracture, nondisplaced initial encounter, status post open reduction and int ernal fixation. Continue with physical therapy. Adjust pain medications. Continue with deep venous thrombosis prophylaxis. 2.Atrial fibrillation with controlled ventricular rate. Continue with Coumadin. INR now therapeuti c, currently at 1.97. We will discontinue Lovenox. Monitor H and H. Repeat CBC level in a.m. 3.Delirium, resolved. 4.BPH. Continue Flomax. 5.Mixed hyperlipidemia. Continue statin. 6.Diabetes mellitus type 2, insulin requiring with hyperglycemia, stable. Patient does have blood s ugars in the 70s and 80s in the morning. We will continue to monitor closely. 7.Pulmonary edema, improved. 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 9.Peripheral vascular disease, stable. 10.Deep vein thrombosis prophylaxis. Patient is on Coumadin. We will monitor INR. SA/MODL Voice ID: [id number] Report ID: [id number]
--- NOTE | 2019-08-21 19:10 | RAD REPORT ---
EXAM DESCRIPTION: US - Extremity Nonvascular Limited - 08/21/2019 6:59 pm CLINICAL HISTORY: Left thigh swelling COMPARISON: None FINDINGS: Sonographic evaluation left thigh was obtained No cystic or solid mass is seen. A hematoma is not visualized IMPRESSION: No mass is visualized within the left thigh
[2019-08-21] MEDS: ATORVASTATIN 10 MG TAB PO SCH (20:49)
[2019-08-21] MEDS: FINASTERIDE 5 MG TAB PO SCH (20:53)
--- NOTE | 2019-08-21 20:58 | R.PN ---
ENCOUNTER DATE AND TIME: 08/21/2019 20:09 (EDUCATIONAL DIRECTOR) NAME MADELIN WALDEN DATE OF : 1930 DATE OF ADMISSION: 08/16/2019 15:33 (EDUCATIONAL DIRECTOR) Left Femoral Neck FractureCHIEF COMPLAINT: Left hip fracture SUBJECTIVE: Pt denied any depression. Pt denied any Shortness of Breath. Mr. Walden is making slow overall progress with therapy. He is moderately limited by poor cognition. His blood work is stable. Propelled wheelchair 25' with maximum assistance. He completed a simple maze with 75% accuracy. ADLs performed with maximum assistance. VITAL SIGNS SBP/DBP: 128/59 Temperature: 97.3 F Pulse: 85 Resp: 16 O2 sat: 98 on room air MEDICATION ALLERGIES: Amoxicillin ENVIRONMENTAL ALLERGIES: None Known - Substance Allergies None Known - Other Allergies None Known NURSING: - Shower allowing shower - Lab Results blood Sugar Check ACHS - Skin care per protocol PRECAUTIONS: - Posterior Hip Precaution No adduction across midline No external rotation No hip flexion >90 degrees No internal rotation No wheel chair propulsion - Weight Bearing Precaution WBAT left LE ACTIVITIES OOB only with supervision THERAPIES: - Dietary and Nutrition Adequate Nutrition. Nutritional Education. Nutritional Supplements. PHYSICAL EXAM - Gen Alert and awake Lying in bed No apparent distress Oriented to: person, time, and place - Skin No breakdown No numbness - Eyes No abnormalities - ENMT No abnormalities - Neck No abnormalities - CVS RRR - Chest No abnormalities - Resp Clear to auscultation - Abd + bowel sounds - GI Non distended Deferred - No abnormalities - Ext Left hip surgical site has good hemostasis. - MSK 4+/5 weakness in left lower extremity. - Neuro 4/5 strength left lower extremity. - Psych No abnormalities ASSESSMENT: Pt. is a 88 yo Right-handed white male.On 08/11/2019 he was admitted to [facility] with diagnosis Left Femoral Neck Fracture.His impairment category is Orthopaedic Disorders 08 - Unilateral Hip Fracture (08.11).Pre-morbidly, Pt. was independent/mod-I in Locomotion, Safety Awarene ss, Balance, Social Cognition, Transfers Control, Sphincter Control, Self-Care, Communication, and En durance; and he had good Locomotion, Balance, Transfers Control, Self-Care, and Endurance.Currently, he has deficits of Locomotion, Safety Awareness, Balance, Social Cognition, Transfers Control, Self-C are, and Endurance.Pt. is now referred to [facility] for acute in-patient reha bilitation in order to maximize patient's functional independence in activities of daily living, stre ngth, ROM, and mobility.- Rehab Goal Patient has realistic goal of being discharged at assistance level 6-Andrae to reside at Home with Att endant. MDM/PLAN: - Physical Therapy Decreased range of motion - to improve, our physical therapists will perform initial evaluation of p t's status upon admission and devise an individualized program for increasing patient's Range of Buddy on. Gait dysfunction - to improve, our physical therapists will perform initial evaluation of pt's statu s upon admission and devise an individualized program for Gait Training, and Wheel Chair mobility Inability to transfer - to improve, our physical therapists will perform initial evaluation of pt's status upon admission and devise an individualized program for Bed mobility Need for home safety evaluation - to improve, our physical therapists will perform initial evaluatio n of pt's status upon admission and devise an individualized program for Home Evaluation Need in caregiver upon discharge - to improve, our physical therapists will perform initial evaluati on of pt's status upon admission and devise an individualized program for Caregiver Training New precaution - to improve, our physical therapists will perform initial evaluation of pt's status upon admission and devise an individualized program for Patient precaution education Poor balance - to improve, our physical therapists will perform initial evaluation of pt's status up on admission and devise an individualized program for Balance Training Poor endurance - to improve, our physical therapists will perform initial evaluation of pt's status upon admission and devise an individualized program for Endurance Training Weakness - to improve, our physical therapists will perform initial evaluation of pt's status upon a dmission and devise an individualized program for Aquatic Therapy, Neuromuscular Reeducation, and Str engthening Achieving independence - to improve, our physical therapists will perform initial evaluation of pt's status upon admission and devise an individualized program for Community Reintegration Activities - Occupational Therapy ADL deficits - to improve, our occupation therapists will perform initial evaluation of pt's status upon admission and devise an individualized program for Bathing, Bed mobility, Community Reintegratio n, Cooking, Dressing, Eating, Fine Motor Skills, Grooming, Homemaking, Kitchen Mobility, Laundry, Pat ient Education, Safety Awareness, Splinting - Positioning, Transfers(Toilet, Tub, Shower), and Wheel Chair Management Cognitive deficits - to improve, our occupation therapists will perform initial evaluation of pt's s tatus upon admission and devise an individualized program for Cognition - orientation Need for health and social care teacher - to improve, our occupation therapists will perform initial evaluation of pt's status upon admission and devise an individualized program for Caregiver Training Weakness - to improve, our occupation therapists will perform initial evaluation of pt's status upon admission and devise an individualized program for Aquatic Therapy, Balance, Endurance, UE ROM, and UE strengthening - Other See attached MAR (Medication Administration Record) - Anterior Hip Precaution No abduction No active extension No adduction across midline No external rotation No hip flexion >90 degrees No internal rotation - Diet - Liquid Texture Continue Regular - Tube Feed Continue N/A - Diet Type Continue Regular - Posterior Hip Precaution No adduction across midline No external rotation No hip flexion >90 degrees No internal rotation No wheel chair propulsion - Lab Results blood Sugar Check ACHS - Weight Bearing Precaution WBAT left LE - Skin care per protocol - Diet - Solid Texture Continue Regular - Shower allowing shower FUNCTIONAL STATUS: UPDATED AT WEEKLY TEAM CONFERENCE - Bladder Same accident frequency: 7-Ind - No accidents in the past 7 days - Bowel Same accident frequency: 7-Ind - No accidents in the past 7 days - Walking Same score based on distance walked: 0(N/A) - Wheelchair Same score based on distance traveled: 0(N/A) FUNCTIONAL STATUS: - Self-Care A. Eating sup B. Grooming sup C. Bathing modA D. Dressing - Upper Raoul E. Dressing - Lower modA F. Toileting modA - Sphincter Control G. Bladder control sup H. Bowel control sup - Transfers Control I. Bed/Chair/Wheelchair maxA J. Toilet maxA K. Tub/Shower maxA - Locomotion L. Walk/Wheelchair (B) maxA M. Stairs ADNO - Communication N. Comprehension (B) modA O. Expression (B) modA - Social Cognition P. Social Interaction Raoul Q. Problem Solving modA R. Memory maxA - Endurance Fair - Balance Poor - Safety Awareness Poor QI SCORES: - Self-Care A. Eating 05-Setup or clean-up assistance B. Oral hygiene 05-Setup or clean-up assistance C. Toileting hygiene 03-Partial/moderate assistance E. Shower/bathe self 03-Partial/moderate assistance F. Upper body dressing 03-Partial/moderate assistance G. Lower body dressing 01-Dependent H. Putting on/taking off footwear 01-Dependent - Mobility A. Roll left and right 03-Partial/moderate assistance B. Sit to lying 02-Substantial/maximal assistance C. Lying to sitting on side of bed 02-Substantial/maximal assistance D. Sit to stand 01-Dependent E. Chair/cux-tc-sqqep transfer 01-Dependent F. Toilet transfer 01-Dependent G. Car transfer 88-Not attempted due to medical condition or safety concerns I. Walk 10 feet 88-Not attempted due to medical condition or safety concerns J. Walk 50 feet with two turns 88-Not attempted due to medical condition or safety concerns K. Walk 150 feet 88-Not attempted due to medical condition or safety concerns L. Walking 10 feet on uneven surfaces 88-Not attempted due to medical condition or safety concerns M. 1 step (curb) 88-Not attempted due to medical condition or safety concerns N. 4 steps 88-Not attempted due to medical condition or safety concerns O. 12 steps 88-Not attempted due to medical condition or safety concerns P. Picking up object 88-Not attempted due to medical condition or safety concerns R. Wheel 50 feet with two turns 88-Not attempted due to medical condition or safety concerns S. Wheel 150 feet 88-Not attempted due to medical condition or safety concerns - Bladder and Bowel Bladder continence 3-Incontinent daily Bowel continence 0-Always continent - Endurance Poor - Balance Fair - Safety Awareness Fair CURRENT FUNC. DEFICITS: Self-Care, Mobility, Endurance, Balance, and Safety Awareness SIGNATURE PANEL: (EDUCATIONAL DIRECTOR)
[2019-08-21] MEDS: DIPHENHYDRAMINE 25 MG TAB/CAP PO PRN (21:30)
[2019-08-22] MEDS: MELATONIN 3 MG TABLET PO PRN (00:36)
--- NOTE | 2019-08-22 05:09 | PN ---
Date of Progress Note: 08/21/2019 Subjective: Patient is seen at the bedside. He feels well. He denies any fevers, chills, chest eula n, shortness of breath, nausea, vomiting, or diarrhea. Objective: VITAL SIGNS: Blood pressure is 129/58, pulse 85, afebrile. GENERAL: No acute distress. HEART: Regular rate and rhythm. No murmurs, rubs, gallops. LUNGS: Clear to auscultation bilaterally. ABDOMEN: Soft, nontender, nondistended. Positive bowel sounds x4. EXTREMITIES: No significant edema. Laboratory Data: Has been reviewed. Medications: Also noted. Impression: 1.Chronic renal insufficiency secondary to cardiorenal syndrome, stable. 2.Chronic diastolic heart failure. 3.BPH. 4.Recent left femur neck fracture, status post open reduction and internal fixation. 5.Type 2 diabetes. Plan: Patient appears to be stable from electrolyte and volume standpoint. The patient's home Bumex has not been continued with the patient appears to be euvolemic and thus we recommend continuing the patient strictly on the spironolactone for the time being. Patient may need reintroduction of loop diuretic once he is back to his usual diet at home; however, here as the diet is controlled, the magalie ent has likely exhibited the benefits of a lower sodium diet. Continue monitoring intermittent serum chemistry, so that we can monitor renal function. Avoid all NSAIDs and all IV contrast. We will continue to follow. SE/MODL Voice ID: [id number] Report ID: [id number]
[2019-08-22] MEDS: carvediloL 3.125 MG TAB PO SCH ×2 (05:18→17:26)
[2019-08-22] MEDS: HYDROCODONE/APAP 5/325 MG TAB PO PRN (05:22)
[2019-08-22 06:52] LABS: Basophils % 0.5 % (0-1.3); Hematocrit 21.5 % (39.6-49.0); Lymphocytes % 9.6 % (15.3-44.8); MPV 6.9 fL (7.6-11.3); RBC Red Blood Cell Count 2.55 M/uL (4.33-5.43)
[2019-08-22 07:18] LABS: Protime INR 1.77
[2019-08-22] MEDS: INSULIN -REGULAR HUMAN 50 UNIT/0.5 ML ML SQ SCH ×4 (07:30→20:30)
[2019-08-22] MEDS: LIDOCAINE 4% PATCH TOP SCH (07:38)
[2019-08-22] MEDS: INSULIN GLARGINE 100 UNITS/ML SQ SCH ×2 (08:21→17:24)
[2019-08-22] MEDS: INSULIN LISPRO 100 UNIT/1 ML SQ SCH ×3 (08:21→17:25)
[2019-08-22] MEDS: DOCUSATE NA 100 MG CAP PO SCH ×2 (08:22→19:39)
[2019-08-22] MEDS: SPIRONOLACTONE 25 MG TABLET PO SCH (08:23)
[2019-08-22] MEDS: GABAPENTIN 300 MG CAP PO SCH ×3 (08:23→20:29)
[2019-08-22] MEDS: FE SULF/FA/VIT B COMP & C TAB PO SCH (08:24)
[2019-08-22] MEDS: FERROUS SULFATE 325 MG TAB PO SCH (08:24)
[2019-08-22] MEDS: TAMSULOSIN 0.4 MG SR CAP PO SCH (08:24)
[2019-08-22] MEDS: FAMOTIDINE 20 MG TAB PO SCH ×2 (08:24→19:39)
[2019-08-22] MEDS: METFORMIN HCL 500 MG TAB PO SCH ×2 (08:24→17:26)
[2019-08-22] MEDS: PROMOD 30 ML DOSE PO SCH ×2 (08:25→19:45)
[2019-08-22] MEDS: TRAMADOL HCL 50 MG TAB PO PRN ×2 (08:28→19:44)
--- NOTE | 2019-08-22 09:58 | FAST ---
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 Mode Gonzáles M.D. ADMISSION DIAGNOSIS: - Orthopaedic Disorders 08 - Unilateral Hip Fracture (08.11) Left Femoral Neck Fracture. EATING: EATING - STEP 1: Does the patient complete the activity by him/herself with no assistance (physical, verbal/nonverbal cueing, setup/clean-up)? No. EATING - STEP 2: Does the patient need only setup/clean-up assistance from one helper? No. EATING - STEP 3: Does the patient need only verbal/nonverbal cueing or touching/steadying/contact guard assistance fro m one helper? Yes. 1. [id number] ADMISSION PERFORMANCE: Supervision or touching assistance CODE: 04 ORAL HYGIENE: Not assessed/no information CODE: - TOILETING HYGIENE: TOILETING HYGIENE - STEP 1: Does the patient complete the activity by him/herself with no assistance (physical, verbal/nonverbal cueing, setup/clean-up)? No. TOILETING HYGIENE - STEP 2: Does the patient need only setup/clean-up assistance from one helper? No. TOILETING HYGIENE - STEP 3: Does the patient need only verbal/nonverbal cueing or touching/steadying/contact guard assistance fro m one helper? No. TOILETING HYGIENE - STEP 4: Does the patient need physical assistance - for example lifting or trunk support from one helper - wi th the helper providing less than half of the effort? No. TOILETING HYGIENE - STEP 5: Does the patient need physical assistance - for example lifting or trunk support from one helper - wi th the helper providing more than half of the effort? No. TOILETING HYGIENE - STEP 6: Does the helper provide all of the effort? OR Is the assistance of two or more helpers required to co mplete the activity? Yes. 1. [id number] ADMISSION PERFORMANCE: Dependent CODE: 01 BATHING: Not assessed/no information CODE: - DRESSING - UPPER BODY: Not assessed/no information CODE: - DRESSING - LOWER BODY: Not assessed/no information CODE: - PUTTING ON/TAKING OFF FOOTWEAR: Not assessed/no information CODE: - ROLL LEFT AND RIGHT: ROLL LEFT AND RIGHT - STEP 1: Does the patient complete the activity by him/herself with no assistance (physical, verbal/nonverbal cueing, setup/clean-up)? No. ROLL LEFT AND RIGHT - STEP 2: Does the patient need only setup/clean-up assistance from one helper? No. ROLL LEFT AND RIGHT - STEP 3: Does the patient need only verbal/nonverbal cueing or touching/steadying/contact guard assistance fro m one helper? No. ROLL LEFT AND RIGHT - STEP 4: Does the patient need physical assistance - for example lifting or trunk support from one helper - wi th the helper providing less than half of the effort? No. ROLL LEFT AND RIGHT - STEP 5: Does the patient need physical assistance - for example lifting or trunk support from one helper - wi th the helper providing more than half of the effort? No. ROLL LEFT AND RIGHT - STEP 6: Does the helper provide all of the effort? OR Is the assistance of two or more helpers required to co mplete the activity? Yes. 1. [id number] ADMISSION PERFORMANCE: Dependent CODE: 01 SIT TO LYING: SIT TO LYING - STEP 1: Does the patient complete the activity by him/herself with no assistance (physical, verbal/nonverbal cueing, setup/clean-up)? No. SIT TO LYING - STEP 2: Does the patient need only setup/clean-up assistance from one helper? No. SIT TO LYING - STEP 3: Does the patient need only verbal/nonverbal cueing or touching/steadying/contact guard assistance fro m one helper? No. SIT TO LYING - STEP 4: Does the patient need physical assistance - for example lifting or trunk support from one helper - wi th the helper providing less than half of the effort? No. SIT TO LYING - STEP 5: Does the patient need physical assistance - for example lifting or trunk support from one helper - wi th the helper providing more than half of the effort? No. SIT TO LYING - STEP 6: Does the helper provide all of the effort? OR Is the assistance of two or more helpers required to co mplete the activity? Yes. 1. [id number] ADMISSION PERFORMANCE: Dependent CODE: 01 LYING TO SITTING: LYING TO SITTING ON SIDE OF BED - STEP 1: Does the patient complete the activity by him/herself with no assistance (physical, verbal/nonverbal cueing, setup/clean-up)? No. LYING TO SITTING ON SIDE OF BED - STEP 2: Does the patient need only setup/clean-up assistance from one helper? No. LYING TO SITTING ON SIDE OF BED - STEP 3: Does the patient need only verbal/nonverbal cueing or touching/steadying/contact guard assistance fro m one helper? No. LYING TO SITTING ON SIDE OF BED - STEP 4: Does the patient need physical assistance - for example lifting or trunk support from one helper - wi th the helper providing less than half of the effort? No. LYING TO SITTING ON SIDE OF BED - STEP 5: Does the patient need physical assistance - for example lifting or trunk support from one helper - wi th the helper providing more than half of the effort? No. LYING TO SITTING ON SIDE OF BED - STEP 6: Does the helper provide all of the effort? OR Is the assistance of two or more helpers required to co mplete the activity? Yes. 1. [id number] ADMISSION PERFORMANCE: Dependent CODE: 01 SIT TO STAND: SIT TO STAND - STEP 1: Does the patient complete the activity by him/herself with no assistance (physical, verbal/nonverbal cueing, setup/clean-up)? No. SIT TO STAND - STEP 2: Does the patient need only setup/clean-up assistance from one helper? No. SIT TO STAND - STEP 3: Does the patient need only verbal/nonverbal cueing or touching/steadying/contact guard assistance fro m one helper? No. SIT TO STAND - STEP 4: Does the patient need physical assistance - for example lifting or trunk support from one helper - wi th the helper providing less than half of the effort? No. SIT TO STAND - STEP 5: Does the patient need physical assistance - for example lifting or trunk support from one helper - wi th the helper providing more than half of the effort? No. SIT TO STAND - STEP 6: Does the helper provide all of the effort? OR Is the assistance of two or more helpers required to co mplete the activity? Yes. 1. [id number] ADMISSION PERFORMANCE: Dependent CODE: 01 TRANSFERS: BED, CHAIR: CHAIR/[id number] TRANSFER - STEP 1: Does the patient complete the activity by him/herself with no assistance (physical, verbal/nonverbal cueing, setup/clean-up)? No. CHAIR/[id number] TRANSFER - STEP 2: Does the patient need only setup/clean-up assistance from one helper? No. CHAIR/[id number] TRANSFER - STEP 3: Does the patient need only verbal/nonverbal cueing or touching/steadying/contact guard assistance fro m one helper? No. CHAIR/[id number] TRANSFER - STEP 4: Does the patient need physical assistance - for example lifting or trunk support from one helper - wi th the helper providing less than half of the effort? No. CHAIR/[id number] TRANSFER - STEP 5: Does the patient need physical assistance - for example lifting or trunk support from one helper - wi th the helper providing more than half of the effort? No. CHAIR/[id number] TRANSFER - STEP 6: Does the helper provide all of the effort? OR Is the assistance of two or more helpers required to co mplete the activity? No. TRANSFER TOILET: TOILET TRANSFER - STEP 1: Does the patient complete the activity by him/herself with no assistance (physical, verbal/nonverbal cueing, setup/clean-up)? No. TOILET TRANSFER - STEP 2: Does the patient need only setup/clean-up assistance from one helper? No. TOILET TRANSFER - STEP 3: Does the patient need only verbal/nonverbal cueing or touching/steadying/contact guard assistance fro m one helper? No. TOILET TRANSFER - STEP 4: Does the patient need physical assistance - for example lifting or trunk support from one helper - wi th the helper providing less than half of the effort? No. TOILET TRANSFER - STEP 5: Does the patient need physical assistance - for example lifting or trunk support from one helper - wi th the helper providing more than half of the effort? No. TOILET TRANSFER - STEP 6: Does the helper provide all of the effort? OR Is the assistance of two or more helpers required to co mplete the activity? Yes. 1. [id number] ADMISSION PERFORMANCE: Dependent CODE: 01 TRANSFERS: CAR: Not assessed/no information CODE: - WALK 10 FEET: Not assessed/no information CODE: - 1 STEP (CURB): Not assessed/no information CODE: - PICKING UP OBJECT: Not assessed/no information CODE: - DOES THE PATIENT USE A WHEELCHAIR/SCOOTER? CODE: EXPR WHEEL 50 FEET WITH TWO TURNS: Not assessed/no information CODE: - INDICATE THE TYPE OF WHEELCHAIR/SCOOTER USED: CODE: EXPR WHEEL 150 FEET: Not assessed/no information CODE: - INDICATE THE TYPE OF WHEELCHAIR/SCOOTER USED: CODE: EXPR BLADDER AND BOWEL: H350. BLADDER CONTINENCE (3-DAY ASSESSMENT PERIOD): Incontinent daily (at least once a day) CODE: 3 H400. BOWEL CONTINENCE (3-DAY ASSESSMENT PERIOD): Frequently incontinent (2 or more episodes of bowel incontinence, but at least one continent bowel mo vement) CODE: 2 SIGNATURE PANEL: The following modified sections: 1. [id number] Admission Performance, 1. [id number] Admission Performance, 1. [id number] Admission Performance, 1. [id number] Admission Performance, 1. [id number] Admission Performance, 1. RD1545H Admission Performance, 1. [id number] Admission Performance, 1. [id number] Admission Performance , 1. [id number] Admission Performance, 1. [id number] Admission Performance, 1. [id number] Admission Performanc e, Code, H350. Bladder Continence (3-day assessment period), H400. Bowel Continence (3-day assessment period) were [electronically] signed by Alvaro Calderón on WedAug 22 2019 09:57:15 GMT-0600 ([place])
[2019-08-22] MEDS ORDERED: NA CHLORIDE 0.9% 250 ML IV SCH ×2 (10:00→19:00)
[2019-08-22 16:04] LABS: Hematocrit 23.3 % (39.6-49.0)
[2019-08-22] MEDS: guaiFENesin 100 MG/5 ML UCUP PO PRN (16:22)
[2019-08-22] MEDS: WARFARIN SODIUM 5 MG TAB PO SCH (17:26)
[2019-08-22] MEDS: FINASTERIDE 5 MG TAB PO SCH (20:28)
[2019-08-22] MEDS: ATORVASTATIN 10 MG TAB PO SCH (20:29)
[2019-08-22] MEDS: DIPHENHYDRAMINE 25 MG TAB/CAP PO PRN (20:29)
--- NOTE | 2019-08-22 21:44 | R.PN ---
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 Pt denied any Shortness of Breath. Mr. Walden is making slow overall progress with therapy. He is moderately limited by poor cognition. His blood work is stable. Propelled wheelchair 25' with maximum assistance. He completed a simple maze with 75% accuracy. ADLs performed with maximum assistance. Cognitive tasks performed with minimum to moderate assistance. VITAL SIGNS SBP/DBP: 114/58 Temperature: 98 F Pulse: 82 Resp: 16 O2 sat: 98 on room air MEDICATION ALLERGIES: Amoxicillin ENVIRONMENTAL ALLERGIES: None Known - Substance Allergies None Known - Other Allergies None Known NURSING: - Shower allowing shower - Lab Results blood Sugar Check ACHS - Skin care per protocol PRECAUTIONS: - Posterior Hip Precaution No adduction across midline No external rotation No hip flexion >90 degrees No internal rotation No wheel chair propulsion - Weight Bearing Precaution WBAT left LE ACTIVITIES OOB only with supervision THERAPIES: - Dietary and Nutrition Adequate Nutrition. Nutritional Education. Nutritional Supplements. PHYSICAL EXAM - Gen Alert and awake Lying in bed No apparent distress Oriented to: person, time, and place - Skin No breakdown No numbness - Eyes No abnormalities - ENMT No abnormalities - Neck No abnormalities - CVS RRR - Chest No abnormalities - Resp Clear to auscultation - Abd + bowel sounds - GI Non distended Deferred - No abnormalities - Ext Left hip surgical site has good hemostasis. - MSK 4+/5 weakness in left lower extremity. - Neuro 4/5 strength left lower extremity. - Psych No abnormalities ASSESSMENT: Pt. is a 88 yo Right-handed white male.On 08/11/2019 he was admitted to [facility] with diagnosis Left Femoral Neck Fracture.His impairment category is Orthopaedic Disorders 08 - Unilateral Hip Fracture (08.11).Pre-morbidly, Pt. was independent/mod-I in Locomotion, Safety Awarene ss, Balance, Social Cognition, Transfers Control, Sphincter Control, Self-Care, Communication, and En durance; and he had good Locomotion, Balance, Transfers Control, Self-Care, and Endurance.Currently, he has deficits of Locomotion, Safety Awareness, Balance, Social Cognition, Transfers Control, Self-C are, and Endurance.Pt. is now [facility] to [facility] for acute in-patient reha bilitation in order to maximize patient's functional independence in activities of daily living, stre ngth, ROM, and mobility.- Rehab Goal Patient has realistic goal of being discharged at assistance level 6-Andrae to reside at Home with Att endant. MDM/PLAN: - Physical Therapy Decreased range of motion - to improve, our physical therapists will perform initial evaluation of p t's status upon admission and devise an individualized program for increasing patient's Range of Buddy on. Gait dysfunction - to improve, our physical therapists will perform initial evaluation of pt's statu s upon admission and devise an individualized program for Gait Training, and Wheel Chair mobility Inability to transfer - to improve, our physical therapists will perform initial evaluation of pt's status upon admission and devise an individualized program for Bed mobility Need for home safety evaluation - to improve, our physical therapists will perform initial evaluatio n of pt's status upon admission and devise an individualized program for Home Evaluation Need in caregiver upon discharge - to improve, our physical therapists will perform initial evaluati on of pt's status upon admission and devise an individualized program for Caregiver Training New precaution - to improve, our physical therapists will perform initial evaluation of pt's status upon admission and devise an individualized program for Patient precaution education Poor balance - to improve, our physical therapists will perform initial evaluation of pt's status up on admission and devise an individualized program for Balance Training Poor endurance - to improve, our physical therapists will perform initial evaluation of pt's status upon admission and devise an individualized program for Endurance Training Weakness - to improve, our physical therapists will perform initial evaluation of pt's status upon a dmission and devise an individualized program for Aquatic Therapy, Neuromuscular Reeducation, and Str engthening Achieving independence - to improve, our physical therapists will perform initial evaluation of pt's status upon admission and devise an individualized program for Community Reintegration Activities - Occupational Therapy ADL deficits - to improve, our occupation therapists will perform initial evaluation of pt's status upon admission and devise an individualized program for Bathing, Bed mobility, Community Reintegratio n, Cooking, Dressing, Eating, Fine Motor Skills, Grooming, Homemaking, Kitchen Mobility, Laundry, Pat ient Education, Safety Awareness, Splinting - Positioning, Transfers(Toilet, Tub, Shower), and Wheel Chair Management Cognitive deficits - to improve, our occupation therapists will perform initial evaluation of pt's s tatus upon admission and devise an individualized program for Cognition - orientation Need for toddler caregiver - to improve, our occupation therapists will perform initial evaluation of pt's status upon admission and devise an individualized program for Caregiver Training Weakness - to improve, our occupation therapists will perform initial evaluation of pt's status upon admission and devise an individualized program for Aquatic Therapy, Balance, Endurance, UE ROM, and UE strengthening - Other See attached MAR (Medication Administration Record) - Anterior Hip Precaution No abduction No active extension No adduction across midline No external rotation No hip flexion >90 degrees No internal rotation - Diet - Liquid Texture Continue Regular - Tube Feed Continue N/A - Diet Type Continue Regular - Posterior Hip Precaution No adduction across midline No external rotation No hip flexion >90 degrees No internal rotation No wheel chair propulsion - Lab Results blood Sugar Check ACHS - Weight Bearing Precaution WBAT left LE - Skin care per protocol - Diet - Solid Texture Continue Regular - Shower allowing shower FUNCTIONAL STATUS: UPDATED AT WEEKLY TEAM CONFERENCE - Bladder Same accident frequency: 7-Ind - No accidents in the past 7 days - Bowel Same accident frequency: 7-Ind - No accidents in the past 7 days - Walking Same score based on distance walked: 0(N/A) - Wheelchair Same score based on distance traveled: 0(N/A) FUNCTIONAL STATUS: - Self-Care A. Eating sup B. Grooming sup C. Bathing modA D. Dressing - Upper Raoul E. Dressing - Lower modA F. Toileting modA - Sphincter Control G. Bladder control sup H. Bowel control sup - Transfers Control I. Bed/Chair/Wheelchair maxA J. Toilet maxA K. Tub/Shower maxA - Locomotion L. Walk/Wheelchair (B) maxA M. Stairs ADNO - Communication N. Comprehension (B) modA O. Expression (B) modA - Social Cognition P. Social Interaction Raoul Q. Problem Solving modA R. Memory maxA - Endurance Fair - Balance Poor - Safety Awareness Poor QI SCORES: - Self-Care A. Eating 05-Setup or clean-up assistance B. Oral hygiene 05-Setup or clean-up assistance C. Toileting hygiene 03-Partial/moderate assistance E. Shower/bathe self 03-Partial/moderate assistance F. Upper body dressing 03-Partial/moderate assistance G. Lower body dressing 01-Dependent H. Putting on/taking off footwear 01-Dependent - Mobility A. Roll left and right 03-Partial/moderate assistance B. Sit to lying 02-Substantial/maximal assistance C. Lying to sitting on side of bed 02-Substantial/maximal assistance D. Sit to stand 01-Dependent E. Chair/[id number] transfer 01-Dependent F. Toilet transfer 01-Dependent G. Car transfer 88-Not attempted due to medical condition or safety concerns I. Walk 10 feet 88-Not attempted due to medical condition or safety concerns J. Walk 50 feet with two turns 88-Not attempted due to medical condition or safety concerns K. Walk 150 feet 88-Not attempted due to medical condition or safety concerns L. Walking 10 feet on uneven surfaces 88-Not attempted due to medical condition or safety concerns M. 1 step (curb) 88-Not attempted due to medical condition or safety concerns N. 4 steps 88-Not attempted due to medical condition or safety concerns O. 12 steps 88-Not attempted due to medical condition or safety concerns P. Picking up object 88-Not attempted due to medical condition or safety concerns R. Wheel 50 feet with two turns 88-Not attempted due to medical condition or safety concerns S. Wheel 150 feet 88-Not attempted due to medical condition or safety concerns - Bladder and Bowel Bladder continence 3-Incontinent daily Bowel continence 0-Always continent - Endurance Poor - Balance Fair - Safety Awareness Fair CURRENT FUNC. 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
[2019-08-23] MEDS: TRAMADOL HCL 50 MG TAB PO PRN ×3 (04:00→17:39)
[2019-08-23] MEDS: guaiFENesin 100 MG/5 ML UCUP PO PRN ×3 (04:03→20:20)
[2019-08-23] MEDS: carvediloL 3.125 MG TAB PO SCH ×2 (05:18→17:09)
[2019-08-23 06:47] LABS: Protime INR 1.96
[2019-08-23 06:48] LABS: Absolute Lymphocytes (CBC) 1.1 K/uL (0.7-4.9); Basophils % 0.9 % (0-1.3); Hematocrit 25.3 % (39.6-49.0); MPV 6.7 fL (7.6-11.3); RBC Red Blood Cell Count 2.93 M/uL (4.33-5.43)
[2019-08-23] MEDS: INSULIN -REGULAR HUMAN 50 UNIT/0.5 ML ML SQ SCH ×4 (07:30→20:20)
[2019-08-23] MEDS: HYDROCODONE/APAP 5/325 MG TAB PO PRN ×2 (07:38→14:28)
[2019-08-23] MEDS: INSULIN GLARGINE 100 UNITS/ML SQ SCH ×2 (07:46→17:07)
[2019-08-23] MEDS: INSULIN LISPRO 100 UNIT/1 ML SQ SCH ×3 (07:46→17:08)
[2019-08-23] MEDS: LIDOCAINE 4% PATCH TOP SCH (07:53)
[2019-08-23] MEDS: FAMOTIDINE 20 MG TAB PO SCH ×2 (07:54→20:19)
[2019-08-23] MEDS: METFORMIN HCL 500 MG TAB PO SCH ×2 (07:54→17:09)
[2019-08-23] MEDS: FE SULF/FA/VIT B COMP & C TAB PO SCH (07:54)
[2019-08-23] MEDS: DOCUSATE NA 100 MG CAP PO SCH ×2 (07:54→20:19)
[2019-08-23] MEDS: GABAPENTIN 300 MG CAP PO SCH ×3 (07:55→20:19)
[2019-08-23] MEDS: FERROUS SULFATE 325 MG TAB PO SCH (07:55)
[2019-08-23] MEDS: SPIRONOLACTONE 25 MG TABLET PO SCH (07:55)
[2019-08-23] MEDS: TAMSULOSIN 0.4 MG SR CAP PO SCH (07:56)
[2019-08-23] MEDS: PROMOD 30 ML DOSE PO SCH ×2 (07:57→20:19)
[2019-08-23] MEDS: WARFARIN SODIUM 5 MG TAB PO SCH (17:10)
[2019-08-23] MEDS: ATORVASTATIN 10 MG TAB PO SCH (20:19)
[2019-08-23] MEDS: DIPHENHYDRAMINE 25 MG TAB/CAP PO PRN (20:19)
[2019-08-23] MEDS: FINASTERIDE 5 MG TAB PO SCH (20:19)
[2019-08-23] MEDS: MELATONIN 3 MG TABLET PO PRN (23:48)
[2019-08-24] MEDS: carvediloL 3.125 MG TAB PO SCH ×2 (05:27→17:22)
[2019-08-24 06:03] LABS: Absolute Lymphocytes (CBC) 0.8 K/uL (0.7-4.9); Basophils % 1.3 % (0-1.3); Hematocrit 25.6 % (39.6-49.0); Lymphocytes % 10.5 % (15.3-44.8); MPV 6.6 fL (7.6-11.3); RBC Red Blood Cell Count 2.97 M/uL (4.33-5.43)
[2019-08-24 06:16] LABS: Protime INR 1.88
[2019-08-24 06:27] LABS: Albumin 2.4 g/dL (3.4-5.0); Potassium 4.7 mmol/L (3.5-5.1); Prealbumin 8.1 mg/dL (20-40)
[2019-08-24] MEDS: INSULIN -REGULAR HUMAN 50 UNIT/0.5 ML ML SQ SCH ×4 (07:30→18:54)
[2019-08-24] MEDS: TRAMADOL HCL 50 MG TAB PO PRN ×2 (07:58→18:55)
[2019-08-24] MEDS: PROMOD 30 ML DOSE PO SCH ×2 (08:00→18:59)
[2019-08-24] MEDS: LIDOCAINE 4% PATCH TOP SCH (08:00)
[2019-08-24] MEDS: GABAPENTIN 300 MG CAP PO SCH ×3 (08:50→20:00)
[2019-08-24] MEDS: FAMOTIDINE 20 MG TAB PO SCH ×2 (08:51→18:59)
[2019-08-24] MEDS: SPIRONOLACTONE 25 MG TABLET PO SCH (08:51)
[2019-08-24] MEDS: METFORMIN HCL 500 MG TAB PO SCH ×2 (08:52→17:22)
[2019-08-24] MEDS: FERROUS SULFATE 325 MG TAB PO SCH (08:52)
[2019-08-24] MEDS: FE SULF/FA/VIT B COMP & C TAB PO SCH (08:52)
[2019-08-24] MEDS: TAMSULOSIN 0.4 MG SR CAP PO SCH (08:52)
[2019-08-24] MEDS: DOCUSATE NA 100 MG CAP PO SCH ×2 (08:53→18:59)
[2019-08-24] MEDS: INSULIN LISPRO 100 UNIT/1 ML SQ SCH ×3 (09:01→17:00)
[2019-08-24] MEDS: INSULIN GLARGINE 100 UNITS/ML SQ SCH ×2 (09:01→17:22)
[2019-08-24] MEDS: ACETAMINOPHEN 500 MG TAB PO PRN ×2 (12:22→18:55)
[2019-08-24] MEDS: WARFARIN SODIUM 5 MG TAB PO SCH (17:21)
--- NOTE | 2019-08-24 17:33 | FAST ---
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 Mode Gonzáles M.D. ADMISSION DIAGNOSIS: - Orthopaedic Disorders 08 - Unilateral Hip Fracture (08.11) Left Femoral Neck Fracture. ROLL LEFT AND RIGHT: ROLL LEFT AND RIGHT - STEP 1: Does the patient complete the activity by him/herself with no assistance (physical, verbal/nonverbal cueing, setup/clean-up)? No. ROLL LEFT AND RIGHT - STEP 2: Does the patient need only setup/clean-up assistance from one helper? No. ROLL LEFT AND RIGHT - STEP 3: Does the patient need only verbal/nonverbal cueing or touching/steadying/contact guard assistance fro m one helper? No. ROLL LEFT AND RIGHT - STEP 4: Does the patient need physical assistance - for example lifting or trunk support from one helper - wi th the helper providing less than half of the effort? No. ROLL LEFT AND RIGHT - STEP 5: Does the patient need physical assistance - for example lifting or trunk support from one helper - wi th the helper providing more than half of the effort? Yes. 1. [id number] ADMISSION PERFORMANCE: Substantial/maximal assistance CODE: 02 SIT TO LYING: SIT TO LYING - STEP 1: Does the patient complete the activity by him/herself with no assistance (physical, verbal/nonverbal cueing, setup/clean-up)? No. SIT TO LYING - STEP 2: Does the patient need only setup/clean-up assistance from one helper? No. SIT TO LYING - STEP 3: Does the patient need only verbal/nonverbal cueing or touching/steadying/contact guard assistance fro m one helper? No. SIT TO LYING - STEP 4: Does the patient need physical assistance - for example lifting or trunk support from one helper - wi th the helper providing less than half of the effort? No. SIT TO LYING - STEP 5: Does the patient need physical assistance - for example lifting or trunk support from one helper - wi th the helper providing more than half of the effort? Yes. 1. [id number] ADMISSION PERFORMANCE: Substantial/maximal assistance CODE: 02 LYING TO SITTING: LYING TO SITTING ON SIDE OF BED - STEP 1: Does the patient complete the activity by him/herself with no assistance (physical, verbal/nonverbal cueing, setup/clean-up)? No. LYING TO SITTING ON SIDE OF BED - STEP 2: Does the patient need only setup/clean-up assistance from one helper? No. LYING TO SITTING ON SIDE OF BED - STEP 3: Does the patient need only verbal/nonverbal cueing or touching/steadying/contact guard assistance fro m one helper? No. LYING TO SITTING ON SIDE OF BED - STEP 4: Does the patient need physical assistance - for example lifting or trunk support from one helper - wi th the helper providing less than half of the effort? No. LYING TO SITTING ON SIDE OF BED - STEP 5: Does the patient need physical assistance - for example lifting or trunk support from one helper - wi th the helper providing more than half of the effort? Yes. 1. [id number] ADMISSION PERFORMANCE: Substantial/maximal assistance CODE: 02 SIT TO STAND: SIT TO STAND - STEP 1: Does the patient complete the activity by him/herself with no assistance (physical, verbal/nonverbal cueing, setup/clean-up)? No. SIT TO STAND - STEP 2: Does the patient need only setup/clean-up assistance from one helper? No. SIT TO STAND - STEP 3: Does the patient need only verbal/nonverbal cueing or touching/steadying/contact guard assistance fro m one helper? No. SIT TO STAND - STEP 4: Does the patient need physical assistance - for example lifting or trunk support from one helper - wi th the helper providing less than half of the effort? No. SIT TO STAND - STEP 5: Does the patient need physical assistance - for example lifting or trunk support from one helper - wi th the helper providing more than half of the effort? Yes. 1. [id number] ADMISSION PERFORMANCE: Substantial/maximal assistance CODE: 02 TRANSFERS: BED, CHAIR: CHAIR/[id number] TRANSFER - STEP 1: Does the patient complete the activity by him/herself with no assistance (physical, verbal/nonverbal cueing, setup/clean-up)? No. CHAIR/[id number] TRANSFER - STEP 2: Does the patient need only setup/clean-up assistance from one helper? No. CHAIR/[id number] TRANSFER - STEP 3: Does the patient need only verbal/nonverbal cueing or touching/steadying/contact guard assistance fro m one helper? No. CHAIR/[id number] TRANSFER - STEP 4: Does the patient need physical assistance - for example lifting or trunk support from one helper - wi th the helper providing less than half of the effort? No. CHAIR/[id number] TRANSFER - STEP 5: Does the patient need physical assistance - for example lifting or trunk support from one helper - wi th the helper providing more than half of the effort? Yes. 1. [id number] ADMISSION PERFORMANCE: Substantial/maximal assistance CODE: 02 TRANSFER TOILET: TOILET TRANSFER - STEP 1: Does the patient complete the activity by him/herself with no assistance (physical, verbal/nonverbal cueing, setup/clean-up)? No. TOILET TRANSFER - STEP 2: Does the patient need only setup/clean-up assistance from one helper? No. TOILET TRANSFER - STEP 3: Does the patient need only verbal/nonverbal cueing or touching/steadying/contact guard assistance fro m one helper? No. TOILET TRANSFER - STEP 4: Does the patient need physical assistance - for example lifting or trunk support from one helper - wi th the helper providing less than half of the effort? No. TOILET TRANSFER - STEP 5: Does the patient need physical assistance - for example lifting or trunk support from one helper - wi th the helper providing more than half of the effort? No. TOILET TRANSFER - STEP 6: Does the helper provide all of the effort? OR Is the assistance of two or more helpers required to co mplete the activity? Yes. 1. [id number] ADMISSION PERFORMANCE: Dependent CODE: 01 TRANSFERS: CAR: Not attempted due to medical condition or safety concerns CODE: 88 WALK 10 FEET: Not attempted due to medical condition or safety concerns CODE: 88 1 STEP (CURB): Not attempted due to medical condition or safety concerns CODE: 88 PICKING UP OBJECT: Not attempted due to medical condition or safety concerns CODE: 88 DOES THE PATIENT USE A WHEELCHAIR/SCOOTER? Q1. DOES THE PATIENT USE A WHEELCHAIR/SCOOTER?: Yes CODE: 1 WHEEL 50 FEET WITH TWO TURNS: WHEEL 50 FEET WITH TWO TURNS - STEP 1: Does the patient complete the activity by him/herself with no assistance (physical, verbal/nonverbal cueing, setup/clean-up)? No. WHEEL 50 FEET WITH TWO TURNS - STEP 2: Does the patient need only setup/clean-up assistance from one helper? No. WHEEL 50 FEET WITH TWO TURNS - STEP 3: Does the patient need only verbal/nonverbal cueing or touching/steadying/contact guard assistance fro m one helper? No. WHEEL 50 FEET WITH TWO TURNS - STEP 4: Does the patient need physical assistance - for example lifting or trunk support from one helper - wi th the helper providing less than half of the effort? No. WHEEL 50 FEET WITH TWO TURNS - STEP 5: Does the patient need physical assistance - for example lifting or trunk support from one helper - wi th the helper providing more than half of the effort? Yes. 1. [id number] ADMISSION PERFORMANCE: Substantial/maximal assistance CODE: 02 INDICATE THE TYPE OF WHEELCHAIR/SCOOTER USED: RR1. INDICATE THE TYPE OF WHEELCHAIR/SCOOTER USED.: Manual CODE: 1 WHEEL 150 FEET: WHEEL 150 FEET - STEP 1: Does the patient complete the activity by him/herself with no assistance (physical, verbal/nonverbal cueing, setup/clean-up)? No. WHEEL 150 FEET - STEP 2: Does the patient need only setup/clean-up assistance from one helper? No. WHEEL 150 FEET - STEP 3: Does the patient need only verbal/nonverbal cueing or touching/steadying/contact guard assistance fro m one helper? No. WHEEL 150 FEET - STEP 4: Does the patient need physical assistance - for example lifting or trunk support from one helper - wi th the helper providing less than half of the effort? No. WHEEL 150 FEET - STEP 5: Does the patient need physical assistance - for example lifting or trunk support from one helper - wi th the helper providing more than half of the effort? Yes. 1. [id number] ADMISSION PERFORMANCE: Substantial/maximal assistance CODE: 02 INDICATE THE TYPE OF WHEELCHAIR/SCOOTER USED: SS1. INDICATE THE TYPE OF WHEELCHAIR/SCOOTER USED.: Manual CODE: 1 BLADDER AND BOWEL: CODE: EXPR CODE: EXPR SIGNATURE PANEL: The following modified sections: 1. [id number] Admission Performance, 1. [id number] Admission Performance, 1. [id number] Admission Performance, 1. [id number] Admission Performance, 1. [id number] Admission Performance, 1. [id number] Admission Performance, Q1. Does the patient use a wheelchair/scooter?, 1. [id number] Admissi on Performance, RR1. Indicate the type of wheelchair/scooter used., 1. [id number] Admission Performance, Code, SS1. Indicate the type of wheelchair/scooter used. were [electronically] signed by Morales lyons PT on WedAug 24 2019 17:31:48 [facility]-[id number] (Central Standard Time)
[2019-08-24] MEDS: CLINDAMYCIN INJ 600 MG in NA CHLORIDE 0.9% 50 ML IV SCH (17:41)
--- NOTE | 2019-08-24 18:19 | PN ---
Date of Progress Note: 08/24/2019 Subjective: Patient is seen and examined at bedside. He is complaining of severe pain in his hip. Otherwise, no other overnight events were noted. Physical Examination: Vital Signs: Have been reviewed and are stable. General: He appears in no acute distress. HEENT: Atraumatic head. Lungs: Clear to auscultation. Heart: Auscultation of heart revealed regular rate and rhythm. Abdomen: Soft and nontender. Extremities: 1+ edema. Laboratory Data: At this time are showing sodium of 135, potassium of 4.7, chloride of 100, bicarb o f 31, BUN of 22, and creatinine of 0.88. CBC showing anemia with a hemoglobin of 8.8, hematocrit of 25.6, and platelet count of 249. Current Medications: Have been reviewed in detail. He remains on carvedilol 3.125 mg b.i.d. He is on spironolactone 50 mg b.i.d., insulin, lactulose, metformin, finasteride, and tamsulosin. He is al so on Coumadin and INR levels are being closely monitored. Most recent INR was 1.88 and he remains o n 10 mg of Coumadin. Impression: 1.Chronic renal insufficiency, currently stable renal function. 2.Chronic congestive heart failure. Patient has mild volume overload at this time. We will go ahea d and start small dose of Bumex 1 mg b.i.d. and monitor his volume status and swelling closely. 3.Congestive heart failure, currently stable. 4.Recent hip fracture, status post surgery. Patient is getting physical therapy and rehab. Continu e the same. 5.Anemia secondary to chronic disease. Continue to monitor hemoglobin and transfuse as needed. VV/MODL Voice ID: [id number] Report ID: [id number]
--- NOTE | 2019-08-24 19:08 | R.PN ---
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 Pt denied any Shortness of Breath. Mr. Walden is making slow overall progress with therapy. He is moderately limited by poor cognition. His blood work is stable. Propelled wheelchair 25' with maximum assistance. He completed a simple maze with 75% accuracy. ADLs performed with maximum assistance. Cognitive tasks performed with minimum to moderate assistance. Ambulated 2' with maximum assistance using a rolling walker. VITAL SIGNS SBP/DBP: 132/68 Temperature: 98.4 F Pulse: 82 Resp: 16 O2 sat: 97 on room air MEDICATION ALLERGIES: Amoxicillin ENVIRONMENTAL ALLERGIES: None Known - Substance Allergies None Known - Other Allergies None Known NURSING: - Shower allowing shower - Lab Results blood Sugar Check ACHS - Skin care per protocol PRECAUTIONS: - Posterior Hip Precaution No adduction across midline No external rotation No hip flexion >90 degrees No internal rotation No wheel chair propulsion - Weight Bearing Precaution WBAT left LE ACTIVITIES OOB only with supervision THERAPIES: - Dietary and Nutrition Adequate Nutrition. Nutritional Education. Nutritional Supplements. PHYSICAL EXAM - Gen Alert and awake Lying in bed No apparent distress Oriented to: person, time, and place - Skin No breakdown No numbness - Eyes No abnormalities - ENMT No abnormalities - Neck No abnormalities - CVS RRR - Chest No abnormalities - Resp Clear to auscultation - Abd + bowel sounds - GI Non distended Deferred - No abnormalities - Ext Left hip surgical site has good hemostasis. - MSK 4+/5 weakness in left lower extremity. - Neuro 4/5 strength left lower extremity. - Psych No abnormalities ASSESSMENT: Pt. is a 88 yo Right-handed white male.On 08/11/2019 he was admitted to [facility] with diagnosis Left Femoral Neck Fracture.His impairment category is Orthopaedic Disorders 08 - Unilateral Hip Fracture (08.11).Pre-morbidly, Pt. was independent/mod-I in Locomotion, Safety Awarene ss, Balance, Social Cognition, Transfers Control, Sphincter Control, Self-Care, Communication, and En durance; and he had good Locomotion, Balance, Transfers Control, Self-Care, and Endurance.Currently, he has deficits of Locomotion, Safety Awareness, Balance, Social Cognition, Transfers Control, Self-C are, and Endurance.Pt. is now referred to [facility] for acute in-patient reha bilitation in order to maximize patient's functional independence in activities of daily living, stre ngth, ROM, and mobility.- Rehab Goal Patient has realistic goal of being discharged at assistance level 6-Andrae to reside at Home with Att endant. MDM/PLAN: - Physical Therapy Decreased range of motion - to improve, our physical therapists will perform initial evaluation of p t's status upon admission and devise an individualized program for increasing patient's Range of Buddy on. Gait dysfunction - to improve, our physical therapists will perform initial evaluation of pt's statu s upon admission and devise an individualized program for Gait Training, and Wheel Chair mobility Inability to transfer - to improve, our physical therapists will perform initial evaluation of pt's status upon admission and devise an individualized program for Bed mobility Need for home safety evaluation - to improve, our physical therapists will perform initial evaluatio n of pt's status upon admission and devise an individualized program for Home Evaluation Need in caregiver upon discharge - to improve, our physical therapists will perform initial evaluati on of pt's status upon admission and devise an individualized program for Caregiver Training New precaution - to improve, our physical therapists will perform initial evaluation of pt's status upon admission and devise an individualized program for Patient precaution education Poor balance - to improve, our physical therapists will perform initial evaluation of pt's status up on admission and devise an individualized program for Balance Training Poor endurance - to improve, our physical therapists will perform initial evaluation of pt's status upon admission and devise an individualized program for Endurance Training Weakness - to improve, our physical therapists will perform initial evaluation of pt's status upon a dmission and devise an individualized program for Aquatic Therapy, Neuromuscular Reeducation, and Str engthening Achieving independence - to improve, our physical therapists will perform initial evaluation of pt's status upon admission and devise an individualized program for Community Reintegration Activities - Occupational Therapy ADL deficits - to improve, our occupation therapists will perform initial evaluation of pt's status upon admission and devise an individualized program for Bathing, Bed mobility, Community Reintegratio n, Cooking, Dressing, Eating, Fine Motor Skills, Grooming, Homemaking, Kitchen Mobility, Laundry, Pat ient Education, Safety Awareness, Splinting - Positioning, Transfers(Toilet, Tub, Shower), and Wheel Chair Management Cognitive deficits - to improve, our occupation therapists will perform initial evaluation of pt's s tatus upon admission and devise an individualized program for Cognition - orientation Need for manager care management - to improve, our occupation therapists will perform initial evaluation of pt's status upon admission and devise an individualized program for Caregiver Training Weakness - to improve, our occupation therapists will perform initial evaluation of pt's status upon admission and devise an individualized program for Aquatic Therapy, Balance, Endurance, UE ROM, and UE strengthening - Other See attached MAR (Medication Administration Record) - Anterior Hip Precaution No abduction No active extension No adduction across midline No external rotation No hip flexion >90 degrees No internal rotation - Diet - Liquid Texture Continue Regular - Tube Feed Continue N/A - Diet Type Continue Regular - Posterior Hip Precaution No adduction across midline No external rotation No hip flexion >90 degrees No internal rotation No wheel chair propulsion - Lab Results blood Sugar Check ACHS - Weight Bearing Precaution WBAT left LE - Skin care per protocol - Diet - Solid Texture Continue Regular - Shower allowing shower FUNCTIONAL STATUS: UPDATED AT WEEKLY TEAM CONFERENCE - Bladder Same accident frequency: 7-Ind - No accidents in the past 7 days - Bowel Same accident frequency: 7-Ind - No accidents in the past 7 days - Walking Same score based on distance walked: 0(N/A) - Wheelchair Same score based on distance traveled: 0(N/A) FUNCTIONAL STATUS: - Self-Care A. Eating sup B. Grooming sup C. Bathing modA D. Dressing - Upper Raoul E. Dressing - Lower modA F. Toileting modA - Sphincter Control G. Bladder control sup H. Bowel control sup - Transfers Control I. Bed/Chair/Wheelchair maxA J. Toilet maxA K. Tub/Shower maxA - Locomotion L. Walk/Wheelchair (B) maxA M. Stairs ADNO - Communication N. Comprehension (B) modA O. Expression (B) modA - Social Cognition P. Social Interaction Raoul Q. Problem Solving modA R. Memory maxA - Endurance Fair - Balance Poor - Safety Awareness Poor QI SCORES: - Self-Care A. Eating 05-Setup or clean-up assistance B. Oral hygiene 05-Setup or clean-up assistance C. Toileting hygiene 03-Partial/moderate assistance E. Shower/bathe self 03-Partial/moderate assistance F. Upper body dressing 03-Partial/moderate assistance G. Lower body dressing 01-Dependent H. Putting on/taking off footwear 01-Dependent - Mobility A. Roll left and right 03-Partial/moderate assistance B. Sit to lying 02-Substantial/maximal assistance C. Lying to sitting on side of bed 02-Substantial/maximal assistance D. Sit to stand 01-Dependent E. Chair/jva-aq-[id number] transfer 01-Dependent F. Toilet transfer 01-Dependent G. Car transfer 88-Not attempted due to medical condition or safety concerns I. Walk 10 feet 88-Not attempted due to medical condition or safety concerns J. Walk 50 feet with two turns 88-Not attempted due to medical condition or safety concerns K. Walk 150 feet 88-Not attempted due to medical condition or safety concerns L. Walking 10 feet on uneven surfaces 88-Not attempted due to medical condition or safety concerns M. 1 step (curb) 88-Not attempted due to medical condition or safety concerns N. 4 steps 88-Not attempted due to medical condition or safety concerns O. 12 steps 88-Not attempted due to medical condition or safety concerns P. Picking up object 88-Not attempted due to medical condition or safety concerns R. Wheel 50 feet with two turns 88-Not attempted due to medical condition or safety concerns S. Wheel 150 feet 88-Not attempted due to medical condition or safety concerns - Bladder and Bowel Bladder continence 3-Incontinent daily Bowel continence 0-Always continent - Endurance Poor - Balance Fair - Safety Awareness Fair 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
[2019-08-24] MEDS: FINASTERIDE 5 MG TAB PO SCH (20:01)
[2019-08-24] MEDS: MELATONIN 3 MG TABLET PO PRN (20:01)
[2019-08-24] MEDS: ATORVASTATIN 10 MG TAB PO SCH (20:01)
[2019-08-25] MEDS: CLINDAMYCIN INJ 600 MG in NA CHLORIDE 0.9% 50 ML IV SCH ×3 (00:17→17:03)
[2019-08-25] MEDS: TRAMADOL HCL 50 MG TAB PO PRN ×3 (03:41→12:50)
[2019-08-25] MEDS: carvediloL 3.125 MG TAB PO SCH ×2 (05:01→17:06)
[2019-08-25] MEDS: LIDOCAINE 4% PATCH TOP SCH (06:32)
[2019-08-25 07:03] LABS: Protime INR 2.55
[2019-08-25] MEDS: INSULIN -REGULAR HUMAN 50 UNIT/0.5 ML ML SQ SCH ×4 (07:30→20:18)
[2019-08-25] MEDS: ACETAMINOPHEN 500 MG TAB PO PRN ×2 (07:37→12:00)
[2019-08-25] MEDS: DOCUSATE NA 100 MG CAP PO SCH ×2 (08:00→20:19)
[2019-08-25] MEDS: FE SULF/FA/VIT B COMP & C TAB PO SCH (08:43)
[2019-08-25] MEDS: METFORMIN HCL 500 MG TAB PO SCH ×2 (08:43→17:05)
[2019-08-25] MEDS: TAMSULOSIN 0.4 MG SR CAP PO SCH (08:44)
[2019-08-25] MEDS: FERROUS SULFATE 325 MG TAB PO SCH (08:44)
[2019-08-25] MEDS: FAMOTIDINE 20 MG TAB PO SCH ×2 (08:44→20:19)
[2019-08-25] MEDS: SPIRONOLACTONE 25 MG TABLET PO SCH (08:44)
[2019-08-25] MEDS: PROMOD 30 ML DOSE PO SCH ×2 (08:46→20:21)
[2019-08-25] MEDS: INSULIN GLARGINE 100 UNITS/ML SQ SCH ×2 (09:15→17:04)
[2019-08-25] MEDS: INSULIN LISPRO 100 UNIT/1 ML SQ SCH ×3 (09:16→17:03)
--- NOTE | 2019-08-25 09:39 | P.RH.PN ---
Estimated Length of Stay: 17 Expected Discharge Date: 09/01/19 Discharge Disposition Plan: Home Family Support: Yes [facility] Goal: Mobility, Transfers, Self Care Vital Signs: Last Vital Signs Temp 97.6 F 08/25/19 06:48 Pulse 75 08/25/19 08:44 Resp 18 08/25/19 08:46 BP 117/56 L 08/25/19 08:44 Pulse Ox 95 08/25/19 08:46 Laboratory: Laboratory Last Values WBC 7.6 K/uL (4.3-10.9) D 08/24/19 05:37 RBC 2.97 M/uL (4.33-5.43) L 08/24/19 05:37 Hgb 8.8 g/dL (13.6-17.9) L 08/24/19 05:37 Hct 25.6 % (39.6-49.0) L 08/24/19 05:37 MCV 86.2 fL (80-100) 08/24/19 05:37 MCH 29.5 pg (27.0-35.0) 08/24/19 05:37 MCHC 34.2 g/dL (32.0-36.0) 08/24/19 05:37 RDW 14.7 % (12.1-15.2) 08/24/19 05:37 Plt Count 249 K/uL (152-406) 08/24/19 05:37 MPV 6.6 fL (7.6-11.3) L 08/24/19 05:37 Neutrophils % 73.4 % (41.7-73.7) 08/24/19 05:37 Lymphocytes % 10.5 % (15.3-44.8) L 08/24/19 05:37 Monocytes % 10.8 % (3.3-12.3) 08/24/19 05:37 Eosinophils % 4.0 % (0-4.4) 08/24/19 05:37 Basophils % 1.3 % (0-1.3) 08/24/19 05:37 Absolute Neutrophils 5.6 K/uL (1.8-8.0) 08/24/19 05:37 Absolute Lymphocytes 0.8 K/uL (0.7-4.9) 08/24/19 05:37 Absolute Monocytes 0.8 K/uL (0.1-1.3) 08/24/19 05:37 Absolute Eosinophils 0.3 K/uL (0-0.5) 08/24/19 05:37 Absolute Basophils 0.1 K/uL (0-0.5) 08/24/19 05:37 PT 29.0 SECONDS (9.5-12.5) H 08/25/19 06:38 INR 2.55 08/25/19 06:38 Sodium 135 mmol/L (136-145) L 08/24/19 05:37 Potassium 4.7 mmol/L (3.5-5.1) 08/24/19 05:37 Chloride 100 mmol/L (98-107) 08/24/19 05:37 Carbon Dioxide 31 mmol/L (21-32) 08/24/19 05:37 BUN 22 mg/dL (7-18) H D 08/24/19 05:37 Creatinine 0.88 mg/dL (0.55-1.3) 08/24/19 05:37 Estimated GFR 82 mL/min (=/>90) L 08/24/19 05:37 Glucose 171 mg/dL (74-106) H 08/24/19 05:37 POC Glucose 143 mg/dl (65-120) H 08/25/19 07:07 Calcium 9.6 mg/dL (8.5-10.1) 08/24/19 05:37 Magnesium 2.0 mg/dL (1.8-2.4) 08/24/19 05:37 Albumin 2.4 g/dL (3.4-5.0) L 08/24/19 05:37 Prealbumin 8.1 mg/dL (20-40) L 08/24/19 05:37 Urine Color Yellow 08/17/19 01:20 Urine Appearance Clear 08/17/19 01:20 Urine pH 5.5 (5.0-7.0) 08/17/19 01:20 Ur Specific Hollins 1.020 (1.005-1.030) 08/17/19 01:20 Urine Ketones Negative (NEG) 08/17/19 01:20 Urine Blood Negative (NEG) 08/17/19 01:20 Urine Nitrite Negative (NEG) 08/17/19 01:20 Urine Bilirubin Negative (NEG) 08/17/19 01:20 Urine Urobilinogen 1.0 mg/dL (0.2-1.0) 08/17/19 01:20 Ur Leukocyte Esterase Negative (NEG) 08/17/19 01:20 Urine RBC <5 /HPF (NONE SEEN) 08/17/19 01:20 Urine WBC <5 /HPF (<5) 08/17/19 01:20 Ur Squamous Epith Cells <5 /HPF (NONE SEEN) 08/17/19 01:20 Urine Bacteria <20 /HPF (NONE SEEN) 08/17/19 01:20 Urine Culture Reflexed Not needed 08/17/19 01:20 Urine Glucose Negative (NEG) 08/17/19 01:20 Urine Total Protein Negative (NEG) 08/17/19 01:20 ABO/Rh O POSITIVE 08/22/19 07:41 Antibody Screen Negative 08/22/19 07:41 Crossmatch See Detail 08/22/19 07:41 Weight: 266 lb 12.8 oz Wound Present: Yes Closed Surgical Incision Present: Yes Negative Pressure Wound Therapy Present: No Physician Update: Labs reviewed and are stable. Dr. Ramsay started clindamycin yesterday. He has poor cognition and may not keep his hip precautions. He has to be redirected to sit properly. He took 2 steps yesterday. He is at maximum assistance with transfers and ADL. Medical Issues: Patient is incontinent daily with bladder and always continent with bowel Pain Issues: Patient is taking Tramadol 50mg Q8H PO and Tylenol 500mg Q4H PO PRN for pain Functional Improvement: pt has struggled with functional performance throughout the week due to pain and confusion. Today, pt's confusion was less and his pain was more manageable. pt was able to perform a functional transfer without the mechanical lift. pt able to take a couple steps as well. pt should continue to progress throughout this next week and improve his functional performance. Speech Therapy Update: Pt cont to present with mod-severe cognitive-linguistic impairments which worsen with fluctuate depending on his level of alertness and pain. Patient exhibits reduced temporal and spatial orientation as well as poor insight into his deficits. He cannot retain simple, new information and even has difficulty with fpc memory. He follows single step instruction given extra time and repeated instruction. Patient will require 24 hour supervision to ensure safety upon his d/c. It is not likely that he will be able to return to his PLOF. Summary: Patient's care plan and fpc goals have been reviewed and revised as necessary. Please see the Rehabilitation Signature page for all necessary signatures.
[2019-08-25] MEDS: GABAPENTIN 300 MG CAP PO SCH ×3 (10:20→20:19)
[2019-08-25] MEDS: BUMETANIDE 1 MG TABLET PO SCH (12:00)
[2019-08-25] MEDS: WARFARIN SODIUM 5 MG TAB PO SCH (17:05)
--- NOTE | 2019-08-25 19:23 | PN ---
Date of Progress Note: 08/25/2019 Subjective: Patient is seen and examined. He is doing well. His pain is okay. His son is complain ing of dizziness and drowsiness with pain medication, especially at nighttime when he wakes up in the morning. Objective: Vital Signs: Have been reviewed and are stable. General: He appears in no acute distress. Lungs: Clear to auscultation. Abdomen: Soft and nontender. Extremities: With improving edema. Laboratory Data: Showing chronic anemia with hemoglobin of 8.8, hematocrit of 25.6 cm. BMP has not been recently checked. Blood sugars have been reviewed. Current Medications: Have been reviewed in detail as well. Impression: 1.Chronic congestive heart failure, compensated. Bumex has been added. Continue with spironolacton e. 2.Altered mental status secondary to pain medication. The patient's May has been switched to p.r. n. and we will decrease the tramadol to every 8 hours. 3.History of BPH, on Flomax. 4.Type 2 diabetes on insulin, well controlled. 5.History of recent hip fracture status post hemiarthroplasty, improving. Plan: Patient is overall doing okay. Continue all medications and plan of care. Pain medications h ave been adjusted as discussed above. The plan was also discussed with the nursing staff as well as the family in detail. JUVENAL/CALEB Voice ID: [id number] Report ID: [id number]
[2019-08-25] MEDS: FINASTERIDE 5 MG TAB PO SCH (20:19)
[2019-08-25] MEDS: TRAMADOL HCL 50 MG TAB PO SCH (20:20)
[2019-08-25] MEDS: ATORVASTATIN 10 MG TAB PO SCH (20:20)
[2019-08-25] MEDS: guaiFENesin 100 MG/5 ML UCUP PO PRN (20:22)
[2019-08-25] MEDS: MELATONIN 3 MG TABLET PO PRN (20:22)
[2019-08-26] MEDS: CLINDAMYCIN INJ 600 MG in NA CHLORIDE 0.9% 50 ML IV SCH ×3 (00:08→17:00)
[2019-08-26] MEDS: ACETAMINOPHEN 500 MG TAB PO PRN ×3 (00:40→09:46)
--- NOTE | 2019-08-26 02:56 | FAST ---
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 Mode Gonzáles M.D. ADMISSION DIAGNOSIS: - Orthopaedic Disorders 08 - Unilateral Hip Fracture (08.11) Left Femoral Neck Fracture. EATING: Not assessed/no information CODE: - ORAL HYGIENE: Not assessed/no information CODE: - TOILETING HYGIENE: TOILETING HYGIENE - STEP 1: Does the patient complete the activity by him/herself with no assistance (physical, verbal/nonverbal cueing, setup/clean-up)? No. TOILETING HYGIENE - STEP 2: Does the patient need only setup/clean-up assistance from one helper? No. TOILETING HYGIENE - STEP 3: Does the patient need only verbal/nonverbal cueing or touching/steadying/contact guard assistance fro m one helper? No. TOILETING HYGIENE - STEP 4: Does the patient need physical assistance - for example lifting or trunk support from one helper - wi th the helper providing less than half of the effort? No. TOILETING HYGIENE - STEP 5: Does the patient need physical assistance - for example lifting or trunk support from one helper - wi th the helper providing more than half of the effort? Yes. 1. [id number] ADMISSION PERFORMANCE: Substantial/maximal assistance CODE: 02 BATHING: Not assessed/no information CODE: - DRESSING - UPPER BODY: Not assessed/no information CODE: - DRESSING - LOWER BODY: Not assessed/no information CODE: - PUTTING ON/TAKING OFF FOOTWEAR: Not assessed/no information CODE: - ROLL LEFT AND RIGHT: ROLL LEFT AND RIGHT - STEP 1: Does the patient complete the activity by him/herself with no assistance (physical, verbal/nonverbal cueing, setup/clean-up)? No. ROLL LEFT AND RIGHT - STEP 2: Does the patient need only setup/clean-up assistance from one helper? No. ROLL LEFT AND RIGHT - STEP 3: Does the patient need only verbal/nonverbal cueing or touching/steadying/contact guard assistance fro m one helper? No. ROLL LEFT AND RIGHT - STEP 4: Does the patient need physical assistance - for example lifting or trunk support from one helper - wi th the helper providing less than half of the effort? No. ROLL LEFT AND RIGHT - STEP 5: Does the patient need physical assistance - for example lifting or trunk support from one helper - wi th the helper providing more than half of the effort? Yes. 1. [id number] ADMISSION PERFORMANCE: Substantial/maximal assistance CODE: 02 SIT TO LYING: Not assessed/no information CODE: - LYING TO SITTING: Not assessed/no information CODE: - SIT TO STAND: Not assessed/no information CODE: - TRANSFERS: BED, CHAIR: Not assessed/no information CODE: - TRANSFER TOILET: Not assessed/no information CODE: - TRANSFERS: CAR: Not assessed/no information CODE: - WALK 10 FEET: Not assessed/no information CODE: - 1 STEP (CURB): Not assessed/no information CODE: - PICKING UP OBJECT: Not assessed/no information CODE: - DOES THE PATIENT USE A WHEELCHAIR/SCOOTER? CODE: EXPR WHEEL 50 FEET WITH TWO TURNS: Not assessed/no information CODE: - INDICATE THE TYPE OF WHEELCHAIR/SCOOTER USED: CODE: EXPR WHEEL 150 FEET: Not assessed/no information CODE: - INDICATE THE TYPE OF WHEELCHAIR/SCOOTER USED: CODE: EXPR BLADDER AND BOWEL: H350. BLADDER CONTINENCE (3-DAY ASSESSMENT PERIOD): Incontinent daily (at least once a day) CODE: 3 H400. BOWEL CONTINENCE (3-DAY ASSESSMENT PERIOD): Always continent CODE: 0
[2019-08-26] MEDS: carvediloL 3.125 MG TAB PO SCH ×2 (05:28→17:14)
[2019-08-26 06:46] LABS: Protime INR 2.78
[2019-08-26] MEDS: INSULIN -REGULAR HUMAN 50 UNIT/0.5 ML ML SQ SCH ×4 (07:30→21:00)
[2019-08-26] MEDS: LIDOCAINE 4% PATCH TOP SCH (08:37)
[2019-08-26] MEDS: INSULIN LISPRO 100 UNIT/1 ML SQ SCH ×3 (08:37→17:21)
[2019-08-26] MEDS: INSULIN GLARGINE 100 UNITS/ML SQ SCH ×2 (08:38→17:20)
[2019-08-26] MEDS: BUMETANIDE 1 MG TABLET PO SCH (08:38)
[2019-08-26] MEDS: METFORMIN HCL 500 MG TAB PO SCH ×2 (08:39→17:14)
[2019-08-26] MEDS: TAMSULOSIN 0.4 MG SR CAP PO SCH (08:39)
[2019-08-26] MEDS: FE SULF/FA/VIT B COMP & C TAB PO SCH (08:39)
[2019-08-26] MEDS: FERROUS SULFATE 325 MG TAB PO SCH (08:39)
[2019-08-26] MEDS: TRAMADOL HCL 50 MG TAB PO SCH ×3 (08:40→21:00)
[2019-08-26] MEDS: GABAPENTIN 300 MG CAP PO SCH ×3 (08:40→21:03)
[2019-08-26] MEDS: FAMOTIDINE 20 MG TAB PO SCH ×2 (08:40→21:03)
[2019-08-26] MEDS: DOCUSATE NA 100 MG CAP PO SCH ×2 (08:41→21:03)
[2019-08-26] MEDS: PROMOD 30 ML DOSE PO SCH ×2 (08:43→21:05)
[2019-08-26] MEDS: SPIRONOLACTONE 25 MG TABLET PO SCH (09:44)
[2019-08-26] MEDS: WARFARIN SODIUM 5 MG TAB PO SCH (17:14)
[2019-08-26] MEDS: HYDROCODONE/APAP 5/325 MG TAB PO PRN (20:29)
[2019-08-26] MEDS: ATORVASTATIN 10 MG TAB PO SCH (21:03)
[2019-08-26] MEDS: FINASTERIDE 5 MG TAB PO SCH (21:03)
[2019-08-26] MEDS: DIPHENHYDRAMINE 25 MG TAB/CAP PO PRN (21:03)
[2019-08-27] MEDS: CLINDAMYCIN INJ 600 MG in NA CHLORIDE 0.9% 50 ML IV SCH ×3 (00:51→17:22)
[2019-08-27] MEDS: carvediloL 3.125 MG TAB PO SCH ×2 (05:11→17:20)
[2019-08-27 06:55] LABS: Protime INR 3.15
[2019-08-27] MEDS: INSULIN -REGULAR HUMAN 50 UNIT/0.5 ML ML SQ SCH ×4 (07:28→20:27)
[2019-08-27] MEDS: TRAMADOL HCL 50 MG TAB PO SCH ×3 (07:36→20:27)
[2019-08-27] MEDS: LIDOCAINE 4% PATCH TOP SCH (07:37)
[2019-08-27] MEDS: SPIRONOLACTONE 25 MG TABLET PO SCH (07:55)
[2019-08-27] MEDS: DOCUSATE NA 100 MG CAP PO SCH ×2 (07:55→20:26)
[2019-08-27] MEDS: METFORMIN HCL 500 MG TAB PO SCH ×2 (07:55→17:20)
[2019-08-27] MEDS: GABAPENTIN 300 MG CAP PO SCH ×3 (07:56→20:26)
[2019-08-27] MEDS: FAMOTIDINE 20 MG TAB PO SCH ×2 (07:56→20:26)
[2019-08-27] MEDS: BUMETANIDE 1 MG TABLET PO SCH (07:56)
[2019-08-27] MEDS: FE SULF/FA/VIT B COMP & C TAB PO SCH (07:56)
[2019-08-27] MEDS: FERROUS SULFATE 325 MG TAB PO SCH (07:56)
[2019-08-27] MEDS: TAMSULOSIN 0.4 MG SR CAP PO SCH (07:56)
[2019-08-27] MEDS: INSULIN GLARGINE 100 UNITS/ML SQ SCH ×2 (07:57→17:00)
[2019-08-27] MEDS: PROMOD 30 ML DOSE PO SCH ×2 (07:57→20:26)
[2019-08-27] MEDS: INSULIN LISPRO 100 UNIT/1 ML SQ SCH ×3 (07:57→17:00)
[2019-08-27] MEDS: ACETAMINOPHEN 500 MG TAB PO PRN ×2 (09:53→23:44)
[2019-08-27] MEDS: WARFARIN SODIUM 5 MG TAB PO SCH (16:51)
[2019-08-27] MEDS: DIPHENHYDRAMINE 25 MG TAB/CAP PO PRN (20:26)
[2019-08-27] MEDS: FINASTERIDE 5 MG TAB PO SCH (20:26)
[2019-08-27] MEDS: ATORVASTATIN 10 MG TAB PO SCH (20:26)
[2019-08-27] MEDS: MELATONIN 3 MG TABLET PO PRN (23:45)
[2019-08-28] MEDS: CLINDAMYCIN INJ 600 MG in NA CHLORIDE 0.9% 50 ML IV SCH ×3 (00:45→16:50)
[2019-08-28] MEDS: carvediloL 3.125 MG TAB PO SCH ×2 (05:11→17:42)
[2019-08-28 06:12] LABS: Protime INR 2.52
[2019-08-28 06:13] LABS: Absolute Lymphocytes (CBC) 1.1 K/uL (0.7-4.9); Basophils % 1.2 % (0-1.3); Hematocrit 24.1 % (39.6-49.0); Lymphocytes % 21.9 % (15.3-44.8); MPV 6.5 fL (7.6-11.3); RBC Red Blood Cell Count 2.78 M/uL (4.33-5.43)
[2019-08-28 06:29] LABS: BUN Blood Urea Nitrogen 17 mg/dL (7-18); Bicarbonate 32 mmol/L (21-32); Glucose Level 88 mg/dL (74-106); Potassium 4.3 mmol/L (3.5-5.1); Sodium Level 140 mmol/L (136-145)
[2019-08-28] MEDS: INSULIN -REGULAR HUMAN 50 UNIT/0.5 ML ML SQ SCH ×4 (07:30→19:42)
[2019-08-28] MEDS: PROMOD 30 ML DOSE PO SCH ×2 (08:15→19:41)
[2019-08-28] MEDS: INSULIN LISPRO 100 UNIT/1 ML SQ SCH ×3 (08:18→16:51)
[2019-08-28] MEDS: FAMOTIDINE 20 MG TAB PO SCH ×2 (08:19→19:41)
[2019-08-28] MEDS: BUMETANIDE 1 MG TABLET PO SCH (08:19)
[2019-08-28] MEDS: INSULIN GLARGINE 100 UNITS/ML SQ SCH ×2 (08:19→16:50)
[2019-08-28] MEDS: DOCUSATE NA 100 MG CAP PO SCH ×2 (08:20→19:41)
[2019-08-28] MEDS: TRAMADOL HCL 50 MG TAB PO SCH ×3 (08:20→19:41)
[2019-08-28] MEDS: GABAPENTIN 300 MG CAP PO SCH ×3 (08:20→19:40)
[2019-08-28] MEDS: FERROUS SULFATE 325 MG TAB PO SCH (08:20)
[2019-08-28] MEDS: TAMSULOSIN 0.4 MG SR CAP PO SCH (08:21)
[2019-08-28] MEDS: LIDOCAINE 4% PATCH TOP SCH (08:21)
[2019-08-28] MEDS: FE SULF/FA/VIT B COMP & C TAB PO SCH (08:21)
[2019-08-28] MEDS: METFORMIN HCL 500 MG TAB PO SCH ×2 (08:21→16:51)
[2019-08-28] MEDS: SPIRONOLACTONE 25 MG TABLET PO SCH (08:22)
--- NOTE | 2019-08-28 10:47 | FAST ---
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 Mode Gonzáles M.D. ADMISSION DIAGNOSIS: - Orthopaedic Disorders 08 - Unilateral Hip Fracture (08.11) Left Femoral Neck Fracture. EATING: EATING - STEP 1: Does the patient complete the activity by him/herself with no assistance (physical, verbal/nonverbal cueing, setup/clean-up)? No. EATING - STEP 2: Does the patient need only setup/clean-up assistance from one helper? No. EATING - STEP 3: Does the patient need only verbal/nonverbal cueing or touching/steadying/contact guard assistance fro m one helper? Yes. 1. [id number] ADMISSION PERFORMANCE: Supervision or touching assistance CODE: 04 ORAL HYGIENE: ORAL HYGIENE - STEP 1: Does the patient complete the activity by him/herself with no assistance (physical, verbal/nonverbal cueing, setup/clean-up)? No. ORAL HYGIENE - STEP 2: Does the patient need only setup/clean-up assistance from one helper? No. ORAL HYGIENE - STEP 3: Does the patient need only verbal/nonverbal cueing or touching/steadying/contact guard assistance fro m one helper? Yes. 1. [id number] ADMISSION PERFORMANCE: Supervision or touching assistance CODE: 04 TOILETING HYGIENE: TOILETING HYGIENE - STEP 1: Does the patient complete the activity by him/herself with no assistance (physical, verbal/nonverbal cueing, setup/clean-up)? No. TOILETING HYGIENE - STEP 2: Does the patient need only setup/clean-up assistance from one helper? No. TOILETING HYGIENE - STEP 3: Does the patient need only verbal/nonverbal cueing or touching/steadying/contact guard assistance fro m one helper? No. TOILETING HYGIENE - STEP 4: Does the patient need physical assistance - for example lifting or trunk support from one helper - wi th the helper providing less than half of the effort? No. TOILETING HYGIENE - STEP 5: Does the patient need physical assistance - for example lifting or trunk support from one helper - wi th the helper providing more than half of the effort? Yes. 1. [id number] ADMISSION PERFORMANCE: Substantial/maximal assistance CODE: 02 BATHING: Not assessed/no information CODE: - DRESSING - UPPER BODY: Not assessed/no information CODE: - DRESSING - LOWER BODY: Not assessed/no information CODE: - PUTTING ON/TAKING OFF FOOTWEAR: Not assessed/no information CODE: - ROLL LEFT AND RIGHT: ROLL LEFT AND RIGHT - STEP 1: Does the patient complete the activity by him/herself with no assistance (physical, verbal/nonverbal cueing, setup/clean-up)? No. ROLL LEFT AND RIGHT - STEP 2: Does the patient need only setup/clean-up assistance from one helper? No. ROLL LEFT AND RIGHT - STEP 3: Does the patient need only verbal/nonverbal cueing or touching/steadying/contact guard assistance fro m one helper? No. ROLL LEFT AND RIGHT - STEP 4: Does the patient need physical assistance - for example lifting or trunk support from one helper - wi th the helper providing less than half of the effort? Yes. 1. [id number] ADMISSION PERFORMANCE: Partial/moderate assistance CODE: 03 SIT TO LYING: SIT TO LYING - STEP 1: Does the patient complete the activity by him/herself with no assistance (physical, verbal/nonverbal cueing, setup/clean-up)? No. SIT TO LYING - STEP 2: Does the patient need only setup/clean-up assistance from one helper? No. SIT TO LYING - STEP 3: Does the patient need only verbal/nonverbal cueing or touching/steadying/contact guard assistance fro m one helper? No. SIT TO LYING - STEP 4: Does the patient need physical assistance - for example lifting or trunk support from one helper - wi th the helper providing less than half of the effort? Yes. 1. [id number] ADMISSION PERFORMANCE: Partial/moderate assistance CODE: 03 LYING TO SITTING: LYING TO SITTING ON SIDE OF BED - STEP 1: Does the patient complete the activity by him/herself with no assistance (physical, verbal/nonverbal cueing, setup/clean-up)? No. LYING TO SITTING ON SIDE OF BED - STEP 2: Does the patient need only setup/clean-up assistance from one helper? No. LYING TO SITTING ON SIDE OF BED - STEP 3: Does the patient need only verbal/nonverbal cueing or touching/steadying/contact guard assistance fro m one helper? No. LYING TO SITTING ON SIDE OF BED - STEP 4: Does the patient need physical assistance - for example lifting or trunk support from one helper - wi th the helper providing less than half of the effort? Yes. 1. [id number] ADMISSION PERFORMANCE: Partial/moderate assistance CODE: 03 SIT TO STAND: SIT TO STAND - STEP 1: Does the patient complete the activity by him/herself with no assistance (physical, verbal/nonverbal cueing, setup/clean-up)? No. SIT TO STAND - STEP 2: Does the patient need only setup/clean-up assistance from one helper? No. SIT TO STAND - STEP 3: Does the patient need only verbal/nonverbal cueing or touching/steadying/contact guard assistance fro m one helper? No. SIT TO STAND - STEP 4: Does the patient need physical assistance - for example lifting or trunk support from one helper - wi th the helper providing less than half of the effort? Yes. 1. [id number] ADMISSION PERFORMANCE: Partial/moderate assistance CODE: 03 TRANSFERS: BED, CHAIR: CHAIR/[id number] TRANSFER - STEP 1: Does the patient complete the activity by him/herself with no assistance (physical, verbal/nonverbal cueing, setup/clean-up)? No. CHAIR/[id number] TRANSFER - STEP 2: Does the patient need only setup/clean-up assistance from one helper? No. CHAIR/[id number] TRANSFER - STEP 3: Does the patient need only verbal/nonverbal cueing or touching/steadying/contact guard assistance fro m one helper? No. CHAIR/[id number] TRANSFER - STEP 4: Does the patient need physical assistance - for example lifting or trunk support from one helper - wi th the helper providing less than half of the effort? Yes. 1. [id number] ADMISSION PERFORMANCE: Partial/moderate assistance CODE: 03 TRANSFER TOILET: TOILET TRANSFER - STEP 1: Does the patient complete the activity by him/herself with no assistance (physical, verbal/nonverbal cueing, setup/clean-up)? No. TOILET TRANSFER - STEP 2: Does the patient need only setup/clean-up assistance from one helper? No. TOILET TRANSFER - STEP 3: Does the patient need only verbal/nonverbal cueing or touching/steadying/contact guard assistance fro m one helper? No. TOILET TRANSFER - STEP 4: Does the patient need physical assistance - for example lifting or trunk support from one helper - wi th the helper providing less than half of the effort? Yes. 1. [id number] ADMISSION PERFORMANCE: Partial/moderate assistance CODE: 03 TRANSFERS: CAR: Not assessed/no information CODE: - WALK 10 FEET: Not assessed/no information CODE: - 1 STEP (CURB): Not assessed/no information CODE: - PICKING UP OBJECT: Not assessed/no information CODE: - DOES THE PATIENT USE A WHEELCHAIR/SCOOTER? CODE: EXPR WHEEL 50 FEET WITH TWO TURNS: Not assessed/no information CODE: - INDICATE THE TYPE OF WHEELCHAIR/SCOOTER USED: CODE: EXPR WHEEL 150 FEET: Not assessed/no information CODE: - INDICATE THE TYPE OF WHEELCHAIR/SCOOTER USED: CODE: EXPR BLADDER AND BOWEL: H350. BLADDER CONTINENCE (3-DAY ASSESSMENT PERIOD): Always continent (no documented incontinence) CODE: 0 H400. BOWEL CONTINENCE (3-DAY ASSESSMENT PERIOD): Always continent CODE: 0 SIGNATURE PANEL: The following modified sections: 1. [id number] Admission Performance, 1. [id number] Admission Performance, 1. [id number] Admission Performance, 1. [id number] Admission Performance, 1. [id number] Admission Performance, 1. [id number] Admission Performance, 1. [id number] Admission Performance, 1. [id number] Admission Performance , 1. [id number] Admission Performance, 1. [id number] Admission Performance, 1. [id number] Admission Performanc e, 1. [id number] Admission Performance, Code, H350. Bladder Continence (3-day assessment period), H400. Bowel Continence (3-day assessment period) were [electronically] signed by Alvaro Calderón on WedAug 28 2 020 10:46:49 GMT-0600 (Central Standard Time)
[2019-08-28] MEDS: ACETAMINOPHEN 500 MG TAB PO PRN ×2 (11:41→16:52)
--- NOTE | 2019-08-28 12:04 | P.PN ---
Subjective Date of Service: 08/28/19 Chief Complaint: s/p left hip hemiarthroplasty Subjective: Ambulating, Improving, Working w/ PT pain controlled Physical Examination - Vital Signs Temperature: 97.2 F Blood Pressure: 117/57 Pulse: 54 Respirations: 18 Pulse Ox (%): 98 - Physical Exam General: Alert, In no apparent distress Musculoskeletal: Other (LLE: dressing with sanguionous drainage; no significant erythema of the skin; mild ecchymoses; +soft tissue swelling; minimal pain with ROM of the left hip; NVI distally) - Studies Laboratory Data (last 24 hrs) 08/28/19 05:50: Sodium 140, Potassium 4.3, BUN 17, Creatinine 0.75, Glucose 88 08/28/19 05:50: WBC 5.1 D, Hgb 8.1 L, Hct 24.1 L, Plt Count 219 08/28/19 05:50: PT 28.7 H, INR 2.52 Assessment And Plan - Plan Dalton is an 88 yo male s/p left hemiarthroplasty POD #14 -patient with sanguionous drainage likely secondary to postop hematoma from therapeutic lovenox and Coumadin use -continue with clindamycin for a total of 1 week of treatment given continued drainage and increased risk of infection with patient scratching at incision early postoperatively with confusion -continue PT; WBAT LLE with posterior hip precautions
--- NOTE | 2019-08-28 12:25 | FAST ---
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 Mode Gonzáles M.D. ADMISSION DIAGNOSIS: - Orthopaedic Disorders 08 - Unilateral Hip Fracture (08.11) Left Femoral Neck Fracture. EATING: Not assessed/no information CODE: - ORAL HYGIENE: ORAL HYGIENE - STEP 1: Does the patient complete the activity by him/herself with no assistance (physical, verbal/nonverbal cueing, setup/clean-up)? No. ORAL HYGIENE - STEP 2: Does the patient need only setup/clean-up assistance from one helper? No. ORAL HYGIENE - STEP 3: Does the patient need only verbal/nonverbal cueing or touching/steadying/contact guard assistance fro m one helper? Yes. 1. [id number] ADMISSION PERFORMANCE: Supervision or touching assistance CODE: 04 TOILETING HYGIENE: Not assessed/no information CODE: - BATHING: SHOWER/BATHE SELF - STEP 1: Does the patient complete the activity by him/herself with no assistance (physical, verbal/nonverbal cueing, setup/clean-up)? No. SHOWER/BATHE SELF - STEP 2: Does the patient need only setup/clean-up assistance from one helper? No. SHOWER/BATHE SELF - STEP 3: Does the patient need only verbal/nonverbal cueing or touching/steadying/contact guard assistance fro m one helper? Yes. 1. [id number] ADMISSION PERFORMANCE: Supervision or touching assistance CODE: 04 DRESSING - UPPER BODY: DRESSING - UPPER BODY - STEP 1: Does the patient complete the activity by him/herself with no assistance (physical, verbal/nonverbal cueing, setup/clean-up)? No. DRESSING - UPPER BODY - STEP 2: Does the patient need only setup/clean-up assistance from one helper? No. DRESSING - UPPER BODY - STEP 3: Does the patient need only verbal/nonverbal cueing or touching/steadying/contact guard assistance fro m one helper? Yes. 1. [id number] ADMISSION PERFORMANCE: Supervision or touching assistance CODE: 04 DRESSING - LOWER BODY: DRESSING - LOWER BODY - STEP 1: Does the patient complete the activity by him/herself with no assistance (physical, verbal/nonverbal cueing, setup/clean-up)? No. DRESSING - LOWER BODY - STEP 2: Does the patient need only setup/clean-up assistance from one helper? No. DRESSING - LOWER BODY - STEP 3: Does the patient need only verbal/nonverbal cueing or touching/steadying/contact guard assistance fro m one helper? No. DRESSING - LOWER BODY - STEP 4: Does the patient need physical assistance - for example lifting or trunk support from one helper - wi th the helper providing less than half of the effort? No. DRESSING - LOWER BODY - STEP 5: Does the patient need physical assistance - for example lifting or trunk support from one helper - wi th the helper providing more than half of the effort? Yes. 1. [id number] ADMISSION PERFORMANCE: Substantial/maximal assistance CODE: 02 PUTTING ON/TAKING OFF FOOTWEAR: FOOTWEAR - STEP 1: Does the patient complete the activity by him/herself with no assistance (physical, verbal/nonverbal cueing, setup/clean-up)? No. FOOTWEAR - STEP 2: Does the patient need only setup/clean-up assistance from one helper? No. FOOTWEAR - STEP 3: Does the patient need only verbal/nonverbal cueing or touching/steadying/contact guard assistance fro m one helper? No. FOOTWEAR - STEP 4: Does the patient need physical assistance - for example lifting or trunk support from one helper - wi th the helper providing less than half of the effort? No. FOOTWEAR - STEP 5: Does the patient need physical assistance - for example lifting or trunk support from one helper - wi th the helper providing more than half of the effort? Yes. 1. [id number] ADMISSION PERFORMANCE: Substantial/maximal assistance CODE: 02 DOES THE PATIENT USE A WHEELCHAIR/SCOOTER? CODE: EXPR INDICATE THE TYPE OF WHEELCHAIR/SCOOTER USED: CODE: EXPR INDICATE THE TYPE OF WHEELCHAIR/SCOOTER USED: CODE: EXPR BLADDER AND BOWEL: CODE: EXPR CODE: EXPR SIGNATURE PANEL: The following modified sections: 1. [id number] Admission Performance, 1. [id number] Admission Performance, 1. HA9157i Admission Performance, 1. OL4503k Admission Performance, 1. GC4478h Admission Performance were [electronically] signed by YI [place] on WedAug 28 2019 12:24:52 GMT-0600 (Central Standard Time)
[2019-08-28] MEDS: WARFARIN SODIUM 5 MG TAB PO SCH (16:52)
--- NOTE | 2019-08-28 18:27 | R.PN ---
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 Pt denied any Shortness of Breath. Mr. Walden is making slow overall progress with therapy. He is moderately limited by poor cognition. His blood work is stable. Propelled wheelchair 25' with maximum assistance. He completed a simple maze with 75% accuracy. ADLs performed with maximum assistance. Cognitive tasks performed with minimum to moderate assistance. Ambulated 38' with minimum assistance using a rolling walker. WBC 5.1, Hgb 8.1. He is on hemocyte plus and ferrous sulfate and followed by the renal service. VITAL SIGNS SBP/DBP: 117/57 Temperature: 98.4 F Pulse: 66 Resp: 16 O2 sat: 98 on room air MEDICATION ALLERGIES: Amoxicillin ENVIRONMENTAL ALLERGIES: None Known - Substance Allergies None Known - Other Allergies None Known NURSING: - Shower allowing shower - Lab Results blood Sugar Check ACHS - Skin care per protocol PRECAUTIONS: - Posterior Hip Precaution No adduction across midline No external rotation No hip flexion >90 degrees No internal rotation No wheel chair propulsion - Weight Bearing Precaution WBAT left LE ACTIVITIES OOB only with supervision THERAPIES: - Dietary and Nutrition Adequate Nutrition. Nutritional Education. Nutritional Supplements. PHYSICAL EXAM - Gen Alert and awake Lying in bed No apparent distress Oriented to: person, time, and place - Skin No breakdown No numbness - Eyes No abnormalities - ENMT No abnormalities - Neck No abnormalities - CVS RRR - Chest No abnormalities - Resp Clear to auscultation - Abd + bowel sounds - GI Non distended Deferred - No abnormalities - Ext Left hip surgical site has good hemostasis. - MSK 4+/5 weakness in left lower extremity. - Neuro 4/5 strength left lower extremity. - Psych No abnormalities ASSESSMENT: Pt. is a 88 yo Right-handed white male.On 08/11/2019 he was admitted to [facility] with diagnosis Left Femoral Neck Fracture.His impairment category is Orthopaedic Disorders 08 - Unilateral Hip Fracture (08.11).Pre-morbidly, Pt. was independent/mod-I in Locomotion, Safety Awarene ss, Balance, Social Cognition, Transfers Control, Sphincter Control, Self-Care, Communication, and En durance; and he had good Locomotion, Balance, Transfers Control, Self-Care, and Endurance.Currently, he has deficits of Locomotion, Safety Awareness, Balance, Social Cognition, Transfers Control, Self-C are, and Endurance.Pt. is now referred to [facility] for acute in-patient reha bilitation in order to maximize patient's functional independence in activities of daily living, stre ngth, ROM, and mobility.- Rehab Goal Patient has realistic goal of being discharged at assistance level 6-Andrae to reside at Home with Att endant. MDM/PLAN: - Physical Therapy Decreased range of motion - to improve, our physical therapists will perform initial evaluation of p t's status upon admission and devise an individualized program for increasing patient's Range of Buddy on. Gait dysfunction - to improve, our physical therapists will perform initial evaluation of pt's statu s upon admission and devise an individualized program for Gait Training, and Wheel Chair mobility Inability to transfer - to improve, our physical therapists will perform initial evaluation of pt's status upon admission and devise an individualized program for Bed mobility Need for home safety evaluation - to improve, our physical therapists will perform initial evaluatio n of pt's status upon admission and devise an individualized program for Home Evaluation Need in caregiver upon discharge - to improve, our physical therapists will perform initial evaluati on of pt's status upon admission and devise an individualized program for Caregiver Training New precaution - to improve, our physical therapists will perform initial evaluation of pt's status upon admission and devise an individualized program for Patient precaution education Poor balance - to improve, our physical therapists will perform initial evaluation of pt's status up on admission and devise an individualized program for Balance Training Poor endurance - to improve, our physical therapists will perform initial evaluation of pt's status upon admission and devise an individualized program for Endurance Training Weakness - to improve, our physical therapists will perform initial evaluation of pt's status upon a dmission and devise an individualized program for Aquatic Therapy, Neuromuscular Reeducation, and Str engthening Achieving independence - to improve, our physical therapists will perform initial evaluation of pt's status upon admission and devise an individualized program for Community Reintegration Activities - Occupational Therapy ADL deficits - to improve, our occupation therapists will perform initial evaluation of pt's status upon admission and devise an individualized program for Bathing, Bed mobility, Community Reintegratio n, Cooking, Dressing, Eating, Fine Motor Skills, Grooming, Homemaking, Kitchen Mobility, Laundry, Pat ient Education, Safety Awareness, Splinting - Positioning, Transfers(Toilet, Tub, Shower), and Wheel Chair Management Cognitive deficits - to improve, our occupation therapists will perform initial evaluation of pt's s tatus upon admission and devise an individualized program for Cognition - orientation Need for critical care nurse - to improve, our occupation therapists will perform initial evaluation of pt's status upon admission and devise an individualized program for Caregiver Training Weakness - to improve, our occupation therapists will perform initial evaluation of pt's status upon admission and devise an individualized program for Aquatic Therapy, Balance, Endurance, UE ROM, and UE strengthening - Other See attached MAR (Medication Administration Record) - Anterior Hip Precaution No abduction No active extension No adduction across midline No external rotation No hip flexion >90 degrees No internal rotation - Diet - Liquid Texture Continue Regular - Tube Feed Continue N/A - Diet Type Continue Regular - Posterior Hip Precaution No adduction across midline No external rotation No hip flexion >90 degrees No internal rotation No wheel chair propulsion - Lab Results blood Sugar Check ACHS - Weight Bearing Precaution WBAT left LE - Skin care per protocol - Diet - Solid Texture Continue Regular - Shower allowing shower FUNCTIONAL STATUS: UPDATED AT WEEKLY TEAM CONFERENCE - Bladder Same accident frequency: 7-Ind - No accidents in the past 7 days - Bowel Same accident frequency: 7-Ind - No accidents in the past 7 days - Walking Same score based on distance walked: 0(N/A) - Wheelchair Same score based on distance traveled: 0(N/A) FUNCTIONAL STATUS: - Self-Care A. Eating sup B. Grooming sup C. Bathing modA D. Dressing - Upper Raoul E. Dressing - Lower modA F. Toileting modA - Sphincter Control G. Bladder control sup H. Bowel control sup - Transfers Control I. Bed/Chair/Wheelchair maxA J. Toilet maxA K. Tub/Shower maxA - Locomotion L. Walk/Wheelchair (B) maxA M. Stairs ADNO - Communication N. Comprehension (B) modA O. Expression (B) modA - Social Cognition P. Social Interaction Raoul Q. Problem Solving modA R. Memory maxA - Endurance Fair - Balance Poor - Safety Awareness Poor QI SCORES: - Self-Care A. Eating 05-Setup or clean-up assistance B. Oral hygiene 05-Setup or clean-up assistance C. Toileting hygiene 03-Partial/moderate assistance E. Shower/bathe self 03-Partial/moderate assistance F. Upper body dressing 03-Partial/moderate assistance G. Lower body dressing 01-Dependent H. Putting on/taking off footwear 01-Dependent - Mobility A. Roll left and right 03-Partial/moderate assistance B. Sit to lying 02-Substantial/maximal assistance C. Lying to sitting on side of bed 02-Substantial/maximal assistance D. Sit to stand 01-Dependent E. Chair/[id number]-[id number] transfer 01-Dependent F. Toilet transfer 01-Dependent G. Car transfer 88-Not attempted due to medical condition or safety concerns I. Walk 10 feet 88-Not attempted due to medical condition or safety concerns J. Walk 50 feet with two turns 88-Not attempted due to medical condition or safety concerns K. Walk 150 feet 88-Not attempted due to medical condition or safety concerns L. Walking 10 feet on uneven surfaces 88-Not attempted due to medical condition or safety concerns M. 1 step (curb) 88-Not attempted due to medical condition or safety concerns N. 4 steps 88-Not attempted due to medical condition or safety concerns O. 12 steps 88-Not attempted due to medical condition or safety concerns P. Picking up object 88-Not attempted due to medical condition or safety concerns R. Wheel 50 feet with two turns 88-Not attempted due to medical condition or safety concerns S. Wheel 150 feet 88-Not attempted due to medical condition or safety concerns - Bladder and Bowel Bladder continence 3-Incontinent daily Bowel continence 0-Always continent - Endurance Poor - Balance Fair - Safety Awareness Fair [facility] 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
[2019-08-28] MEDS: DIPHENHYDRAMINE 25 MG TAB/CAP PO PRN (19:41)
[2019-08-28] MEDS: ATORVASTATIN 10 MG TAB PO SCH (19:41)
[2019-08-28] MEDS: FINASTERIDE 5 MG TAB PO SCH (19:41)
--- NOTE | 2019-08-28 22:07 | P.PN ---
Date of Service: 08/28/19 Vital Signs Temp Pulse Resp BP Pulse Ox 97.2 F 66 16 159/72 H 97 08/28/19 12:04 08/28/19 17:42 08/28/19 20:41 08/28/19 17:42 08/28/19 20:41 Medications Acetaminophen (Tylenol -Extra Strength) 500 mg PO Q4HP PRN PRN Reason: Pain scale 2-4 (Mild) Stop: 09/10/19 08:26 Last Admin: 08/28/19 16:52 Dose: 500 mg Hydrocodone Bitart/Acetaminophen ([place] 5/325) 1 tab PO Q12H PRN PRN Reason: Pain scale 5-7 (Moderate) Stop: 09/20/19 14:05 Last Admin: 08/26/19 20:29 Dose: 1 tab Atorvastatin Calcium (Lipitor) 10 mg PO BEDTIME [facility] Stop: 09/10/19 21:01 Last Admin: 08/28/19 19:41 Dose: 10 mg Bisacodyl (Dulcolax) 10 mg RI DAILY PRN PRN Reason: CONSTIPATION Stop: 09/18/19 14:13 Last Admin: 08/19/19 16:41 Dose: 10 mg Bumetanide (Bumex) 1 mg PO DAILY [facility] Stop: 09/24/19 08:01 Last Admin: 08/28/19 08:19 Dose: 1 mg Carvedilol (Coreg) 3.125 mg PO BID 6AM 6PM [facility] Stop: 09/10/19 18:01 Last Admin: 08/28/19 17:42 Dose: 3.125 mg Dextrose (Dextrose 50% Syringe/Vial) 12.5 gm IV PRN PRN; Protocol PRN Reason: HYPOGLYCEMIA Stop: 09/15/19 15:48 Diphenhydramine HCl (Benadryl Tab/Cap) 25 mg PO BEDTIME PRN PRN Reason: INSOMNIA Stop: 09/16/19 19:29 Last Admin: 08/28/19 19:41 Dose: 25 mg Docusate Sodium (Colace Cap) 100 mg PO BID [facility] Stop: 09/16/19 20:01 Last Admin: 08/28/19 19:41 Dose: 100 mg Famotidine (Pepcid) 20 mg PO BID [facility]; Protocol Stop: 09/15/19 20:01 Last Admin: 08/28/19 19:41 Dose: 20 mg Ferrous Sulfate (Feosol) 325 mg PO DAILY [facility] Stop: 09/17/19 08:01 Last Admin: 08/28/19 08:20 Dose: 325 mg Finasteride (Proscar) 5 mg PO BEDTIME [facility] Stop: 09/10/19 21:01 Last Admin: 08/28/19 19:41 Dose: 5 mg Gabapentin (Neurontin) 600 mg PO TID [facility] Stop: 09/10/19 09:01 Last Admin: 08/28/19 19:40 Dose: 600 mg Glucagon (Glucagen) 1 mg IM 1X PRN; Protocol PRN Reason: HYPOGLYCEMIA Stop: 09/15/19 15:48 Guaifenesin (Robitussin 100mg/5ml) 200 mg PO QID PRN PRN Reason: COUGH Stop: 09/21/19 14:44 Last Admin: 08/25/19 20:22 Dose: 200 mg Sodium Chloride (Sodium Chloride) 250 mls @ 0 mls/hr IV .Q0M [facility] Stop: 09/21/19 10:01 Last Admin: 08/22/19 09:50 Dose: 250 mls Sodium Chloride (Sodium Chloride) 250 mls @ 0 mls/hr IV .Q0M [facility] Stop: 09/21/19 19:01 Last Admin: 08/22/19 22:08 Dose: 50 mls Clindamycin Phosphate 600 mg/ (Sodium Chloride) 54 mls @ 100 mls/hr IV Q8HR [facility] ; Protocol Stop: 08/31/19 18:01 Last Admin: 08/28/19 16:50 Dose: 54 mls Insulin Glargine (Lantus) 33 units SQ DAILY AT SUPPER [facility] Stop: 09/11/19 17:01 Last Admin: 08/28/19 16:50 Dose: 33 units Insulin Glargine (Lantus) 35 units SQ BREAKFAST [facility] Stop: 09/12/19 08:01 Last Admin: 08/28/19 08:19 Dose: 35 units Insulin Human Lispro (Humalog) 5 unit SQ TIDWM [facility] Stop: 09/17/19 12:01 Last Admin: 08/28/19 16:51 Dose: Not Given Insulin Human Regular (Novolin -R) 0 unit SQ ACHS [facility]; Protocol Stop: 09/10/19 08:26 Last Admin: 08/28/19 19:42 Dose: Not Given Lactulose (Cephulac) 10 gm PO BIDP PRN PRN Reason: CONSTIPATION Stop: 09/10/19 12:54 Last Admin: 08/19/19 19:20 Dose: 10 gm Lidocaine (Aspercreme 4% Patch) 1 patch TOP DAILY [facility] Stop: 09/16/19 15:01 Last Admin: 08/28/19 08:21 Dose: 1 patch Melatonin (Melatonin) 3 mg PO BEDTIME PRN PRN PRN Reason: INSOMNIA Stop: 09/16/19 19:30 Last Admin: 08/27/19 23:45 Dose: 3 mg Metformin HCl (Glucophage) 1,000 mg PO BIDWM [facility] Stop: 09/11/19 17:01 Last Admin: 08/28/19 16:51 Dose: 1,000 mg Multivitamins/Iron (Hemocyte Plus) 1 tab PO DAILY WITH BREAKFAST [facility] Stop: 09/17/19 08:01 Last Admin: 08/28/19 08:21 Dose: 1 tab Nutritional Formula (Promod Liquid Protein) 30 ml PO BID [facility] Stop: 09/16/19 20:01 Last Admin: 08/28/19 19:41 Dose: 30 ml Ondansetron HCl (Zofran) 4 mg PO Q6H PRN PRN Reason: NAUSEA / VOMITING Stop: 09/15/19 15:59 Sodium Biphosphate/Sodium Phosphate (Fleet Enema Adult) 133 ml RI DAILY PRN PRN Reason: CONSTIPATION Stop: 09/18/19 14:14 Spironolactone (Aldactone) 50 mg PO DAILY [facility] Stop: 09/11/19 09:01 Last Admin: 08/28/19 08:22 Dose: 50 mg Tamsulosin HCl (Flomax) 0.4 mg PO DAILY [facility] Stop: 09/10/19 09:01 Last Admin: 08/28/19 08:21 Dose: 0.4 mg Tramadol HCl (Ultram) 50 mg PO TID [facility] Stop: 09/24/19 21:01 Last Admin: 08/28/19 19:41 Dose: 50 mg Warfarin Sodium (Coumadin) 10 mg PO DAILY 5 PM [facility] Stop: 09/15/19 17:01 Last Admin: 08/28/19 16:52 Dose: 10 mg Lab Results (last 24 hrs) 08/28/19 19:03: POC Glucose 110 08/28/19 16:23: POC Glucose 119 08/28/19 13:10: POC Glucose 98 08/28/19 12:41: POC Glucose 54 L 08/28/19 11:54: POC Glucose 52 L 08/28/19 07:17: POC Glucose 89 08/28/19 05:50: Sodium 140, Potassium 4.3, Chloride 106, Carbon Dioxide 32, BUN 17, Creatinine 0.75, Estimated GFR > 90, Glucose 88, Calcium 9.3 08/28/19 05:50: WBC 5.1 D, RBC 2.78 L, Hgb 8.1 L, Hct 24.1 L, MCV 86.5, MCH 29.0, MCHC 33.5, RDW 15.4 H, Plt Count 219, MPV 6.5 L, Neutrophils % 58.9, Lymphocytes % 21.9, Monocytes % 12.2, Eosinophils % 5.8 H, Basophils % 1.2, Absolute Neutrophils 3.0, Absolute Lymphocytes 1.1, Absolute Monocytes 0.6, Absolute Eosinophils 0.3, Absolute Basophils 0.1 08/28/19 05:50: PT 28.7 H, INR 2.52 Microbiology Results 08/17/19 01:20 Clean Catch Urine [place] Count - Final <10,000 CFU/ML. 08/17/19 01:20 Clean Catch Urine - Final MIXED ARIEL. Assessment/ Plan: Nephrology CPS stable without CP or SOB. No acute events overnight. +Appetite Vitals, medications, blood work and imaging reviewed in the chart. NAD. MMM. Neck supple. CTA. RRR. Soft Abd. No C/C/E. No rash. AAO. Normal Speech. Left hip wound. A/ Hyponatremia. HTN Edema DM II Anemia in chronic illness. Moderate malnutrition. Left hip fracture. P/ Continue current POC and Medications. Change to a low sodium diet. Continue diuretic therapy. Aggressive PT as tolerated. Wound care as ordered. AM labs. Daily weight. No NSAIDs.
[2019-08-29] MEDS: CLINDAMYCIN INJ 600 MG in NA CHLORIDE 0.9% 50 ML IV SCH ×3 (01:48→16:43)
[2019-08-29] MEDS: carvediloL 3.125 MG TAB PO SCH ×2 (05:00→16:44)
[2019-08-29 06:36] LABS: Protime INR 1.99
[2019-08-29] MEDS: TRAMADOL HCL 50 MG TAB PO SCH ×3 (07:28→18:53)
[2019-08-29] MEDS: INSULIN -REGULAR HUMAN 50 UNIT/0.5 ML ML SQ SCH ×4 (07:30→19:57)
[2019-08-29] MEDS: PROMOD 30 ML DOSE PO SCH ×2 (08:00→18:53)
[2019-08-29] MEDS: INSULIN LISPRO 100 UNIT/1 ML SQ SCH ×3 (08:00→16:42)
[2019-08-29] MEDS: INSULIN GLARGINE 100 UNITS/ML SQ SCH ×2 (08:00→16:43)
[2019-08-29] MEDS: FE SULF/FA/VIT B COMP & C TAB PO SCH (08:34)
[2019-08-29] MEDS: LIDOCAINE 4% PATCH TOP SCH (08:34)
[2019-08-29] MEDS: BUMETANIDE 1 MG TABLET PO SCH (08:35)
[2019-08-29] MEDS: DOCUSATE NA 100 MG CAP PO SCH ×2 (08:35→18:52)
[2019-08-29] MEDS: TAMSULOSIN 0.4 MG SR CAP PO SCH (08:35)
[2019-08-29] MEDS: FAMOTIDINE 20 MG TAB PO SCH ×2 (08:35→18:53)
[2019-08-29] MEDS: ACETAMINOPHEN 500 MG TAB PO PRN ×2 (08:38→16:03)
[2019-08-29] MEDS: SPIRONOLACTONE 25 MG TABLET PO SCH (08:38)
[2019-08-29] MEDS: METFORMIN HCL 500 MG TAB PO SCH ×2 (08:39→16:44)
[2019-08-29] MEDS: FERROUS SULFATE 325 MG TAB PO SCH (08:39)
[2019-08-29] MEDS: GABAPENTIN 300 MG CAP PO SCH ×3 (08:39→18:52)
--- NOTE | 2019-08-29 09:58 | FAST ---
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 Mode Gonzáles M.D. ADMISSION DIAGNOSIS: - Orthopaedic Disorders 08 - Unilateral Hip Fracture (08.11) Left Femoral Neck Fracture. EATING: EATING - STEP 1: Does the patient complete the activity by him/herself with no assistance (physical, verbal/nonverbal cueing, setup/clean-up)? No. EATING - STEP 2: Does the patient need only setup/clean-up assistance from one helper? Yes. 1. [id number] ADMISSION PERFORMANCE: Setup or clean-up assistance CODE: 05 ORAL HYGIENE: ORAL HYGIENE - STEP 1: Does the patient complete the activity by him/herself with no assistance (physical, verbal/nonverbal cueing, setup/clean-up)? No. ORAL HYGIENE - STEP 2: Does the patient need only setup/clean-up assistance from one helper? No. ORAL HYGIENE - STEP 3: Does the patient need only verbal/nonverbal cueing or touching/steadying/contact guard assistance fro m one helper? Yes. 1. [id number] ADMISSION PERFORMANCE: Supervision or touching assistance CODE: 04 TOILETING HYGIENE: TOILETING HYGIENE - STEP 1: Does the patient complete the activity by him/herself with no assistance (physical, verbal/nonverbal cueing, setup/clean-up)? No. TOILETING HYGIENE - STEP 2: Does the patient need only setup/clean-up assistance from one helper? No. TOILETING HYGIENE - STEP 3: Does the patient need only verbal/nonverbal cueing or touching/steadying/contact guard assistance fro m one helper? Yes. 1. [id number] ADMISSION PERFORMANCE: Supervision or touching assistance CODE: 04 BATHING: Not assessed/no information CODE: - DRESSING - UPPER BODY: Not assessed/no information CODE: - DRESSING - LOWER BODY: Not assessed/no information CODE: - PUTTING ON/TAKING OFF FOOTWEAR: Not assessed/no information CODE: - ROLL LEFT AND RIGHT: Not assessed/no information CODE: - SIT TO LYING: Not assessed/no information CODE: - LYING TO SITTING: LYING TO SITTING ON SIDE OF BED - STEP 1: Does the patient complete the activity by him/herself with no assistance (physical, verbal/nonverbal cueing, setup/clean-up)? No. LYING TO SITTING ON SIDE OF BED - STEP 2: Does the patient need only setup/clean-up assistance from one helper? No. LYING TO SITTING ON SIDE OF BED - STEP 3: Does the patient need only verbal/nonverbal cueing or touching/steadying/contact guard assistance fro m one helper? No. LYING TO SITTING ON SIDE OF BED - STEP 4: Does the patient need physical assistance - for example lifting or trunk support from one helper - wi th the helper providing less than half of the effort? Yes. 1. [id number] ADMISSION PERFORMANCE: Partial/moderate assistance CODE: 03 SIT TO STAND: SIT TO STAND - STEP 1: Does the patient complete the activity by him/herself with no assistance (physical, verbal/nonverbal cueing, setup/clean-up)? No. SIT TO STAND - STEP 2: Does the patient need only setup/clean-up assistance from one helper? No. SIT TO STAND - STEP 3: Does the patient need only verbal/nonverbal cueing or touching/steadying/contact guard assistance fro m one helper? Yes. 1. [id number] ADMISSION PERFORMANCE: Supervision or touching assistance CODE: 04 TRANSFERS: BED, CHAIR: [id number]/[id number] TRANSFER - STEP 1: Does the patient complete the activity by him/herself with no assistance (physical, verbal/nonverbal cueing, setup/clean-up)? No. CHAIR/[id number] TRANSFER - STEP 2: Does the patient need only setup/clean-up assistance from one helper? No. CHAIR/[id number] TRANSFER - STEP 3: Does the patient need only verbal/nonverbal cueing or touching/steadying/contact guard assistance fro m one helper? Yes. 1. [id number] ADMISSION PERFORMANCE: Supervision or touching assistance CODE: 04 TRANSFER TOILET: TOILET TRANSFER - STEP 1: Does the patient complete the activity by him/herself with no assistance (physical, verbal/nonverbal cueing, setup/clean-up)? No. TOILET TRANSFER - STEP 2: Does the patient need only setup/clean-up assistance from one helper? No. TOILET TRANSFER - STEP 3: Does the patient need only verbal/nonverbal cueing or touching/steadying/contact guard assistance fro m one helper? No. TOILET TRANSFER - STEP 4: Does the patient need physical assistance - for example lifting or trunk support from one helper - wi th the helper providing less than half of the effort? Yes. 1. [id number] ADMISSION PERFORMANCE: Partial/moderate assistance CODE: 03 TRANSFERS: CAR: Not assessed/no information CODE: - WALK 10 FEET: Not assessed/no information CODE: - 1 STEP (CURB): Not assessed/no information CODE: - PICKING UP OBJECT: Not assessed/no information CODE: - DOES THE PATIENT USE A WHEELCHAIR/SCOOTER? CODE: EXPR WHEEL 50 FEET WITH TWO TURNS: Not assessed/no information CODE: - INDICATE THE TYPE OF WHEELCHAIR/SCOOTER USED: CODE: EXPR WHEEL 150 FEET: Not assessed/no information CODE: - INDICATE THE TYPE OF WHEELCHAIR/SCOOTER USED: CODE: EXPR BLADDER AND BOWEL: H350. BLADDER CONTINENCE (3-DAY ASSESSMENT PERIOD): Always continent (no documented incontinence) CODE: 0 H400. BOWEL CONTINENCE (3-DAY ASSESSMENT PERIOD): Always continent CODE: 0 SIGNATURE PANEL: The following modified sections: 1. [id number] Admission Performance, 1. [id number] Admission Performance, 1. [id number] Admission Performance, 1. [id number] Admission Performance, 1. [id number] Admission Performance, 1. [id number] Admission Performance, 1. [id number] Admission Performance, 1. [id number] Admission Performance , Code, H350. Bladder Continence (3-day assessment period), H400. Bowel Continence (3-day assessment period) were [electronically] signed by Alvaro Calderón on WedAug 29 2019 09:58:00 GMT-0600 ([facility])
[2019-08-29] MEDS: WARFARIN SODIUM 5 MG TAB PO SCH (16:44)
--- NOTE | 2019-08-29 17:30 | R.PN ---
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 Pt denied any Shortness of Breath. Mr. Walden is making slow overall progress with therapy. He is moderately limited by poor cognition. His blood work is stable. Propelled wheelchair 25' with maximum assistance. He completed a simple maze with 75% accuracy. ADLs performed with maximum assistance. Cognitive tasks performed with minimum to moderate assistance. Ambulated 75' with contact guard to minimum assistance using a rolling walker. WBC 5.1, Hgb 8.1. He is on hemocyte plus and ferrous sulfate and followed by the renal service. VITAL SIGNS SBP/DBP: 128/65 Temperature: 98.4 F Pulse: 86 Resp: 15 O2 sat: 97 on room air MEDICATION ALLERGIES: Amoxicillin ENVIRONMENTAL ALLERGIES: None Known - Substance Allergies None Known - Other Allergies None Known NURSING: - Shower allowing shower - Lab Results blood Sugar Check ACHS - Skin care per protocol PRECAUTIONS: - Posterior Hip Precaution No adduction across midline No external rotation No hip flexion >90 degrees No internal rotation No wheel chair propulsion - Weight Bearing Precaution WBAT left LE ACTIVITIES OOB only with supervision THERAPIES: - Dietary and Nutrition Adequate Nutrition. Nutritional Education. Nutritional Supplements. PHYSICAL EXAM - Gen Alert and awake Lying in bed No apparent distress Oriented to: person, time, and place - Skin No breakdown No numbness - Eyes No abnormalities - ENMT No abnormalities - Neck No abnormalities - CVS RRR - Chest No abnormalities - Resp Clear to auscultation - Abd + bowel sounds - GI Non distended Deferred - No abnormalities - Ext Left hip surgical site has good hemostasis. - MSK 4+/5 weakness in left lower extremity. - Neuro 4/5 strength left lower extremity. - Psych No abnormalities ASSESSMENT: Pt. is a 88 yo Right-handed white male.On 08/11/2019 he was admitted to [facility] with diagnosis Left Femoral Neck Fracture.His impairment category is Orthopaedic Disorders 08 - Unilateral Hip Fracture (08.11).Pre-morbidly, Pt. was independent/mod-I in Locomotion, Safety Awarene ss, Balance, Social Cognition, Transfers Control, Sphincter Control, Self-Care, Communication, and En durance; and he had good Locomotion, Balance, Transfers Control, Self-Care, and Endurance.Currently, he has deficits of Locomotion, Safety Awareness, Balance, Social Cognition, Transfers Control, Self-C are, and Endurance.Pt. is now referred to [facility] for acute in-patient reha bilitation in order to maximize patient's functional independence in activities of daily living, stre ngth, ROM, and mobility.- Rehab Goal Patient has realistic goal of being discharged at assistance level 6-Andrae to reside at Home with Att endant. MDM/PLAN: - Physical Therapy Decreased range of motion - to improve, our physical therapists will perform initial evaluation of p t's status upon admission and devise an individualized program for increasing patient's Range of Buddy on. Gait dysfunction - to improve, our physical therapists will perform initial evaluation of pt's statu s upon admission and devise an individualized program for Gait Training, and Wheel Chair mobility Inability to transfer - to improve, our physical therapists will perform initial evaluation of pt's status upon admission and devise an individualized program for Bed mobility Need for home safety evaluation - to improve, our physical therapists will perform initial evaluatio n of pt's status upon admission and devise an individualized program for Home Evaluation Need in caregiver upon discharge - to improve, our physical therapists will perform initial evaluati on of pt's status upon admission and devise an individualized program for Caregiver Training New precaution - to improve, our physical therapists will perform initial evaluation of pt's status upon admission and devise an individualized program for Patient precaution education Poor balance - to improve, our physical therapists will perform initial evaluation of pt's status up on admission and devise an individualized program for Balance Training Poor endurance - to improve, our physical therapists will perform initial evaluation of pt's status upon admission and devise an individualized program for Endurance Training Weakness - to improve, our physical therapists will perform initial evaluation of pt's status upon a dmission and devise an individualized program for Aquatic Therapy, Neuromuscular Reeducation, and Str engthening Achieving independence - to improve, our physical therapists will perform initial evaluation of pt's status upon admission and devise an individualized program for Community Reintegration Activities - Occupational Therapy ADL deficits - to improve, our occupation therapists will perform initial evaluation of pt's status upon admission and devise an individualized program for Bathing, Bed mobility, Community Reintegratio n, Cooking, Dressing, Eating, Fine Motor Skills, Grooming, Homemaking, Kitchen Mobility, Laundry, Pat ient Education, Safety Awareness, Splinting - Positioning, Transfers(Toilet, Tub, Shower), and Wheel Chair Management Cognitive deficits - to improve, our occupation therapists will perform initial evaluation of pt's s tatus upon admission and devise an individualized program for Cognition - orientation Need for campground caretaker - to improve, our occupation therapists will perform initial evaluation of pt's status upon admission and devise an individualized program for Caregiver Training Weakness - to improve, our occupation therapists will perform initial evaluation of pt's status upon admission and devise an individualized program for Aquatic Therapy, Balance, Endurance, UE ROM, and UE strengthening - Other See attached MAR (Medication Administration Record) - Anterior Hip Precaution No abduction No active extension No adduction across midline No external rotation No hip flexion >90 degrees No internal rotation - Diet - Liquid Texture Continue Regular - Tube Feed Continue N/A - Diet Type Continue Regular - Posterior Hip Precaution No adduction across midline No external rotation No hip flexion >90 degrees No internal rotation No wheel chair propulsion - Lab Results blood Sugar Check ACHS - Weight Bearing Precaution WBAT left LE - Skin care per protocol - Diet - Solid Texture Continue Regular - Shower allowing shower FUNCTIONAL STATUS: UPDATED AT WEEKLY TEAM CONFERENCE - Bladder Same accident frequency: 7-Ind - No accidents in the past 7 days - Bowel Same accident frequency: 7-Ind - No accidents in the past 7 days - Walking Same score based on distance walked: 0(N/A) - Wheelchair Same score based on distance traveled: 0(N/A) FUNCTIONAL STATUS: - Self-Care A. Eating sup B. Grooming sup C. Bathing modA D. Dressing - Upper Raoul E. Dressing - Lower modA F. Toileting modA - Sphincter Control G. Bladder control sup H. Bowel control sup - Transfers Control I. Bed/Chair/Wheelchair maxA J. Toilet maxA K. Tub/Shower maxA - Locomotion L. Walk/Wheelchair (B) maxA M. Stairs ADNO - Communication N. Comprehension (B) modA O. Expression (B) modA - Social Cognition P. Social Interaction Raoul Q. Problem Solving modA R. Memory maxA - Endurance Fair - Balance Poor - Safety Awareness Poor QI SCORES: - Self-Care A. Eating 05-Setup or clean-up assistance B. Oral hygiene 05-Setup or clean-up assistance C. Toileting hygiene 03-Partial/moderate assistance E. Shower/bathe self 03-Partial/moderate assistance F. Upper body dressing 03-Partial/moderate assistance G. Lower body dressing 01-Dependent H. Putting on/taking off footwear 01-Dependent - Mobility A. Roll left and right 03-Partial/moderate assistance B. Sit to lying 02-Substantial/maximal assistance C. Lying to sitting on side of bed 02-Substantial/maximal assistance D. Sit to stand 01-Dependent E. Chair/[id number] transfer 01-Dependent F. Toilet transfer 01-Dependent G. Car transfer 88-Not attempted due to medical condition or safety concerns I. Walk 10 feet 88-Not attempted due to medical condition or safety concerns J. Walk 50 feet with two turns 88-Not attempted due to medical condition or safety concerns K. Walk 150 feet 88-Not attempted due to medical condition or safety concerns L. Walking 10 feet on uneven surfaces 88-Not attempted due to medical condition or safety concerns M. 1 step (curb) 88-Not attempted due to medical condition or safety concerns N. 4 steps 88-Not attempted due to medical condition or safety concerns O. 12 steps 88-Not attempted due to medical condition or safety concerns P. Picking up object 88-Not attempted due to medical condition or safety concerns R. Wheel 50 feet with two turns 88-Not attempted due to medical condition or safety concerns S. Wheel 150 feet 88-Not attempted due to medical condition or safety concerns - Bladder and Bowel Bladder continence 3-Incontinent daily Bowel continence 0-Always continent - Endurance Poor - Balance Fair - Safety Awareness Fair CURRENT FUNC. 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
[2019-08-29] MEDS: DIPHENHYDRAMINE 25 MG TAB/CAP PO PRN (18:52)
[2019-08-29] MEDS: ATORVASTATIN 10 MG TAB PO SCH (18:52)
[2019-08-29] MEDS: FINASTERIDE 5 MG TAB PO SCH (18:53)
--- NOTE | 2019-08-29 20:16 | P.PN ---
Date of Service: 08/29/19 Vital Signs Temp Pulse Resp BP Pulse Ox 97.6 F 86 16 128/65 95 08/29/19 07:32 08/29/19 16:44 08/29/19 18:53 08/29/19 16:44 08/29/19 18:53 Medications Acetaminophen (Tylenol -Extra Strength) 500 mg PO Q4HP PRN PRN Reason: Pain scale 2-4 (Mild) Stop: 09/10/19 08:26 Last Admin: 08/29/19 16:03 Dose: 500 mg Hydrocodone Bitart/Acetaminophen ([place] 5/325) 1 tab PO Q12H PRN PRN Reason: Pain scale 5-7 (Moderate) Stop: 09/20/19 14:05 Last Admin: 08/26/19 20:29 Dose: 1 tab Atorvastatin Calcium (Lipitor) 10 mg PO BEDTIME [facility] Stop: 09/10/19 21:01 Last Admin: 08/29/19 18:52 Dose: 10 mg Bisacodyl (Dulcolax) 10 mg SC DAILY PRN PRN Reason: CONSTIPATION Stop: 09/18/19 14:13 Last Admin: 08/19/19 16:41 Dose: 10 mg Bumetanide (Bumex) 1 mg PO DAILY [facility] Stop: 09/24/19 08:01 Last Admin: 08/29/19 08:35 Dose: 1 mg Carvedilol (Coreg) 3.125 mg PO BID 6AM 6PM [facility] Stop: 09/10/19 18:01 Last Admin: 08/29/19 16:44 Dose: 3.125 mg Dextrose (Dextrose 50% Syringe/Vial) 12.5 gm IV PRN PRN; Protocol PRN Reason: HYPOGLYCEMIA Stop: 09/15/19 15:48 Diphenhydramine HCl (Benadryl Tab/Cap) 25 mg PO BEDTIME PRN PRN Reason: INSOMNIA Stop: 09/16/19 19:29 Last Admin: 08/29/19 18:52 Dose: 25 mg Docusate Sodium (Colace Cap) 100 mg PO BID [facility] Stop: 09/16/19 20:01 Last Admin: 08/29/19 18:52 Dose: 100 mg Famotidine (Pepcid) 20 mg PO BID [facility]; Protocol Stop: 09/15/19 20:01 Last Admin: 08/29/19 18:53 Dose: 20 mg Ferrous Sulfate (Feosol) 325 mg PO DAILY [facility] Stop: 09/17/19 08:01 Last Admin: 08/29/19 08:39 Dose: 325 mg Finasteride (Proscar) 5 mg PO BEDTIME [facility] Stop: 09/10/19 21:01 Last Admin: 08/29/19 18:53 Dose: 5 mg Gabapentin (Neurontin) 600 mg PO TID [facility] Stop: 09/10/19 09:01 Last Admin: 08/29/19 18:52 Dose: 600 mg Glucagon (Glucagen) 1 mg IM 1X PRN; Protocol PRN Reason: HYPOGLYCEMIA Stop: 09/15/19 15:48 Guaifenesin (Robitussin 100mg/5ml) 200 mg PO QID PRN PRN Reason: COUGH Stop: 09/21/19 14:44 Last Admin: 08/25/19 20:22 Dose: 200 mg Sodium Chloride (Sodium Chloride) 250 mls @ 0 mls/hr IV .Q0M [facility] Stop: 09/21/19 10:01 Last Admin: 08/22/19 09:50 Dose: 250 mls Sodium Chloride (Sodium Chloride) 250 mls @ 0 mls/hr IV .Q0M [facility] Stop: 09/21/19 19:01 Last Admin: 08/22/19 22:08 Dose: 50 mls Clindamycin Phosphate 600 mg/ (Sodium Chloride) 54 mls @ 100 mls/hr IV Q8HR [facility] ; Protocol Stop: 08/31/19 18:01 Last Admin: 08/29/19 16:43 Dose: 54 mls Insulin Glargine (Lantus) 30 units SQ BREAKFAST [facility] Stop: 09/29/19 08:01 Insulin Glargine (Lantus) 25 units SQ DAILY AT SUPPER [facility] Stop: 09/28/19 17:01 Last Admin: 08/29/19 16:43 Dose: Not Given Insulin Human Lispro (Humalog) 5 unit SQ TIDWM [facility] Stop: 09/17/19 12:01 Last Admin: 08/29/19 16:42 Dose: Not Given Insulin Human Regular (Novolin -R) 0 unit SQ ACHS [facility]; Protocol Stop: 09/10/19 08:26 Last Admin: 08/29/19 19:57 Dose: Not Given Lactulose (Cephulac) 10 gm PO BIDP PRN PRN Reason: CONSTIPATION Stop: 09/10/19 12:54 Last Admin: 08/19/19 19:20 Dose: 10 gm Lidocaine (Aspercreme 4% Patch) 1 patch TOP DAILY [facility] Stop: 09/16/19 15:01 Last Admin: 08/29/19 08:34 Dose: 1 patch Melatonin (Melatonin) 3 mg PO BEDTIME PRN PRN PRN Reason: INSOMNIA Stop: 09/16/19 19:30 Last Admin: 08/27/19 23:45 Dose: 3 mg Metformin HCl (Glucophage) 1,000 mg PO BIDWM [facility] Stop: 09/11/19 17:01 Last Admin: 08/29/19 16:44 Dose: 1,000 mg Multivitamins/Iron (Hemocyte Plus) 1 tab PO DAILY WITH BREAKFAST [facility] Stop: 09/17/19 08:01 Last Admin: 08/29/19 08:34 Dose: 1 tab Nutritional Formula (Promod Liquid Protein) 30 ml PO BID [facility] Stop: 09/16/19 20:01 Last Admin: 08/29/19 18:53 Dose: 30 ml Ondansetron HCl (Zofran) 4 mg PO Q6H PRN PRN Reason: NAUSEA / VOMITING Stop: 09/15/19 15:59 Sodium Biphosphate/Sodium Phosphate (Fleet Enema Adult) 133 ml SC DAILY PRN PRN Reason: CONSTIPATION Stop: 09/18/19 14:14 Spironolactone (Aldactone) 50 mg PO DAILY [facility] Stop: 09/11/19 09:01 Last Admin: 08/29/19 08:38 Dose: 50 mg Tamsulosin HCl (Flomax) 0.4 mg PO DAILY [facility] Stop: 09/10/19 09:01 Last Admin: 08/29/19 08:35 Dose: 0.4 mg Tramadol HCl (Ultram) 50 mg PO TID [facility] Stop: 09/24/19 21:01 Last Admin: 08/29/19 18:53 Dose: 50 mg Warfarin Sodium (Coumadin) 10 mg PO DAILY 5 PM [facility] Stop: 09/15/19 17:01 Last Admin: 08/29/19 16:44 Dose: 10 mg Lab Results (last 24 hrs) 08/29/19 19:43: POC Glucose 121 H 01/07/20 16:19: POC Glucose 128 H 08/29/19 11:18: POC Glucose 146 H 08/29/19 07:14: POC Glucose 72 08/29/19 06:52: POC Glucose 56 L 08/29/19 05:53: PT 22.9 H, INR 1.99 Microbiology Results 08/17/19 01:20 Clean Catch Urine Gattman Count - Final <10,000 CFU/ML. 08/17/19 01:20 Clean Catch Urine - Final MIXED ARIEL. Assessment/ Plan: Nephrology CPS stable without CP or SOB. No acute events overnight. Vitals, medications, blood work and imaging reviewed in the chart. NAD. MMM. Neck supple. CTA. RRR. Soft Abd. No C/C/E. No rash. AAO. Normal Speech. Left hip wound. A/ Hyponatremia. HTN Diastolic CHF, chronic. Edema DM II Anemia in chronic illness. Moderate malnutrition. Dementia. Left hip fracture. P/ Continue current POC and Medications. Continue diuretic therapy. Aggressive PT as tolerated. Wound care as ordered. Low sodium diet. AM labs. Daily weight. No NSAIDs.
--- NOTE | 2019-08-29 21:45 | PN ---
Date of Progress Note: 08/29/2019 Subjective: Patient seen and examined. Chart reviewed and case discussed with RN. Code Status: Full. Medications: List reviewed. Physical Examination: Vital Signs: Temperature 97.6, heart rate 82, blood pressure 147/62, respirations 18, O2 of 97% on r oom air. General: Awake, alert, oriented x3. Elderly male, obese, not in any acute distress. CV: S1, S2. Respiratory: Moving air well bilaterally. Abdomen: Soft, nontender, nondistended. Positive bowel sounds. Extremities: No clubbing, cyanosis, edema. Neurologic: Nonfocal. Musculoskeletal: Right hip incision site minimal bleeding from the bandage. Laboratory Data: Blood glucose levels between 56 and 146. WBC is pending. INR is 1.99. Assessment: An 88-year-old male with: 1.Left hip femoral neck fracture, nondisplaced. Initial encounter status post open reduction and in ternal fixation, improving. Continue with PT. 2.Atrial fibrillation with controlled ventricular rate. Continue with Coumadin. INR is therapeutic range. 3.Hematoma, left hip as the patient was on therapeutic Lovenox and Coumadin for the atrial fibrillat ion as his INR was subtherapeutic, improving. Minimal drainage from the bandage. Continue with clin damycin to prevent any postoperative infection. Patient has manipulated the wound several times. 4.Delirium, resolved. 5.BPH. Flomax. 6.Mixed hyperlipidemia. Continue statin. 7.Diabetes mellitus type 2, insulin requiring with hypoglycemia. Blood glucose 166. May need to ad just insulin dose. 8.Pulmonary edema, improved. 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 10.Peripheral vascular disease, stable. 11.Deep vein thrombosis prophylaxis addressed. Patient is on Coumadin. Plan: We will continue to follow along with you. /CALEB Voice ID: [id number] Report ID: [id number]
[2019-08-30] MEDS: CLINDAMYCIN INJ 600 MG in NA CHLORIDE 0.9% 50 ML IV SCH ×3 (00:30→17:05)
[2019-08-30] MEDS: ACETAMINOPHEN 500 MG TAB PO PRN ×4 (00:36→22:12)
[2019-08-30] MEDS: carvediloL 3.125 MG TAB PO SCH ×2 (05:07→17:07)
[2019-08-30 06:31] LABS: Protime INR 1.95
[2019-08-30] MEDS: INSULIN -REGULAR HUMAN 50 UNIT/0.5 ML ML SQ SCH ×4 (07:21→20:39)
[2019-08-30] MEDS: INSULIN GLARGINE 100 UNITS/ML SQ SCH ×2 (08:00→17:08)
[2019-08-30] MEDS: PROMOD 30 ML DOSE PO SCH ×2 (08:00→20:37)
[2019-08-30] MEDS: INSULIN LISPRO 100 UNIT/1 ML SQ SCH ×3 (08:00→17:08)
[2019-08-30] MEDS: FE SULF/FA/VIT B COMP & C TAB PO SCH (08:00)
[2019-08-30] MEDS: LIDOCAINE 4% PATCH TOP SCH (09:22)
[2019-08-30] MEDS: FAMOTIDINE 20 MG TAB PO SCH ×2 (09:23→20:36)
[2019-08-30] MEDS: BUMETANIDE 1 MG TABLET PO SCH (09:23)
[2019-08-30] MEDS: TAMSULOSIN 0.4 MG SR CAP PO SCH (09:24)
[2019-08-30] MEDS: GABAPENTIN 300 MG CAP PO SCH ×3 (09:24→20:38)
[2019-08-30] MEDS: METFORMIN HCL 500 MG TAB PO SCH ×2 (09:25→17:08)
[2019-08-30] MEDS: SPIRONOLACTONE 25 MG TABLET PO SCH (09:25)
[2019-08-30] MEDS: FERROUS SULFATE 325 MG TAB PO SCH (09:25)
[2019-08-30] MEDS: DOCUSATE NA 100 MG CAP PO SCH ×2 (09:26→20:36)
[2019-08-30] MEDS: TRAMADOL HCL 50 MG TAB PO SCH ×3 (10:19→20:38)
--- NOTE | 2019-08-30 15:34 | FAST ---
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 Mode Gonzáles M.D. ADMISSION DIAGNOSIS: - Orthopaedic Disorders 08 - Unilateral Hip Fracture (08.11) Left Femoral Neck Fracture. EATING: Not assessed/no information CODE: - ORAL HYGIENE: ORAL HYGIENE - STEP 1: Does the patient complete the activity by him/herself with no assistance (physical, verbal/nonverbal cueing, setup/clean-up)? No. ORAL HYGIENE - STEP 2: Does the patient need only setup/clean-up assistance from one helper? No. ORAL HYGIENE - STEP 3: Does the patient need only verbal/nonverbal cueing or touching/steadying/contact guard assistance fro m one helper? Yes. 1. [id number] ADMISSION PERFORMANCE: Supervision or touching assistance CODE: 04 TOILETING HYGIENE: Not assessed/no information CODE: - BATHING: SHOWER/BATHE SELF - STEP 1: Does the patient complete the activity by him/herself with no assistance (physical, verbal/nonverbal cueing, setup/clean-up)? No. SHOWER/BATHE SELF - STEP 2: Does the patient need only setup/clean-up assistance from one helper? No. SHOWER/BATHE SELF - STEP 3: Does the patient need only verbal/nonverbal cueing or touching/steadying/contact guard assistance fro m one helper? Yes. 1. [id number] ADMISSION PERFORMANCE: Supervision or touching assistance CODE: 04 DRESSING - UPPER BODY: DRESSING - UPPER BODY - STEP 1: Does the patient complete the activity by him/herself with no assistance (physical, verbal/nonverbal cueing, setup/clean-up)? No. DRESSING - UPPER BODY - STEP 2: Does the patient need only setup/clean-up assistance from one helper? No. DRESSING - UPPER BODY - STEP 3: Does the patient need only verbal/nonverbal cueing or touching/steadying/contact guard assistance fro m one helper? Yes. 1. [id number] ADMISSION PERFORMANCE: Supervision or touching assistance CODE: 04 DRESSING - LOWER BODY: DRESSING - LOWER BODY - STEP 1: Does the patient complete the activity by him/herself with no assistance (physical, verbal/nonverbal cueing, setup/clean-up)? No. DRESSING - LOWER BODY - STEP 2: Does the patient need only setup/clean-up assistance from one helper? No. DRESSING - LOWER BODY - STEP 3: Does the patient need only verbal/nonverbal cueing or touching/steadying/contact guard assistance fro m one helper? No. DRESSING - LOWER BODY - STEP 4: Does the patient need physical assistance - for example lifting or trunk support from one helper - wi th the helper providing less than half of the effort? No. DRESSING - LOWER BODY - STEP 5: Does the patient need physical assistance - for example lifting or trunk support from one helper - wi th the helper providing more than half of the effort? Yes. 1. [id number] ADMISSION PERFORMANCE: Substantial/maximal assistance CODE: 02 PUTTING ON/TAKING OFF FOOTWEAR: FOOTWEAR - STEP 1: Does the patient complete the activity by him/herself with no assistance (physical, verbal/nonverbal cueing, setup/clean-up)? No. FOOTWEAR - STEP 2: Does the patient need only setup/clean-up assistance from one helper? No. FOOTWEAR - STEP 3: Does the patient need only verbal/nonverbal cueing or touching/steadying/contact guard assistance fro m one helper? No. FOOTWEAR - STEP 4: Does the patient need physical assistance - for example lifting or trunk support from one helper - wi th the helper providing less than half of the effort? No. FOOTWEAR - STEP 5: Does the patient need physical assistance - for example lifting or trunk support from one helper - wi th the helper providing more than half of the effort? Yes. 1. [id number] ADMISSION PERFORMANCE: Substantial/maximal assistance CODE: 02 DOES THE PATIENT USE A WHEELCHAIR/SCOOTER? CODE: EXPR INDICATE THE TYPE OF WHEELCHAIR/SCOOTER USED: CODE: EXPR INDICATE THE TYPE OF WHEELCHAIR/SCOOTER USED: CODE: EXPR BLADDER AND BOWEL: CODE: EXPR CODE: EXPR SIGNATURE PANEL: The following modified sections: 1. [id number] Admission Performance, 1. [id number] Admission Performance, 1. [id number] Admission Performance, 1. [id number] Admission Performance, 1. [id number] Admission Performance, 1. [id number] Admission Performance, 1. [id number] Admission Performance were [electronically] signed by YI Cortes on WedAug 30 2019 15:33:59 GMT-0600 (Central Standard Time)
[2019-08-30] MEDS: WARFARIN SODIUM 5 MG TAB PO SCH (17:06)
--- NOTE | 2019-08-30 17:24 | R.PN ---
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 Pt denied any Shortness of Breath. Mr. Walden is making slow overall progress with therapy. He is moderately limited by poor cognition. His blood work is stable. Propelled wheelchair 25' with maximum assistance. He completed a simple maze with 75% accuracy. ADLs performed with maximum assistance. Cognitive tasks performed with minimum to moderate assistance. Ambulated 75' with contact guard to minimum assistance using a rolling walker. WBC 5.1, Hgb 8.1. He is on hemocyte plus and ferrous sulfate and followed by the renal service. VITAL SIGNS SBP/DBP: 128/68 Temperature: 97.3 F Pulse: 69 Resp: 16 O2 sat: 96 on room air MEDICATION ALLERGIES: Amoxicillin ENVIRONMENTAL ALLERGIES: None Known - Substance Allergies None Known - Other Allergies None Known NURSING: - Shower allowing shower - Lab Results blood Sugar Check ACHS - Skin care per protocol PRECAUTIONS: - Posterior Hip Precaution No adduction across midline No external rotation No hip flexion >90 degrees No internal rotation No wheel chair propulsion - Weight Bearing Precaution WBAT left LE ACTIVITIES OOB only with supervision THERAPIES: - Dietary and Nutrition Adequate Nutrition. Nutritional Education. Nutritional Supplements. PHYSICAL EXAM - Gen Alert and awake Lying in bed No apparent distress Oriented to: person, time, and place - Skin No breakdown No numbness - Eyes No abnormalities - ENMT No abnormalities - Neck No abnormalities - CVS RRR - Chest No abnormalities - Resp Clear to auscultation - Abd + bowel sounds - GI Non distended Deferred - No abnormalities - Ext Left hip surgical site has good hemostasis. - MSK 4+/5 weakness in left lower extremity. - Neuro 4/5 strength left lower extremity. - Psych No abnormalities ASSESSMENT: Pt. is a 88 yo Right-handed white male.On 08/11/2019 he was admitted to [facility] with diagnosis Left Femoral Neck Fracture.His impairment category is Orthopaedic Disorders 08 - Unilateral Hip Fracture (08.11).Pre-morbidly, Pt. was independent/mod-I in Locomotion, Safety Awarene ss, Balance, Social Cognition, Transfers Control, Sphincter Control, Self-Care, Communication, and En durance; and he had good Locomotion, Balance, Transfers Control, Self-Care, and Endurance.Currently, he has deficits of Locomotion, Safety Awareness, Balance, Social Cognition, Transfers Control, Self-C are, and Endurance.Pt. is now [facility] to [facility] for acute in-patient reha bilitation in order to maximize patient's functional independence in activities of daily living, stre ngth, ROM, and mobility.- Rehab Goal Patient has realistic goal of being discharged at assistance level 6-Andrae to reside at Home with Att endant. MDM/PLAN: - Physical Therapy Decreased range of motion - to improve, our physical therapists will perform initial evaluation of p t's status upon admission and devise an individualized program for increasing patient's Range of Buddy on. Gait dysfunction - to improve, our physical therapists will perform initial evaluation of pt's statu s upon admission and devise an individualized program for Gait Training, and Wheel Chair mobility Inability to transfer - to improve, our physical therapists will perform initial evaluation of pt's status upon admission and devise an individualized program for Bed mobility Need for home safety evaluation - to improve, our physical therapists will perform initial evaluatio n of pt's status upon admission and devise an individualized program for Home Evaluation Need in caregiver upon discharge - to improve, our physical therapists will perform initial evaluati on of pt's status upon admission and devise an individualized program for Caregiver Training New precaution - to improve, our physical therapists will perform initial evaluation of pt's status upon admission and devise an individualized program for Patient precaution education Poor balance - to improve, our physical therapists will perform initial evaluation of pt's status up on admission and devise an individualized program for Balance Training Poor endurance - to improve, our physical therapists will perform initial evaluation of pt's status upon admission and devise an individualized program for Endurance Training Weakness - to improve, our physical therapists will perform initial evaluation of pt's status upon a dmission and devise an individualized program for Aquatic Therapy, Neuromuscular Reeducation, and Str engthening Achieving independence - to improve, our physical therapists will perform initial evaluation of pt's status upon admission and devise an individualized program for Community Reintegration Activities - Occupational Therapy ADL deficits - to improve, our occupation therapists will perform initial evaluation of pt's status upon admission and devise an individualized program for Bathing, Bed mobility, Community Reintegratio n, Cooking, Dressing, Eating, Fine Motor Skills, Grooming, Homemaking, Kitchen Mobility, Laundry, Pat ient Education, Safety Awareness, Splinting - Positioning, Transfers(Toilet, Tub, Shower), and Wheel Chair Management Cognitive deficits - to improve, our occupation therapists will perform initial evaluation of pt's s tatus upon admission and devise an individualized program for Cognition - orientation Need for career and technology education teacher - to improve, our occupation therapists will perform initial evaluation of pt's status upon admission and devise an individualized program for Caregiver Training Weakness - to improve, our occupation therapists will perform initial evaluation of pt's status upon admission and devise an individualized program for Aquatic Therapy, Balance, Endurance, UE ROM, and UE strengthening - Other See attached MAR (Medication Administration Record) - Anterior Hip Precaution No abduction No active extension No adduction across midline No external rotation No hip flexion >90 degrees No internal rotation - Diet - Liquid Texture Continue Regular - Tube Feed Continue N/A - Diet Type Continue Regular - Posterior Hip Precaution No adduction across midline No external rotation No hip flexion >90 degrees No internal rotation No wheel chair propulsion - Lab Results blood Sugar Check ACHS - Weight Bearing Precaution WBAT left LE - Skin care per protocol - Diet - Solid Texture Continue Regular - Shower allowing shower FUNCTIONAL STATUS: UPDATED AT WEEKLY TEAM CONFERENCE - Bladder Same accident frequency: 7-Ind - No accidents in the past 7 days - Bowel Same accident frequency: 7-Ind - No accidents in the past 7 days - Walking Same score based on distance walked: 0(N/A) - Wheelchair Same score based on distance traveled: 0(N/A) FUNCTIONAL STATUS: - Self-Care A. Eating sup B. Grooming sup C. Bathing modA D. Dressing - Upper Raoul E. Dressing - Lower modA F. Toileting modA - Sphincter Control G. Bladder control sup H. Bowel control sup - Transfers Control I. Bed/Chair/Wheelchair maxA J. Toilet maxA K. Tub/Shower maxA - Locomotion L. Walk/Wheelchair (B) maxA M. Stairs ADNO - Communication N. Comprehension (B) modA O. Expression (B) modA - Social Cognition P. Social Interaction Raoul Q. Problem Solving modA R. Memory maxA - Endurance Fair - Balance Poor - Safety Awareness Poor QI SCORES: - Self-Care A. Eating 05-Setup or clean-up assistance B. Oral hygiene 05-Setup or clean-up assistance C. Toileting hygiene 03-Partial/moderate assistance E. Shower/bathe self 03-Partial/moderate assistance F. Upper body dressing 03-Partial/moderate assistance G. Lower body dressing 01-Dependent H. Putting on/taking off footwear 01-Dependent - Mobility A. Roll left and right 03-Partial/moderate assistance B. Sit to lying 02-Substantial/maximal assistance C. Lying to sitting on side of bed 02-Substantial/maximal assistance D. Sit to stand 01-Dependent E. Chair/[id number] transfer 01-Dependent F. Toilet transfer 01-Dependent G. Car transfer 88-Not attempted due to medical condition or safety concerns I. Walk 10 feet 88-Not attempted due to medical condition or safety concerns J. Walk 50 feet with two turns 88-Not attempted due to medical condition or safety concerns K. Walk 150 feet 88-Not attempted due to medical condition or safety concerns L. Walking 10 feet on uneven surfaces 88-Not attempted due to medical condition or safety concerns M. 1 step (curb) 88-Not attempted due to medical condition or safety concerns N. 4 steps 88-Not attempted due to medical condition or safety concerns O. 12 steps 88-Not attempted due to medical condition or safety concerns P. Picking up object 88-Not attempted due to medical condition or safety concerns R. Wheel 50 feet with two turns 88-Not attempted due to medical condition or safety concerns S. Wheel 150 feet 88-Not attempted due to medical condition or safety concerns - Bladder and Bowel Bladder continence 3-Incontinent daily Bowel continence 0-Always continent - Endurance Poor - Balance Fair - Safety Awareness Fair CURRENT FUNC. DEFICITS: Self-Care, Mobility, Endurance, Balance, and Safety Awareness SIGNATURE PANEL: (SOFTWARE INTERN)
--- NOTE | 2019-08-30 17:52 | P.PN ---
Date of Service: 08/30/19 Patient seen and examined. Doing well. Able to transfer himself. Medications reviewed PE Vital signs stable, afebrile General: AA&Ox3 CV: S1, S2. Resp: CTA b/l GI: BS+, NT/ND Ext: no c/c/edema Musculoskeletal: left hip incision site bandaged. Some drainage. Neuro: nonfocal Labs INR 1.95 A/P 1. Left hip femoral neck fracture, nondisplaced. Initial encounter status post open reduction and internal fixation, improving. Continue with PT. 2. Atrial fibrillation with controlled ventricular rate. Continue with Coumadin. INR is slightly below therapeutic range. 3. Hematoma, left hip as the patient was on therapeutic Lovenox and Coumadin for the atrial fibrillation as his INR was subtherapeutic, improving. Minimal drainage from the bandage. Continue with clindamycin to prevent any postoperative infection. Patient has manipulated the wound several times. 4. Delirium, resolved. 5. BPH. Flomax. 6. Mixed hyperlipidemia. Continue statin. 7. Diabetes mellitus type 2, insulin requiring with hypoglycemia. Blood glucose 166. May need to adjust insulin dose. 8. Pulmonary edema, improved. 9. 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 10. Peripheral vascular disease, stable. 11. Deep vein thrombosis prophylaxis addressed. Patient is on Coumadin.
[2019-08-30] MEDS: ATORVASTATIN 10 MG TAB PO SCH (20:38)
[2019-08-30] MEDS: FINASTERIDE 5 MG TAB PO SCH (20:38)
[2019-08-30] MEDS: guaiFENesin 100 MG/5 ML UCUP PO PRN (21:06)
[2019-08-30] MEDS: MELATONIN 3 MG TABLET PO PRN ×2 (22:13→23:55)
[2019-08-30] MEDS: HYDROCODONE/APAP 5/325 MG TAB PO PRN (22:27)
[2019-08-31] MEDS: CLINDAMYCIN INJ 600 MG in NA CHLORIDE 0.9% 50 ML IV SCH ×3 (00:28→16:57)
[2019-08-31] MEDS: carvediloL 3.125 MG TAB PO SCH ×2 (05:19→16:58)
[2019-08-31 06:44] LABS: Protime INR 1.91
[2019-08-31 06:45] LABS: Absolute Lymphocytes (CBC) 1.1 K/uL (0.7-4.9); Basophils % 1.3 % (0-1.3); Hematocrit 25.7 % (39.6-49.0); MPV 6.9 fL (7.6-11.3); RBC Red Blood Cell Count 2.96 M/uL (4.33-5.43)
[2019-08-31 06:49] LABS: Albumin 2.5 g/dL (3.4-5.0); BUN Blood Urea Nitrogen 15 mg/dL (7-18); Bicarbonate 31 mmol/L (21-32); Glucose Level 136 mg/dL (74-106); Magnesium 1.9 mg/dL (1.8-2.4); Potassium 4.2 mmol/L (3.5-5.1); Prealbumin 13.3 mg/dL (20-40); Sodium Level 137 mmol/L (136-145)
[2019-08-31] MEDS: INSULIN -REGULAR HUMAN 50 UNIT/0.5 ML ML SQ SCH ×4 (06:55→20:54)
[2019-08-31] MEDS: LIDOCAINE 4% PATCH TOP SCH (08:20)
[2019-08-31] MEDS: TAMSULOSIN 0.4 MG SR CAP PO SCH (08:20)
[2019-08-31] MEDS: FAMOTIDINE 20 MG TAB PO SCH ×2 (08:20→20:52)
[2019-08-31] MEDS: GABAPENTIN 300 MG CAP PO SCH ×3 (08:20→20:52)
[2019-08-31] MEDS: BUMETANIDE 1 MG TABLET PO SCH (08:21)
[2019-08-31] MEDS: FE SULF/FA/VIT B COMP & C TAB PO SCH (08:21)
[2019-08-31] MEDS: SPIRONOLACTONE 25 MG TABLET PO SCH (08:22)
[2019-08-31] MEDS: TRAMADOL HCL 50 MG TAB PO SCH ×3 (08:22→20:51)
[2019-08-31] MEDS: DOCUSATE NA 100 MG CAP PO SCH ×2 (08:23→20:54)
[2019-08-31] MEDS: METFORMIN HCL 500 MG TAB PO SCH ×2 (08:23→16:58)
[2019-08-31] MEDS: FERROUS SULFATE 325 MG TAB PO SCH (08:23)
[2019-08-31] MEDS: PROMOD 30 ML DOSE PO SCH ×2 (08:25→20:53)
[2019-08-31] MEDS: INSULIN LISPRO 100 UNIT/1 ML SQ SCH ×3 (08:56→16:59)
[2019-08-31] MEDS: INSULIN GLARGINE 100 UNITS/ML SQ SCH ×2 (08:56→16:59)
[2019-08-31] MEDS: ACETAMINOPHEN 500 MG TAB PO PRN (12:11)
--- NOTE | 2019-08-31 15:05 | FAST ---
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 Mode Gonzáles M.D. ADMISSION DIAGNOSIS: - Orthopaedic Disorders 08 - Unilateral Hip Fracture (08.11) Left Femoral Neck Fracture. EATING: EATING - STEP 1: Does the patient complete the activity by him/herself with no assistance (physical, verbal/nonverbal cueing, setup/clean-up)? No. EATING - STEP 2: Does the patient need only setup/clean-up assistance from one helper? Yes. 1. [id number] ADMISSION PERFORMANCE: Setup or clean-up assistance CODE: 05 ORAL HYGIENE: ORAL HYGIENE - STEP 1: Does the patient complete the activity by him/herself with no assistance (physical, verbal/nonverbal cueing, setup/clean-up)? No. ORAL HYGIENE - STEP 2: Does the patient need only setup/clean-up assistance from one helper? No. ORAL HYGIENE - STEP 3: Does the patient need only verbal/nonverbal cueing or touching/steadying/contact guard assistance fro m one helper? Yes. 1. [id number] ADMISSION PERFORMANCE: Supervision or touching assistance CODE: 04 TOILETING HYGIENE: TOILETING HYGIENE - STEP 1: Does the patient complete the activity by him/herself with no assistance (physical, verbal/nonverbal cueing, setup/clean-up)? No. TOILETING HYGIENE - STEP 2: Does the patient need only setup/clean-up assistance from one helper? No. TOILETING HYGIENE - STEP 3: Does the patient need only verbal/nonverbal cueing or touching/steadying/contact guard assistance fro m one helper? Yes. 1. [id number] ADMISSION PERFORMANCE: Supervision or touching assistance CODE: 04 BATHING: Not assessed/no information CODE: - DRESSING - UPPER BODY: DRESSING - UPPER BODY - STEP 1: Does the patient complete the activity by him/herself with no assistance (physical, verbal/nonverbal cueing, setup/clean-up)? No. DRESSING - UPPER BODY - STEP 2: Does the patient need only setup/clean-up assistance from one helper? No. DRESSING - UPPER BODY - STEP 3: Does the patient need only verbal/nonverbal cueing or touching/steadying/contact guard assistance fro m one helper? No. DRESSING - UPPER BODY - STEP 4: Does the patient need physical assistance - for example lifting or trunk support from one helper - wi th the helper providing less than half of the effort? No. DRESSING - UPPER BODY - STEP 5: Does the patient need physical assistance - for example lifting or trunk support from one helper - wi th the helper providing more than half of the effort? Yes. 1. [id number] ADMISSION PERFORMANCE: Substantial/maximal assistance CODE: 02 DRESSING - LOWER BODY: DRESSING - LOWER BODY - STEP 1: Does the patient complete the activity by him/herself with no assistance (physical, verbal/nonverbal cueing, setup/clean-up)? No. DRESSING - LOWER BODY - STEP 2: Does the patient need only setup/clean-up assistance from one helper? No. DRESSING - LOWER BODY - STEP 3: Does the patient need only verbal/nonverbal cueing or touching/steadying/contact guard assistance fro m one helper? No. DRESSING - LOWER BODY - STEP 4: Does the patient need physical assistance - for example lifting or trunk support from one helper - wi th the helper providing less than half of the effort? No. DRESSING - LOWER BODY - STEP 5: Does the patient need physical assistance - for example lifting or trunk support from one helper - wi th the helper providing more than half of the effort? Yes. 1. [id number] ADMISSION PERFORMANCE: Substantial/maximal assistance CODE: 02 PUTTING ON/TAKING OFF FOOTWEAR: FOOTWEAR - STEP 1: Does the patient complete the activity by him/herself with no assistance (physical, verbal/nonverbal cueing, setup/clean-up)? No. FOOTWEAR - STEP 2: Does the patient need only setup/clean-up assistance from one helper? No. FOOTWEAR - STEP 3: Does the patient need only verbal/nonverbal cueing or touching/steadying/contact guard assistance fro m one helper? No. FOOTWEAR - STEP 4: Does the patient need physical assistance - for example lifting or trunk support from one helper - wi th the helper providing less than half of the effort? No. FOOTWEAR - STEP 5: Does the patient need physical assistance - for example lifting or trunk support from one helper - wi th the helper providing more than half of the effort? Yes. 1. [id number] ADMISSION PERFORMANCE: Substantial/maximal assistance CODE: 02 ROLL LEFT AND RIGHT: ROLL LEFT AND RIGHT - STEP 1: Does the patient complete the activity by him/herself with no assistance (physical, verbal/nonverbal cueing, setup/clean-up)? No. ROLL LEFT AND RIGHT - STEP 2: Does the patient need only setup/clean-up assistance from one helper? No. ROLL LEFT AND RIGHT - STEP 3: Does the patient need only verbal/nonverbal cueing or touching/steadying/contact guard assistance fro m one helper? No. ROLL LEFT AND RIGHT - STEP 4: Does the patient need physical assistance - for example lifting or trunk support from one helper - wi th the helper providing less than half of the effort? No. ROLL LEFT AND RIGHT - STEP 5: Does the patient need physical assistance - for example lifting or trunk support from one helper - wi th the helper providing more than half of the effort? Yes. 1. [id number] ADMISSION PERFORMANCE: Substantial/maximal assistance CODE: 02 SIT TO LYING: SIT TO LYING - STEP 1: Does the patient complete the activity by him/herself with no assistance (physical, verbal/nonverbal cueing, setup/clean-up)? No. SIT TO LYING - STEP 2: Does the patient need only setup/clean-up assistance from one helper? No. SIT TO LYING - STEP 3: Does the patient need only verbal/nonverbal cueing or touching/steadying/contact guard assistance fro m one helper? Yes. 1. [id number] ADMISSION PERFORMANCE: Supervision or touching assistance CODE: 04 LYING TO SITTING: LYING TO SITTING ON SIDE OF BED - STEP 1: Does the patient complete the activity by him/herself with no assistance (physical, verbal/nonverbal cueing, setup/clean-up)? No. LYING TO SITTING ON SIDE OF BED - STEP 2: Does the patient need only setup/clean-up assistance from one helper? No. LYING TO SITTING ON SIDE OF BED - STEP 3: Does the patient need only verbal/nonverbal cueing or touching/steadying/contact guard assistance fro m one helper? No. LYING TO SITTING ON SIDE OF BED - STEP 4: Does the patient need physical assistance - for example lifting or trunk support from one helper - wi th the helper providing less than half of the effort? No. LYING TO SITTING ON SIDE OF BED - STEP 5: Does the patient need physical assistance - for example lifting or trunk support from one helper - wi th the helper providing more than half of the effort? Yes. 1. [id number] ADMISSION PERFORMANCE: Substantial/maximal assistance CODE: 02 SIT TO STAND: SIT TO STAND - STEP 1: Does the patient complete the activity by him/herself with no assistance (physical, verbal/nonverbal cueing, setup/clean-up)? No. SIT TO STAND - STEP 2: Does the patient need only setup/clean-up assistance from one helper? No. SIT TO STAND - STEP 3: Does the patient need only verbal/nonverbal cueing or touching/steadying/contact guard assistance fro m one helper? Yes. 1. [id number] ADMISSION PERFORMANCE: Supervision or touching assistance CODE: 04 TRANSFERS: BED, CHAIR: CHAIR/[id number] TRANSFER - STEP 1: Does the patient complete the activity by him/herself with no assistance (physical, verbal/nonverbal cueing, setup/clean-up)? No. CHAIR/[id number] TRANSFER - STEP 2: Does the patient need only setup/clean-up assistance from one helper? No. CHAIR/[id number] TRANSFER - STEP 3: Does the patient need only verbal/nonverbal cueing or touching/steadying/contact guard assistance fro m one helper? Yes. 1. [id number] ADMISSION PERFORMANCE: Supervision or touching assistance CODE: 04 TRANSFER TOILET: TOILET TRANSFER - STEP 1: Does the patient complete the activity by him/herself with no assistance (physical, verbal/nonverbal cueing, setup/clean-up)? No. TOILET TRANSFER - STEP 2: Does the patient need only setup/clean-up assistance from one helper? No. TOILET TRANSFER - STEP 3: Does the patient need only verbal/nonverbal cueing or touching/steadying/contact guard assistance fro m one helper? Yes. 1. [id number] ADMISSION PERFORMANCE: Supervision or touching assistance CODE: 04 TRANSFERS: CAR: Not assessed/no information CODE: - WALK 10 FEET: Not assessed/no information CODE: - 1 STEP (CURB): Not assessed/no information CODE: - PICKING UP OBJECT: Not assessed/no information CODE: - DOES THE PATIENT USE A WHEELCHAIR/SCOOTER? Q1. DOES THE PATIENT USE A WHEELCHAIR/SCOOTER?: Yes CODE: 1 WHEEL 50 FEET WITH TWO TURNS: Not assessed/no information 1. [id number] ADMISSION PERFORMANCE: Supervision or touching assistance CODE: 04 INDICATE THE TYPE OF WHEELCHAIR/SCOOTER USED: RR1. INDICATE THE TYPE OF WHEELCHAIR/SCOOTER USED.: Manual CODE: 1 WHEEL 150 FEET: Not assessed/no information CODE: - INDICATE THE TYPE OF WHEELCHAIR/SCOOTER USED: SS1. INDICATE THE TYPE OF WHEELCHAIR/SCOOTER USED.: Manual CODE: 1 BLADDER AND BOWEL: H350. BLADDER CONTINENCE (3-DAY ASSESSMENT PERIOD): Always continent (no documented incontinence) CODE: 0 H400. BOWEL CONTINENCE (3-DAY ASSESSMENT PERIOD): Always continent CODE: 0 SIGNATURE PANEL: The following modified sections: 1. [id number] Admission Performance, 1. [id number] Admission Performance, 1. [id number] Admission Performance, 1. [id number] Admission Performance, 1. [id number] Admission Performance, 1. [id number] Admission Performance, 1. [id number] Admission Performance, 1. [id number] Admission Performance , 1. [id number] Admission Performance, 1. [id number] Admission Performance, 1. [id number] Admission Performanc e, 1. [id number] Admission Performance, 1. [id number] Admission Performance, 1. [id number] Admission Performan ce, 1. [id number] Admission Performance, Q1. Does the patient use a wheelchair/scooter?, RR1. Indicate t he type of wheelchair/scooter used., 1. [id number] Admission Performance, Code, SS1. Indicate the type o f wheelchair/scooter used., H350. Bladder Continence (3-day assessment period), H400. Bowel Continenc e (3-day assessment period) were [electronically] signed by Carlos A QuevedoNAv on WedAug 31 2019 5:03:52 GMT-0600 (Central Standard Time)
--- NOTE | 2019-08-31 16:25 | P.PN ---
Subjective Date of Service: 08/30/19 Chief Complaint: s/p left hip hemiarthroplasty Subjective: Improving, Working w/ PT pain controlled; more alert; transferring better Physical Examination - Vital Signs Temperature: 96.8 F Blood Pressure: 132/63 Pulse: 61 Respirations: 18 Pulse Ox (%): 95 - Physical Exam General: Alert, In no apparent distress Musculoskeletal: Other (LLE: mild sanguinous drainage over mid to inferior aspect of incision; no erythema; +swelling of left thigh; NVI distally) - Studies Laboratory Data (last 24 hrs) 08/31/19 05:59: Sodium 137, Potassium 4.2, BUN 15, Creatinine 0.78, Glucose 136 H, Magnesium 1.9 08/31/19 05:59: WBC 4.2 L D, Hgb 8.4 L, Hct 25.7 L, Plt Count 202 08/31/19 05:59: PT 22.0 H, INR 1.91 Assessment And Plan - Plan Dalton is an 88 yo male s/p left hemiarthroplasty POD #16 -patient with sanguionous drainage likely secondary to postop hematoma from therapeutic lovenox and Coumadin use -continue with clindamycin for a total of 1 week of treatment given continued drainage and increased risk of infection with patient scratching at incision early postoperatively with confusion -continue PT; WBAT LLE with posterior hip precautions
[2019-08-31] MEDS: WARFARIN SODIUM 5 MG TAB PO SCH (16:58)
--- NOTE | 2019-08-31 18:10 | P.PN ---
Subjective Date of Service: 08/31/19 Chief Complaint: s/p left hip hemiarthroplasty Subjective: Improving pt seen and examined. case discussed w Dr. Roberson Review of Systems 10-point ROS is otherwise unremarkable Musculoskeletal: As per HPI Physical Examination - Vital Signs Temperature: 96.8 F Blood Pressure: 128/68 Pulse: 68 Respirations: 18 Pulse Ox (%): 95 - Physical Exam General: Alert, In no apparent distress, Oriented x3, Obese HEENT: Atraumatic, PERRLA, EOMI Neck: Supple Respiratory: Clear to auscultation bilaterally, Normal air movement Cardiovascular: Normal S1 S2, Irregular heart rate/rhythm Gastrointestinal: Normal bowel sounds, Soft and benign, Non-distended, No tenderness Musculoskeletal: No tenderness, Other (left hip incision site show mild swelling. clean, intact. ) Integumentary: No rashes Neurological: Normal speech, Normal tone, Normal affect - Studies Laboratory Data (last 24 hrs) 08/31/19 05:59: Sodium 137, Potassium 4.2, BUN 15, Creatinine 0.78, Glucose 136 H, Magnesium 1.9 08/31/19 05:59: WBC 4.2 L D, Hgb 8.4 L, Hct 25.7 L, Plt Count 202 08/31/19 05:59: PT 22.0 H, INR 1.91 Medications List Reviewed: Yes Assessment And Plan - Plan A/P 1. Left hip femoral neck fracture, nondisplaced. Initial encounter status post open reduction and internal fixation, improving. Continue with PT. 2. Atrial fibrillation with controlled ventricular rate. Continue with Coumadin. INR is slightly below therapeutic range. Increase back to home dose of 13mg 3. Hematoma, left hip as the patient was on therapeutic Lovenox and Coumadin for the atrial fibrillation as his INR was subtherapeutic, improving. Minimal drainage from the bandage. Continue with clindamycin to prevent any postoperative infection. Patient has manipulated the wound several times. 4. Delirium, resolved. 5. BPH. Flomax. 6. Mixed hyperlipidemia. Continue statin. 7. Diabetes mellitus type 2, insulin requiring with hypoglycemia. Blood glucose 166. May need to adjust insulin dose. 8. Pulmonary edema, improved. 9. 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 10. Peripheral vascular disease, stable. 11. Deep vein thrombosis prophylaxis addressed. Patient is on Coumadin.
--- NOTE | 2019-08-31 18:13 | R.PN ---
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 Pt denied any Shortness of Breath. Mr. Walden is making slow overall progress with therapy. He is moderately limited by poor cognition. His blood work is stable. Propelled wheelchair 25' with maximum assistance. He completed a simple maze with 75% accuracy. ADLs performed with maximum assistance. Cognitive tasks performed with minimum to moderate assistance. Ambulated 225' with contact guard to minimum assistance using a rolling walker. WBC 4.2, Hgb 8.4. INR is 1.91. He is on hemocyte plus and ferrous sulfate and followed by the renal s shiela. VITAL SIGNS SBP/DBP: 128/68 Temperature: 97.3 F Pulse: 68 Resp: 16 O2 sat: 95 on room air MEDICATION ALLERGIES: Amoxicillin ENVIRONMENTAL ALLERGIES: None Known - Substance Allergies None Known - Other Allergies None Known NURSING: - Shower allowing shower - Lab Results blood Sugar Check ACHS - Skin care per protocol PRECAUTIONS: - Posterior Hip Precaution No adduction across midline No external rotation No hip flexion >90 degrees No internal rotation No wheel chair propulsion - Weight Bearing Precaution WBAT left LE ACTIVITIES OOB only with supervision THERAPIES: - Dietary and Nutrition Adequate Nutrition. Nutritional Education. Nutritional Supplements. PHYSICAL EXAM - Gen Alert and awake Lying in bed No apparent distress Oriented to: person, time, and place - Skin No breakdown No numbness - Eyes No abnormalities - ENMT No abnormalities - Neck No abnormalities - CVS RRR - Chest No abnormalities - Resp Clear to auscultation - Abd + bowel sounds - GI Non distended Deferred - No abnormalities - Ext Left hip surgical site has good hemostasis. - MSK 4+/5 weakness in left lower extremity. - Neuro 4/5 strength left lower extremity. - Psych No abnormalities ASSESSMENT: Pt. is a 88 yo Right-handed white male.On 08/11/2019 he was admitted to [facility] with diagnosis Left Femoral Neck Fracture.His impairment category is Orthopaedic Disorders 08 - Unilateral Hip Fracture (08.11).Pre-morbidly, Pt. was independent/mod-I in Locomotion, Safety Awarene ss, Balance, Social Cognition, Transfers Control, Sphincter Control, Self-Care, Communication, and En durance; and he had good Locomotion, Balance, Transfers Control, Self-Care, and Endurance.Currently, he has deficits of Locomotion, Safety Awareness, Balance, Social Cognition, Transfers Control, Self-C are, and Endurance.Pt. is now referred to [facility] for acute in-patient reha bilitation in order to maximize patient's functional independence in activities of daily living, stre ngth, ROM, and mobility.- Rehab Goal Patient has realistic goal of being discharged at assistance level 6-Andrae to reside at Home with Att endant. MDM/PLAN: - Physical Therapy Decreased range of motion - to improve, our physical therapists will perform initial evaluation of p t's status upon admission and devise an individualized program for increasing patient's Range of Buddy on. Gait dysfunction - to improve, our physical therapists will perform initial evaluation of pt's statu s upon admission and devise an individualized program for Gait Training, and Wheel Chair mobility Inability to transfer - to improve, our physical therapists will perform initial evaluation of pt's status upon admission and devise an individualized program for Bed mobility Need for home safety evaluation - to improve, our physical therapists will perform initial evaluatio n of pt's status upon admission and devise an individualized program for Home Evaluation Need in caregiver upon discharge - to improve, our physical therapists will perform initial evaluati on of pt's status upon admission and devise an individualized program for Caregiver Training New precaution - to improve, our physical therapists will perform initial evaluation of pt's status upon admission and devise an individualized program for Patient precaution education Poor balance - to improve, our physical therapists will perform initial evaluation of pt's status up on admission and devise an individualized program for Balance Training Poor endurance - to improve, our physical therapists will perform initial evaluation of pt's status upon admission and devise an individualized program for Endurance Training Weakness - to improve, our physical therapists will perform initial evaluation of pt's status upon a dmission and devise an individualized program for Aquatic Therapy, Neuromuscular Reeducation, and Str engthening Achieving independence - to improve, our physical therapists will perform initial evaluation of pt's status upon admission and devise an individualized program for Community Reintegration Activities - Occupational Therapy ADL deficits - to improve, our occupation therapists will perform initial evaluation of pt's status upon admission and devise an individualized program for Bathing, Bed mobility, Community Reintegratio n, Cooking, Dressing, Eating, Fine Motor Skills, Grooming, Homemaking, Kitchen Mobility, Laundry, Pat ient Education, Safety Awareness, Splinting - Positioning, Transfers(Toilet, Tub, Shower), and Wheel Chair Management Cognitive deficits - to improve, our occupation therapists will perform initial evaluation of pt's s tatus upon admission and devise an individualized program for Cognition - orientation Need for customer care representative - to improve, our occupation therapists will perform initial evaluation of pt's status upon admission and devise an individualized program for Caregiver Training Weakness - to improve, our occupation therapists will perform initial evaluation of pt's status upon admission and devise an individualized program for Aquatic Therapy, Balance, Endurance, UE ROM, and UE strengthening - Other See attached MAR (Medication Administration Record) - Anterior Hip Precaution No abduction No active extension No adduction across midline No external rotation No hip flexion >90 degrees No internal rotation - Diet - Liquid Texture Continue Regular - Tube Feed Continue N/A - Diet Type Continue Regular - Posterior Hip Precaution No adduction across midline No external rotation No hip flexion >90 degrees No internal rotation No wheel chair propulsion - Lab Results blood Sugar Check ACHS - Weight Bearing Precaution WBAT left LE - Skin care per protocol - Diet - Solid Texture Continue Regular - Shower allowing shower FUNCTIONAL STATUS: UPDATED AT WEEKLY TEAM CONFERENCE - Bladder Same accident frequency: 7-Ind - No accidents in the past 7 days - Bowel Same accident frequency: 7-Ind - No accidents in the past 7 days - Walking Same score based on distance walked: 0(N/A) - Wheelchair Same score based on distance traveled: 0(N/A) FUNCTIONAL STATUS: - Self-Care A. Eating sup B. Grooming sup C. Bathing modA D. Dressing - Upper Raoul E. Dressing - Lower modA F. Toileting modA - Sphincter Control G. Bladder control sup H. Bowel control sup - Transfers Control I. Bed/Chair/Wheelchair maxA J. Toilet maxA K. Tub/Shower maxA - Locomotion L. Walk/Wheelchair (B) maxA M. Stairs ADNO - Communication N. Comprehension (B) modA O. Expression (B) modA - Social Cognition P. Social Interaction Raoul Q. Problem Solving modA R. Memory maxA - Endurance Fair - Balance Poor - Safety Awareness Poor QI SCORES: - Self-Care A. Eating 05-Setup or clean-up assistance B. Oral hygiene 05-Setup or clean-up assistance C. Toileting hygiene 03-Partial/moderate assistance E. Shower/bathe self 03-Partial/moderate assistance F. Upper body dressing 03-Partial/moderate assistance G. Lower body dressing 01-Dependent H. Putting on/taking off footwear 01-Dependent - Mobility A. Roll left and right 03-Partial/moderate assistance B. Sit to lying 02-Substantial/maximal assistance C. Lying to sitting on side of bed 02-Substantial/maximal assistance D. Sit to stand 01-Dependent E. Chair/[id number] transfer 01-Dependent F. Toilet transfer 01-Dependent G. Car transfer 88-Not attempted due to medical condition or safety concerns I. Walk 10 feet 88-Not attempted due to medical condition or safety concerns J. Walk 50 feet with two turns 88-Not attempted due to medical condition or safety concerns K. Walk 150 feet 88-Not attempted due to medical condition or safety concerns L. Walking 10 feet on uneven surfaces 88-Not attempted due to medical condition or safety concerns M. 1 step (curb) 88-Not attempted due to medical condition or safety concerns N. 4 steps 88-Not attempted due to medical condition or safety concerns O. 12 steps 88-Not attempted due to medical condition or safety concerns P. Picking up object 88-Not attempted due to medical condition or safety concerns R. Wheel 50 feet with two turns 88-Not attempted due to medical condition or safety concerns S. Wheel 150 feet 88-Not attempted due to medical condition or safety concerns - Bladder and Bowel Bladder continence 3-Incontinent daily Bowel continence 0-Always continent - Endurance Poor - Balance Fair - Safety Awareness Fair CURRENT FUNC. 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
[2019-08-31] MEDS ORDERED: CLINDAMYCIN INJ 600 MG in NA CHLORIDE 0.9% 50 ML IV ONE (19:00)
--- NOTE | 2019-08-31 20:39 | P.PN ---
Date of Service: 08/31/19 Vital Signs Temp Pulse Resp BP Pulse Ox 96.8 F 68 18 128/68 95 08/31/19 18:10 08/31/19 18:10 08/31/19 18:10 08/31/19 18:10 08/31/19 18:10 Medications Acetaminophen (Tylenol -Extra Strength) 500 mg PO Q4HP PRN PRN Reason: Pain scale 2-4 (Mild) Stop: 09/10/19 08:26 Last Admin: 08/31/19 12:11 Dose: 500 mg Hydrocodone Bitart/Acetaminophen ([place] 5/325) 1 tab PO Q12H PRN PRN Reason: Pain scale 5-7 (Moderate) Stop: 09/20/19 14:05 Last Admin: 08/30/19 22:27 Dose: 1 tab Atorvastatin Calcium (Lipitor) 10 mg PO BEDTIME [facility] Stop: 09/10/19 21:01 Last Admin: 08/30/19 20:38 Dose: 10 mg Bisacodyl (Dulcolax) 10 mg UT DAILY PRN PRN Reason: CONSTIPATION Stop: 09/18/19 14:13 Last Admin: 08/19/19 16:41 Dose: 10 mg Bumetanide (Bumex) 1 mg PO DAILY [facility] Stop: 09/24/19 08:01 Last Admin: 08/31/19 08:21 Dose: 1 mg Carvedilol (Coreg) 3.125 mg PO BID 6AM 6PM [facility] Stop: 09/10/19 18:01 Last Admin: 08/31/19 16:58 Dose: 3.125 mg Dextrose (Dextrose 50% Syringe/Vial) 12.5 gm IV PRN PRN; Protocol PRN Reason: HYPOGLYCEMIA Stop: 09/15/19 15:48 Diphenhydramine HCl (Benadryl Tab/Cap) 25 mg PO BEDTIME PRN PRN Reason: INSOMNIA Stop: 09/16/19 19:29 Last Admin: 08/29/19 18:52 Dose: 25 mg Docusate Sodium (Colace Cap) 100 mg PO BID [facility] Stop: 09/16/19 20:01 Last Admin: 08/31/19 08:23 Dose: 100 mg Famotidine (Pepcid) 20 mg PO BID [facility]; Protocol Stop: 09/15/19 20:01 Last Admin: 08/31/19 08:20 Dose: 20 mg Ferrous Sulfate (Feosol) 325 mg PO DAILY [facility] Stop: 09/17/19 08:01 Last Admin: 08/31/19 08:23 Dose: 325 mg Finasteride (Proscar) 5 mg PO BEDTIME [facility] Stop: 09/10/19 21:01 Last Admin: 08/30/19 20:38 Dose: 5 mg Gabapentin (Neurontin) 600 mg PO TID [facility] Stop: 09/10/19 09:01 Last Admin: 08/31/19 15:01 Dose: 600 mg Glucagon (Glucagen) 1 mg IM 1X PRN; Protocol PRN Reason: HYPOGLYCEMIA Stop: 09/15/19 15:48 Guaifenesin (Robitussin 100mg/5ml) 200 mg PO QID PRN PRN Reason: COUGH Stop: 09/21/19 14:44 Last Admin: 08/30/19 21:06 Dose: 200 mg Sodium Chloride (Sodium Chloride) 250 mls @ 0 mls/hr IV .Q0M [facility] Stop: 09/21/19 10:01 Last Admin: 08/22/19 09:50 Dose: 250 mls Sodium Chloride (Sodium Chloride) 250 mls @ 0 mls/hr IV .Q0M [facility] Stop: 09/21/19 19:01 Last Admin: 08/22/19 22:08 Dose: 50 mls Clindamycin Phosphate 600 mg/ (Sodium Chloride) 54 mls @ 100 mls/hr IV 1X ONE; Protocol Stop: 09/01/19 01:32 Clindamycin Phosphate 600 mg/ (Sodium Chloride) 54 mls @ 100 mls/hr IV 1X ONE; Protocol Stop: 09/01/19 01:32 Insulin Glargine (Lantus) 30 units SQ BREAKFAST [facility] Stop: 09/29/19 08:01 Last Admin: 08/31/19 08:56 Dose: 30 units Insulin Glargine (Lantus) 25 units SQ DAILY AT SUPPER [facility] Stop: 09/28/19 17:01 Last Admin: 08/31/19 16:59 Dose: 25 units Insulin Human Lispro (Humalog) 5 unit SQ TIDWM [facility] Stop: 09/17/19 12:01 Last Admin: 08/31/19 16:59 Dose: 5 unit Insulin Human Regular (Novolin -R) 0 unit SQ ACHS [facility]; Protocol Stop: 09/10/19 08:26 Last Admin: 08/31/19 16:19 Dose: Not Given Lactulose (Cephulac) 10 gm PO BIDP PRN PRN Reason: CONSTIPATION Stop: 09/10/19 12:54 Last Admin: 08/19/19 19:20 Dose: 10 gm Lidocaine (Aspercreme 4% Patch) 1 patch TOP DAILY [facility] Stop: 09/16/19 15:01 Last Admin: 08/31/19 08:20 Dose: 1 patch Melatonin (Melatonin) 3 mg PO BEDTIME PRN PRN PRN Reason: INSOMNIA Stop: 09/16/19 19:30 Last Admin: 08/30/19 23:55 Dose: 3 mg Metformin HCl (Glucophage) 1,000 mg PO BIDWM [facility] Stop: 09/11/19 17:01 Last Admin: 08/31/19 16:58 Dose: 1,000 mg Multivitamins/Iron (Hemocyte Plus) 1 tab PO DAILY WITH BREAKFAST [facility] Stop: 09/17/19 08:01 Last Admin: 08/31/19 08:21 Dose: 1 tab Nutritional Formula (Promod Liquid Protein) 30 ml PO BID [facility] Stop: 09/16/19 20:01 Last Admin: 08/31/19 08:25 Dose: 30 ml Ondansetron HCl (Zofran) 4 mg PO Q6H PRN PRN Reason: NAUSEA / VOMITING Stop: 09/15/19 15:59 Sodium Biphosphate/Sodium Phosphate (Fleet Enema Adult) 133 ml UT DAILY PRN PRN Reason: CONSTIPATION Stop: 09/18/19 14:14 Spironolactone (Aldactone) 50 mg PO DAILY [facility] Stop: 09/11/19 09:01 Last Admin: 08/31/19 08:22 Dose: 50 mg Tamsulosin HCl (Flomax) 0.4 mg PO DAILY [facility] Stop: 09/10/19 09:01 Last Admin: 08/31/19 08:20 Dose: 0.4 mg Tramadol HCl (Ultram) 50 mg PO TID [facility] Stop: 09/24/19 21:01 Last Admin: 08/31/19 15:00 Dose: 50 mg Warfarin Sodium (Coumadin) 10 mg PO DAILY 5 PM [facility] Stop: 09/15/19 17:01 Last Admin: 01/09/20 16:58 Dose: 10 mg Lab Results (last 24 hrs) 08/31/19 20:04: POC Glucose 105 08/31/19 16:17: POC Glucose 116 08/31/19 11:58: POC Glucose 109 08/31/19 06:25: POC Glucose 128 H 08/31/19 05:59: Sodium 137, Potassium 4.2, Chloride 102, Carbon Dioxide 31, BUN 15, Creatinine 0.78, Estimated GFR > 90, Glucose 136 H, Calcium 9.3, Magnesium 1.9, Albumin 2.5 L, Prealbumin 13.3 L 08/31/19 05:59: WBC 4.2 L D, RBC 2.96 L, Hgb 8.4 L, Hct 25.7 L, MCV 86.9, MCH 28.5, MCHC 32.8, RDW 15.8 H, Plt Count 202, MPV 6.9 L, Neutrophils % 54.9, Lymphocytes % 26.0, Monocytes % 12.2, Eosinophils % 5.6 H, Basophils % 1.3, Absolute Neutrophils 2.3, Absolute Lymphocytes 1.1, Absolute Monocytes 0.5, Absolute Eosinophils 0.2, Absolute Basophils 0.1 08/31/19 05:59: PT 22.0 H, INR 1.91 Microbiology Results 08/17/19 01:20 Clean Catch Urine [place] Count - Final <10,000 CFU/ML. 08/17/19 01:20 Clean Catch Urine - Final MIXED ARIEL. Assessment/ Plan: Nephrology CPS stable without CP or SOB. No acute events overnight. Vitals, medications, blood work and imaging reviewed in the chart. NAD. MMM. Neck supple. CTA. RRR. Soft Abd. No C/C/E. No rash. AAO. Normal Speech. Left hip wound. A/ Hyponatremia. HTN Diastolic CHF, chronic. Edema DM II PAD Anemia in chronic illness. Moderate malnutrition. Dementia. Left hip fracture. P/ Continue current POC and Medications. Continue diuretic therapy. Aggressive PT as tolerated. Wound care as ordered. Low sodium diet. AM labs. Daily weight. No NSAIDs.
[2019-08-31] MEDS: ATORVASTATIN 10 MG TAB PO SCH (20:52)
[2019-08-31] MEDS: DIPHENHYDRAMINE 25 MG TAB/CAP PO PRN (20:52)
[2019-08-31] MEDS: FINASTERIDE 5 MG TAB PO SCH (20:52)
[2019-08-31] MEDS: HYDROCODONE/APAP 5/325 MG TAB PO PRN (23:50)
[2019-08-31] MEDS: MELATONIN 3 MG TABLET PO PRN (23:50)
[2019-09-01] MEDS ORDERED: CLINDAMYCIN INJ 600 MG in NA CHLORIDE 0.9% 50 ML IV ONE ×4 (01:00)
[2019-09-01] MEDS: carvediloL 3.125 MG TAB PO SCH ×2 (05:22→17:34)
[2019-09-01 06:32] LABS: Protime INR 2.15
[2019-09-01] MEDS: TRAMADOL HCL 50 MG TAB PO SCH ×3 (06:57→20:51)
[2019-09-01] MEDS: INSULIN -REGULAR HUMAN 50 UNIT/0.5 ML ML SQ SCH ×4 (07:07→20:50)
[2019-09-01] MEDS: CLINDAMYCIN INJ 600 MG in NA CHLORIDE 0.9% 50 ML IV SCH ×2 (07:51→16:58)
[2019-09-01] MEDS: GABAPENTIN 300 MG CAP PO SCH ×3 (08:38→20:49)
[2019-09-01] MEDS: BUMETANIDE 1 MG TABLET PO SCH (08:38)
[2019-09-01] MEDS: SPIRONOLACTONE 25 MG TABLET PO SCH (08:38)
[2019-09-01] MEDS: METFORMIN HCL 500 MG TAB PO SCH ×2 (08:38→16:58)
[2019-09-01] MEDS: FAMOTIDINE 20 MG TAB PO SCH ×2 (08:39→19:28)
[2019-09-01] MEDS: PROMOD 30 ML DOSE PO SCH ×2 (08:39→19:28)
[2019-09-01] MEDS: TAMSULOSIN 0.4 MG SR CAP PO SCH (08:39)
[2019-09-01] MEDS: FE SULF/FA/VIT B COMP & C TAB PO SCH (08:39)
[2019-09-01] MEDS: DOCUSATE NA 100 MG CAP PO SCH ×2 (08:39→19:28)
[2019-09-01] MEDS: FERROUS SULFATE 325 MG TAB PO SCH (08:39)
[2019-09-01] MEDS: INSULIN GLARGINE 100 UNITS/ML SQ SCH ×2 (08:40→16:40)
[2019-09-01] MEDS: INSULIN LISPRO 100 UNIT/1 ML SQ SCH ×3 (08:40→16:39)
[2019-09-01] MEDS: ACETAMINOPHEN 500 MG TAB PO PRN (09:07)
--- NOTE | 2019-09-01 09:46 | P.RH.PN ---
Estimated Length of Stay: 24 Expected Discharge Date: 09/08/19 Discharge Disposition Plan: Home Family Support: Yes Correction Goal: Mobility, Transfers, Self Care Vital Signs: Last Vital Signs Temp 97.3 F 09/01/19 08:00 Pulse 67 09/01/19 08:38 Resp 16 09/01/19 08:00 BP 132/59 L 09/01/19 08:38 Pulse Ox 93 09/01/19 08:00 Laboratory: Laboratory Last Values WBC 4.2 K/uL (4.3-10.9) L D 08/31/19 05:59 RBC 2.96 M/uL (4.33-5.43) L 08/31/19 05:59 Hgb 8.4 g/dL (13.6-17.9) L 08/31/19 05:59 Hct 25.7 % (39.6-49.0) L 08/31/19 05:59 MCV 86.9 fL (80-100) 08/31/19 05:59 MCH 28.5 pg (27.0-35.0) 08/31/19 05:59 MCHC 32.8 g/dL (32.0-36.0) 08/31/19 05:59 RDW 15.8 % (12.1-15.2) H 08/31/19 05:59 Plt Count 202 K/uL (152-406) 08/31/19 05:59 MPV 6.9 fL (7.6-11.3) L 08/31/19 05:59 Neutrophils % 54.9 % (41.7-73.7) 08/31/19 05:59 Lymphocytes % 26.0 % (15.3-44.8) 08/31/19 05:59 Monocytes % 12.2 % (3.3-12.3) 08/31/19 05:59 Eosinophils % 5.6 % (0-4.4) H 08/31/19 05:59 Basophils % 1.3 % (0-1.3) 08/31/19 05:59 Absolute Neutrophils 2.3 K/uL (1.8-8.0) 08/31/19 05:59 Absolute Lymphocytes 1.1 K/uL (0.7-4.9) 08/31/19 05:59 Absolute Monocytes 0.5 K/uL (0.1-1.3) 08/31/19 05:59 Absolute Eosinophils 0.2 K/uL (0-0.5) 08/31/19 05:59 Absolute Basophils 0.1 K/uL (0-0.5) 08/31/19 05:59 PT 24.6 SECONDS (9.5-12.5) H 09/01/19 06:00 INR 2.15 09/01/19 06:00 Sodium 137 mmol/L (136-145) 08/31/19 05:59 Potassium 4.2 mmol/L (3.5-5.1) 08/31/19 05:59 Chloride 102 mmol/L (98-107) 08/31/19 05:59 Carbon Dioxide 31 mmol/L (21-32) 08/31/19 05:59 BUN 15 mg/dL (7-18) 08/31/19 05:59 Creatinine 0.78 mg/dL (0.55-1.3) 08/31/19 05:59 Estimated GFR > 90 mL/min (=/>90) 08/31/19 05:59 Glucose 136 mg/dL (74-106) H 08/31/19 05:59 POC Glucose 106 mg/dl (65-120) 09/01/19 07:04 Calcium 9.3 mg/dL (8.5-10.1) 08/31/19 05:59 Magnesium 1.9 mg/dL (1.8-2.4) 08/31/19 05:59 Albumin 2.5 g/dL (3.4-5.0) L 08/31/19 05:59 Prealbumin 13.3 mg/dL (20-40) L 08/31/19 05:59 Urine Color Yellow 08/17/19 01:20 Urine Appearance Clear 08/17/19 01:20 Urine pH 5.5 (5.0-7.0) 08/17/19 01:20 Ur Specific [place] 1.020 (1.005-1.030) 08/17/19 01:20 Urine Ketones Negative (NEG) 08/17/19 01:20 Urine Blood Negative (NEG) 08/17/19 01:20 Urine Nitrite Negative (NEG) 08/17/19 01:20 Urine Bilirubin Negative (NEG) 08/17/19 01:20 Urine Urobilinogen 1.0 mg/dL (0.2-1.0) 08/17/19 01:20 Ur Leukocyte Esterase Negative (NEG) 08/17/19 01:20 Urine RBC <5 /HPF (NONE SEEN) 08/17/19 01:20 Urine WBC <5 /HPF (<5) 08/17/19 01:20 Ur Squamous Epith Cells <5 /HPF (NONE SEEN) 08/17/19 01:20 Urine Bacteria <20 /HPF (NONE SEEN) 08/17/19 01:20 Urine Culture Reflexed Not needed 08/17/19 01:20 Urine Glucose Negative (NEG) 08/17/19 01:20 Urine Total Protein Negative (NEG) 08/17/19 01:20 ABO/Rh O POSITIVE 08/22/19 07:41 Antibody Screen Negative 08/22/19 07:41 Crossmatch See Detail 08/22/19 07:41 Weight: 267 lb 3 oz Wound Present: Yes Closed Surgical Incision Present: Yes Negative Pressure Wound Therapy Present: No Physician Update: His labs were reviewed and are stable. He walked 70' at once contact guard. Transfers minimum to moderate assistance. His cognition is a moderate assistance baseline. He will go back to [facility] in a week. Medical Issues: Patient is incontinent daily with bladder and always continent with bowel Pain Issues: Patient is taking Tramadol 50mg TID PO, [place] 5/325mg Q12H PO and Tylenol 500mg Q4H PO PRN for pain Functional Improvement: Patient has met all short-term goals at this time and is progressing well toward long-term goals. Patient's mental clarity has improved a significant amount, enabling patient to follow commands appropriately. Speech Therapy Update: Pt presents with moderate-severe cognitive-linguistic impairments. Patient cont to exhibit reduced temporal orientation, but improved insight into the situation. He cannot retain simple, new information and even has difficulty with alf memory. He follows single step instruction given extra time and repeated instruction. Patient exhibited reduced safety awareness. He now requires a bed alarm after he was found in bed and apparently transferred there by himself. 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 Please see the Rehabilitation Signature page for all necessary signatures.
--- NOTE | 2019-09-01 10:04 | P.PN ---
Date of Service: 09/01/19 Vital Signs Temp Pulse Resp BP Pulse Ox 97.3 F 67 16 132/59 L 93 09/01/19 08:00 09/01/19 08:38 09/01/19 08:00 09/01/19 08:38 09/01/19 08:00 Medications Acetaminophen (Tylenol -Extra Strength) 500 mg PO Q4HP PRN PRN Reason: Pain scale 2-4 (Mild) Stop: 09/10/19 08:26 Last Admin: 09/01/19 09:07 Dose: 500 mg Hydrocodone Bitart/Acetaminophen ([place] 5/325) 1 tab PO Q12H PRN PRN Reason: Pain scale 5-7 (Moderate) Stop: 09/20/19 14:05 Last Admin: 08/31/19 23:50 Dose: 1 tab Atorvastatin Calcium (Lipitor) 10 mg PO BEDTIME [facility] Stop: 09/10/19 21:01 Last Admin: 08/31/19 20:52 Dose: 10 mg Bisacodyl (Dulcolax) 10 mg [place] DAILY PRN PRN Reason: CONSTIPATION Stop: 09/18/19 14:13 Last Admin: 08/19/19 16:41 Dose: 10 mg Bumetanide (Bumex) 1 mg PO DAILY [facility] Stop: 09/24/19 08:01 Last Admin: 09/01/19 08:38 Dose: 1 mg Carvedilol (Coreg) 3.125 mg PO BID 6AM 6PM [facility] Stop: 09/10/19 18:01 Last Admin: 09/01/19 05:22 Dose: 3.125 mg Dextrose (Dextrose 50% Syringe/Vial) 12.5 gm IV PRN PRN; Protocol PRN Reason: HYPOGLYCEMIA Stop: 09/15/19 15:48 Diphenhydramine HCl (Benadryl Tab/Cap) 25 mg PO BEDTIME PRN PRN Reason: INSOMNIA Stop: 09/16/19 19:29 Last Admin: 08/31/19 20:52 Dose: 25 mg Docusate Sodium (Colace Cap) 100 mg PO BID [facility] Stop: 09/16/19 20:01 Last Admin: 09/01/19 08:39 Dose: 100 mg Famotidine (Pepcid) 20 mg PO BID [facility]; Protocol Stop: 09/15/19 20:01 Last Admin: 09/01/19 08:39 Dose: 20 mg Ferrous Sulfate (Feosol) 325 mg PO DAILY [facility] Stop: 09/17/19 08:01 Last Admin: 09/01/19 08:39 Dose: 325 mg Finasteride (Proscar) 5 mg PO BEDTIME [facility] Stop: 09/10/19 21:01 Last Admin: 08/31/19 20:52 Dose: 5 mg Gabapentin (Neurontin) 600 mg PO TID [facility] Stop: 09/10/19 09:01 Last Admin: 09/01/19 08:38 Dose: 600 mg Glucagon (Glucagen) 1 mg IM 1X PRN; Protocol PRN Reason: HYPOGLYCEMIA Stop: 09/15/19 15:48 Guaifenesin (Robitussin 100mg/5ml) 200 mg PO QID PRN PRN Reason: COUGH Stop: 09/21/19 14:44 Last Admin: 08/30/19 21:06 Dose: 200 mg Clindamycin Phosphate 600 mg/ (Sodium Chloride) 54 mls @ 100 mls/hr IV Q8HR [facility] ; Protocol Stop: 10/01/19 09:01 Last Admin: 09/01/19 07:51 Dose: 54 mls Insulin Glargine (Lantus) 30 units SQ BREAKFAST [facility] Stop: 09/29/19 08:01 Last Admin: 09/01/19 08:40 Dose: 30 units Insulin Glargine (Lantus) 25 units SQ DAILY AT SUPPER [facility] Stop: 09/28/19 17:01 Last Admin: 08/31/19 16:59 Dose: 25 units Insulin Human Lispro (Humalog) 5 unit SQ TIDWM [facility] Stop: 09/17/19 12:01 Last Admin: 09/01/19 08:40 Dose: 5 unit Insulin Human Regular (Novolin -R) 0 unit SQ ACHS [facility]; Protocol Stop: 09/10/19 08:26 Last Admin: 09/01/19 07:07 Dose: Not Given Lactulose (Cephulac) 10 gm PO BIDP PRN PRN Reason: CONSTIPATION Stop: 09/10/19 12:54 Last Admin: 08/19/19 19:20 Dose: 10 gm Lidocaine (Aspercreme 4% Patch) 1 patch TOP DAILY [facility] Stop: 09/16/19 15:01 Last Admin: 08/31/19 08:20 Dose: 1 patch Melatonin (Melatonin) 3 mg PO BEDTIME PRN PRN PRN Reason: INSOMNIA Stop: 09/16/19 19:30 Last Admin: 08/31/19 23:50 Dose: 3 mg Metformin HCl (Glucophage) 1,000 mg PO BIDWM [facility] Stop: 09/11/19 17:01 Last Admin: 09/01/19 08:38 Dose: 1,000 mg Multivitamins/Iron (Hemocyte Plus) 1 tab PO DAILY WITH BREAKFAST [facility] Stop: 09/17/19 08:01 Last Admin: 09/01/19 08:39 Dose: 1 tab Nutritional Formula (Promod Liquid Protein) 30 ml PO BID [facility] Stop: 09/16/19 20:01 Last Admin: 09/01/19 08:39 Dose: 30 ml Ondansetron HCl (Zofran) 4 mg PO Q6H PRN PRN Reason: NAUSEA / VOMITING Stop: 09/15/19 15:59 Sodium Biphosphate/Sodium Phosphate (Fleet Enema Adult) 133 ml [place] DAILY PRN PRN Reason: CONSTIPATION Stop: 09/18/19 14:14 Spironolactone (Aldactone) 50 mg PO DAILY [facility] Stop: 09/11/19 09:01 Last Admin: 09/01/19 08:38 Dose: 50 mg Tamsulosin HCl (Flomax) 0.4 mg PO DAILY [facility] Stop: 09/10/19 09:01 Last Admin: 09/01/19 08:39 Dose: 0.4 mg Tramadol HCl (Ultram) 50 mg PO TID [facility] Stop: 09/24/19 21:01 Last Admin: 09/01/19 06:57 Dose: 50 mg Warfarin Sodium (Coumadin) 10 mg PO DAILY 5 PM [facility] Stop: 09/15/19 17:01 Last Admin: 08/31/19 16:58 Dose: 10 mg Lab Results (last 24 hrs) 09/01/19 07:04: POC Glucose 106 09/01/19 06:00: PT 24.6 H, INR 2.15 08/31/19 20:04: POC Glucose 105 08/31/19 16:17: POC Glucose 116 08/31/19 11:58: POC Glucose 109 Microbiology Results 08/17/19 01:20 Clean Catch Urine [place] Count - Final <10,000 CFU/ML. 08/17/19 01:20 Clean Catch Urine - Final MIXED [place]. Assessment/ Plan: Nephrology CPS stable without CP or SOB. No acute events overnight. Limited IH/ROS due to dementia. Vitals, medications, blood work and imaging reviewed in the chart. NAD. MMM. Neck supple. CTA. RRR. Soft Abd. No C/C/E. No rash. AA. Normal Speech. Left hip wound. A/ Hyponatremia. HTN Diastolic CHF, chronic. Edema DM II PAD Anemia in chronic illness. Moderate malnutrition. Dementia. Left hip fracture. P/ Continue current POC and Medications. Continue diuretic therapy. Aggressive PT as tolerated. Wound care as ordered. Low sodium diet. AM labs PRN. Daily weight. No NSAIDs.
--- NOTE | 2019-09-01 10:15 | P.PN ---
Subjective Date of Service: 09/01/19 Chief Complaint: s/p left hip hemiarthroplasty Subjective: Ambulating, Improving, Working w/ PT pain controlled; more alert Physical Examination - Vital Signs Temperature: 97.3 F Blood Pressure: 132/59 Pulse: 67 Respirations: 16 Pulse Ox (%): 93 - Physical Exam General: Alert, In no apparent distress Musculoskeletal: Other (LLE: incision healed with small areas of old sanguinous drainage; no erythema; + swelling of left hip; NVI distally) - Studies Laboratory Data (last 24 hrs) 09/01/19 06:00: PT 24.6 H, INR 2.15 Medications List Reviewed: Yes Assessment And Plan - Plan Dalton is an 88 yo male s/p left hemiarthroplasty POD #18 -patient with sanguionous drainage likely secondary to postop hematoma from therapeutic lovenox and Coumadin use -continue with clindamycin given continued drainage and increased risk of infection with patient scratching at incision early postoperatively with confusion -continue PT; WBAT LLE with posterior hip precautions -d/c jose alberto today
[2019-09-01] MEDS: LIDOCAINE 4% PATCH TOP SCH (11:30)
--- NOTE | 2019-09-01 16:03 | FAST ---
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 Mode Gonzáles M.D. ADMISSION DIAGNOSIS: - Orthopaedic Disorders 08 - Unilateral Hip Fracture (08.11) Left Femoral Neck Fracture. EATING: Not assessed/no information CODE: - ORAL HYGIENE: ORAL HYGIENE - STEP 1: Does the patient complete the activity by him/herself with no assistance (physical, verbal/nonverbal cueing, setup/clean-up)? No. ORAL HYGIENE - STEP 2: Does the patient need only setup/clean-up assistance from one helper? Yes. 1. [id number] ADMISSION PERFORMANCE: Setup or clean-up assistance CODE: 05 TOILETING HYGIENE: TOILETING HYGIENE - STEP 1: Does the patient complete the activity by him/herself with no assistance (physical, verbal/nonverbal cueing, setup/clean-up)? No. TOILETING HYGIENE - STEP 2: Does the patient need only setup/clean-up assistance from one helper? No. TOILETING HYGIENE - STEP 3: Does the patient need only verbal/nonverbal cueing or touching/steadying/contact guard assistance fro m one helper? Yes. 1. [id number] ADMISSION PERFORMANCE: Supervision or touching assistance CODE: 04 BATHING: SHOWER/BATHE SELF - STEP 1: Does the patient complete the activity by him/herself with no assistance (physical, verbal/nonverbal cueing, setup/clean-up)? No. SHOWER/BATHE SELF - STEP 2: Does the patient need only setup/clean-up assistance from one helper? No. SHOWER/BATHE SELF - STEP 3: Does the patient need only verbal/nonverbal cueing or touching/steadying/contact guard assistance fro m one helper? Yes. 1. [id number] ADMISSION PERFORMANCE: Supervision or touching assistance CODE: 04 DRESSING - UPPER BODY: DRESSING - UPPER BODY - STEP 1: Does the patient complete the activity by him/herself with no assistance (physical, verbal/nonverbal cueing, setup/clean-up)? No. DRESSING - UPPER BODY - STEP 2: Does the patient need only setup/clean-up assistance from one helper? Yes. 1. [id number] ADMISSION PERFORMANCE: Setup or clean-up assistance CODE: 05 DRESSING - LOWER BODY: DRESSING - LOWER BODY - STEP 1: Does the patient complete the activity by him/herself with no assistance (physical, verbal/nonverbal cueing, setup/clean-up)? No. DRESSING - LOWER BODY - STEP 2: Does the patient need only setup/clean-up assistance from one helper? No. DRESSING - LOWER BODY - STEP 3: Does the patient need only verbal/nonverbal cueing or touching/steadying/contact guard assistance fro m one helper? No. DRESSING - LOWER BODY - STEP 4: Does the patient need physical assistance - for example lifting or trunk support from one helper - wi th the helper providing less than half of the effort? Yes. 1. [id number] ADMISSION PERFORMANCE: Partial/moderate assistance CODE: 03 PUTTING ON/TAKING OFF FOOTWEAR: FOOTWEAR - STEP 1: Does the patient complete the activity by him/herself with no assistance (physical, verbal/nonverbal cueing, setup/clean-up)? No. FOOTWEAR - STEP 2: Does the patient need only setup/clean-up assistance from one helper? No. FOOTWEAR - STEP 3: Does the patient need only verbal/nonverbal cueing or touching/steadying/contact guard assistance fro m one helper? No. FOOTWEAR - STEP 4: Does the patient need physical assistance - for example lifting or trunk support from one helper - wi th the helper providing less than half of the effort? Yes. 1. [id number] ADMISSION PERFORMANCE: Partial/moderate assistance CODE: 03 DOES THE PATIENT USE A WHEELCHAIR/SCOOTER? CODE: EXPR INDICATE THE TYPE OF WHEELCHAIR/SCOOTER USED: CODE: EXPR INDICATE THE TYPE OF WHEELCHAIR/SCOOTER USED: CODE: EXPR BLADDER AND BOWEL: CODE: EXPR CODE: EXPR SIGNATURE PANEL: The following modified sections: 1. [id number] Admission Performance, 1. [id number] Admission Performance, 1. [id number] Admission Performance, 1. [id number] Admission Performance, 1. [id number] Admission Performance, 1. [id number] Admission Performance were [electronically] signed by YI [place] on WedSep 01 2019 16:02:50 GMT-0600 (Central Standard Time)
--- NOTE | 2019-09-01 16:52 | P.PN ---
Subjective Date of Service: 09/01/19 Chief Complaint: s/p left hip hemiarthroplasty pt seen and examined. Reports some pain after jose alberto removed and bandaged being changed. Review of Systems 10-point ROS is otherwise unremarkable Musculoskeletal: As per HPI Physical Examination - Vital Signs Temperature: 97.3 F Blood Pressure: 132/59 Pulse: 67 Respirations: 18 Pulse Ox (%): 94 - Physical Exam General: Alert, In no apparent distress, Oriented x2, Obese HEENT: Atraumatic, PERRLA, EOMI Neck: Supple Respiratory: Clear to auscultation bilaterally, Normal air movement Cardiovascular: Normal S1 S2, Edema, Irregular heart rate/rhythm Gastrointestinal: Normal bowel sounds, Soft and benign, Non-distended, No tenderness Musculoskeletal: Tenderness (left hip incision site. c/d/i) Integumentary: No rashes Neurological: Normal speech, Normal strength at 5/5 x4 extr, Normal tone, Normal affect - Studies Laboratory Data (last 24 hrs) 09/01/19 06:00: PT 24.6 H, INR 2.15 Medications List Reviewed: Yes Assessment And Plan - Plan A/P 1. Left hip femoral neck fracture, nondisplaced. Initial encounter status post open reduction and internal fixation, improving. Continue with PT. jose alberto out today. 2. Atrial fibrillation with controlled ventricular rate. Continue with Coumadin. INR now in therapeutic range. Continue to monitor. 3. Hematoma, left hip as the patient was on therapeutic Lovenox and Coumadin for the atrial fibrillation as his INR was subtherapeutic, improving. Minimal drainage from the bandage. Continue with clindamycin to prevent any postoperative infection. Patient has manipulated the wound several times. 4. Delirium, resolved. 5. BPH. Flomax. 6. Mixed hyperlipidemia. Continue statin. 7. Diabetes mellitus type 2, insulin requiring with hypoglycemia. monitor BBG. Continue sliding scale insulin 8. Pulmonary edema, improved. 9. 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 10. Peripheral vascular disease, stable. 11. Deep vein thrombosis prophylaxis addressed. Patient is on Coumadin.
[2019-09-01] MEDS: WARFARIN SODIUM 5 MG TAB PO SCH (16:58)
[2019-09-01] MEDS: ATORVASTATIN 10 MG TAB PO SCH (20:49)
[2019-09-01] MEDS: FINASTERIDE 5 MG TAB PO SCH (20:51)
[2019-09-01] MEDS: MELATONIN 3 MG TABLET PO PRN (20:52)
[2019-09-02] MEDS: CLINDAMYCIN INJ 600 MG in NA CHLORIDE 0.9% 50 ML IV SCH ×3 (01:00→16:15)
[2019-09-02] MEDS: ACETAMINOPHEN 500 MG TAB PO PRN ×2 (01:21→10:33)
[2019-09-02] MEDS: guaiFENesin 100 MG/5 ML UCUP PO PRN ×2 (01:22→18:50)
--- NOTE | 2019-09-02 02:47 | FAST ---
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 Mode Gonzáles M.D. ADMISSION DIAGNOSIS: - Orthopaedic Disorders 08 - Unilateral Hip Fracture (08.11) Left Femoral Neck Fracture. EATING: Not assessed/no information CODE: - ORAL HYGIENE: Not assessed/no information CODE: - TOILETING HYGIENE: TOILETING HYGIENE - STEP 1: Does the patient complete the activity by him/herself with no assistance (physical, verbal/nonverbal cueing, setup/clean-up)? No. TOILETING HYGIENE - STEP 2: Does the patient need only setup/clean-up assistance from one helper? No. TOILETING HYGIENE - STEP 3: Does the patient need only verbal/nonverbal cueing or touching/steadying/contact guard assistance fro m one helper? No. TOILETING HYGIENE - STEP 4: Does the patient need physical assistance - for example lifting or trunk support from one helper - wi th the helper providing less than half of the effort? Yes. 1. [id number] ADMISSION PERFORMANCE: Partial/moderate assistance CODE: 03 BATHING: Not assessed/no information CODE: - DRESSING - UPPER BODY: Not assessed/no information CODE: - DRESSING - LOWER BODY: Not assessed/no information CODE: - PUTTING ON/TAKING OFF FOOTWEAR: Not assessed/no information CODE: - ROLL LEFT AND RIGHT: ROLL LEFT AND RIGHT - STEP 1: Does the patient complete the activity by him/herself with no assistance (physical, verbal/nonverbal cueing, setup/clean-up)? No. ROLL LEFT AND RIGHT - STEP 2: Does the patient need only setup/clean-up assistance from one helper? No. ROLL LEFT AND RIGHT - STEP 3: Does the patient need only verbal/nonverbal cueing or touching/steadying/contact guard assistance fro m one helper? No. ROLL LEFT AND RIGHT - STEP 4: Does the patient need physical assistance - for example lifting or trunk support from one helper - wi th the helper providing less than half of the effort? Yes. 1. [id number] ADMISSION PERFORMANCE: Partial/moderate assistance CODE: 03 SIT TO LYING: SIT TO LYING - STEP 1: Does the patient complete the activity by him/herself with no assistance (physical, verbal/nonverbal cueing, setup/clean-up)? No. SIT TO LYING - STEP 2: Does the patient need only setup/clean-up assistance from one helper? No. SIT TO LYING - STEP 3: Does the patient need only verbal/nonverbal cueing or touching/steadying/contact guard assistance fro m one helper? No. SIT TO LYING - STEP 4: Does the patient need physical assistance - for example lifting or trunk support from one helper - wi th the helper providing less than half of the effort? Yes. 1. [id number] ADMISSION PERFORMANCE: Partial/moderate assistance CODE: 03 LYING TO SITTING: Not assessed/no information CODE: - SIT TO STAND: Not assessed/no information CODE: - TRANSFERS: BED, CHAIR: Not assessed/no information CODE: - TRANSFER TOILET: Not assessed/no information CODE: - TRANSFERS: CAR: Not assessed/no information CODE: - WALK 10 FEET: Not assessed/no information CODE: - 1 STEP ([place]B): Not assessed/no information CODE: - PICKING UP OBJECT: Not assessed/no information CODE: - DOES THE PATIENT USE A WHEELCHAIR/SCOOTER? CODE: EXPR WHEEL 50 FEET WITH TWO TURNS: Not assessed/no information CODE: - INDICATE THE TYPE OF WHEELCHAIR/SCOOTER USED: CODE: EXPR WHEEL 150 FEET: Not assessed/no information CODE: - INDICATE THE TYPE OF WHEELCHAIR/SCOOTER USED: CODE: EXPR BLADDER AND BOWEL: H350. BLADDER CONTINENCE (3-DAY ASSESSMENT PERIOD): Always continent (no documented incontinence) CODE: 0 H400. BOWEL CONTINENCE (3-DAY ASSESSMENT PERIOD): Always continent CODE: 0
[2019-09-02] MEDS: carvediloL 3.125 MG TAB PO SCH ×2 (05:16→16:54)
[2019-09-02 05:23] VITALS: BMI 30.7
[2019-09-02 06:16] LABS: Protime INR 2.05
[2019-09-02] MEDS: INSULIN -REGULAR HUMAN 50 UNIT/0.5 ML ML SQ SCH ×4 (07:30→19:36)
[2019-09-02] MEDS: LIDOCAINE 4% PATCH TOP SCH (07:37)
[2019-09-02] MEDS: INSULIN LISPRO 100 UNIT/1 ML SQ SCH ×3 (08:22→17:20)
[2019-09-02] MEDS: INSULIN GLARGINE 100 UNITS/ML SQ SCH ×2 (08:22→17:19)
[2019-09-02] MEDS: TRAMADOL HCL 50 MG TAB PO SCH ×3 (08:23→18:50)
[2019-09-02] MEDS: FE SULF/FA/VIT B COMP & C TAB PO SCH (08:24)
[2019-09-02] MEDS: DOCUSATE NA 100 MG CAP PO SCH ×2 (08:24→18:51)
[2019-09-02] MEDS: METFORMIN HCL 500 MG TAB PO SCH ×2 (08:24→16:54)
[2019-09-02] MEDS: SPIRONOLACTONE 25 MG TABLET PO SCH (08:25)
[2019-09-02] MEDS: GABAPENTIN 300 MG CAP PO SCH ×3 (08:25→18:51)
[2019-09-02] MEDS: FERROUS SULFATE 325 MG TAB PO SCH (08:25)
[2019-09-02] MEDS: FAMOTIDINE 20 MG TAB PO SCH ×2 (08:25→18:50)
[2019-09-02] MEDS: TAMSULOSIN 0.4 MG SR CAP PO SCH (08:25)
[2019-09-02] MEDS: BUMETANIDE 1 MG TABLET PO SCH (08:26)
[2019-09-02] MEDS: PROMOD 30 ML DOSE PO SCH ×2 (08:29→18:51)
--- NOTE | 2019-09-02 15:34 | P.PN ---
Subjective Date of Service: 09/02/19 Chief Complaint: s/p left hip hemiarthroplasty pt seen and examined. no acute events overnite Review of Systems 10-point ROS is otherwise unremarkable Physical Examination - Vital Signs Temperature: 97.9 F Blood Pressure: 130/56 Pulse: 53 Respirations: 14 Pulse Ox (%): 95 - Physical Exam General: Alert, In no apparent distress, Oriented x2 HEENT: Atraumatic, PERRLA, EOMI Neck: Supple Respiratory: Clear to auscultation bilaterally, Normal air movement Cardiovascular: Normal S1 S2, Irregular heart rate/rhythm Gastrointestinal: Normal bowel sounds, Soft and benign, Non-distended, No tenderness Musculoskeletal: Tenderness Integumentary: No rashes Neurological: Normal speech, Normal tone, Normal affect - Studies Laboratory Data (last 24 hrs) 09/02/19 05:47: PT 23.5 H, INR 2.05 Medications List Reviewed: Yes Assessment And Plan - Plan A/P 1. Left hip femoral neck fracture, nondisplaced. Initial encounter status post open reduction and internal fixation, improving. Continue with PT. Doing well. Able to transfer himself. 2. Atrial fibrillation with controlled ventricular rate. Continue with Coumadin. INR now in therapeutic range. Continue to monitor. 3. Hematoma, left hip as the patient was on therapeutic Lovenox and Coumadin for the atrial fibrillation as his INR was subtherapeutic, improving. Minimal drainage from the bandage. Continue with clindamycin to prevent any postoperative infection. Patient has manipulated the wound several times. 4. Delirium, resolved. 5. BPH. Flomax. 6. Mixed hyperlipidemia. Continue statin. 7. Diabetes mellitus type 2, insulin requiring with hypoglycemia. monitor BBG. Continue sliding scale insulin 8. Pulmonary edema, improved. 9. 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 10. Peripheral vascular disease, stable. 11. Deep vein thrombosis prophylaxis addressed. Patient is on Coumadin.
[2019-09-02] MEDS: WARFARIN SODIUM 5 MG TAB PO SCH (16:54)
[2019-09-02] MEDS: FINASTERIDE 5 MG TAB PO SCH (18:50)
[2019-09-02] MEDS: MELATONIN 3 MG TABLET PO PRN (18:50)
[2019-09-02] MEDS: ATORVASTATIN 10 MG TAB PO SCH (18:51)
--- NOTE | 2019-09-02 19:46 | P.PN ---
Date of Service: 09/02/19 Vital Signs Temp Pulse Resp BP Pulse Ox 97.9 F 77 16 130/60 98 09/02/19 15:35 09/02/19 16:54 09/02/19 18:50 09/02/19 16:54 09/02/19 18:50 Medications Acetaminophen (Tylenol -Extra Strength) 500 mg PO Q4HP PRN PRN Reason: Pain scale 2-4 (Mild) Stop: 09/10/19 08:26 Last Admin: 09/02/19 10:33 Dose: 500 mg Hydrocodone Bitart/Acetaminophen ([place] 5/325) 1 tab PO Q12H PRN PRN Reason: Pain scale 5-7 (Moderate) Stop: 09/20/19 14:05 Last Admin: 08/31/19 23:50 Dose: 1 tab Atorvastatin Calcium (Lipitor) 10 mg PO BEDTIME [facility] Stop: 09/10/19 21:01 Last Admin: 09/02/19 18:51 Dose: 10 mg Bisacodyl (Dulcolax) 10 mg [place] DAILY PRN PRN Reason: CONSTIPATION Stop: 09/18/19 14:13 Last Admin: 08/19/19 16:41 Dose: 10 mg Bumetanide (Bumex) 1 mg PO DAILY [facility] Stop: 09/24/19 08:01 Last Admin: 09/02/19 08:26 Dose: 1 mg Carvedilol (Coreg) 3.125 mg PO BID 6AM 6PM [facility] Stop: 09/10/19 18:01 Last Admin: 09/02/19 16:54 Dose: 3.125 mg Dextrose (Dextrose 50% Syringe/Vial) 12.5 gm IV PRN PRN; Protocol PRN Reason: HYPOGLYCEMIA Stop: 09/15/19 15:48 Diphenhydramine HCl (Benadryl Tab/Cap) 25 mg PO BEDTIME PRN PRN Reason: INSOMNIA Stop: 09/16/19 19:29 Last Admin: 08/31/19 20:52 Dose: 25 mg Docusate Sodium (Colace Cap) 100 mg PO BID [facility] Stop: 09/16/19 20:01 Last Admin: 09/02/19 18:51 Dose: 100 mg Famotidine (Pepcid) 20 mg PO BID [facility]; Protocol Stop: 09/15/19 20:01 Last Admin: 09/02/19 18:50 Dose: 20 mg Ferrous Sulfate (Feosol) 325 mg PO DAILY [facility] Stop: 09/17/19 08:01 Last Admin: 09/02/19 08:25 Dose: 325 mg Finasteride (Proscar) 5 mg PO BEDTIME [facility] Stop: 09/10/19 21:01 Last Admin: 09/02/19 18:50 Dose: 5 mg Gabapentin (Neurontin) 600 mg PO TID [facility] Stop: 09/10/19 09:01 Last Admin: 09/02/19 18:51 Dose: 600 mg Glucagon (Glucagen) 1 mg IM 1X PRN; Protocol PRN Reason: HYPOGLYCEMIA Stop: 09/15/19 15:48 Guaifenesin (Robitussin 100mg/5ml) 200 mg PO QID PRN PRN Reason: COUGH Stop: 09/21/19 14:44 Last Admin: 09/02/19 18:50 Dose: 200 mg Clindamycin Phosphate 600 mg/ (Sodium Chloride) 54 mls @ 100 mls/hr IV Q8HR [facility] ; Protocol Stop: 10/01/19 09:01 Last Admin: 09/02/19 16:15 Dose: 54 mls Insulin Glargine (Lantus) 30 units SQ BREAKFAST [facility] Stop: 09/29/19 08:01 Last Admin: 09/02/19 08:22 Dose: 30 units Insulin Glargine (Lantus) 25 units SQ DAILY AT SUPPER [facility] Stop: 09/28/19 17:01 Last Admin: 09/02/19 17:19 Dose: 25 units Insulin Human Lispro (Humalog) 5 unit SQ TIDWM [facility] Stop: 09/17/19 12:01 Last Admin: 09/02/19 17:20 Dose: 5 unit Insulin Human Regular (Novolin -R) 0 unit SQ ACHS [facility]; Protocol Stop: 09/10/19 08:26 Last Admin: 09/02/19 19:36 Dose: Not Given Lactulose (Cephulac) 10 gm PO BIDP PRN PRN Reason: CONSTIPATION Stop: 09/10/19 12:54 Last Admin: 08/19/19 19:20 Dose: 10 gm Lidocaine (Aspercreme 4% Patch) 1 patch TOP DAILY [facility] Stop: 09/16/19 15:01 Last Admin: 09/02/19 07:37 Dose: 1 patch Melatonin (Melatonin) 3 mg PO BEDTIME PRN PRN PRN Reason: INSOMNIA Stop: 09/16/19 19:30 Last Admin: 09/02/19 18:50 Dose: 3 mg Metformin HCl (Glucophage) 1,000 mg PO BIDWM [facility] Stop: 09/11/19 17:01 Last Admin: 09/02/19 16:54 Dose: 1,000 mg Multivitamins/Iron (Hemocyte Plus) 1 tab PO DAILY WITH BREAKFAST [facility] Stop: 09/17/19 08:01 Last Admin: 09/02/19 08:24 Dose: 1 tab Nutritional Formula (Promod Liquid Protein) 30 ml PO BID [facility] Stop: 09/16/19 20:01 Last Admin: 09/02/19 18:51 Dose: 30 ml Ondansetron HCl (Zofran) 4 mg PO Q6H PRN PRN Reason: NAUSEA / VOMITING Stop: 09/15/19 15:59 Sodium Biphosphate/Sodium Phosphate (Fleet Enema Adult) 133 ml [place] DAILY PRN PRN Reason: CONSTIPATION Stop: 09/18/19 14:14 Spironolactone (Aldactone) 50 mg PO DAILY [facility] Stop: 09/11/19 09:01 Last Admin: 09/02/19 08:25 Dose: 50 mg Tamsulosin HCl (Flomax) 0.4 mg PO DAILY [facility] Stop: 09/10/19 09:01 Last Admin: 09/02/19 08:25 Dose: 0.4 mg Tramadol HCl (Ultram) 50 mg PO TID [facility] Stop: 09/24/19 21:01 Last Admin: 09/02/19 18:50 Dose: 50 mg Warfarin Sodium (Coumadin) 10 mg PO DAILY 5 PM [facility] Stop: 09/15/19 17:01 Last Admin: 09/02/19 16:54 Dose: 10 mg Lab Results (last 24 hrs) 09/02/19 19:24: POC Glucose 157 H 09/02/19 16:12: POC Glucose 125 H 09/02/19 11:11: POC Glucose 154 H 09/02/19 07:14: POC Glucose 126 H 09/02/19 05:47: PT 23.5 H, INR 2.05 09/01/19 19:52: POC Glucose 116 Microbiology Results 08/17/19 01:20 Clean Catch Urine [place] Count - Final <10,000 CFU/ML. 08/17/19 01:20 Clean Catch Urine - Final MIXED ARIEL. Assessment/ Plan: Nephrology CPS stable without CP or SOB. No acute events overnight. Limited IH/ROS due to dementia. Vitals, medications, blood work and imaging reviewed in the chart. NAD. MMM. Neck supple. CTA. RRR. Soft Abd. No C/C/E. No rash. AA. Normal Speech. Left hip wound. A/ Hyponatremia. HTN Diastolic CHF, chronic. Edema DM II PAD Anemia in chronic illness. Moderate malnutrition. Dementia. Left hip fracture. P/ Continue current POC and Medications. Continue diuretic therapy. Aggressive PT as tolerated. Wound care as ordered. Low sodium diet. AM labs PRN. Daily weight. No NSAIDs.
[2019-09-03] MEDS: CLINDAMYCIN INJ 600 MG in NA CHLORIDE 0.9% 50 ML IV SCH ×3 (00:59→16:18)
[2019-09-03] MEDS: carvediloL 3.125 MG TAB PO SCH ×2 (05:07→16:46)
[2019-09-03 06:25] LABS: Protime INR 2.11
[2019-09-03] MEDS: INSULIN -REGULAR HUMAN 50 UNIT/0.5 ML ML SQ SCH ×4 (07:08→21:00)
[2019-09-03] MEDS: TRAMADOL HCL 50 MG TAB PO SCH ×3 (07:58→18:54)
[2019-09-03] MEDS: PROMOD 30 ML DOSE PO SCH ×2 (08:00→18:55)
[2019-09-03] MEDS: INSULIN GLARGINE 100 UNITS/ML SQ SCH ×2 (08:02→16:43)
[2019-09-03] MEDS: INSULIN LISPRO 100 UNIT/1 ML SQ SCH ×3 (08:03→16:45)
[2019-09-03] MEDS: DOCUSATE NA 100 MG CAP PO SCH ×2 (08:04→18:54)
[2019-09-03] MEDS: FAMOTIDINE 20 MG TAB PO SCH ×2 (08:04→18:55)
[2019-09-03] MEDS: FERROUS SULFATE 325 MG TAB PO SCH (08:05)
[2019-09-03] MEDS: METFORMIN HCL 500 MG TAB PO SCH ×2 (08:05→16:46)
[2019-09-03] MEDS: GABAPENTIN 300 MG CAP PO SCH ×3 (08:05→18:54)
[2019-09-03] MEDS: BUMETANIDE 1 MG TABLET PO SCH (08:05)
[2019-09-03] MEDS: TAMSULOSIN 0.4 MG SR CAP PO SCH (08:05)
[2019-09-03] MEDS: SPIRONOLACTONE 25 MG TABLET PO SCH (08:05)
[2019-09-03] MEDS: FE SULF/FA/VIT B COMP & C TAB PO SCH (08:06)
[2019-09-03] MEDS: LIDOCAINE 4% PATCH TOP SCH (08:07)
[2019-09-03] MEDS: WARFARIN SODIUM 5 MG TAB PO SCH (16:45)
[2019-09-03] MEDS: FINASTERIDE 5 MG TAB PO SCH (18:54)
[2019-09-03] MEDS: MELATONIN 3 MG TABLET PO PRN (18:54)
[2019-09-03] MEDS: guaiFENesin 100 MG/5 ML UCUP PO PRN (18:55)
[2019-09-03] MEDS: ATORVASTATIN 10 MG TAB PO SCH (18:55)
[2019-09-04] MEDS: CLINDAMYCIN INJ 600 MG in NA CHLORIDE 0.9% 50 ML IV SCH ×2 (01:11→08:47)
[2019-09-04] MEDS: carvediloL 3.125 MG TAB PO SCH ×2 (05:02→17:02)
[2019-09-04 05:44] LABS: Basophils % 1.3 % (0-1.3); Hematocrit 27.8 % (39.6-49.0); MPV 7.1 fL (7.6-11.3); RBC Red Blood Cell Count 3.19 M/uL (4.33-5.43)
[2019-09-04 05:46] LABS: Protime INR 2.04
[2019-09-04] MEDS: INSULIN -REGULAR HUMAN 50 UNIT/0.5 ML ML SQ SCH ×4 (07:17→19:09)
[2019-09-04] MEDS: LIDOCAINE 4% PATCH TOP SCH (07:19)
[2019-09-04] MEDS: INSULIN LISPRO 100 UNIT/1 ML SQ SCH ×3 (07:20→16:30)
[2019-09-04] MEDS: INSULIN GLARGINE 100 UNITS/ML SQ SCH ×2 (07:21→16:49)
[2019-09-04] MEDS: METFORMIN HCL 500 MG TAB PO SCH ×2 (07:54→16:30)
[2019-09-04] MEDS: FAMOTIDINE 20 MG TAB PO SCH ×2 (07:54→18:45)
[2019-09-04] MEDS: BUMETANIDE 1 MG TABLET PO SCH (07:55)
[2019-09-04] MEDS: ACETAMINOPHEN 500 MG TAB PO PRN ×3 (07:56→20:16)
[2019-09-04] MEDS: DOCUSATE NA 100 MG CAP PO SCH ×2 (07:57→18:45)
[2019-09-04] MEDS: TAMSULOSIN 0.4 MG SR CAP PO SCH (07:57)
[2019-09-04] MEDS: FERROUS SULFATE 325 MG TAB PO SCH (07:57)
[2019-09-04] MEDS: SPIRONOLACTONE 25 MG TABLET PO SCH (07:58)
[2019-09-04] MEDS: FE SULF/FA/VIT B COMP & C TAB PO SCH (07:58)
[2019-09-04] MEDS: TRAMADOL HCL 50 MG TAB PO SCH ×3 (07:59→18:45)
[2019-09-04] MEDS: GABAPENTIN 300 MG CAP PO SCH ×3 (07:59→18:46)
[2019-09-04] MEDS: PROMOD 30 ML DOSE PO SCH ×2 (08:00→18:46)
--- NOTE | 2019-09-04 12:56 | FAST ---
SHIFT START DATE/TIME: 09/04/2019 07:00 (RN OBSERVATION) SHIFT END DATE/TIME: 09/04/2019 19:00 (RN OBSERVATION) NAME MADELIN WALDEN DATE OF : 1930 DATE OF ADMISSION: 08/16/2019 15:33 (RN OBSERVATION) PHONE: AGE: 88 N# [id number] GENDER: Male ENCOUNTER PHYSICIAN: Dr. Mode Gonzáles M.D. ADMISSION DIAGNOSIS: - Orthopaedic Disorders 08 - Unilateral Hip Fracture (08.11) Left Femoral Neck Fracture. EATING: EATING - STEP 1: Does the patient complete the activity by him/herself with no assistance (physical, verbal/nonverbal cueing, setup/clean-up)? No. EATING - STEP 2: Does the patient need only setup/clean-up assistance from one helper? Yes. 1. [id number] ADMISSION PERFORMANCE: Setup or clean-up assistance CODE: 05 ORAL HYGIENE: ORAL HYGIENE - STEP 1: Does the patient complete the activity by him/herself with no assistance (physical, verbal/nonverbal cueing, setup/clean-up)? No. ORAL HYGIENE - STEP 2: Does the patient need only setup/clean-up assistance from one helper? Yes. 1. [id number] ADMISSION PERFORMANCE: Setup or clean-up assistance CODE: 05 TOILETING HYGIENE: TOILETING HYGIENE - STEP 1: Does the patient complete the activity by him/herself with no assistance (physical, verbal/nonverbal cueing, setup/clean-up)? No. TOILETING HYGIENE - STEP 2: Does the patient need only setup/clean-up assistance from one helper? No. TOILETING HYGIENE - STEP 3: Does the patient need only verbal/nonverbal cueing or touching/steadying/contact guard assistance fro m one helper? Yes. 1. [id number] ADMISSION PERFORMANCE: Supervision or touching assistance CODE: 04 BATHING: Not assessed/no information CODE: - DRESSING - UPPER BODY: DRESSING - UPPER BODY - STEP 1: Does the patient complete the activity by him/herself with no assistance (physical, verbal/nonverbal cueing, setup/clean-up)? No. DRESSING - UPPER BODY - STEP 2: Does the patient need only setup/clean-up assistance from one helper? No. DRESSING - UPPER BODY - STEP 3: Does the patient need only verbal/nonverbal cueing or touching/steadying/contact guard assistance fro m one helper? Yes. 1. [id number] ADMISSION PERFORMANCE: Supervision or touching assistance CODE: 04 DRESSING - LOWER BODY: DRESSING - LOWER BODY - STEP 1: Does the patient complete the activity by him/herself with no assistance (physical, verbal/nonverbal cueing, setup/clean-up)? No. DRESSING - LOWER BODY - STEP 2: Does the patient need only setup/clean-up assistance from one helper? No. DRESSING - LOWER BODY - STEP 3: Does the patient need only verbal/nonverbal cueing or touching/steadying/contact guard assistance fro m one helper? No. DRESSING - LOWER BODY - STEP 4: Does the patient need physical assistance - for example lifting or trunk support from one helper - wi th the helper providing less than half of the effort? Yes. 1. [id number] ADMISSION PERFORMANCE: Partial/moderate assistance CODE: 03 PUTTING ON/TAKING OFF FOOTWEAR: FOOTWEAR - STEP 1: Does the patient complete the activity by him/herself with no assistance (physical, verbal/nonverbal cueing, setup/clean-up)? No. FOOTWEAR - STEP 2: Does the patient need only setup/clean-up assistance from one helper? No. FOOTWEAR - STEP 3: Does the patient need only verbal/nonverbal cueing or touching/steadying/contact guard assistance fro m one helper? Yes. 1. [id number] ADMISSION PERFORMANCE: Supervision or touching assistance CODE: 04 ROLL LEFT AND RIGHT: ROLL LEFT AND RIGHT - STEP 1: Does the patient complete the activity by him/herself with no assistance (physical, verbal/nonverbal cueing, setup/clean-up)? No. ROLL LEFT AND RIGHT - STEP 2: Does the patient need only setup/clean-up assistance from one helper? Yes. 1. [id number] ADMISSION PERFORMANCE: Setup or clean-up assistance CODE: 05 SIT TO LYING: SIT TO LYING - STEP 1: Does the patient complete the activity by him/herself with no assistance (physical, verbal/nonverbal cueing, setup/clean-up)? No. SIT TO LYING - STEP 2: Does the patient need only setup/clean-up assistance from one helper? No. SIT TO LYING - STEP 3: Does the patient need only verbal/nonverbal cueing or touching/steadying/contact guard assistance fro m one helper? Yes. 1. [id number] ADMISSION PERFORMANCE: Supervision or touching assistance CODE: 04 LYING TO SITTING: LYING TO SITTING ON SIDE OF BED - STEP 1: Does the patient complete the activity by him/herself with no assistance (physical, verbal/nonverbal cueing, setup/clean-up)? No. LYING TO SITTING ON SIDE OF BED - STEP 2: Does the patient need only setup/clean-up assistance from one helper? No. LYING TO SITTING ON SIDE OF BED - STEP 3: Does the patient need only verbal/nonverbal cueing or touching/steadying/contact guard assistance fro m one helper? Yes. 1. [id number] ADMISSION PERFORMANCE: Supervision or touching assistance CODE: 04 SIT TO STAND: SIT TO STAND - STEP 1: Does the patient complete the activity by him/herself with no assistance (physical, verbal/nonverbal cueing, setup/clean-up)? No. SIT TO STAND - STEP 2: Does the patient need only setup/clean-up assistance from one helper? No. SIT TO STAND - STEP 3: Does the patient need only verbal/nonverbal cueing or touching/steadying/contact guard assistance fro m one helper? Yes. 1. [id number] ADMISSION PERFORMANCE: Supervision or touching assistance CODE: 04 TRANSFERS: BED, CHAIR: CHAIR/[id number] TRANSFER - STEP 1: Does the patient complete the activity by him/herself with no assistance (physical, verbal/nonverbal cueing, setup/clean-up)? No. CHAIR/[id number] TRANSFER - STEP 2: Does the patient need only setup/clean-up assistance from one helper? No. CHAIR/[id number]-[id number] TRANSFER - STEP 3: Does the patient need only verbal/nonverbal cueing or touching/steadying/contact guard assistance fro m one helper? Yes. 1. [id number] ADMISSION PERFORMANCE: Supervision or touching assistance CODE: 04 TRANSFER TOILET: TOILET TRANSFER - STEP 1: Does the patient complete the activity by him/herself with no assistance (physical, verbal/nonverbal cueing, setup/clean-up)? No. TOILET TRANSFER - STEP 2: Does the patient need only setup/clean-up assistance from one helper? Yes. 1. [id number] ADMISSION PERFORMANCE: Setup or clean-up assistance CODE: 05 TRANSFERS: CAR: Not assessed/no information CODE: - WALK 10 FEET: Not assessed/no information CODE: - 1 STEP (CURB): Not assessed/no information CODE: - PICKING UP OBJECT: Not assessed/no information CODE: - DOES THE PATIENT USE A WHEELCHAIR/SCOOTER? Q1. DOES THE PATIENT USE A WHEELCHAIR/SCOOTER?: Yes CODE: 1 WHEEL 50 FEET WITH TWO TURNS: WHEEL 50 FEET WITH TWO TURNS - STEP 1: Does the patient complete the activity by him/herself with no assistance (physical, verbal/nonverbal cueing, setup/clean-up)? No. WHEEL 50 FEET WITH TWO TURNS - STEP 2: Does the patient need only setup/clean-up assistance from one helper? Yes. 1. [id number] ADMISSION PERFORMANCE: Setup or clean-up assistance CODE: 05 INDICATE THE TYPE OF WHEELCHAIR/SCOOTER USED: RR1. INDICATE THE TYPE OF WHEELCHAIR/SCOOTER USED.: Manual CODE: 1 WHEEL 150 FEET: Not assessed/no information CODE: - INDICATE THE TYPE OF WHEELCHAIR/SCOOTER USED: SS1. INDICATE THE TYPE OF WHEELCHAIR/SCOOTER USED.: Manual CODE: 1 BLADDER AND BOWEL: H350. BLADDER CONTINENCE (3-DAY ASSESSMENT PERIOD): Always continent (no documented incontinence) CODE: 0 H400. BOWEL CONTINENCE (3-DAY ASSESSMENT PERIOD): Always continent CODE: 0 SIGNATURE PANEL: The following modified sections: 1. [id number] Admission Performance, 1. [id number] Admission Performance, 1. [id number] Admission Performance, 1. VX9803h Admission Performance, 1. [id number] Admission Performance, 1. EW7043x Admission Performance, 1. [id number] Admission Performance, 1. AC1050L Admission Performance , 1. [id number] Admission Performance, 1. VB6391H Admission Performance, 1. [id number] Admission Performanc e, 1. [id number] Admission Performance, 1. [id number] Admission Performance, 1. [id number] Admission Performan ce, Q1. Does the patient use a wheelchair/scooter?, 1. [id number] Admission Performance, RR1. Indicate t he type of wheelchair/scooter used., Code, SS1. Indicate the type of wheelchair/scooter used., H400. Bowel Continence (3-day assessment period), H350. Bladder Continence (3-day assessment period) were [ electronically] signed by Ирина Garcia C.N.A. on WedSep 04 2019 12:55:22 GMT-0600 (Central Standard Time)
--- NOTE | 2019-09-04 14:36 | FAST ---
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 Mode Gonzáles M.D. ADMISSION DIAGNOSIS: - Orthopaedic Disorders 08 - Unilateral Hip Fracture (08.11) Left Femoral Neck Fracture. ROLL LEFT AND RIGHT: ROLL LEFT AND RIGHT - STEP 1: Does the patient complete the activity by him/herself with no assistance (physical, verbal/nonverbal cueing, setup/clean-up)? No. ROLL LEFT AND RIGHT - STEP 2: Does the patient need only setup/clean-up assistance from one helper? No. ROLL LEFT AND RIGHT - STEP 3: Does the patient need only verbal/nonverbal cueing or touching/steadying/contact guard assistance fro m one helper? Yes. 1. [id number] ADMISSION PERFORMANCE: Supervision or touching assistance CODE: 04 SIT TO LYING: SIT TO LYING - STEP 1: Does the patient complete the activity by him/herself with no assistance (physical, verbal/nonverbal cueing, setup/clean-up)? No. SIT TO LYING - STEP 2: Does the patient need only setup/clean-up assistance from one helper? No. SIT TO LYING - STEP 3: Does the patient need only verbal/nonverbal cueing or touching/steadying/contact guard assistance fro m one helper? Yes. 1. [id number] ADMISSION PERFORMANCE: Supervision or touching assistance CODE: 04 LYING TO SITTING: LYING TO SITTING ON SIDE OF BED - STEP 1: Does the patient complete the activity by him/herself with no assistance (physical, verbal/nonverbal cueing, setup/clean-up)? No. LYING TO SITTING ON SIDE OF BED - STEP 2: Does the patient need only setup/clean-up assistance from one helper? No. LYING TO SITTING ON SIDE OF BED - STEP 3: Does the patient need only verbal/nonverbal cueing or touching/steadying/contact guard assistance fro m one helper? Yes. 1. [id number] ADMISSION PERFORMANCE: Supervision or touching assistance CODE: 04 SIT TO STAND: SIT TO STAND - STEP 1: Does the patient complete the activity by him/herself with no assistance (physical, verbal/nonverbal cueing, setup/clean-up)? No. SIT TO STAND - STEP 2: Does the patient need only setup/clean-up assistance from one helper? No. SIT TO STAND - STEP 3: Does the patient need only verbal/nonverbal cueing or touching/steadying/contact guard assistance fro m one helper? Yes. 1. [id number] ADMISSION PERFORMANCE: Supervision or touching assistance CODE: 04 TRANSFERS: BED, CHAIR: CHAIR/[id number] TRANSFER - STEP 1: Does the patient complete the activity by him/herself with no assistance (physical, verbal/nonverbal cueing, setup/clean-up)? No. CHAIR/[id number] TRANSFER - STEP 2: Does the patient need only setup/clean-up assistance from one helper? No. CHAIR/KQT-[id number] TRANSFER - STEP 3: Does the patient need only verbal/nonverbal cueing or touching/steadying/contact guard assistance fro m one helper? Yes. 1. [id number] ADMISSION PERFORMANCE: Supervision or touching assistance CODE: 04 TRANSFER TOILET: TOILET TRANSFER - STEP 1: Does the patient complete the activity by him/herself with no assistance (physical, verbal/nonverbal cueing, setup/clean-up)? No. TOILET TRANSFER - STEP 2: Does the patient need only setup/clean-up assistance from one helper? No. TOILET TRANSFER - STEP 3: Does the patient need only verbal/nonverbal cueing or touching/steadying/contact guard assistance fro m one helper? Yes. 1. [id number] ADMISSION PERFORMANCE: Supervision or touching assistance CODE: 04 TRANSFERS: CAR: Not attempted due to medical condition or safety concerns CODE: 88 WALK 10 FEET: WALK 10 FEET - STEP 1: Does the patient complete the activity by him/herself with no assistance (physical, verbal/nonverbal cueing, setup/clean-up)? No. WALK 10 FEET - STEP 2: Does the patient need only setup/clean-up assistance from one helper? No. WALK 10 FEET - STEP 3: Does the patient need only verbal/nonverbal cueing or touching/steadying/contact guard assistance fro m one helper? Yes. 1. [id number] ADMISSION PERFORMANCE: Supervision or touching assistance CODE: 04 WALK 50 FEET: WALK 50 FEET - STEP 1: Does the patient complete the activity by him/herself with no assistance (physical, verbal/nonverbal cueing, setup/clean-up)? No. WALK 50 FEET - STEP 2: Does the patient need only setup/clean-up assistance from one helper? No. WALK 50 FEET - STEP 3: Does the patient need only verbal/nonverbal cueing or touching/steadying/contact guard assistance fro m one helper? Yes. 1. [id number] ADMISSION PERFORMANCE: Supervision or touching assistance CODE: 04 WALK 150 FEET: Not attempted due to medical condition or safety concerns CODE: 88 WALK 10 FEET UNEVEN: Not attempted due to medical condition or safety concerns CODE: 88 1 STEP (CURB): Not attempted due to medical condition or safety concerns CODE: 88 PICKING UP OBJECT: Not attempted due to medical condition or safety concerns CODE: 88 DOES THE PATIENT USE A WHEELCHAIR/SCOOTER? Q1. DOES THE PATIENT USE A WHEELCHAIR/SCOOTER?: Yes CODE: 1 WHEEL 50 FEET WITH TWO TURNS: WHEEL 50 FEET WITH TWO TURNS - STEP 1: Does the patient complete the activity by him/herself with no assistance (physical, verbal/nonverbal cueing, setup/clean-up)? No. WHEEL 50 FEET WITH TWO TURNS - STEP 2: Does the patient need only setup/clean-up assistance from one helper? Yes. 1. [id number] ADMISSION PERFORMANCE: Setup or clean-up assistance CODE: 05 INDICATE THE TYPE OF WHEELCHAIR/SCOOTER USED: RR1. INDICATE THE TYPE OF WHEELCHAIR/SCOOTER USED.: Manual CODE: 1 WHEEL 150 FEET: WHEEL 150 FEET - STEP 1: Does the patient complete the activity by him/herself with no assistance (physical, verbal/nonverbal cueing, setup/clean-up)? No. WHEEL 150 FEET - STEP 2: Does the patient need only setup/clean-up assistance from one helper? Yes. 1. [id number] ADMISSION PERFORMANCE: Setup or clean-up assistance CODE: 05 INDICATE THE TYPE OF WHEELCHAIR/SCOOTER USED: SS1. INDICATE THE TYPE OF WHEELCHAIR/SCOOTER USED.: Manual CODE: 1 BLADDER AND BOWEL: CODE: EXPR CODE: EXPR SIGNATURE PANEL: The following modified sections: 1. [id number] Admission Performance, 1. [id number] Admission Performance, 1. [id number] Admission Performance, 1. [id number] Admission Performance, 1. VR5342Q Admission Performance, 1. ZX1455I Admission Performance, 1. BL6054C Admission Performance, 1. [id number] Admission Performance , Q1. Does the patient use a wheelchair/scooter?, 1. [id number] Admission Performance, RR1. Indicate the type of wheelchair/scooter used., 1. IN4452U Admission Performance, Code, SS1. Indicate the type of wheelchair/scooter used. were [electronically] signed by Alessandro Cortse PTA on WedSep 04 2019 14:35:16 GMT-0600 (Central Standard Time)
[2019-09-04] MEDS: WARFARIN SODIUM 5 MG TAB PO SCH (16:29)
--- NOTE | 2019-09-04 16:42 | P.PN ---
Subjective Date of Service: 09/04/19 Chief Complaint: s/p left hip hemiarthroplasty pt seen and examined. no acute events overnite. Celebrated his birthday yesterday Review of Systems 10-point ROS is otherwise unremarkable Musculoskeletal: As per HPI Physical Examination - Vital Signs Temperature: 97.4 F Blood Pressure: 118/61 Pulse: 59 Respirations: 18 Pulse Ox (%): 95 - Physical Exam General: Alert, In no apparent distress, Oriented x3, Obese HEENT: Atraumatic, PERRLA, EOMI Neck: Supple, JVD not distended Respiratory: Clear to auscultation bilaterally, Normal air movement Cardiovascular: Normal S1 S2, Irregular heart rate/rhythm Gastrointestinal: Normal bowel sounds, Soft and benign, Non-distended, No tenderness Musculoskeletal: Tenderness, Other (Left hip incision site clean dry intact minimal swelling and erythema. No drainage) Integumentary: No rashes Neurological: Normal speech, Normal tone, Normal affect - Studies Laboratory Data (last 24 hrs) 09/04/19 05:32: WBC 3.8 L, Hgb 9.1 L, Hct 27.8 L, Plt Count 146 L D 09/04/19 05:32: PT 23.4 H, INR 2.04 Medications List Reviewed: Yes Assessment And Plan - Plan A/P 1. Left hip femoral neck fracture, nondisplaced. Initial encounter status post open reduction and internal fixation, improving. Continue with PT. Doing well. Able to transfer himself. 2. Atrial fibrillation with controlled ventricular rate. Continue with Coumadin. INR now in therapeutic range. Continue to monitor. 3. Hematoma, left hip as the patient was on therapeutic Lovenox and Coumadin for the atrial fibrillation as his INR was subtherapeutic, improving. Minimal drainage from the bandage. Clindamycin was discontinued today by Dr. Ramsay. No further drainage. Erythema is improved significantly. 4. Delirium, resolved. 5. BPH. Flomax. 6. Mixed hyperlipidemia. Continue statin. 7. Diabetes mellitus type 2, insulin requiring with hypoglycemia. monitor BBG. Continue sliding scale insulin 8. Pulmonary edema, improved. 9. 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 10. Peripheral vascular disease, stable. 11. Deep vein thrombosis prophylaxis addressed. Patient is on Coumadin.
[2019-09-04] MEDS: guaiFENesin 100 MG/5 ML UCUP PO PRN (18:45)
[2019-09-04] MEDS: ATORVASTATIN 10 MG TAB PO SCH (18:46)
[2019-09-04] MEDS: FINASTERIDE 5 MG TAB PO SCH (18:46)
[2019-09-04] MEDS: MELATONIN 3 MG TABLET PO PRN (18:46)
--- NOTE | 2019-09-04 20:07 | R.PN ---
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 Pt denied any Shortness of Breath. Mr. Walden is making slow overall progress with therapy. He is moderately limited by poor cognition. His blood work is stable. Propelled wheelchair 25' with maximum assistance. He completed a simple maze with 75% accuracy. ADLs performed with maximum assistance. Cognitive tasks performed with minimum to moderate assistance. Ambulated 446' with contact guard assistance using a rolling walker. WBC 3.8, Hgb 9.1. INR is 2.04. He is on hemocyte plus and ferrous sulfate and followed by the renal s shiela. VITAL SIGNS SBP/DBP: 135/72 Temperature: 97.4 F Pulse: 59 Resp: 16 O2 sat: 95 on room air MEDICATION ALLERGIES: Amoxicillin ENVIRONMENTAL ALLERGIES: None Known - Substance Allergies None Known - Other Allergies None Known NURSING: - Shower allowing shower - Lab Results blood Sugar Check ACHS - Skin care per protocol PRECAUTIONS: - Posterior Hip Precaution No adduction across midline No external rotation No hip flexion >90 degrees No internal rotation No wheel chair propulsion - Weight Bearing Precaution WBAT left LE ACTIVITIES OOB only with supervision THERAPIES: - Dietary and Nutrition Adequate Nutrition. Nutritional Education. Nutritional Supplements. PHYSICAL EXAM - Gen Alert and awake Lying in bed No apparent distress Oriented to: person, time, and place - Skin No breakdown No numbness - Eyes No abnormalities - ENMT No abnormalities - Neck No abnormalities - CVS RRR - Chest No abnormalities - Resp Clear to auscultation - Abd + bowel sounds - GI Non distended Deferred - No abnormalities - Ext Left hip surgical site has good hemostasis. - MSK 4+/5 weakness in left lower extremity. - Neuro 4/5 strength left lower extremity. - Psych No abnormalities ASSESSMENT: Pt. is a 88 yo Right-handed white male.On 08/11/2019 he was admitted to [facility] with diagnosis Left Femoral Neck Fracture.His impairment category is Orthopaedic Disorders 08 - Unilateral Hip Fracture (08.11).Pre-morbidly, Pt. was independent/mod-I in Locomotion, Safety Awarene ss, Balance, Social Cognition, Transfers Control, Sphincter Control, Self-Care, Communication, and En durance; and he had good Locomotion, Balance, Transfers Control, Self-Care, and Endurance.Currently, he has deficits of Locomotion, Safety Awareness, Balance, Social Cognition, Transfers Control, Self-C are, and Endurance.Pt. is now referred to [facility] for acute in-patient reha bilitation in order to maximize patient's functional independence in activities of daily living, stre ngth, ROM, and mobility.- Rehab Goal Patient has realistic goal of being discharged at assistance level 6-Andrae to reside at Home with Att endant. MDM/PLAN: - Physical Therapy Decreased range of motion - to improve, our physical therapists will perform initial evaluation of p t's status upon admission and devise an individualized program for increasing patient's Range of Buddy on. Gait dysfunction - to improve, our physical therapists will perform initial evaluation of pt's statu s upon admission and devise an individualized program for Gait Training, and Wheel Chair mobility Inability to transfer - to improve, our physical therapists will perform initial evaluation of pt's status upon admission and devise an individualized program for Bed mobility Need for home safety evaluation - to improve, our physical therapists will perform initial evaluatio n of pt's status upon admission and devise an individualized program for Home Evaluation Need in caregiver upon discharge - to improve, our physical therapists will perform initial evaluati on of pt's status upon admission and devise an individualized program for Caregiver Training New precaution - to improve, our physical therapists will perform initial evaluation of pt's status upon admission and devise an individualized program for Patient precaution education Poor balance - to improve, our physical therapists will perform initial evaluation of pt's status up on admission and devise an individualized program for Balance Training Poor endurance - to improve, our physical therapists will perform initial evaluation of pt's status upon admission and devise an individualized program for Endurance Training Weakness - to improve, our physical therapists will perform initial evaluation of pt's status upon a dmission and devise an individualized program for Aquatic Therapy, Neuromuscular Reeducation, and Str engthening Achieving independence - to improve, our physical therapists will perform initial evaluation of pt's status upon admission and devise an individualized program for Community Reintegration Activities - Occupational Therapy ADL deficits - to improve, our occupation therapists will perform initial evaluation of pt's status upon admission and devise an individualized program for Bathing, Bed mobility, Community Reintegratio n, Cooking, Dressing, Eating, Fine Motor Skills, Grooming, Homemaking, Kitchen Mobility, Laundry, Pat ient Education, Safety Awareness, Splinting - Positioning, Transfers(Toilet, Tub, Shower), and Wheel Chair Management Cognitive deficits - to improve, our occupation therapists will perform initial evaluation of pt's s tatus upon admission and devise an individualized program for Cognition - orientation Need for health care technician - to improve, our occupation therapists will perform initial evaluation of pt's status upon admission and devise an individualized program for Caregiver Training Weakness - to improve, our occupation therapists will perform initial evaluation of pt's status upon admission and devise an individualized program for Aquatic Therapy, Balance, Endurance, UE ROM, and UE strengthening - Other See attached MAR (Medication Administration Record) - Anterior Hip Precaution No abduction No active extension No adduction across midline No external rotation No hip flexion >90 degrees No internal rotation - Diet - Liquid Texture Continue Regular - Tube Feed Continue N/A - Diet Type Continue Regular - Posterior Hip Precaution No adduction across midline No external rotation No hip flexion >90 degrees No internal rotation No wheel chair propulsion - Lab Results blood Sugar Check ACHS - Weight Bearing Precaution WBAT left LE - Skin care per protocol - Diet - Solid Texture Continue Regular - Shower allowing shower FUNCTIONAL STATUS: UPDATED AT WEEKLY TEAM CONFERENCE - Bladder Same accident frequency: 7-Ind - No accidents in the past 7 days - Bowel Same accident frequency: 7-Ind - No accidents in the past 7 days - Walking Same score based on distance walked: 0(N/A) - Wheelchair Same score based on distance traveled: 0(N/A) FUNCTIONAL STATUS: - Self-Care A. Eating sup B. Grooming sup C. Bathing modA D. Dressing - Upper Raoul E. Dressing - Lower modA F. Toileting modA - Sphincter Control G. Bladder control sup H. Bowel control sup - Transfers Control I. Bed/Chair/Wheelchair maxA J. Toilet maxA K. Tub/Shower maxA - Locomotion L. Walk/Wheelchair (B) maxA M. Stairs ADNO - Communication N. Comprehension (B) modA O. Expression (B) modA - Social Cognition P. Social Interaction Raoul Q. Problem Solving modA R. Memory maxA - Endurance Fair - Balance Poor - Safety Awareness Poor QI SCORES: - Self-Care A. Eating 05-Setup or clean-up assistance B. Oral hygiene 05-Setup or clean-up assistance C. Toileting hygiene 03-Partial/moderate assistance E. Shower/bathe self 03-Partial/moderate assistance F. Upper body dressing 03-Partial/moderate assistance G. Lower body dressing 01-Dependent H. Putting on/taking off footwear 01-Dependent - Mobility A. Roll left and right 03-Partial/moderate assistance B. Sit to lying 02-Substantial/maximal assistance C. Lying to sitting on side of bed 02-Substantial/maximal assistance D. Sit to stand 01-Dependent E. Chair/mio-gp-naeod transfer 01-Dependent F. Toilet transfer 01-Dependent G. Car transfer 88-Not attempted due to medical condition or safety concerns I. Walk 10 feet 88-Not attempted due to medical condition or safety concerns J. Walk 50 feet with two turns 88-Not attempted due to medical condition or safety concerns K. Walk 150 feet 88-Not attempted due to medical condition or safety concerns L. Walking 10 feet on uneven surfaces 88-Not attempted due to medical condition or safety concerns M. 1 step (curb) 88-Not attempted due to medical condition or safety concerns N. 4 steps 88-Not attempted due to medical condition or safety concerns O. 12 steps 88-Not attempted due to medical condition or safety concerns P. Picking up object 88-Not attempted due to medical condition or safety concerns R. Wheel 50 feet with two turns 88-Not attempted due to medical condition or safety concerns S. Wheel 150 feet 88-Not attempted due to medical condition or safety concerns - Bladder and Bowel Bladder continence 3-Incontinent daily Bowel continence 0-Always continent - Endurance Poor - Balance Fair - Safety Awareness Fair CURRENT FUNC. DEFICITS: Self-Care, Mobility, Endurance, Balance, and Safety Awareness SIGNATURE PANEL: (CLOSING COORDINATOR)
[2019-09-04] MEDS: DIPHENHYDRAMINE 25 MG TAB/CAP PO PRN (20:16)
[2019-09-05] MEDS: carvediloL 3.125 MG TAB PO SCH ×2 (05:08→17:11)
[2019-09-05] MEDS: ACETAMINOPHEN 500 MG TAB PO PRN (06:56)
[2019-09-05] MEDS: INSULIN -REGULAR HUMAN 50 UNIT/0.5 ML ML SQ SCH ×4 (07:30→20:39)
[2019-09-05] MEDS: PROMOD 30 ML DOSE PO SCH ×2 (08:00→20:37)
[2019-09-05] MEDS: INSULIN LISPRO 100 UNIT/1 ML SQ SCH ×3 (08:00→16:30)
[2019-09-05] MEDS: LIDOCAINE 4% PATCH TOP SCH (08:44)
[2019-09-05] MEDS: FERROUS SULFATE 325 MG TAB PO SCH (08:45)
[2019-09-05] MEDS: GABAPENTIN 300 MG CAP PO SCH ×3 (08:45→20:37)
[2019-09-05] MEDS: TAMSULOSIN 0.4 MG SR CAP PO SCH (08:45)
[2019-09-05] MEDS: TRAMADOL HCL 50 MG TAB PO SCH ×3 (08:46→20:36)
[2019-09-05] MEDS: FE SULF/FA/VIT B COMP & C TAB PO SCH (08:46)
[2019-09-05] MEDS: METFORMIN HCL 500 MG TAB PO SCH ×2 (08:46→17:10)
[2019-09-05] MEDS: DOCUSATE NA 100 MG CAP PO SCH ×2 (08:46→20:37)
[2019-09-05] MEDS: FAMOTIDINE 20 MG TAB PO SCH ×2 (08:47→20:37)
[2019-09-05] MEDS: SPIRONOLACTONE 25 MG TABLET PO SCH (08:47)
[2019-09-05] MEDS: INSULIN GLARGINE 100 UNITS/ML SQ SCH ×2 (08:48→17:12)
[2019-09-05] MEDS: BUMETANIDE 1 MG TABLET PO SCH (08:48)
--- NOTE | 2019-09-05 13:40 | P.PN ---
Subjective Date of Service: 09/06/19 Chief Complaint: s/p left hip hemiarthroplasty Denies any complaints. participating in therapy. Physical Examination - Vital Signs Temperature: 97.2 F Blood Pressure: 132/60 Pulse: 60 Respirations: 18 Pulse Ox (%): 96 - Physical Exam General: Alert, In no apparent distress HEENT: Atraumatic, PERRLA, EOMI Neck: Supple, JVD not distended Respiratory: Clear to auscultation bilaterally, Normal air movement Cardiovascular: Regular rate/rhythm, Normal S1 S2 Gastrointestinal: Normal bowel sounds, No tenderness Musculoskeletal: No tenderness Integumentary: No rashes Neurological: Normal speech, Normal tone, Normal affect Lymphatics: No axilla or inguinal lymphadenopathy - Studies Laboratory Data (last 24 hrs) 09/05/19 05:57: PT 23.0 H, INR 2.00 Medications List Reviewed: Yes Assessment And Plan - Plan A/P 1. Left hip femoral neck fracture, nondisplaced. Initial encounter status post open reduction and internal fixation, improving. Continue with PT. Doing well. Able to transfer himself. 2. Atrial fibrillation with controlled ventricular rate. Continue with Coumadin. INR now in therapeutic range. Continue to monitor. 3. Hematoma, left hip as the patient was on therapeutic Lovenox and Coumadin for the atrial fibrillation as his INR was subtherapeutic, improving. Minimal drainage from the bandage. Clindamycin was discontinued. No further drainage. Erythema is improved significantly. 4. Delirium, resolved. 5. BPH. Flomax. 6. Mixed hyperlipidemia. Continue statin. 7. Diabetes mellitus type 2, insulin requiring with hypoglycemia. monitor BBG. Continue sliding scale insulin 8. Pulmonary edema, improved. 9. 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 10. Peripheral vascular disease, stable. 11. Deep vein thrombosis prophylaxis addressed. Patient is on Coumadin.
--- NOTE | 2019-09-05 16:55 | R.PN ---
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 Pt denied any Shortness of Breath. Mr. Walden is making slow overall progress with therapy. He is moderately limited by poor cognition. His blood work is stable. Propelled wheelchair 25' with maximum assistance. He completed a simple maze with 75% accuracy. ADLs performed with maximum assistance. Cognitive tasks performed with minimum to moderate assistance. Ambulated 446' with contact guard assistance using a rolling walker. WBC 3.8, Hgb 9.1. INR is 2.00. He is on hemocyte plus and ferrous sulfate and followed by the renal s ercarolyne. Glucose 82 to 127. VITAL SIGNS SBP/DBP: 132/60 Temperature: 97.2 F Pulse: 60 Resp: 15 O2 sat: 96 on room air MEDICATION ALLERGIES: Amoxicillin ENVIRONMENTAL ALLERGIES: None Known - Substance Allergies None Known - Other Allergies None Known NURSING: - Shower allowing shower - Lab Results blood Sugar Check ACHS - Skin care per protocol PRECAUTIONS: - Posterior Hip Precaution No adduction across midline No external rotation No hip flexion >90 degrees No internal rotation No wheel chair propulsion - Weight Bearing Precaution WBAT left LE ACTIVITIES OOB only with supervision THERAPIES: - Dietary and Nutrition Adequate Nutrition. Nutritional Education. Nutritional Supplements. PHYSICAL EXAM - Gen Alert and awake Lying in bed No apparent distress Oriented to: person, time, and place - Skin No breakdown No numbness - Eyes No abnormalities - ENMT No abnormalities - Neck No abnormalities - CVS RRR - Chest No abnormalities - Resp Clear to auscultation - Abd + bowel sounds - GI Non distended Deferred - No abnormalities - Ext Left hip surgical site has good hemostasis. - MSK 4+/5 weakness in left lower extremity. - Neuro 4/5 strength left lower extremity. - Psych No abnormalities ASSESSMENT: Pt. is a 88 yo Right-handed white male.On 08/11/2019 he was admitted to [facility] with diagnosis Left Femoral Neck Fracture.His impairment category is Orthopaedic Disorders 08 - Unilateral Hip Fracture (08.11).Pre-morbidly, Pt. was independent/mod-I in Locomotion, Safety Awarene ss, Balance, Social Cognition, Transfers Control, Sphincter Control, Self-Care, Communication, and En durance; and he had good Locomotion, Balance, Transfers Control, Self-Care, and Endurance.Currently, he has deficits of Locomotion, Safety Awareness, Balance, Social Cognition, Transfers Control, Self-C are, and Endurance.Pt. is now referred to [facility] for acute in-patient reha bilitation in order to maximize patient's functional independence in activities of daily living, stre ngth, ROM, and mobility.- Rehab Goal Patient has realistic goal of being discharged at assistance level 6-Andrae to reside at Home with Att endant. MDM/PLAN: - Physical Therapy Decreased range of motion - to improve, our physical therapists will perform initial evaluation of p t's status upon admission and devise an individualized program for increasing patient's Range of Buddy on. Gait dysfunction - to improve, our physical therapists will perform initial evaluation of pt's statu s upon admission and devise an individualized program for Gait Training, and Wheel Chair mobility Inability to transfer - to improve, our physical therapists will perform initial evaluation of pt's status upon admission and devise an individualized program for Bed mobility Need for home safety evaluation - to improve, our physical therapists will perform initial evaluatio n of pt's status upon admission and devise an individualized program for Home Evaluation Need in caregiver upon discharge - to improve, our physical therapists will perform initial evaluati on of pt's status upon admission and devise an individualized program for Caregiver Training New precaution - to improve, our physical therapists will perform initial evaluation of pt's status upon admission and devise an individualized program for Patient precaution education Poor balance - to improve, our physical therapists will perform initial evaluation of pt's status up on admission and devise an individualized program for Balance Training Poor endurance - to improve, our physical therapists will perform initial evaluation of pt's status upon admission and devise an individualized program for Endurance Training Weakness - to improve, our physical therapists will perform initial evaluation of pt's status upon a dmission and devise an individualized program for Aquatic Therapy, Neuromuscular Reeducation, and Str engthening Achieving independence - to improve, our physical therapists will perform initial evaluation of pt's status upon admission and devise an individualized program for Community Reintegration Activities - Occupational Therapy ADL deficits - to improve, our occupation therapists will perform initial evaluation of pt's status upon admission and devise an individualized program for Bathing, Bed mobility, Community Reintegratio n, Cooking, Dressing, Eating, Fine Motor Skills, Grooming, Homemaking, Kitchen Mobility, Laundry, Pat ient Education, Safety Awareness, Splinting - Positioning, Transfers(Toilet, Tub, Shower), and Wheel Chair Management Cognitive deficits - to improve, our occupation therapists will perform initial evaluation of pt's s tatus upon admission and devise an individualized program for Cognition - orientation Need for animal caregiver - to improve, our occupation therapists will perform initial evaluation of pt's status upon admission and devise an individualized program for Caregiver Training Weakness - to improve, our occupation therapists will perform initial evaluation of pt's status upon admission and devise an individualized program for Aquatic Therapy, Balance, Endurance, UE ROM, and UE strengthening - Other See attached MAR (Medication Administration Record) - Anterior Hip Precaution No abduction No active extension No adduction across midline No external rotation No hip flexion >90 degrees No internal rotation - Diet - Liquid Texture Continue Regular - Tube Feed Continue N/A - Diet Type Continue Regular - Posterior Hip Precaution No adduction across midline No external rotation No hip flexion >90 degrees No internal rotation No wheel chair propulsion - Lab Results blood Sugar Check ACHS - Weight Bearing Precaution WBAT left LE - Skin care per protocol - Diet - Solid Texture Continue Regular - Shower allowing shower FUNCTIONAL STATUS: UPDATED AT WEEKLY TEAM CONFERENCE - Bladder Same accident frequency: 7-Ind - No accidents in the past 7 days - Bowel Same accident frequency: 7-Ind - No accidents in the past 7 days - Walking Same score based on distance walked: 0(N/A) - Wheelchair Same score based on distance traveled: 0(N/A) FUNCTIONAL STATUS: - Self-Care A. Eating sup B. Grooming sup C. Bathing modA D. Dressing - Upper Raoul E. Dressing - Lower modA F. Toileting modA - Sphincter Control G. Bladder control sup H. Bowel control sup - Transfers Control I. Bed/Chair/Wheelchair maxA J. Toilet maxA K. Tub/Shower maxA - Locomotion L. Walk/Wheelchair (B) maxA M. Stairs ADNO - Communication N. Comprehension (B) modA O. Expression (B) modA - Social Cognition P. Social Interaction Raoul Q. Problem Solving modA R. Memory maxA - Endurance Fair - Balance Poor - Safety Awareness Poor QI SCORES: - Self-Care A. Eating 05-Setup or clean-up assistance B. Oral hygiene 05-Setup or clean-up assistance C. Toileting hygiene 03-Partial/moderate assistance E. Shower/bathe self 03-Partial/moderate assistance F. Upper body dressing 03-Partial/moderate assistance G. Lower body dressing 01-Dependent H. Putting on/taking off footwear 01-Dependent - Mobility A. Roll left and right 03-Partial/moderate assistance B. Sit to lying 02-Substantial/maximal assistance C. Lying to sitting on side of bed 02-Substantial/maximal assistance D. Sit to stand 01-Dependent E. Chair/pax-zq-fwvlt transfer 01-Dependent F. Toilet transfer 01-Dependent G. Car transfer 88-Not attempted due to medical condition or safety concerns I. Walk 10 feet 88-Not attempted due to medical condition or safety concerns J. Walk 50 feet with two turns 88-Not attempted due to medical condition or safety concerns K. Walk 150 feet 88-Not attempted due to medical condition or safety concerns L. Walking 10 feet on uneven surfaces 88-Not attempted due to medical condition or safety concerns M. 1 step (curb) 88-Not attempted due to medical condition or safety concerns N. 4 steps 88-Not attempted due to medical condition or safety concerns O. 12 steps 88-Not attempted due to medical condition or safety concerns P. Picking up object 88-Not attempted due to medical condition or safety concerns R. Wheel 50 feet with two turns 88-Not attempted due to medical condition or safety concerns S. Wheel 150 feet 88-Not attempted due to medical condition or safety concerns - Bladder and Bowel Bladder continence 3-Incontinent daily Bowel continence 0-Always continent - Endurance Poor - Balance Fair - Safety Awareness Fair [facility] 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
[2019-09-05] MEDS ORDERED: WARFARIN SODIUM 5 MG TAB PO SCH (17:00)
[2019-09-05] MEDS: WARFARIN SODIUM 3 MG TAB PO SCH (17:11)
[2019-09-05] MEDS: WARFARIN SODIUM 5 MG TAB PO SCH (17:11)
[2019-09-05] MEDS: DIPHENHYDRAMINE 25 MG TAB/CAP PO PRN (20:37)
[2019-09-05] MEDS: FINASTERIDE 5 MG TAB PO SCH (20:37)
[2019-09-05] MEDS: ATORVASTATIN 10 MG TAB PO SCH (20:39)
[2019-09-05] MEDS: MELATONIN 3 MG TABLET PO PRN (23:10)
[2019-09-06] MEDS: carvediloL 3.125 MG TAB PO SCH ×2 (05:14→17:33)
[2019-09-06 06:22] LABS: Protime INR 1.84
[2019-09-06] MEDS: INSULIN -REGULAR HUMAN 50 UNIT/0.5 ML ML SQ SCH ×4 (07:30→21:00)
[2019-09-06] MEDS: INSULIN LISPRO 100 UNIT/1 ML SQ SCH ×2 (08:00→11:18)
[2019-09-06] MEDS: LIDOCAINE 4% PATCH TOP SCH (08:32)
[2019-09-06] MEDS: TAMSULOSIN 0.4 MG SR CAP PO SCH (08:33)
[2019-09-06] MEDS: BUMETANIDE 1 MG TABLET PO SCH (08:33)
[2019-09-06] MEDS: GABAPENTIN 300 MG CAP PO SCH ×3 (08:33→21:00)
[2019-09-06] MEDS: DOCUSATE NA 100 MG CAP PO SCH ×2 (08:34→21:00)
[2019-09-06] MEDS: FERROUS SULFATE 325 MG TAB PO SCH (08:34)
[2019-09-06] MEDS: FE SULF/FA/VIT B COMP & C TAB PO SCH (08:34)
[2019-09-06] MEDS: TRAMADOL HCL 50 MG TAB PO SCH ×3 (08:35→21:00)
[2019-09-06] MEDS: FAMOTIDINE 20 MG TAB PO SCH ×2 (08:35→20:59)
[2019-09-06] MEDS: METFORMIN HCL 500 MG TAB PO SCH ×2 (08:35→17:30)
[2019-09-06] MEDS: INSULIN GLARGINE 100 UNITS/ML SQ SCH ×2 (08:36→17:51)
[2019-09-06] MEDS: PROMOD 30 ML DOSE PO SCH ×2 (08:37→20:59)
[2019-09-06] MEDS: SPIRONOLACTONE 25 MG TABLET PO SCH (10:21)
[2019-09-06] MEDS: ACETAMINOPHEN 500 MG TAB PO PRN ×2 (12:29→23:05)
--- NOTE | 2019-09-06 13:27 | P.PN ---
Subjective Date of Service: 09/06/19 Chief Complaint: s/p left hip hemiarthroplasty Subjective: Ambulating, Improving, Working w/ PT pain controlled; alert Physical Examination - Vital Signs Temperature: 97.2 F Blood Pressure: 132/60 Pulse: 60 Respirations: 18 Pulse Ox (%): 96 - Physical Exam General: Alert, In no apparent distress Musculoskeletal: Other (LLE: swelling improved; no erythema or active drainage; NVI distally) - Studies Laboratory Data (last 24 hrs) 09/06/19 05:41: PT 21.2 H, INR 1.84 Medications List Reviewed: Yes Assessment And Plan - Plan Dalton is an 88 yo male s/p left hemiarthroplasty -no active drainage at this time and incision well healed -continue PT; WBAT LLE with posterior hip precautions -f/u 2 weeks after discharge in my clinic for reevaluation and repeat xrays of the left hip
--- NOTE | 2019-09-06 16:24 | FAST ---
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 Mode Gonzáles M.D. ADMISSION DIAGNOSIS: - Orthopaedic Disorders 08 - Unilateral Hip Fracture (08.11) Left Femoral Neck Fracture. EATING: Not assessed/no information CODE: - ORAL HYGIENE: ORAL HYGIENE - STEP 1: Does the patient complete the activity by him/herself with no assistance (physical, verbal/nonverbal cueing, setup/clean-up)? No. ORAL HYGIENE - STEP 2: Does the patient need only setup/clean-up assistance from one helper? Yes. 1. [id number] ADMISSION PERFORMANCE: Setup or clean-up assistance CODE: 05 TOILETING HYGIENE: Not assessed/no information CODE: - BATHING: SHOWER/BATHE SELF - STEP 1: Does the patient complete the activity by him/herself with no assistance (physical, verbal/nonverbal cueing, setup/clean-up)? No. SHOWER/BATHE SELF - STEP 2: Does the patient need only setup/clean-up assistance from one helper? No. SHOWER/BATHE SELF - STEP 3: Does the patient need only verbal/nonverbal cueing or touching/steadying/contact guard assistance fro m one helper? Yes. 1. [id number] ADMISSION PERFORMANCE: Supervision or touching assistance CODE: 04 DRESSING - UPPER BODY: DRESSING - UPPER BODY - STEP 1: Does the patient complete the activity by him/herself with no assistance (physical, verbal/nonverbal cueing, setup/clean-up)? No. DRESSING - UPPER BODY - STEP 2: Does the patient need only setup/clean-up assistance from one helper? Yes. 1. [id number] ADMISSION PERFORMANCE: Setup or clean-up assistance CODE: 05 DRESSING - LOWER BODY: DRESSING - LOWER BODY - STEP 1: Does the patient complete the activity by him/herself with no assistance (physical, verbal/nonverbal cueing, setup/clean-up)? No. DRESSING - LOWER BODY - STEP 2: Does the patient need only setup/clean-up assistance from one helper? No. DRESSING - LOWER BODY - STEP 3: Does the patient need only verbal/nonverbal cueing or touching/steadying/contact guard assistance fro m one helper? Yes. 1. [id number] ADMISSION PERFORMANCE: Supervision or touching assistance CODE: 04 PUTTING ON/TAKING OFF FOOTWEAR: FOOTWEAR - STEP 1: Does the patient complete the activity by him/herself with no assistance (physical, verbal/nonverbal cueing, setup/clean-up)? No. FOOTWEAR - STEP 2: Does the patient need only setup/clean-up assistance from one helper? No. FOOTWEAR - STEP 3: Does the patient need only verbal/nonverbal cueing or touching/steadying/contact guard assistance fro m one helper? Yes. 1. [id number] ADMISSION PERFORMANCE: Supervision or touching assistance CODE: 04 DOES THE PATIENT USE A WHEELCHAIR/SCOOTER? CODE: EXPR INDICATE THE TYPE OF WHEELCHAIR/SCOOTER USED: CODE: EXPR INDICATE THE TYPE OF WHEELCHAIR/SCOOTER USED: CODE: EXPR BLADDER AND BOWEL: CODE: EXPR CODE: EXPR SIGNATURE PANEL: The following modified sections: 1. [id number] Admission Performance, 1. [id number] Admission Performance, 1. [id number] Admission Performance, 1. [id number] Admission Performance, 1. [id number] Admission Performance were [electronically] signed by YI Washington on WedSep 06 2019 16:23:26 GMT-0600 (Central Standard Time)
[2019-09-06] MEDS: WARFARIN SODIUM 5 MG TAB PO SCH (17:32)
[2019-09-06] MEDS: WARFARIN SODIUM 3 MG TAB PO SCH (17:32)
[2019-09-06] MEDS: FINASTERIDE 5 MG TAB PO SCH (21:00)
[2019-09-06] MEDS: DIPHENHYDRAMINE 25 MG TAB/CAP PO PRN (21:00)
[2019-09-06] MEDS: ATORVASTATIN 10 MG TAB PO SCH (21:00)
--- NOTE | 2019-09-06 21:53 | R.PN ---
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 Pt denied any Shortness of Breath. Mr. Walden is making slow overall progress with therapy. He is moderately limited by poor cognition. His blood work is stable. Propelled wheelchair 25' with maximum assistance. He completed a simple maze with 75% accuracy. ADLs performed with maximum assistance. Cognitive tasks performed with minimum to moderate assistance. Ambulated 165' with contact guard assistance using a rolling walker. WBC 3.8, Hgb 9.1. INR is 2.00. He is on hemocyte plus and ferrous sulfate and followed by the renal s ercarolyne. Glucose 82 to 127. VITAL SIGNS SBP/DBP: 128/59 Temperature: 97.2 F Pulse: 54 Resp: 16 O2 sat: 96 on room air MEDICATION ALLERGIES: Amoxicillin ENVIRONMENTAL ALLERGIES: None Known - Substance Allergies None Known - Other Allergies None Known NURSING: - Shower allowing shower - Lab Results blood Sugar Check ACHS - Skin care per protocol PRECAUTIONS: - Posterior Hip Precaution No adduction across midline No external rotation No hip flexion >90 degrees No internal rotation No wheel chair propulsion - Weight Bearing Precaution WBAT left LE ACTIVITIES OOB only with supervision THERAPIES: - Dietary and Nutrition Adequate Nutrition. Nutritional Education. Nutritional Supplements. PHYSICAL EXAM - Gen Alert and awake Lying in bed No apparent distress Oriented to: person, time, and place - Skin No breakdown No numbness - Eyes No abnormalities - ENMT No abnormalities - Neck No abnormalities - CVS RRR - Chest No abnormalities - Resp Clear to auscultation - Abd + bowel sounds - GI Non distended Deferred - No abnormalities - Ext Left hip surgical site has good hemostasis. - MSK 4+/5 weakness in left lower extremity. - Neuro 4/5 strength left lower extremity. - Psych No abnormalities ASSESSMENT: Pt. is a 88 yo Right-handed white male.On 08/11/2019 he was admitted to [facility] with diagnosis Left Femoral Neck Fracture.His impairment category is Orthopaedic Disorders 08 - Unilateral Hip Fracture (08.11).Pre-morbidly, Pt. was independent/mod-I in Locomotion, Safety Awarene ss, Balance, Social Cognition, Transfers Control, Sphincter Control, Self-Care, Communication, and En durance; and he had good Locomotion, Balance, Transfers Control, Self-Care, and Endurance.Currently, he has deficits of Locomotion, Safety Awareness, Balance, Social Cognition, Transfers Control, Self-C are, and Endurance.Pt. is now referred to [facility] for acute in-patient reha bilitation in order to maximize patient's functional independence in activities of daily living, stre ngth, ROM, and mobility.- Rehab Goal Patient has realistic goal of being discharged at assistance level 6-Andrae to reside at Home with Att endant. MDM/PLAN: - Physical Therapy Decreased range of motion - to improve, our physical therapists will perform initial evaluation of p t's status upon admission and devise an individualized program for increasing patient's Range of Buddy on. Gait dysfunction - to improve, our physical therapists will perform initial evaluation of pt's statu s upon admission and devise an individualized program for Gait Training, and Wheel Chair mobility Inability to transfer - to improve, our physical therapists will perform initial evaluation of pt's status upon admission and devise an individualized program for Bed mobility Need for home safety evaluation - to improve, our physical therapists will perform initial evaluatio n of pt's status upon admission and devise an individualized program for Home Evaluation Need in caregiver upon discharge - to improve, our physical therapists will perform initial evaluati on of pt's status upon admission and devise an individualized program for Caregiver Training New precaution - to improve, our physical therapists will perform initial evaluation of pt's status upon admission and devise an individualized program for Patient precaution education Poor balance - to improve, our physical therapists will perform initial evaluation of pt's status up on admission and devise an individualized program for Balance Training Poor endurance - to improve, our physical therapists will perform initial evaluation of pt's status upon admission and devise an individualized program for Endurance Training Weakness - to improve, our physical therapists will perform initial evaluation of pt's status upon a dmission and devise an individualized program for Aquatic Therapy, Neuromuscular Reeducation, and Str engthening Achieving independence - to improve, our physical therapists will perform initial evaluation of pt's status upon admission and devise an individualized program for Community Reintegration Activities - Occupational Therapy ADL deficits - to improve, our occupation therapists will perform initial evaluation of pt's status upon admission and devise an individualized program for Bathing, Bed mobility, Community Reintegratio n, Cooking, Dressing, Eating, Fine Motor Skills, Grooming, Homemaking, Kitchen Mobility, Laundry, Pat ient Education, Safety Awareness, Splinting - Positioning, Transfers(Toilet, Tub, Shower), and Wheel Chair Management Cognitive deficits - to improve, our occupation therapists will perform initial evaluation of pt's s tatus upon admission and devise an individualized program for Cognition - orientation Need for daycare provider - to improve, our occupation therapists will perform initial evaluation of pt's status upon admission and devise an individualized program for Caregiver Training Weakness - to improve, our occupation therapists will perform initial evaluation of pt's status upon admission and devise an individualized program for Aquatic Therapy, Balance, Endurance, UE ROM, and UE strengthening - Other See attached MAR (Medication Administration Record) - Anterior Hip Precaution No abduction No active extension No adduction across midline No external rotation No hip flexion >90 degrees No internal rotation - Diet - Liquid Texture Continue Regular - Tube Feed Continue N/A - Diet Type Continue Regular - Posterior Hip Precaution No adduction across midline No external rotation No hip flexion >90 degrees No internal rotation No wheel chair propulsion - Lab Results blood Sugar Check ACHS - Weight Bearing Precaution WBAT left LE - Skin care per protocol - Diet - Solid Texture Continue Regular - Shower allowing shower FUNCTIONAL STATUS: UPDATED AT WEEKLY TEAM CONFERENCE - Bladder Same accident frequency: 7-Ind - No accidents in the past 7 days - Bowel Same accident frequency: 7-Ind - No accidents in the past 7 days - Walking Same score based on distance walked: 0(N/A) - Wheelchair Same score based on distance traveled: 0(N/A) FUNCTIONAL STATUS: - Self-Care A. Eating sup B. Grooming sup C. Bathing modA D. Dressing - Upper Raoul E. Dressing - Lower modA F. Toileting modA - Sphincter Control G. Bladder control sup H. Bowel control sup - Transfers Control I. Bed/Chair/Wheelchair maxA J. Toilet maxA K. Tub/Shower maxA - Locomotion L. Walk/Wheelchair (B) maxA M. Stairs ADNO - Communication N. Comprehension (B) modA O. Expression (B) modA - Social Cognition P. Social Interaction Raoul Q. Problem Solving modA R. Memory maxA - Endurance Fair - Balance Poor - Safety Awareness Poor QI SCORES: - Self-Care A. Eating 05-Setup or clean-up assistance B. Oral hygiene 05-Setup or clean-up assistance C. Toileting hygiene 03-Partial/moderate assistance E. Shower/bathe self 03-Partial/moderate assistance F. Upper body dressing 03-Partial/moderate assistance G. Lower body dressing 01-Dependent H. Putting on/taking off footwear 01-Dependent - Mobility A. Roll left and right 03-Partial/moderate assistance B. Sit to lying 02-Substantial/maximal assistance C. Lying to sitting on side of bed 02-Substantial/maximal assistance D. Sit to stand 01-Dependent E. Chair/nmj-ny-[id number] transfer 01-Dependent F. Toilet transfer 01-Dependent G. Car transfer 88-Not attempted due to medical condition or safety concerns I. Walk 10 feet 88-Not attempted due to medical condition or safety concerns J. Walk 50 feet with two turns 88-Not attempted due to medical condition or safety concerns K. Walk 150 feet 88-Not attempted due to medical condition or safety concerns L. Walking 10 feet on uneven surfaces 88-Not attempted due to medical condition or safety concerns M. 1 step (curb) 88-Not attempted due to medical condition or safety concerns N. 4 steps 88-Not attempted due to medical condition or safety concerns O. 12 steps 88-Not attempted due to medical condition or safety concerns P. Picking up object 88-Not attempted due to medical condition or safety concerns R. Wheel 50 feet with two turns 88-Not attempted due to medical condition or safety concerns S. Wheel 150 feet 88-Not attempted due to medical condition or safety concerns - Bladder and Bowel Bladder continence 3-Incontinent daily Bowel continence 0-Always continent - Endurance Poor - Balance Fair - Safety Awareness Fair [facility] 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
[2019-09-06] MEDS: MELATONIN 3 MG TABLET PO PRN (23:05)
[2019-09-07] MEDS: carvediloL 3.125 MG TAB PO SCH ×2 (05:29→17:33)
[2019-09-07 06:32] LABS: Protime INR 1.93
[2019-09-07 06:34] LABS: Absolute Lymphocytes (CBC) 1.2 K/uL (0.7-4.9); Basophils % 1.4 % (0-1.3); Lymphocytes % 30.3 % (15.3-44.8); MPV 7.4 fL (7.6-11.3); RBC Red Blood Cell Count 3.24 M/uL (4.33-5.43)
[2019-09-07 06:54] LABS: Albumin 2.9 g/dL (3.4-5.0); BUN Blood Urea Nitrogen 19 mg/dL (7-18); Bicarbonate 32 mmol/L (21-32); Glucose Level 63 mg/dL (74-106); Potassium 3.9 mmol/L (3.5-5.1); Prealbumin 14.5 mg/dL (20-40); Sodium Level 141 mmol/L (136-145)
[2019-09-07] MEDS: INSULIN -REGULAR HUMAN 50 UNIT/0.5 ML ML SQ SCH ×4 (07:30→20:57)
[2019-09-07] MEDS: METFORMIN HCL 500 MG TAB PO SCH ×2 (08:27→17:32)
[2019-09-07] MEDS: LIDOCAINE 4% PATCH TOP SCH (08:27)
[2019-09-07] MEDS: GABAPENTIN 300 MG CAP PO SCH ×3 (08:29→20:53)
[2019-09-07] MEDS: BUMETANIDE 1 MG TABLET PO SCH (08:29)
[2019-09-07] MEDS: FE SULF/FA/VIT B COMP & C TAB PO SCH (08:29)
[2019-09-07] MEDS: FERROUS SULFATE 325 MG TAB PO SCH (08:30)
[2019-09-07] MEDS: DOCUSATE NA 100 MG CAP PO SCH ×2 (08:30→20:53)
[2019-09-07] MEDS: FAMOTIDINE 20 MG TAB PO SCH ×2 (08:30→20:53)
[2019-09-07] MEDS: TAMSULOSIN 0.4 MG SR CAP PO SCH (08:30)
[2019-09-07] MEDS: TRAMADOL HCL 50 MG TAB PO SCH ×3 (08:31→20:56)
[2019-09-07] MEDS: SPIRONOLACTONE 25 MG TABLET PO SCH (08:32)
[2019-09-07] MEDS: PROMOD 30 ML DOSE PO SCH ×2 (08:33→20:53)
[2019-09-07] MEDS: INSULIN GLARGINE 100 UNITS/ML SQ SCH ×2 (09:38→17:48)
[2019-09-07] MEDS: ACETAMINOPHEN 500 MG TAB PO PRN ×2 (12:26→23:37)
--- NOTE | 2019-09-07 12:57 | P.PN ---
Subjective Date of Service: 09/07/19 Chief Complaint: s/p left hip hemiarthroplasty Denies any complaints. participating in therapy. Physical Examination - Vital Signs Temperature: 97 F Blood Pressure: 121/58 Pulse: 57 Respirations: 18 Pulse Ox (%): 96 - Physical Exam General: Alert HEENT: Atraumatic, PERRLA, EOMI Neck: Supple, JVD not distended Respiratory: Clear to auscultation bilaterally, Normal air movement Cardiovascular: Regular rate/rhythm, Normal S1 S2 Gastrointestinal: Normal bowel sounds, No tenderness Musculoskeletal: No tenderness Integumentary: No rashes Neurological: Normal tone, Normal affect Lymphatics: No axilla or inguinal lymphadenopathy - Studies Laboratory Data (last 24 hrs) 09/07/19 06:15: Sodium 141, Potassium 3.9, BUN 19 H, Creatinine 0.70, Glucose 63 L, Magnesium 2.0 09/07/19 06:15: WBC 3.9 L, Hgb 9.3 L, Hct 28.0 L, Plt Count 122 L 09/07/19 06:15: PT 22.2 H, INR 1.93 Medications List Reviewed: Yes Assessment And Plan - Plan A/P 1. Left hip femoral neck fracture, nondisplaced. Initial encounter status post open reduction and internal fixation, improving. Continue with PT. Doing well. Able to transfer himself. 2. Atrial fibrillation with controlled ventricular rate. Continue with Coumadin. INR subtherapeutic, adjust coumadin. Continue to monitor. 3. Hematoma, left hip as the patient was on therapeutic Lovenox and Coumadin for the atrial fibrillation as his INR was subtherapeutic, improving. Minimal drainage from the bandage. Clindamycin was discontinued. No further drainage. Erythema is improved significantly. 4. Delirium, resolved. 5. BPH. Flomax. 6. Mixed hyperlipidemia. Continue statin. 7. Diabetes mellitus type 2, insulin requiring with hypoglycemia. monitor BBG. Continue sliding scale insulin 8. Pulmonary edema, improved. 9. 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 10. Peripheral vascular disease, stable. 11. Deep vein thrombosis prophylaxis addressed. Patient is on Coumadin.
--- NOTE | 2019-09-07 14:20 | FAST ---
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 Mode Gonzáles M.D. ADMISSION DIAGNOSIS: - Orthopaedic Disorders 08 - Unilateral Hip Fracture (08.11) Left Femoral Neck Fracture. EATING: EATING - STEP 1: Does the patient complete the activity by him/herself with no assistance (physical, verbal/nonverbal cueing, setup/clean-up)? Yes. 1. [id number] ADMISSION PERFORMANCE: Independent CODE: 06 ORAL HYGIENE: ORAL HYGIENE - STEP 1: Does the patient complete the activity by him/herself with no assistance (physical, verbal/nonverbal cueing, setup/clean-up)? No. ORAL HYGIENE - STEP 2: Does the patient need only setup/clean-up assistance from one helper? Yes. 1. [id number] ADMISSION PERFORMANCE: Setup or clean-up assistance CODE: 05 TOILETING HYGIENE: TOILETING HYGIENE - STEP 1: Does the patient complete the activity by him/herself with no assistance (physical, verbal/nonverbal cueing, setup/clean-up)? No. TOILETING HYGIENE - STEP 2: Does the patient need only setup/clean-up assistance from one helper? Yes. 1. [id number] ADMISSION PERFORMANCE: Setup or clean-up assistance CODE: 05 BATHING: Not assessed/no information CODE: - DRESSING - UPPER BODY: DRESSING - UPPER BODY - STEP 1: Does the patient complete the activity by him/herself with no assistance (physical, verbal/nonverbal cueing, setup/clean-up)? No. DRESSING - UPPER BODY - STEP 2: Does the patient need only setup/clean-up assistance from one helper? Yes. 1. [id number] ADMISSION PERFORMANCE: Setup or clean-up assistance CODE: 05 DRESSING - LOWER BODY: DRESSING - LOWER BODY - STEP 1: Does the patient complete the activity by him/herself with no assistance (physical, verbal/nonverbal cueing, setup/clean-up)? No. DRESSING - LOWER BODY - STEP 2: Does the patient need only setup/clean-up assistance from one helper? Yes. 1. [id number] ADMISSION PERFORMANCE: Setup or clean-up assistance CODE: 05 PUTTING ON/TAKING OFF FOOTWEAR: FOOTWEAR - STEP 1: Does the patient complete the activity by him/herself with no assistance (physical, verbal/nonverbal cueing, setup/clean-up)? No. FOOTWEAR - STEP 2: Does the patient need only setup/clean-up assistance from one helper? Yes. 1. [id number] ADMISSION PERFORMANCE: Setup or clean-up assistance CODE: 05 ROLL LEFT AND RIGHT: ROLL LEFT AND RIGHT - STEP 1: Does the patient complete the activity by him/herself with no assistance (physical, verbal/nonverbal cueing, setup/clean-up)? No. ROLL LEFT AND RIGHT - STEP 2: Does the patient need only setup/clean-up assistance from one helper? Yes. 1. [id number] ADMISSION PERFORMANCE: Setup or clean-up assistance CODE: 05 SIT TO LYING: SIT TO LYING - STEP 1: Does the patient complete the activity by him/herself with no assistance (physical, verbal/nonverbal cueing, setup/clean-up)? No. SIT TO LYING - STEP 2: Does the patient need only setup/clean-up assistance from one helper? Yes. 1. [id number] ADMISSION PERFORMANCE: Setup or clean-up assistance CODE: 05 LYING TO SITTING: LYING TO SITTING ON SIDE OF BED - STEP 1: Does the patient complete the activity by him/herself with no assistance (physical, verbal/nonverbal cueing, setup/clean-up)? Yes. 1. [id number] ADMISSION PERFORMANCE: Independent CODE: 06 SIT TO STAND: SIT TO STAND - STEP 1: Does the patient complete the activity by him/herself with no assistance (physical, verbal/nonverbal cueing, setup/clean-up)? No. SIT TO STAND - STEP 2: Does the patient need only setup/clean-up assistance from one helper? Yes. 1. [id number] ADMISSION PERFORMANCE: Setup or clean-up assistance CODE: 05 TRANSFERS: BED, CHAIR: CHAIR/[id number] TRANSFER - STEP 1: Does the patient complete the activity by him/herself with no assistance (physical, verbal/nonverbal cueing, setup/clean-up)? No. CHAIR/[id number] TRANSFER - STEP 2: Does the patient need only setup/clean-up assistance from one helper? Yes. 1. [id number] ADMISSION PERFORMANCE: Setup or clean-up assistance CODE: 05 TRANSFER TOILET: TOILET TRANSFER - STEP 1: Does the patient complete the activity by him/herself with no assistance (physical, verbal/nonverbal cueing, setup/clean-up)? No. TOILET TRANSFER - STEP 2: Does the patient need only setup/clean-up assistance from one helper? Yes. 1. [id number] ADMISSION PERFORMANCE: Setup or clean-up assistance CODE: 05 TRANSFERS: CAR: Not assessed/no information CODE: - WALK 10 FEET: Not assessed/no information CODE: - 1 STEP (CURB): Not assessed/no information CODE: - PICKING UP OBJECT: Not assessed/no information CODE: - DOES THE PATIENT USE A WHEELCHAIR/SCOOTER? Q1. DOES THE PATIENT USE A WHEELCHAIR/SCOOTER?: Yes CODE: 1 WHEEL 50 FEET WITH TWO TURNS: WHEEL 50 FEET WITH TWO TURNS - STEP 1: Does the patient complete the activity by him/herself with no assistance (physical, verbal/nonverbal cueing, setup/clean-up)? No. WHEEL 50 FEET WITH TWO TURNS - STEP 2: Does the patient need only setup/clean-up assistance from one helper? Yes. 1. [id number] ADMISSION PERFORMANCE: Setup or clean-up assistance CODE: 05 INDICATE THE TYPE OF WHEELCHAIR/SCOOTER USED: CODE: EXPR WHEEL 150 FEET: Not assessed/no information CODE: - INDICATE THE TYPE OF WHEELCHAIR/SCOOTER USED: CODE: EXPR BLADDER AND BOWEL: H350. BLADDER CONTINENCE (3-DAY ASSESSMENT PERIOD): Always continent (no documented incontinence) CODE: 0 H400. BOWEL CONTINENCE (3-DAY ASSESSMENT PERIOD): Always continent CODE: 0 SIGNATURE PANEL: The following modified sections: 1. [id number] Admission Performance, 1. [id number] Admission Performance, 1. [id number] Admission Performance, 1. [id number] Admission Performance, 1. FP5042b Admission Performance, 1. [id number] Admission Performance, 1. [id number] Admission Performance, 1. [id number] Admission Performance , 1. [id number] Admission Performance, 1. [id number] Admission Performance, 1. [id number] Admission Performanc e, 1. [id number] Admission Performance, Q1. Does the patient use a wheelchair/scooter?, 1. [id number] Admis obinna Performance, Code, H400. Bowel Continence (3-day assessment period), H350. Bladder Continence (3 -day assessment period) were [electronically] signed by Carlos A QuevedoNAv on WedSep 07 2019 14:19 :33 T-0600 (Central Standard Time)
--- NOTE | 2019-09-07 16:13 | FAST ---
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 Mode Gonzáles M.D. ADMISSION DIAGNOSIS: - Orthopaedic Disorders 08 - Unilateral Hip Fracture (08.11) Left Femoral Neck Fracture. ROLL LEFT AND RIGHT: ROLL LEFT AND RIGHT - STEP 1: Does the patient complete the activity by him/herself with no assistance (physical, verbal/nonverbal cueing, setup/clean-up)? Yes. 1. [id number] ADMISSION PERFORMANCE: Independent CODE: 06 SIT TO LYING: SIT TO LYING - STEP 1: Does the patient complete the activity by him/herself with no assistance (physical, verbal/nonverbal cueing, setup/clean-up)? Yes. 1. [id number] ADMISSION PERFORMANCE: Independent CODE: 06 LYING TO SITTING: LYING TO SITTING ON SIDE OF BED - STEP 1: Does the patient complete the activity by him/herself with no assistance (physical, verbal/nonverbal cueing, setup/clean-up)? Yes. 1. [id number] ADMISSION PERFORMANCE: Independent CODE: 06 SIT TO STAND: SIT TO STAND - STEP 1: Does the patient complete the activity by him/herself with no assistance (physical, verbal/nonverbal cueing, setup/clean-up)? No. SIT TO STAND - STEP 2: Does the patient need only setup/clean-up assistance from one helper? No. SIT TO STAND - STEP 3: Does the patient need only verbal/nonverbal cueing or touching/steadying/contact guard assistance fro m one helper? Yes. 1. [id number] ADMISSION PERFORMANCE: Supervision or touching assistance CODE: 04 TRANSFERS: BED, CHAIR: CHAIR/[id number] TRANSFER - STEP 1: Does the patient complete the activity by him/herself with no assistance (physical, verbal/nonverbal cueing, setup/clean-up)? No. CHAIR/[id number] TRANSFER - STEP 2: Does the patient need only setup/clean-up assistance from one helper? No. CHAIR/[id number] TRANSFER - STEP 3: Does the patient need only verbal/nonverbal cueing or touching/steadying/contact guard assistance fro m one helper? Yes. 1. [id number] ADMISSION PERFORMANCE: Supervision or touching assistance CODE: 04 TRANSFER TOILET: TOILET TRANSFER - STEP 1: Does the patient complete the activity by him/herself with no assistance (physical, verbal/nonverbal cueing, setup/clean-up)? No. TOILET TRANSFER - STEP 2: Does the patient need only setup/clean-up assistance from one helper? No. TOILET TRANSFER - STEP 3: Does the patient need only verbal/nonverbal cueing or touching/steadying/contact guard assistance fro m one helper? Yes. 1. [id number] ADMISSION PERFORMANCE: Supervision or touching assistance CODE: 04 TRANSFERS: CAR: Not attempted due to environmental limitations (e.g., lack of equipment, weather constraints) CODE: 10 WALK 10 FEET: WALK 10 FEET - STEP 1: Does the patient complete the activity by him/herself with no assistance (physical, verbal/nonverbal cueing, setup/clean-up)? No. WALK 10 FEET - STEP 2: Does the patient need only setup/clean-up assistance from one helper? No. WALK 10 FEET - STEP 3: Does the patient need only verbal/nonverbal cueing or touching/steadying/contact guard assistance fro m one helper? Yes. 1. [id number] ADMISSION PERFORMANCE: Supervision or touching assistance CODE: 04 WALK 50 FEET: WALK 50 FEET - STEP 1: Does the patient complete the activity by him/herself with no assistance (physical, verbal/nonverbal cueing, setup/clean-up)? No. WALK 50 FEET - STEP 2: Does the patient need only setup/clean-up assistance from one helper? No. WALK 50 FEET - STEP 3: Does the patient need only verbal/nonverbal cueing or touching/steadying/contact guard assistance fro m one helper? Yes. 1. [id number] ADMISSION PERFORMANCE: Supervision or touching assistance CODE: 04 WALK 150 FEET: Not attempted due to medical condition or safety concerns CODE: 88 WALK 10 FEET UNEVEN: Not attempted due to medical condition or safety concerns CODE: 88 1 STEP (CURB): Not attempted due to medical condition or safety concerns CODE: 88 PICKING UP OBJECT: PICKING UP OBJECT - STEP 1: Does the patient complete the activity by him/herself with no assistance (physical, verbal/nonverbal cueing, setup/clean-up)? No. PICKING UP OBJECT - STEP 2: Does the patient need only setup/clean-up assistance from one helper? No. PICKING UP OBJECT - STEP 3: Does the patient need only verbal/nonverbal cueing or touching/steadying/contact guard assistance fro m one helper? Yes. 1. [id number] ADMISSION PERFORMANCE: Supervision or touching assistance CODE: 04 DOES THE PATIENT USE A WHEELCHAIR/SCOOTER? Q1. DOES THE PATIENT USE A WHEELCHAIR/SCOOTER?: Yes CODE: 1 WHEEL 50 FEET WITH TWO TURNS: WHEEL 50 FEET WITH TWO TURNS - STEP 1: Does the patient complete the activity by him/herself with no assistance (physical, verbal/nonverbal cueing, setup/clean-up)? No. WHEEL 50 FEET WITH TWO TURNS - STEP 2: Does the patient need only setup/clean-up assistance from one helper? No. WHEEL 50 FEET WITH TWO TURNS - STEP 3: Does the patient need only verbal/nonverbal cueing or touching/steadying/contact guard assistance fro m one helper? Yes. 1. [id number] ADMISSION PERFORMANCE: Supervision or touching assistance CODE: 04 INDICATE THE TYPE OF WHEELCHAIR/SCOOTER USED: RR1. INDICATE THE TYPE OF WHEELCHAIR/SCOOTER USED.: Manual CODE: 1 WHEEL 150 FEET: WHEEL 150 FEET - STEP 1: Does the patient complete the activity by him/herself with no assistance (physical, verbal/nonverbal cueing, setup/clean-up)? No. WHEEL 150 FEET - STEP 2: Does the patient need only setup/clean-up assistance from one helper? No. WHEEL 150 FEET - STEP 3: Does the patient need only verbal/nonverbal cueing or touching/steadying/contact guard assistance fro m one helper? Yes. 1. [id number] ADMISSION PERFORMANCE: Supervision or touching assistance CODE: 04 INDICATE THE TYPE OF WHEELCHAIR/SCOOTER USED: SS1. INDICATE THE TYPE OF WHEELCHAIR/SCOOTER USED.: Manual CODE: 1 BLADDER AND BOWEL: CODE: EXPR CODE: EXPR SIGNATURE PANEL: The following modified sections: 1. [id number] Admission Performance, 1. [id number] Admission Performance, 1. [id number] Admission Performance, 1. [id number] Admission Performance, 1. [id number] Admission Performance, 1. [id number] Admission Performance, 1. [id number] Admission Performance, 1. [id number] Admission Performance , 1. [id number] Admission Performance, 1. [id number] Admission Performance, 1. [id number] Admission Performanc e, Q1. Does the patient use a wheelchair/scooter?, 1. [id number] Admission Performance, RR1. Indicate th e type of wheelchair/scooter used., 1. [id number] Admission Performance, Code, SS1. Indicate the type of wheelchair/scooter used. were [electronically] signed by Morales Aviles PT on Rosi Sep 07 2019 16: 12:46 T-0600 (Central Standard Time)
[2019-09-07] MEDS: WARFARIN SODIUM 5 MG TAB PO SCH (17:33)
[2019-09-07] MEDS: WARFARIN SODIUM 3 MG TAB PO SCH (17:33)
[2019-09-07 20:04] VITALS: O2SAT 96
[2019-09-07] MEDS: DIPHENHYDRAMINE 25 MG TAB/CAP PO PRN (20:52)
[2019-09-07] MEDS: ATORVASTATIN 10 MG TAB PO SCH (20:53)
[2019-09-07] MEDS: FINASTERIDE 5 MG TAB PO SCH (20:53)
--- NOTE | 2019-09-07 23:19 | R.PN ---
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 Pt denied any Shortness of Breath. Mr. Walden is making slow overall progress with therapy. He is moderately limited by poor cognition. His blood work is stable. Propelled wheelchair 25' with maximum assistance. He completed a simple maze with 75% accuracy. ADLs performed with maximum assistance. Cognitive tasks performed with minimum to moderate assistance. Ambulated 270' with contact guard assistance using a rolling walker. WBC 3.8, Hgb 9.1. INR is 2.00. He is on hemocyte plus and ferrous sulfate and followed by the renal s ercarolyne. Glucose 82 to 127. VITAL SIGNS SBP/DBP: 139/63 Temperature: 97.2 F Pulse: 63 Resp: 14 O2 sat: 97 on room air MEDICATION ALLERGIES: Amoxicillin ENVIRONMENTAL ALLERGIES: None Known - Substance Allergies None Known - Other Allergies None Known NURSING: - Shower allowing shower - Lab Results blood Sugar Check ACHS - Skin care per protocol PRECAUTIONS: - Posterior Hip Precaution No adduction across midline No external rotation No hip flexion >90 degrees No internal rotation No wheel chair propulsion - Weight Bearing Precaution WBAT left LE ACTIVITIES OOB only with supervision THERAPIES: - Dietary and Nutrition Adequate Nutrition. Nutritional Education. Nutritional Supplements. PHYSICAL EXAM - Gen Alert and awake Lying in bed No apparent distress Oriented to: person, time, and place - Skin No breakdown No numbness - Eyes No abnormalities - ENMT No abnormalities - Neck No abnormalities - CVS RRR - Chest No abnormalities - Resp Clear to auscultation - Abd + bowel sounds - GI Non distended Deferred - No abnormalities - Ext Left hip surgical site has good hemostasis. - MSK 4+/5 weakness in left lower extremity. - Neuro 4/5 strength left lower extremity. - Psych No abnormalities ASSESSMENT: Pt. is a 88 yo Right-handed white male.On 08/11/2019 he was admitted to [facility] with diagnosis Left Femoral Neck Fracture.His impairment category is Orthopaedic Disorders 08 - Unilateral Hip Fracture (08.11).Pre-morbidly, Pt. was independent/mod-I in Locomotion, Safety Awarene ss, Balance, Social Cognition, Transfers Control, Sphincter Control, Self-Care, Communication, and En durance; and he had good Locomotion, Balance, Transfers Control, Self-Care, and Endurance.Currently, he has deficits of Locomotion, Safety Awareness, Balance, Social Cognition, Transfers Control, Self-C are, and Endurance.Pt. is now referred to [facility] for acute in-patient reha bilitation in order to maximize patient's functional independence in activities of daily living, stre ngth, ROM, and mobility.- Rehab Goal Patient has realistic goal of being discharged at assistance level 6-Andrae to reside at Home with Att endant. MDM/PLAN: - Physical Therapy Decreased range of motion - to improve, our physical therapists will perform initial evaluation of p t's status upon admission and devise an individualized program for increasing patient's Range of Buddy on. Gait dysfunction - to improve, our physical therapists will perform initial evaluation of pt's statu s upon admission and devise an individualized program for Gait Training, and Wheel Chair mobility Inability to transfer - to improve, our physical therapists will perform initial evaluation of pt's status upon admission and devise an individualized program for Bed mobility Need for home safety evaluation - to improve, our physical therapists will perform initial evaluatio n of pt's status upon admission and devise an individualized program for Home Evaluation Need in caregiver upon discharge - to improve, our physical therapists will perform initial evaluati on of pt's status upon admission and devise an individualized program for Caregiver Training New precaution - to improve, our physical therapists will perform initial evaluation of pt's status upon admission and devise an individualized program for Patient precaution education Poor balance - to improve, our physical therapists will perform initial evaluation of pt's status up on admission and devise an individualized program for Balance Training Poor endurance - to improve, our physical therapists will perform initial evaluation of pt's status upon admission and devise an individualized program for Endurance Training Weakness - to improve, our physical therapists will perform initial evaluation of pt's status upon a dmission and devise an individualized program for Aquatic Therapy, Neuromuscular Reeducation, and Str engthening Achieving independence - to improve, our physical therapists will perform initial evaluation of pt's status upon admission and devise an individualized program for Community Reintegration Activities - Occupational Therapy ADL deficits - to improve, our occupation therapists will perform initial evaluation of pt's status upon admission and devise an individualized program for Bathing, Bed mobility, Community Reintegratio n, Cooking, Dressing, Eating, Fine Motor Skills, Grooming, Homemaking, Kitchen Mobility, Laundry, Pat ient Education, Safety Awareness, Splinting - Positioning, Transfers(Toilet, Tub, Shower), and Wheel Chair Management Cognitive deficits - to improve, our occupation therapists will perform initial evaluation of pt's s tatus upon admission and devise an individualized program for Cognition - orientation Need for child care nurse - to improve, our occupation therapists will perform initial evaluation of pt's status upon admission and devise an individualized program for Caregiver Training Weakness - to improve, our occupation therapists will perform initial evaluation of pt's status upon admission and devise an individualized program for Aquatic Therapy, Balance, Endurance, UE ROM, and UE strengthening - Other See attached MAR (Medication Administration Record) - Anterior Hip Precaution No abduction No active extension No adduction across midline No external rotation No hip flexion >90 degrees No internal rotation - Diet - Liquid Texture Continue Regular - Tube Feed Continue N/A - Diet Type Continue Regular - Posterior Hip Precaution No adduction across midline No external rotation No hip flexion >90 degrees No internal rotation No wheel chair propulsion - Lab Results blood Sugar Check ACHS - Weight Bearing Precaution WBAT left LE - Skin care per protocol - Diet - Solid Texture Continue Regular - Shower allowing shower FUNCTIONAL STATUS: UPDATED AT WEEKLY TEAM CONFERENCE - Bladder Same accident frequency: 7-Ind - No accidents in the past 7 days - Bowel Same accident frequency: 7-Ind - No accidents in the past 7 days - Walking Same score based on distance walked: 0(N/A) - Wheelchair Same score based on distance traveled: 0(N/A) FUNCTIONAL STATUS: - Self-Care A. Eating sup B. Grooming sup C. Bathing modA D. Dressing - Upper Raoul E. Dressing - Lower modA F. Toileting modA - Sphincter Control G. Bladder control sup H. Bowel control sup - Transfers Control I. Bed/Chair/Wheelchair maxA J. Toilet maxA K. Tub/Shower maxA - Locomotion L. Walk/Wheelchair (B) maxA M. Stairs ADNO - Communication N. Comprehension (B) modA O. Expression (B) modA - Social Cognition P. Social Interaction Raolu Q. Problem Solving modA R. Memory maxA - Endurance Fair - Balance Poor - Safety Awareness Poor QI SCORES: - Self-Care A. Eating 05-Setup or clean-up assistance B. Oral hygiene 05-Setup or clean-up assistance C. Toileting hygiene 03-Partial/moderate assistance E. Shower/bathe self 03-Partial/moderate assistance F. Upper body dressing 03-Partial/moderate assistance G. Lower body dressing 01-Dependent H. Putting on/taking off footwear 01-Dependent - Mobility A. Roll left and right 03-Partial/moderate assistance B. Sit to lying 02-Substantial/maximal assistance C. Lying to sitting on side of bed 02-Substantial/maximal assistance D. Sit to stand 01-Dependent E. Chair/[id number] transfer 01-Dependent F. Toilet transfer 01-Dependent G. Car transfer 88-Not attempted due to medical condition or safety concerns I. Walk 10 feet 88-Not attempted due to medical condition or safety concerns J. Walk 50 feet with two turns 88-Not attempted due to medical condition or safety concerns K. Walk 150 feet 88-Not attempted due to medical condition or safety concerns L. Walking 10 feet on uneven surfaces 88-Not attempted due to medical condition or safety concerns M. 1 step (curb) 88-Not attempted due to medical condition or safety concerns N. 4 steps 88-Not attempted due to medical condition or safety concerns O. 12 steps 88-Not attempted due to medical condition or safety concerns P. Picking up object 88-Not attempted due to medical condition or safety concerns R. Wheel 50 feet with two turns 88-Not attempted due to medical condition or safety concerns S. Wheel 150 feet 88-Not attempted due to medical condition or safety concerns - Bladder and Bowel Bladder continence 3-Incontinent daily Bowel continence 0-Always continent - Endurance Poor - Balance Fair - Safety Awareness Fair [facility] 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
[2019-09-07] MEDS: MELATONIN 3 MG TABLET PO PRN (23:37)
[2019-09-08] MEDS: carvediloL 3.125 MG TAB PO SCH (05:20)
[2019-09-08] MEDS: BISACODYL 10 MG RECTAL SUPP PR PRN (05:20)
[2019-09-08 06:36] LABS: Protime INR 2.06
[2019-09-08 07:23] VITALS: BP 127/59; TEMP 97.5
[2019-09-08] MEDS: INSULIN -REGULAR HUMAN 50 UNIT/0.5 ML ML SQ SCH ×2 (07:30→11:30)
[2019-09-08] MEDS: TRAMADOL HCL 50 MG TAB PO SCH ×2 (08:00→14:11)
[2019-09-08] MEDS: PROMOD 30 ML DOSE PO SCH (08:01)
[2019-09-08] MEDS: INSULIN GLARGINE 100 UNITS/ML SQ SCH (08:01)
[2019-09-08] MEDS: BUMETANIDE 1 MG TABLET PO SCH (08:02)
[2019-09-08] MEDS: TAMSULOSIN 0.4 MG SR CAP PO SCH (08:03)
[2019-09-08] MEDS: FERROUS SULFATE 325 MG TAB PO SCH (08:03)
[2019-09-08] MEDS: FAMOTIDINE 20 MG TAB PO SCH (08:03)
[2019-09-08] MEDS: DOCUSATE NA 100 MG CAP PO SCH (08:03)
[2019-09-08] MEDS: FE SULF/FA/VIT B COMP & C TAB PO SCH (08:04)
[2019-09-08] MEDS: GABAPENTIN 300 MG CAP PO SCH ×2 (08:04→14:12)
[2019-09-08] MEDS: SPIRONOLACTONE 25 MG TABLET PO SCH (08:04)
[2019-09-08] MEDS: METFORMIN HCL 500 MG TAB PO SCH (08:04)
[2019-09-08] MEDS: LIDOCAINE 4% PATCH TOP SCH (08:58)
--- NOTE | 2019-09-08 09:45 | P.RH.PN ---
Estimated Length of Stay: 24 Expected Discharge Date: 09/08/19 Discharge Disposition Plan: Home Family Support: Yes Longterm Goal: Mobility, Transfers, Self Care Vital Signs: Last Vital Signs Temp 97.5 F 09/08/19 07:22 Pulse 61 09/08/19 08:04 Resp 15 09/08/19 08:52 BP 127/59 L 09/08/19 08:04 Pulse Ox 94 09/08/19 08:52 Laboratory: Laboratory Last Values WBC 3.9 K/uL (4.3-10.9) L 09/07/19 06:15 RBC 3.24 M/uL (4.33-5.43) L 09/07/19 06:15 Hgb 9.3 g/dL (13.6-17.9) L 09/07/19 06:15 Hct 28.0 % (39.6-49.0) L 09/07/19 06:15 MCV 86.4 fL (80-100) 09/07/19 06:15 MCH 28.8 pg (27.0-35.0) 09/07/19 06:15 MCHC 33.4 g/dL (32.0-36.0) 09/07/19 06:15 RDW 16.7 % (12.1-15.2) H 09/07/19 06:15 Plt Count 122 K/uL (152-406) L 09/07/19 06:15 MPV 7.4 fL (7.6-11.3) L 09/07/19 06:15 Neutrophils % 48.5 % (41.7-73.7) 09/07/19 06:15 Lymphocytes % 30.3 % (15.3-44.8) 09/07/19 06:15 Monocytes % 12.5 % (3.3-12.3) H 09/07/19 06:15 Eosinophils % 7.3 % (0-4.4) H 09/07/19 06:15 Basophils % 1.4 % (0-1.3) H 09/07/19 06:15 Absolute Neutrophils 1.9 K/uL (1.8-8.0) 09/07/19 06:15 Absolute Lymphocytes 1.2 K/uL (0.7-4.9) 09/07/19 06:15 Absolute Monocytes 0.5 K/uL (0.1-1.3) 09/07/19 06:15 Absolute Eosinophils 0.3 K/uL (0-0.5) 09/07/19 06:15 Absolute Basophils 0.1 K/uL (0-0.5) 09/07/19 06:15 PT 23.6 SECONDS (9.5-12.5) H 09/08/19 05:35 INR 2.06 09/08/19 05:35 Sodium 141 mmol/L (136-145) 09/07/19 06:15 Potassium 3.9 mmol/L (3.5-5.1) 09/07/19 06:15 Chloride 106 mmol/L (98-107) 09/07/19 06:15 Carbon Dioxide 32 mmol/L (21-32) 09/07/19 06:15 BUN 19 mg/dL (7-18) H 09/07/19 06:15 Creatinine 0.70 mg/dL (0.55-1.3) 09/07/19 06:15 Estimated GFR > 90 mL/min (=/>90) 09/07/19 06:15 Glucose 63 mg/dL (74-106) L 09/07/19 06:15 POC Glucose 86 mg/dl (65-120) 09/08/19 07:30 Calcium 9.2 mg/dL (8.5-10.1) 09/07/19 06:15 Magnesium 2.0 mg/dL (1.8-2.4) 09/07/19 06:15 Albumin 2.9 g/dL (3.4-5.0) L 09/07/19 06:15 Prealbumin 14.5 mg/dL (20-40) L 09/07/19 06:15 Urine Color Yellow 08/17/19 01:20 Urine Appearance Clear 08/17/19 01:20 Urine pH 5.5 (5.0-7.0) 08/17/19 01:20 Ur Specific [place] 1.020 (1.005-1.030) 08/17/19 01:20 Urine Ketones Negative (NEG) 08/17/19 01:20 Urine Blood Negative (NEG) 08/17/19 01:20 Urine Nitrite Negative (NEG) 08/17/19 01:20 Urine Bilirubin Negative (NEG) 08/17/19 01:20 Urine Urobilinogen 1.0 mg/dL (0.2-1.0) 08/17/19 01:20 Ur Leukocyte Esterase Negative (NEG) 08/17/19 01:20 Urine RBC <5 /HPF (NONE SEEN) 08/17/19 01:20 Urine WBC <5 /HPF (<5) 08/17/19 01:20 Ur Squamous Epith Cells <5 /HPF (NONE SEEN) 08/17/19 01:20 Urine Bacteria <20 /HPF (NONE SEEN) 08/17/19 01:20 Urine Culture Reflexed Not needed 08/17/19 01:20 Urine Glucose Negative (NEG) 08/17/19 01:20 Urine Total Protein Negative (NEG) 08/17/19 01:20 ABO/Rh O POSITIVE 08/22/19 07:41 Antibody Screen Negative 08/22/19 07:41 Crossmatch See Detail 08/22/19 07:41 Weight: 258 lb 14.4 oz Wound Present: Yes Closed Surgical Incision Present: Yes Negative Pressure Wound Therapy Present: No Physician Update: Labs reviewed and are stable. He has done well with physical and occupational therapy. He is going back to [facility] and have [facility]. He is at standby for mobilization. He requires total assistance for lower body dressing but standby assistance for upper body dressing. Medical Issues: Patient is incontinent daily with bladder and always continent with bowel Pain Issues: Patient is taking Tramadol 50mg TID PO, [place] 5/325mg Q12H PO and Tylenol 500mg Q4H PO PRN for pain Functional Improvement: pt has demonstrated significant functional improvement throughout the week. pt is able to perform all functional mobility with SBA using a RW. pt does require verbal encouragement and reminders for safety at times. pt has met functional goals and is safe to discharge to prior living environment. Speech Therapy Update: Pt presents with moderate cognitive-linguistic impairments. Patient is oriented to general concepts and required verbal cues to utilize external memory aids to orient to time and date. He has demonstrated improved insight into his situation but continues to need reminders for hip precautions. Patient cannot retain new information past 60 seconds with consistent cueing and reminds. 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 Patient follows single step instructions given extra time and repeated instruction. Patient requires reminders for use of adaptive equipment and problem solving. He is self- limiting and benefits from encouragement and verbal cues. Summary: Patient's care plan and longterm goals have been reviewed and revised as necessary. Please see the Rehabilitation Signature page for all necessary signatures.
--- NOTE | 2019-09-08 15:15 | FAST ---
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 Mode Gonzáles M.D. ADMISSION DIAGNOSIS: - Orthopaedic Disorders 08 - Unilateral Hip Fracture (08.11) Left Femoral Neck Fracture. EATING: Not assessed/no information CODE: - ORAL HYGIENE: ORAL HYGIENE - STEP 1: Does the patient complete the activity by him/herself with no assistance (physical, verbal/nonverbal cueing, setup/clean-up)? No. ORAL HYGIENE - STEP 2: Does the patient need only setup/clean-up assistance from one helper? No. ORAL HYGIENE - STEP 3: Does the patient need only verbal/nonverbal cueing or touching/steadying/contact guard assistance fro m one helper? Yes. 1. [id number] ADMISSION PERFORMANCE: Supervision or touching assistance CODE: 04 TOILETING HYGIENE: TOILETING HYGIENE - STEP 1: Does the patient complete the activity by him/herself with no assistance (physical, verbal/nonverbal cueing, setup/clean-up)? No. TOILETING HYGIENE - STEP 2: Does the patient need only setup/clean-up assistance from one helper? No. TOILETING HYGIENE - STEP 3: Does the patient need only verbal/nonverbal cueing or touching/steadying/contact guard assistance fro m one helper? Yes. 1. [id number] ADMISSION PERFORMANCE: Supervision or touching assistance CODE: 04 BATHING: SHOWER/BATHE SELF - STEP 1: Does the patient complete the activity by him/herself with no assistance (physical, verbal/nonverbal cueing, setup/clean-up)? No. SHOWER/BATHE SELF - STEP 2: Does the patient need only setup/clean-up assistance from one helper? No. SHOWER/BATHE SELF - STEP 3: Does the patient need only verbal/nonverbal cueing or touching/steadying/contact guard assistance fro m one helper? Yes. 1. [id number] ADMISSION PERFORMANCE: Supervision or touching assistance CODE: 04 DRESSING - UPPER BODY: DRESSING - UPPER BODY - STEP 1: Does the patient complete the activity by him/herself with no assistance (physical, verbal/nonverbal cueing, setup/clean-up)? No. DRESSING - UPPER BODY - STEP 2: Does the patient need only setup/clean-up assistance from one helper? No. DRESSING - UPPER BODY - STEP 3: Does the patient need only verbal/nonverbal cueing or touching/steadying/contact guard assistance fro m one helper? Yes. 1. [id number] ADMISSION PERFORMANCE: Supervision or touching assistance CODE: 04 DRESSING - LOWER BODY: DRESSING - LOWER BODY - STEP 1: Does the patient complete the activity by him/herself with no assistance (physical, verbal/nonverbal cueing, setup/clean-up)? No. DRESSING - LOWER BODY - STEP 2: Does the patient need only setup/clean-up assistance from one helper? No. DRESSING - LOWER BODY - STEP 3: Does the patient need only verbal/nonverbal cueing or touching/steadying/contact guard assistance fro m one helper? Yes. 1. [id number] ADMISSION PERFORMANCE: Supervision or touching assistance CODE: 04 PUTTING ON/TAKING OFF FOOTWEAR: FOOTWEAR - STEP 1: Does the patient complete the activity by him/herself with no assistance (physical, verbal/nonverbal cueing, setup/clean-up)? No. FOOTWEAR - STEP 2: Does the patient need only setup/clean-up assistance from one helper? No. FOOTWEAR - STEP 3: Does the patient need only verbal/nonverbal cueing or touching/steadying/contact guard assistance fro m one helper? Yes. 1. [id number] ADMISSION PERFORMANCE: Supervision or touching assistance CODE: 04 DOES THE PATIENT USE A WHEELCHAIR/SCOOTER? CODE: EXPR INDICATE THE TYPE OF WHEELCHAIR/SCOOTER USED: CODE: EXPR INDICATE THE TYPE OF WHEELCHAIR/SCOOTER USED: CODE: EXPR BLADDER AND BOWEL: CODE: EXPR CODE: EXPR SIGNATURE PANEL: The following modified sections: 1. [id number] Admission Performance, 1. [id number] Admission Performance, 1. [id number] Admission Performance, 1. [id number] Admission Performance, 1. [id number] Admission Performance, 1. [id number] Admission Performance, 1. [id number] Admission Performance were [electronically] signed by YI Cortes on WedSep 08 2019 15:15:01 GMT-0600 (Central Standard Time)
== END 2019-09-08 15:22 | disposition home health service (06) | DRG 560 ==
LOC: 5TH 15:33
PROVIDERS: ADMIT Psychiatry & Neurology Neurology with Special Qualifications in Child Neurology; ATTEND Psychiatry & Neurology Neurology with Special Qualifications in Child Neurology
DX: S72.002D Fracture of unspecified part of neck of left femur, subsequent encounter for closed fracture with routine healing (principal); I48.20 Chronic atrial fibrillation, unspecified; I50.32 Chronic diastolic (congestive) heart failure; L76.32 Postprocedural hematoma of skin and subcutaneous tissue following other procedure; E87.1 Hypo-osmolality and hyponatremia; E44.0 Moderate protein-calorie malnutrition; I11.0 Hypertensive heart disease with heart failure; E78.2 Mixed hyperlipidemia; J44.9 Chronic obstructive pulmonary disease, unspecified; H26.9 Unspecified cataract; I73.9 Peripheral vascular disease, unspecified; N40.0 Benign prostatic hyperplasia without lower urinary tract symptoms; E11.65 Type 2 diabetes mellitus with hyperglycemia; G30.9 Alzheimer's disease, unspecified; F02.80 Dementia in other diseases classified elsewhere, unspecified severity, without behavioral disturbance, psychotic disturbance, mood disturbance, and anxiety; N28.9 Disorder of kidney and ureter, unspecified; Z79.4 Long term (current) use of insulin; R41.0 Disorientation, unspecified; Z68.30 Body mass index [BMI] 30.0-30.9, adult
CPT/HCPCS: 36415; 36430; 71045; 76882; 80048; 81001; 82040; 82947; 83735; 84134; 85014; 85018; 85025; 85610; 86850; 86900; 86901; 87086; 87088; 92507; 92523; 93005; 97110; 97112; 97116; 97127; 97161; 97530; 97542; J1650; J1815; J1940; J7030; P9016

== ENCOUNTER 2020-02-14 00:45 | Emergency (ER) | payer OTHER ==
--- OUTSIDE RECORDS SUMMARY | 2020-02-14 00:48 | XMS REPORT | Continuity of Care Document ---
:1930 Author Organization [facility] t Address [address] [place] [address] Care Team Providers Name Role Phone Unavailable Unavailable Unavailable Problems Condition Condition Condition Status Onset Resolution Last Treating Co mments Source Name Details Category Date Date Treatment Clinician Date Status Status Problem Active [facility] left Luke [facility] - hip hip [facility] replacemen [facility] Allergies, Adverse Reactions, Alerts Allergy Allergy Status Severity Reaction(s) Onset Inactive Treating Comm ents Source Name Type Date Date Clinician Amoxicil Adverse Active Info Not [facility] margarita Reaction Available [facility] Medications Ordered Filled Start Stop Current Ordering Indication Dosage Frequency Signature Comments Components Source Medication Medication Date Date Medication? Clinician (SIG) Name Name Bumetanide Bumetanide Yes [facility] as [facility] directed [facility] - [facility]: [facility] 00 l [facility] Clinics Atorvastati Atorvastati Yes Milton [address] [facility] n Calcium n Calcium 2-03 Ramsay [facility]: [facility] Hemocyte Hemocyte Yes Milton not [facility] Plus Plus [facility] defined [facility] Clinics Metformin Metformin Yes Milton [address] [facility] HCl HCl [facility] with a [facility] - meal [facility] Ondansetron Ondansetron Yes Milton [address] [facility] Warfarin Warfarin Yes Milton [address] [facility] Sodium Sodium Ramsay [facility]ics Carvedilol Carvedilol Yes Milton as [facility] directed [facility] Famotidine Famotidine Yes Milton as [facility] Ramsay directed [facility]ics Tramadol Tramadol Yes Milton (Schedule [facility] HCl HCl [facility] IV Drug) [facility] - TAKE 1 Memoria TABLET BY l MOUTH 3 Outpati TIMES A ent DAY Clinics NEEDED FOR PAIN Insulin Insulin Yes Milton not [facility] Glargine Glargine [facility] defined [facility] - [facility] Clinics Lidocaine Lidocaine Yes Milton as [facility]ay directed [facility]ics Docusate Docusate Yes Milton [address] [facility] Sodium Sodium Ramsay as needed [facility] Clinics Warfarin Warfarin Yes Milton [address] [facility] Sodium Sodium Ramsay [facility]ics Finasteride Finasteride Yes Milton [address] [facility] Ramsay [facility]ics Ferrous Ferrous Yes Milton as [facility] Sulfate Sulfate [facility] directed [facility] ent Clinics Melatonin Melatonin Yes Milton [address] [facility] in the [facility] ent Clinics Lactulose Lactulose Yes Milton not [facility]ay defined [facility] - [facility] ent Clinics Gabapentin Gabapentin Yes Milton not [facility]ay defined [facility] ent Clinics Spironolact Spironolact Yes Milton [address] [facility] one one Ramsay with food [facility] Clinics Tamsulosin Tamsulosin Yes Milton as [facility] HCl HCl [facility] directed [facility] Clinics Collagenase Collagenase Yes Milton not [facility]ay defined [facility] Clinics Procedures This patient has no known procedures. Encounters Start End Encounter Admission Attending Care Care Encounter Source Date/Time Date/Time Type Type Clinicians Facility Department ID 2019-11-07 2019-11-07 Outpatient Moncho Roberto [id number] [facility] 2019-11-06 2019-11-06 Outpatient Moncho Roberto [id number] [facility]:15[facility] 13[facility]15[facility] 2019-09-26 2019-09-26 Outpatient Moncho Roberto [id number] [facility] 09:00[facility]00 09[facility]00[facility]00 [facility] 2019-09-25 2019-09-25 Outpatient [facility]ame Ivant [id number] [facility] 15:[facility]00 15:00:[facility] t [facility] [place] [facility] ent [facility] Results This patient has no known results.
[2020-02-14] MEDS ORDERED: NA CHLORIDE 0.9% 1,000 ML ONE (01:29)
[2020-02-14 02:51] LABS: Protime INR 2.93
[2020-02-14 02:52] LABS: Absolute Lymphocytes (CBC) 0.6 K/uL (0.7-4.9); Basophils % 0.8 % (0-1.3); Hematocrit 33.8 % (39.6-49.0); Lymphocytes % 11.3 % (15.3-44.8); MPV 8.8 fL (7.6-11.3); RBC Red Blood Cell Count 4.08 M/uL (4.33-5.43)
[2020-02-14 03:06] LABS: Albumin 3.7 g/dL (3.4-5.0); Bilirubin Total 0.5 mg/dL (0.2-1.0); Potassium 3.6 mmol/L (3.5-5.1); Protein, Total 6.9 g/dL (6.4-8.2)
[2020-02-14] MEDS ORDERED: D50W 25 GM/50 ML SYRINGE/VIAL IV ONE (03:31)
--- NOTE | 2020-02-14 10:38 | ER ---
Nurse's Notes [facility] Name: Dalton Díaz Age: 89 yrs Sex: Male : 1930 Arrival Date: 02/14/2020 Time: 00:47 Bed 3 Private MD: Diagnosis: Fall due to bumping against object;Bradycardia, unspecified;Atrial fibrillation and flutter-SVR;Superficial injury of head;Hypoglycemia, unspecified;Type 2 diabetes mellitus Presentation: 02/13 00:49 Chief complaint: EMS states: Called for patient who fell while attempting to get into 1 bed; No LOC; Per nursing staff, patient found on floor, bruising to forehead; patient A/O x2, baseline per staff; Per EMS, patient used urinal, observed as foul smelling. Coronavirus screen: Proceed with normal triage. Ebola Screen: No symptoms or risks identified at this time. Risk Assessment: Do you want to hurt yourself or someone else? Patient reports no desire to harm self or others. Onset of symptoms was February 14, 2020 at 00:00. 00:49 Method Of Arrival: EMS: [facility] lp1 00:49 Acuity: LEÓN 2 lp1 00:53 Initial Sepsis Screen: Does the patient meet any 2 criteria? No. Patient's initial ea sepsis screen is negative. Does the patient have a suspected source of infection? No. Patient's initial sepsis screen is negative. 01:26 Transition of care: [facility]. 1 Triage Assessment: 02:00 Pain: Complains of pain in lower back. mg2 Historical: - Allergies: 00:54 No Known Allergies; ea - Home Meds: 01:34 atorvastatin 10 mg oral tab 1 tab once daily [Active]; bumetanide 1 mg Oral tab 1 tab 2 lp1 times per day [Active]; carvedilol 3.125 mg Oral tab 1 tab 2 times per day [Active]; famotidine 20 mg Oral tab 1 tab every 12 hours [Active]; ferrous sulfate 325 mg (65 mg iron) Oral tab daily [Active]; finasteride 5 mg Oral tab 1 tab once daily [Active]; gabapentin 600 mg Oral tab 1 tab 3 times per day [Active]; Levemir 100 unit/mL subcutaneous soln [Active]; metformin 1,000 mg Oral tab 2 times per day [Active]; Novolog 100 unit/mL Sub-Q soln before meals [Active]; potassium chloride 20 mEq Oral TbER 1 tab 2 times per day [Active]; spironolactone 50 mg oral tab once daily [Active]; docusate sodium 100 mg Oral tab 1 tab 2 times per day [Active]; Flomax 0.4 mg Oral cp24 1 cap nightly [Active]; warfarin 13 mg Oral tab once daily [Active]; - PMHx: 00:54 venous insufficiency; neuropathy; Hypertension; Hyperlipidemia; Diabetes - NIDDM; ea Dementia; COPD; constipation; Chronic hyponatremia; CHF; BPH; Atrial Fib; - PSHx: 00:54 Appendectomy; partial lung removed; ea - Immunization history:: Adult Immunizations unknown. - Social history:: Smoking status: unknown. - Family history:: not pertinent. Screenin:52 Abuse screen: Denies threats or abuse. Nutritional screening: No deficits noted. ea Tuberculosis screening: No symptoms or risk factors identified. Fall Risk Fall in past 12 months (25 points). Assessment: 01:38 General: Appears in no apparent distress. comfortable, Behavior is calm, cooperative. mg2 Neuro: Level of Consciousness is awake, alert, confused, Oriented to person, place. Cardiovascular: Capillary refill < 3 seconds Patient's skin is warm and dry. Respiratory: Airway is patent Respiratory effort is even, unlabored, Respiratory pattern is regular, symmetrical. GI: No signs and/or symptoms were reported involving the gastrointestinal system. : No signs and/or symptoms were reported regarding the genitourinary system. EENT: No signs and/or symptoms were reported regarding the EENT system. Derm: Skin is intact, is healthy with good turgor, Skin is pink, warm \T\ dry. normal. Musculoskeletal: Circulation, motion, and sensation intact. Capillary refill < 3 seconds. 02:31 Reassessment: Patient appears in no apparent distress at this time. Patient and/or mg2 family updated on plan of care and expected duration. Pain level reassessed. 03:11 Reassessment: Patient appears in no apparent distress at this time. Patient and/or mg2 family updated on plan of care and expected duration. Pain level reassessed. patient's blood sugar is low. patient given sandwich and juice. Vital Signs: 00:48 BP 131 / 52; Pulse 52; Resp 18; Temp 97.5(TE); Pulse Ox 97% on R/A; mg2 01:30 BP 125 / 55; Pulse 49; Resp 18; Pulse Ox 96% on R/A; mg2 02:31 BP 141 / 50; Pulse 48; Resp 18; Pulse Ox 95% on R/A; mg2 04:16 BP 148 / 58; Pulse 50; Resp 18; Temp 97.6; Pulse Ox 96% on R/A; mg2 ED Course: 00:47 Patient arrived in ED. ag3 00:47 Nahid Loredo, RN is Primary Nurse. mg2 00:51 Triage completed. lp1 00:52 Patient has correct armband on for positive identification. Bed in low position. Call ea light in reach. Side rails up X2. 00:52 Arm band placed on right wrist. Patient placed in an exam room, on a stretcher, on ea pulse oximetry. 01:06 Kvng Mcclain MD is Attending Physician. tony 01:38 No provider procedures requiring assistance completed. Inserted saline lock: 20 gauge mg2 in left forearm, using aseptic technique. Blood collected. 02:24 Head C Spine Mpr Wo Con In Process Unspecified. EDMS 03:07 Notified ED physician of a critical lab result(s). Glucose 37. lp1 04:15 IV discontinued, intact, bleeding controlled, No redness/swelling at site. Pressure mg2 dressing applied. Administered Medications: 01:38 Drug: NS 0.9% 1000 ml Route: IV; Rate: 125 ml/hr; Site: left forearm; mg2 04:00 Follow up: IV Status: Order to discontinue infusion mg2 03:30 Drug: D50W 50 ml Route: IVP; Site: left forearm; mg2 04:00 Follow up: Response: No adverse reaction; Blood sugar is elevated mg2 Outcome: 03:24 Discharge ordered by . tony 04:16 Discharged to [facility]. Report called to ASIA Zhu patient accompanied by his mg2 son to the [facility] 04:16 Condition: stable 04:16 Instructed on discharge instructions, follow up and referral plans. Demonstrated understanding of instructions, follow-up care. 04:30 Patient left the ED. mg2 Signatures: Dispatcher [employer] EDAL Kvng Mcclain MD MD cha Pena, Laura, RN RN lp1 Dee Dee Brumfield RN RN ea Gardose, Michele, ASIA Boss, Claudette ag3 Corrections: (The following items were deleted from the chart) 03:12 02:31 Pulse 48bpm; Resp 18bpm; Pulse Ox 95% RA; mg2 mg2 05:32 04:16 Discharged to [facility]. mg2 mg2
--- NOTE | 2020-02-14 10:38 | EDPHYS ---
Physician Documentation [facility] Name: Dalton Díaz Age: 89 yrs Sex: Male : 1930 Arrival Date: 02/14/2020 Time: 00:47 Bed 3 Private MD: ED Physician Kvng Mcclain HPI: 02/13 01:20 This 89 yrs old Male presents to ER via EMS with complaints of Fall. tony 01:20 The patient complains of pain to the left side of the back of head, left occipital tony area, left base of the skull, right side of the back of head, right occipital area and right base of the skull. The patient describes the headache as aching. Onset: The symptoms/episode began/occurred just prior to arrival. Details of fall: The patient fell from an upright position, while walking. Onset: The symptoms/episode began/occurred just prior to arrival. Associated injuries: The patient sustained injury to the head. Associated signs and symptoms: The patient has no apparent associated signs or symptoms. Severity of symptoms: At its worst the pain was mild, in the emergency department the pain is unchanged. Headache History: Denies prior headaches. Historical: - Allergies: 00:54 No Known Allergies; ea - Home Meds: 01:34 atorvastatin 10 mg oral tab 1 tab once daily [Active]; bumetanide 1 mg Oral tab 1 tab 2 lp1 times per day [Active]; carvedilol 3.125 mg Oral tab 1 tab 2 times per day [Active]; famotidine 20 mg Oral tab 1 tab every 12 hours [Active]; ferrous sulfate 325 mg (65 mg iron) Oral tab daily [Active]; finasteride 5 mg Oral tab 1 tab once daily [Active]; gabapentin 600 mg Oral tab 1 tab 3 times per day [Active]; Levemir 100 unit/mL subcutaneous soln [Active]; metformin 1,000 mg Oral tab 2 times per day [Active]; Novolog 100 unit/mL Sub-Q soln before meals [Active]; potassium chloride 20 mEq Oral TbER 1 tab 2 times per day [Active]; spironolactone 50 mg oral tab once daily [Active]; docusate sodium 100 mg Oral tab 1 tab 2 times per day [Active]; Flomax 0.4 mg Oral cp24 1 cap nightly [Active]; warfarin 13 mg Oral tab once daily [Active]; - PMHx: 00:54 venous insufficiency; neuropathy; Hypertension; Hyperlipidemia; Diabetes - NIDDM; ea Dementia; COPD; constipation; Chronic hyponatremia; CHF; BPH; Atrial Fib; - PSHx: 00:54 Appendectomy; partial lung removed; ea - Immunization history:: Adult Immunizations unknown. - Social history:: Smoking status: unknown. - Family history:: not pertinent. ROS: 01:20 Constitutional: Negative for fever, chills, and weight loss, Eyes: Negative for injury, tony pain, redness, and discharge, ENT: Negative for injury, pain, and discharge, Neck: Negative for injury, pain, and swelling, Cardiovascular: Negative for chest pain, palpitations, and edema, Respiratory: Negative for shortness of breath, cough, wheezing, and pleuritic chest pain, Abdomen/GI: Negative for abdominal pain, nausea, vomiting, diarrhea, and constipation, Back: Negative for injury and pain, : Negative for injury, bleeding, discharge, and swelling, MS/Extremity: Negative for injury and deformity, Skin: Negative for injury, rash, and discoloration, Neuro: Negative for headache, weakness, numbness, tingling, and seizure, Psych: Negative for depression, anxiety, suicide ideation, homicidal ideation, and hallucinations, Allergy/Immunology: Negative for hives, rash, and allergies, Endocrine: Negative for neck swelling, polydipsia, polyuria, polyphagia, and marked weight changes. Exam: 01:20 Constitutional: This is a well developed, well nourished patient who is awake, alert, tony and in no acute distress. Head/Face: Normocephalic, atraumatic. Eyes: Pupils equal round and reactive to light, extra-ocular motions intact. Lids and lashes normal. Conjunctiva and sclera are non-icteric and not injected. Cornea within normal limits. Periorbital areas with no swelling, redness, or edema. ENT: Nares patent. No nasal discharge, no septal abnormalities noted. Tympanic membranes are normal and external auditory canals are clear. Oropharynx with no redness, swelling, or masses, exudates, or evidence of obstruction, uvula midline. Mucous membranes moist. Neck: Trachea midline, no thyromegaly or masses palpated, and no cervical lymphadenopathy. Supple, full range of motion without nuchal rigidity, or vertebral point tenderness. No Meningismus. Chest/axilla: Normal chest wall appearance and motion. Nontender with no deformity. No lesions are appreciated. Cardiovascular: Regular rate and rhythm with a normal S1 and S2. No gallops, murmurs, or rubs. Normal PMI, no JVD. No pulse deficits. Respiratory: Lungs have equal breath sounds bilaterally, clear to auscultation and percussion. No rales, rhonchi or wheezes noted. No increased work of breathing, no retractions or nasal flaring. Abdomen/GI: Soft, non-tender, with normal bowel sounds. No distension or tympany. No guarding or rebound. No evidence of tenderness throughout. Back: No spinal tenderness. No costovertebral tenderness. Full range of motion. Male : Normal genitalia with no discharge or lesions. Skin: Warm, dry with normal turgor. Normal color with no rashes, no lesions, and no evidence of cellulitis. MS/ Extremity: Pulses equal, no cyanosis. Neurovascular intact. Full, normal range of motion. Neuro: Awake and alert, GCS 15, oriented to person, place, time, and situation. Cranial nerves II-XII grossly intact. Motor strength 5/5 in all extremities. Sensory grossly intact. Cerebellar exam normal. Normal gait. Psych: Awake, alert, with orientation to person, place and time. Behavior, mood, and affect are within normal limits. 03:01 ECG was reviewed by the Attending Physician. [facility] Vital Signs: 00:48 BP 131 / 52; Pulse 52; Resp 18; Temp 97.5(TE); Pulse Ox 97% on R/A; mg2 01:30 BP 125 / 55; Pulse 49; Resp 18; Pulse Ox 96% on R/A; mg2 02:31 BP 141 / 50; Pulse 48; Resp 18; Pulse Ox 95% on R/A; mg2 04:16 BP 148 / 58; Pulse 50; Resp 18; Temp 97.6; Pulse Ox 96% on R/A; mg2 MDM: 01:06 Patient medically screened. [facility] 01:23 Data reviewed: vital signs, nurses notes, lab test result(s), EKG, radiologic studies, [facility] CT scan. 02/13 02:10 Order name: Comprehensive Metabolic Panel; Complete Time: 03:12 EDMS 02/13 02:10 Order name: CBC with Automated Diff; Complete Time: 03:00 EDMS 02/13 02:10 Order name: Protime (+INR); Complete Time: 03:00 EDMS 02/13 01:17 Order name: EKG - Nurse/Tech; Complete Time: 01:38 tony 02/13 02:08 Order name: Head C Spine Mpr Wo Con EDMS 02/13 03:15 Order name: Diet Regular; Complete Time: 11:36 tony EC:37 Rate is 47 beats/min. Rhythm is irregularly irregular. QRS [place] is Normal. PA interval tony is normal. QRS interval is normal. QT interval is normal. No Q waves. T waves are Normal. No ST changes noted. Clinical impression: Atrial Fibrillation and No evidence of ischemia. Interpreted by me. Reviewed by me. 03:01 Rate is 47 beats/min. Rhythm is irregularly irregular. QRS [place] is Normal. PA interval tony is normal. QRS interval is normal. QT interval is normal. No Q waves. T waves are Normal. No ST changes noted. Clinical impression: Atrial Fibrillation. Interpreted by me. Reviewed by me. Administered Medications: 01:38 Drug: NS 0.9% 1000 ml Route: IV; Rate: 125 ml/hr; Site: left forearm; mg2 04:00 Follow up: IV Status: Order to discontinue infusion mg2 03:30 Drug: D50W 50 ml Route: IVP; Site: left forearm; mg2 04:00 Follow up: Response: No adverse reaction; Blood sugar is elevated mg2 Disposition: 02/14/20 03:24 Discharged to Home. Impression: Fall due to bumping against object, Bradycardia, unspecified, Atrial fibrillation and flutter - SVR, Superficial injury of head, Hypoglycemia, unspecified, Type 2 diabetes mellitus. - Condition is Stable. - Discharge Instructions: Bradycardia, Adult, Type 2 Diabetes Mellitus, Diagnosis, Adult, Head Injury, Adult, Hypoglycemia, Blood Glucose Monitoring, Adult, Fall Prevention in the Home, Nguk-fs-Hcul, Head Injury, Adult, Fyhm-cx-Xjdr, Type 2 Diabetes Mellitus, Diagnosis, Adult, Gfkx-jz-Yurw, Hypoglycemia, Plup-tt-Gosn. - Medication Reconciliation Form, Thank You Letter, Antibiotic Education, Prescription Opioid Use form. - Follow up: Private Physician; When: 2 - 3 days; Reason: Recheck today's complaints, Continuance of care, Re-evaluation by your physician. - Problem is new. - Symptoms have improved. Signatures: Dispatcher [employer] EDMS Kvng Mcclain MD MD cha Pena, Laura, RN RN lp1 Dee Dee Brumfield, RN RN ea Nahid Loredo, RN RN mg2 Corrections: (The following items were deleted from the chart) 04:30 03:24 02/14/2020 03:24 Discharged to Home. Impression: Fall due to bumping against mg2 object; Bradycardia, unspecified; Atrial fibrillation and flutter - SVR; Superficial injury of head; Hypoglycemia, unspecified; Type 2 diabetes mellitus. Condition is Stable. Discharge Instructions: Bradycardia, Adult, Head Injury, Adult, Fall Prevention in the Home, Honi-eq-Sblv, Head Injury, Adult, Gzvy-xb-Ecbw. Forms are Medication Reconciliation Form, Thank You Letter, Antibiotic Education, Prescription Opioid Use. Follow up: Private Physician; When: 2 - 3 days; Reason: Recheck today's complaints, Continuance of care, Re-evaluation by your physician. Problem is new. Symptoms have improved. tony
--- NOTE | 2020-02-14 12:23 | EKG ---
Test Date: 2020-02-14 Test Time: 01:27:51 Registered Dental Hygienist: MEASUREMENT RESULTS: Intervals: Rate: 47 MO: QRSD: 148 QT: 546 QTc: 483 [place]: P: MO: QRS: -21 T: 87 INTERPRETIVE STATEMENTS: Atrial fibrillation with slow ventricular response Left bundle branch block Abnormal ECG Compared to ECG 08/17/2019 17:33:39 Ventricular premature complex(es) no longer present Electronically Signed On 02-14-20 12:22:14 CDT by August Pelayo
--- NOTE | 2020-02-14 12:47 | RAD REPORT ---
EXAM DESCRIPTION: Head C Spine Mpr Wo Con CLINICAL HISTORY: FELL COMPARISON: None. TECHNIQUE: CT Head and Cervical spine WO contrast on 02/14/2020 1:17 AM CDT This exam was performed according to our departmental dose-optimization program, which includes autom ated exposure control, adjustment of the mA and/or kV according to patient size and/or use of iterati ve reconstruction technique. FINDINGS: Brain: There is no acute hemorrhage, mass effect or midline shift. Noriega-white differentiat ion is preserved. There is no hydrocephalus. There is mild diffuse cerebral atrophy. The calvarium is intact. Orbits and globes are unremarkable. The paranasal sinuses are clear. Mastoid air cells are clear. Cervical Spine: There is no acute fracture. There is grade 1 retrolisthesis of C4 on C5 and grade 1 a nterolisthesis of C5 on C6. There is partial fusion of the C5-6 disc. 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 There is moderate narrowing of the C4-5 and C5-6 discs. Vertebral body heights are preserved. Soft ti ssues are unremarkable. IMPRESSION: No acute postraumatic findings. Electronically signed by: Michael Carrington MD 02/14/2020 2:41 AM CDT Due to temporary technical issues with the PACS/Fluency reporting system, reports are being signed by the in house radiologist without review as a courtesy to ensure prompt reporting. The interpreting r adiologist is fully responsible for the content of the report.
[2020-02-14 16:15] VITALS: BP 148/58; TEMP 97.6; O2SAT 96
== END 2020-02-14 04:30 | disposition home or self-care (01) ==
LOC: ER 00:45
DX: S00.90XA Unspecified superficial injury of unspecified part of head, initial encounter (principal); R00.1 Bradycardia, unspecified; E11.65 Type 2 diabetes mellitus with hyperglycemia; I48.91 Unspecified atrial fibrillation; I48.92 Unspecified atrial flutter; W18.00XA Striking against unspecified object with subsequent fall, initial encounter; Y93.01 Activity, walking, marching and hiking; Y92.9 Unspecified place or not applicable; Z79.01 Long term (current) use of anticoagulants; Z79.4 Long term (current) use of insulin; I10 Essential (primary) hypertension; F03.90 Unspecified dementia, unspecified severity, without behavioral disturbance, psychotic disturbance, mood disturbance, and anxiety; E78.5 Hyperlipidemia, unspecified
CPT/HCPCS: 96361; 93005; 85025; 36415; 85610; 82947; 80053; 70450; 72125; 96374; 99284; J7030

== ENCOUNTER 2020-06-17 15:15 | Inpatient (IN) | payer OTHER ==
--- OUTSIDE RECORDS SUMMARY | 2020-06-17 15:20 | XMS REPORT | Continuity of Care Document ---
:1930 Author Organization [facility] t Address [address] [place] [address] Dr. Kumar [address] [place] [address] Care Team Providers Name Role Phone Unavailable Unavailable Unavailable Problems Condition Condition Condition Status Onset Resolution Last Treating Co mments Source Name Details Category Date Date Treatment Clinician Date Status Status Problem Active [facility] left [facility] - hip hip Memoria replacemen replacemen l t t [facility] ent Clinics Allergies, Adverse Reactions, Alerts Allergy Allergy Status Severity Reaction(s) Onset Inactive Treating Comm ents Source Name Type Date Date Clinician Amoxicil Adverse Active Info Not [facility] t margarita Reaction Available [facility] ent Clinics Medications Ordered Filled Start Stop Current Ordering Indication Dosage Frequency Signature Comments Components Source Medication Medication Date Date Medication? Clinician (SIG) Name Name Bumetanide Bumetanide Yes Milton as [facility] 2-03 [facility] directed [facility] - 00:00: Memoria 00 [facility] ent Clinics Atorvastati Atorvastati Yes Milton [address] [facility] n Calcium n Calcium 2-03 Ramsay [facility] - 00:00: Memoria 00 l [facility] ent Clinics Hemocyte Hemocyte Yes Milton not [facility] Plus Plus Ramsay defined [facility] ent Clinics Metformin Metformin Yes Milton [address] [facility] HCl HCl Ramsay with a [facility] - meal [facility] ent Clinics Ondansetron Ondansetron Yes Milton [address] [facility]ay [facility]ics Warfarin Warfarin Yes Milton [address] Sodium Sodium Ramsay [facility]ics Carvedilol Carvedilol Yes Milton as [facility] Ramsay directed [facility] Clinics Famotidine Famotidine Yes Milton as [facility] Ramsay directed [facility] ent Clinics Tramadol Tramadol Yes Milton (Schedule [facility] HCl HCl Ramsay IV Drug) [facility] - TAKE 1 Memoria TABLET BY l MOUTH 3 Outpati TIMES A ent DAY Clinics NEEDED FOR PAIN Insulin Insulin Yes Milton not [facility] Glargine Glargine Ramsay defined Lu s - [facility] ent Clinics Lidocaine Lidocaine Yes Milton as [facility] Ramsay directed [facility]ics Docusate Docusate Yes Milton [address] Sodium Sodium Ramsay as needed [facility] Clinics Warfarin Warfarin Yes Milton [address] [facility] [address] Sodium Sodium Ramsay [facility]ics Finasteride Finasteride Yes Milton [address] [facility] [address] Ramsay [facility] Ferrous Ferrous Yes Milton as [facility] Sulfate Sulfate Ramsay directed [facility] ent Clinics Melatonin Melatonin Yes Milton [address] [facility] Ramsay in the [facility] - evening [facility] Clinics Lactulose Lactulose Yes Milton not [facility] Ramsay defined [facility] ent Clinics Gabapentin Gabapentin Yes Milton not [facility] Ramsay defined [facility] Clinics Spironolact Spironolact Yes Milton [address] one one Ramsay with food [facility] ent Clinics Tamsulosin Tamsulosin Yes Milton as [facility] HCl HCl Ramsay directed [facility] ent Clinics Collagenase Collagenase Yes Milton not [facility] Ramsay defined [facility] ent Clinics Procedures This patient has no known procedures. Encounters Start End Encounter Admission Attending Care Care Encounter Source Date/Time Date/Time Type Type Clinicians Facility Department ID 2019-11-07 2019-11-07 Outpatient Moncho Roberto [id number] [facility]06[facility] 2019-11-06 2019-11-06 Outpatient Moncho Roberto [id number] 13:15[facility]00 13:15[facility] 2019-09-26 2019-09-26 Outpatient Moncho Roberto [id number] [facility] 09:00[facility]00 09:00[facility] 2019-09-25 2019-09-25 Outpatient [facility] I[facility] [id number] 15:[facility]00 15:00:[facility] ent Clinics Results This patient has no known results.
[2020-06-17 16:18] LABS: Absolute Lymphocytes (CBC) 0.8 K/uL (0.7-4.9); Basophils % 0.9 % (0-1.3); Hematocrit 25.5 % (39.6-49.0); Lymphocytes % 13.4 % (15.3-44.8); MPV 7.2 fL (7.6-11.3); RBC Red Blood Cell Count 3.06 M/uL (4.33-5.43)
[2020-06-17 16:31] LABS: Protime INR 4.27
[2020-06-17 16:37] LABS: ALT/SGPT 14 U/L (12-78); AST/SGOT 11 U/L (15-37); Albumin 3.1 g/dL (3.4-5.0); Alkaline Phosphatase 96 U/L (45-117); BUN Blood Urea Nitrogen 18 mg/dL (7-18); Bicarbonate 28 mmol/L (21-32); Bilirubin Direct 0.1 mg/dL (0-0.2); Bilirubin Total 0.4 mg/dL (0.2-1.0); Glucose Level 153 mg/dL (74-106); Magnesium 2.2 mg/dL (1.8-2.4); NT PRO-BNP 2110 pg/mL (<450); Potassium 4.6 mmol/L (3.5-5.1); Protein, Total 6.4 g/dL (6.4-8.2); Sodium Level 135 mmol/L (136-145); Troponin (Emerg Dept Use Only) < 0.02 ng/mL (0.0-0.045)
--- NOTE | 2020-06-17 17:02 | RAD REPORT ---
EXAM DESCRIPTION: RAD - Chest Single View - 06/17/2020 4:39 pm CLINICAL HISTORY: SOB COMPARISON: Portable July 2019 TECHNIQUE: AP portable chest image was obtained 06/17/2020 4:39 pm . FINDINGS: Patient has pronounced enlargement of the cardiac silhouette. Central vascular engorgement is present and there is diffuse interstitial opacification throughout the lung weiss. Trachea is mi dline. Right costophrenic angle blunting is present much of it due to prominent overlying soft tissue s. No acute bony abnormality seen. No acute aortic findings suspected. IMPRESSION: Moderate severity CHF/volume overload.
--- NOTE | 2020-06-17 17:11 | ER ---
Nurse's Notes [facility] Name: Dalton Díaz Age: 89 yrs Sex: Male : 1930 Arrival Date: 06/17/2020 Time: 15:29 Bed 28 Private MD: Inna Torres Diagnosis: Unspecified combined systolic (congestive) and diastolic (congestive) heart failure;Cellulitis of left lower limb;Cellulitis of right lower limb;Candidiasis of other urogenital sites;Dyspnea Presentation: 06/17 15:29 Chief complaint: EMS states: "the pt is from [facility] reporting that he has been having jd3 INES leg swelling and redness X 2 days.". Coronavirus screen: At this time, the client does not indicate any symptoms associated with coronavirus-19. Ebola Screen: Patient negative for fever greater than or equal to 101.5 degrees Fahrenheit, and additional compatible Ebola Virus Disease symptoms. Initial Sepsis Screen: Does the patient meet any 2 criteria? No. Patient's initial sepsis screen is negative. Does the patient have a suspected source of infection? No. Patient's initial sepsis screen is negative. Risk Assessment: Do you want to hurt yourself or someone else? Patient reports no desire to harm self or others. Onset of symptoms was June 15, 2020. 15:29 Method Of Arrival: EMS: [facility] jd3 15:29 Acuity: LEÓN 3 jd3 Triage Assessment: 17:00 General: Appears in no apparent distress. uncomfortable, Behavior is calm, cooperative, jd3 appropriate for age. Historical: - Allergies: 15:32 No Known Allergies; jd3 - Immunization history:: Adult Immunizations up to date. - Social history:: Smoking status: Patient/guardian denies using tobacco, but has a distant history of tobacco abuse. Screenin:00 Abuse screen: Denies threats or abuse. Nutritional screening: No deficits noted. jd3 Tuberculosis screening: No symptoms or risk factors identified. Fall Risk IV access (20 points). Ambulatory Aid- Crutches/Cane/Walker (15 pts). Gait- Impaired (20 pts.). Mental Status- Oriented to own ability (0 pts). Total Yan Fall Scale indicates High Risk Score (45 or more points). Fall prevention measures have been instituted. Side Rails Up X 2 Placed Close to Nursing Station Frequent Obs/Assessments Occuring Family Present and informed to notify staff if the need to leave the bedside. Assessment: 16:50 General: Appears in no apparent distress. uncomfortable, Behavior is calm, cooperative, jd3 appropriate for age. Pain: Complains of pain in right leg and left leg Quality of pain is described as aching. Neuro: Level of Consciousness is awake, alert, obeys commands, Oriented to person, place, situation. Cardiovascular: Denies chest pain, Capillary refill < 3 seconds Patient's skin is warm and dry. Rhythm is atrial fibrillation. Respiratory: Airway is patent Respiratory effort is even, unlabored, Respiratory pattern is regular, symmetrical, Denies cough, shortness of breath. GI: No signs and/or symptoms were reported involving the gastrointestinal system. : No signs and/or symptoms were reported regarding the genitourinary system. EENT: No signs and/or symptoms were reported regarding the EENT system. Derm: Skin is intact, Skin is dry, Skin is normal, Skin temperature is warm redness noted to INES lower legs. Musculoskeletal: Circulation, motion, and sensation intact. Swelling present in right leg and left leg. 17:50 Reassessment: Patient appears in no apparent distress at this time. No changes from jd3 previously documented assessment. Patient and/or family updated on plan of care and expected duration. Pain level reassessed. Patient is alert, oriented x 3, equal unlabored respirations, skin warm/dry/pink. 18:50 Reassessment: Patient appears in no apparent distress at this time. No changes from jd3 previously documented assessment. Patient and/or family updated on plan of care and expected duration. Pain level reassessed. Patient is alert, oriented x 3, equal unlabored respirations, skin warm/dry/pink. 19:36 Reassessment: Patient appears in no apparent distress at this time. Patient and/or d3 family updated on plan of care and expected duration. Pain level reassessed. Patient is alert, oriented x 3, equal unlabored respirations, skin warm/dry/pink. report given to Elvira BETANCOURT. Vital Signs: 15:31 BP 125 / 56; Pulse 68; Resp 18 S; Temp 97.7(O); Pulse Ox 99% on R/A; Weight 111.58 kg jd3 (R); Height 6 ft. 5 in. (195.58 cm) (R); Pain 8/10; 19:04 BP 144 / 51; Pulse 64; Resp 17 S; Pulse Ox 97% on R/A; jd3 15:31 Body Mass Index 29.17 (111.58 kg, 195.58 cm) jd3 ED Course: 15:29 Patient arrived in ED. jd3 15:31 Triage completed. jd3 15:31 Arm band placed on. jd3 15:32 Tim Willis NP is PHCP. pm1 15:32 Kvng Mcclain MD is Attending Physician. pm1 16:04 Inserted saline lock: 20 gauge in right antecubital area, using aseptic technique. jd3 Blood collected. 16:39 XRAY Chest (1 view) In Process Unspecified. EDMS 16:50 Rafael Fonseca, ASIA is Primary Nurse. jd3 17:00 Patient has correct armband on for positive identification. Placed in gown. Bed in low jd3 position. Call light in reach. Side rails up X2. Adult w/ patient. site monitor on. Pulse ox on. NIBP on. 17:09 Demarcus Yin is Hospitalizing Provider. pm1 19:44 Inna Torres MD is Private Physician. sg 19:52 No provider procedures requiring assistance completed. Patient admitted, IV remains in jd3 place. Administered Medications: 17:26 Drug: Lasix 40 mg Route: IVP; Site: right antecubital; jd3 18:25 Follow up: Response: No adverse reaction jd3 17:26 Drug: Zosyn 3.375 grams Route: IVPB; Infused Over: 60 mins; Site: right antecubital; jd3 18:20 Follow up: Response: No adverse reaction; IV Status: Completed infusion; IV Intake: jd3 100ml 18:36 Drug: vancoMYCIN 1 grams Route: IVPB; Infused Over: 2 hrs; Site: right antecubital; jd3 20:05 Follow up: IV Status: Infusion continued upon admission jd3 18:36 Drug: fentaNYL (PF) 25 mcg Route: IVP; Site: right antecubital; jd3 19:30 Follow up: Response: No adverse reaction; RASS: Restless (+1) jd3 Intake: 18:20 IV: 100ml; Total: 100ml. jd3 18:36 PO: 0ml; Total: 100ml. jd3 Output: 18:36 Urine: 825ml (Voided); Total: 825ml. jd3 19:33 Urine: 252ml; Total: 1077ml. jd3 Outcome: 17:10 Decision to Hospitalize by Provider. pm1 19:50 Admitted to Med/surg accompanied by nurse, via stretcher, room 208, with chart, Report jd3 called to Elvira BETANCOURT 19:50 Condition: stable 19:50 Instructed on the need for admit. 19:52 Patient left the ED. jd3 Signatures: Dispatcher [employer] EDMS Tomer Perez, RN RN sg Tim Willis, [place] [employer] pm1 Rafael Fonseca RN RN jd3
--- NOTE | 2020-06-17 17:11 | EDPHYS ---
Physician Documentation [facility] Name: aDlton Díaz Age: 89 yrs Sex: Male : 1930 Arrival Date: 06/17/2020 Time: 15:29 Bed 28 Private MD: Inna Torres ED Physician Kvng Mcclain HPI: 06/17 16:52 This 89 yrs old Male presents to ER via EMS with complaints of Bilateral leg pm1 swelling and redness, shortness of breath . 16:52 The patient has shortness of breath with light activity. Onset: The symptoms/episode pm1 began/occurred 1 week(s) ago. The patient's shortness of breath is aggravated by exertion, light activity. Associated signs and symptoms: Pertinent positives: Shortness of breath, Pertinent negatives: chest pain, non-productive cough, productive cough, fever. Severity of symptoms: in the emergency department the symptoms. 16:52 The patient has not recently seen a physician, the patient's primary care provider is pm1 Dr. Torres. Patient with shortness of breath for the past 1 week with exertion. Patient has chronic swelling to his legs bilaterally however they have been worse for the past two days with redness. Patient with history of dementia and son, who visits the patient and has POA, is reporting the history. Patient is mainly complaining of leg pain. Historical: - Allergies: 15:32 No Known Allergies; jd3 - Immunization history:: Adult Immunizations up to date. - Social history:: Smoking status: Patient/guardian denies using tobacco, but has a distant history of tobacco abuse. ROS: 16:52 Constitutional: Negative for fever, chills, and weight loss. pm1 16:52 Abdomen/GI: Negative for abdominal pain, nausea, vomiting, diarrhea, and constipation, Back: Negative for injury and pain. 16:52 Neuro: Negative for headache, weakness, numbness, tingling, and seizure. 16:52 Cardiovascular: Positive for edema, Negative for chest pain. 16:52 Respiratory: Positive for shortness of breath, Negative for cough. 16:52 MS/extremity: Positive for pain, swelling, redness to bilateral lower extermities. 16:52 Skin: Positive for swelling, redness to bilateral lower extremities. Exam: 16:52 Head/Face: Normocephalic, atraumatic. Neck: Trachea midline, no thyromegaly or masses pm1 palpated, and no cervical lymphadenopathy. Supple, full range of motion without nuchal rigidity, or vertebral point tenderness. No Meningismus. 16:52 Back: No spinal tenderness. No costovertebral tenderness. Full range of motion. 16:52 Constitutional: The patient appears in no acute distress, alert, awake, comfortable, non-diaphoretic, non-toxic, well developed, well hydrated, well groomed, well nourished. 16:52 Cardiovascular: Exam negative for acute changes, Rate: normal, Rhythm: irregular, Pulses: no pulse deficits are appreciated, Edema: 3+ edema to level of left saravia, left ankle, right saravia and right ankle and right and left foot. 16:52 Respiratory: the patient does not display signs of respiratory distress, Breath sounds: decreased breath sounds, are located in both bases. 16:52 Abdomen/GI: Exam negative for acute changes, Inspection: obese Palpation: abdomen is soft and non-tender, in all quadrants. 16:52 Skin: Appearance: normal except for affected area, cellulitis, that is moderate, on the right and left saravia, right inguinal and right scrotal candidiasis present. 16:52 Neuro: Orientation: to person, place, Motor: moves all fours. Vital Signs: 15:31 BP 125 / 56; Pulse 68; Resp 18 S; Temp 97.7(O); Pulse Ox 99% on R/A; Weight 111.58 kg jd3 (R); Height 6 ft. 5 in. (195.58 cm) (R); Pain 8/10; 19:04 BP 144 / 51; Pulse 64; Resp 17 S; Pulse Ox 97% on R/A; jd3 15:31 Body Mass Index 29.17 (111.58 kg, 195.58 cm) jd3 MDM: 15:34 Patient medically screened. [facility] 17:08 Data reviewed: vital signs. Data interpreted: Pulse oximetry: on room air is 99 %. pm1 Interpretation: normal. 17:08 Counseling: I had a detailed discussion with the patient and/or guardian regarding: the pm1 historical points, exam findings, and any diagnostic results supporting the discharge/admit diagnosis, lab results, radiology results, the need for further work-up and treatment in the hospital. 17:08 Physician consultation: Demarcus Yin was called at 17:16, was contacted at 17:16, pm1 regarding admission, patient's condition, and will see patient in ED. 06/17 15:41 Order name: Basic Metabolic Panel; Complete Time: 16:39 pm1 06/17 15:41 Order name: CBC with Diff; Complete Time: 16:27 pm1 06/17 15:41 Order name: LFT's; Complete Time: 16:39 pm1 06/17 15:41 Order name: Magnesium; Complete Time: 16:39 pm1 06/17 15:41 Order name: NT PRO-BNP; Complete Time: 16:39 pm1 06/17 15:41 Order name: PT-INR; Complete Time: 16:33 pm1 06/17 15:41 Order name: Troponin (emerg Dept Use Only); Complete Time: 16:39 pm1 06/17 15:41 Order name: XRAY Chest (1 view); Complete Time: 17:06 pm1 06/17 15:41 Order name: EKG; Complete Time: 15:42 pm1 06/17 15:41 Order name: Blood Culture Adult (2) pm1 06/17 15:41 Order name: Cardiac monitoring; Complete Time: 16:51 pm1 06/17 15:41 Order name: EKG - Nurse/Tech; Complete Time: 16:51 pm1 06/17 15:41 Order name: IV Saline Lock; Complete Time: 16:51 pm1 06/17 15:41 Order name: Labs collected and sent; Complete Time: 16:51 pm1 06/17 15:41 Order name: O2 Per Protocol; Complete Time: 16:51 pm1 06/17 15:41 Order name: O2 Sat Monitoring; Complete Time: 16:51 pm1 Administered Medications: 17:26 Drug: Lasix 40 mg Route: IVP; Site: right antecubital; jd3 18:25 Follow up: Response: No adverse reaction jd3 17:26 Drug: Zosyn 3.375 grams Route: IVPB; Infused Over: 60 mins; Site: right antecubital; jd3 18:20 Follow up: Response: No adverse reaction; IV Status: Completed infusion; IV Intake: jd3 100ml 18:36 Drug: vancoMYCIN 1 grams Route: IVPB; Infused Over: 2 hrs; Site: right antecubital; jd3 20:05 Follow up: IV Status: Infusion continued upon admission jd3 18:36 Drug: fentaNYL (PF) 25 mcg Route: IVP; Site: right antecubital; jd3 19:30 Follow up: Response: No adverse reaction; RASS: Restless (+1) jd3 Disposition: 06/18 08:03 Co-signature as Attending Physician, Kvng Mcclain MD I agree with the assessment and tony plan of care. Disposition: 06/17/20 17:10 Hospitalization ordered by Demarcus Yin for Inpatient Admission. Preliminary diagnosis are Unspecified combined systolic (congestive) and diastolic (congestive) heart failure, Cellulitis of left lower limb, Cellulitis of right lower limb, Candidiasis of other urogenital sites, Dyspnea. - Bed requested for Telemetry/MedSurg (Inpatient). - Status is Inpatient Admission. jd3 - Condition is Stable. - Problem is new. - Symptoms have improved. Signatures: Dispatcher [employer] EDMS Rae Egan Corey, MD MD cha Marinas, Patrick, INDUSTRIAL ILLUMINATING ENGINEER INDUSTRIAL ILLUMINATING ENGINEER pm1 Rafael Fonseca RN RN jd3 Corrections: (The following items were deleted from the chart) 06/17 17:42 16:52 Skin: Appearance: normal except for affected area, cellulitis, that is moderate, pm1 on the right and left saravia, right inguinal and right testicular candidiasis present. pm1 18:34 17:10 Hospitalization Ordered by Demarcus Yin for Inpatient Admission. Preliminary bd diagnosis is Unspecified combined systolic (congestive) and diastolic (congestive) heart failure; Cellulitis of left lower limb; Cellulitis of right lower limb; Candidiasis of other urogenital sites; Dyspnea. Bed requested for Telemetry/MedSurg (Inpatient). Status is Inpatient Admission. Condition is Stable. Problem is new. Symptoms have improved. pm1 19:52 18:34 06/17/2020 17:10 Hospitalization Ordered by Demarcus Yin for Inpatient jd3 Admission. Preliminary diagnosis is Unspecified combined systolic (congestive) and diastolic (congestive) heart failure; Cellulitis of left lower limb; Cellulitis of right lower limb; Candidiasis of other urogenital sites; Dyspnea. Bed requested for Telemetry/MedSurg (Inpatient). Status is Inpatient Admission. Condition is Stable. Problem is new. Symptoms have improved. bd
[2020-06-17] MEDS ORDERED: PIPER/TAZO/NS 3.375gm 3.375 GM/100 ML BAG ONE (17:17)
[2020-06-17] MEDS ORDERED: FUROSEMIDE 40 MG/4 ML VIAL ONE (17:17)
[2020-06-17] MEDS ORDERED: VANCOMYCIN/NS 1 gm 1 GM/250 ML BAG IVPB ONE (18:00)
--- NOTE | 2020-06-17 18:03 | P.HP ---
Certification for Inpatient Patient admitted to: Inpatient With expected LOS: >2 Midnights Practitioner: I am a practitioner with admitting privileges, knowledge of patient current condition, hospital course, and medical plan of care. Services: Services provided to patient in accordance with Admission requirements found in Title 42 Section 412.3 of the Code of Federal Regulations Patient History Date of Service: 06/17/20 Reason for admission: Bilateral leg swelling History of Present Illness: 89-year-old gentleman with a history of chronic diastolic heart failure, chronic atrial fibrillation on Coumadin anticoagulation, history of diabetes mellitus on insulin therapy presented to the emergency department with a complaint of progressive swelling of bilateral leg and shortness of breath. Patient also report weeping sores on his lower extremities. Here in the ED patient noted to have anemia with hemoglobin of 8.3. Chest x-ray demonstrated vascular congestion. His lower extremities are quite edematous. His INR is 4.2. Patient has been on Bumex for diureses. He is admitted further management of CHF exacerbation that has failed outpatient treatment. Allergies No Known Allergies Allergy (Verified 08/16/19 15:42) Home Medications: Gabapentin 600 mg PO TID 01/06/19 Collagenase [Santyl Ointment*] 1 appl TOP SEECOM 04/14/19 Atorvastatin Calcium [Lipitor*] 10 mg PO BEDTIME #30 tab 09/08/19 Bumetanide [Bumex*] 1 mg PO DAILY #30 tab 09/08/19 Docusate [Colace Cap*] 100 mg PO BID #60 cap 09/08/19 Famotidine [Pepcid*] 20 mg PO BID #60 tab 09/08/19 Ferrous Sulfate [Ferrous Sulfate*] 325 mg PO DAILY #30 tab 09/08/19 Finasteride [Proscar*] 5 mg PO BEDTIME #30 tab 09/08/19 Insulin Glargine Human [Lantus*] 25 units SQ DAILY AT SUPPER #10 ml 09/08/19 Insulin Glargine Human [Lantus*] 30 units SQ BREAKFAST #10 ml 09/08/19 Iron/FA/Vit B-Com W/C [Hemocyte Plus*] 1 tab PO DAILY WITH BREAKFAST #30 tab 09/08/19 Lactulose [Cephulac*] 15 ml PO BIDP PRN #30 ucup 01/17/20 Lidocaine 4% Patch [Lidoderm 5% Patch*] 1 patch TOP DAILY #0 patch 09/08/19 Melatonin [Melatonin*] 3 mg PO BEDTIME PRN PRN #30 tablet 09/08/19 Metformin HCl [Glucophage*] 1,000 mg PO BIDWM #120 tab 09/08/19 Ondansetron [Zofran (Odt)*] 4 mg PO Q6H PRN #30 tab 09/08/19 Spironolactone [Aldactone] 50 mg PO DAILY #30 tablet 09/08/19 Tamsulosin [Flomax*] 0.4 mg PO DAILY #30 cap 09/08/19 Warfarin Sodium [Coumadin*] 3 mg PO DAILY 5 PM #30 tab 09/08/19 Warfarin Sodium [Coumadin*] 10 mg PO DAILY 5 PM #30 tab 09/08/19 carvediloL [Coreg*] 3.125 mg PO BID 6AM 6PM #60 tab 09/08/19 traMADol HCL [Ultram*] 50 mg PO TID PRN #60 tab 09/08/19 - Past Medical/Surgical History Diabetic: Yes -: Diabetes mellitus type 2 -: HTN -: Atrial fibrillation, chronic anti coagulation-Coumadin -: CHF -: PVD -: Hyperlipidemia -: Cataracts -: Dementia -: COPD -: History of falls -: History of hypoglycemia -: Diabetic Neuropathy -: Right upper lobectomy -: Appendectomy -: Tonsillectomy -: Hemorrhoidectomy -: Prostate Surgery -: I&D to left 3rd toe Psychosocial/ Personal History: The patient is a . He has 3 children. He currently lives [facility] - Family History Father -: Other (see notes) Notes: parkinsons Brother -: Heart disease, Diabetes - Social History Alcohol use: No CD- Drugs: No Caffeine use: No Review of Systems Other: Except as documented, all other systems reviewed and negative. Physical Examination - Physical Exam General: Alert, In no apparent distress HEENT: Atraumatic, PERRLA, Mucous membr. moist/pink, Sclerae nonicteric Neck: Supple, JVD not distended Respiratory: Diminished (Bilateral), Crackles/rales (Mild bibasilar crackles) Cardiovascular: Normal S1 S2, Edema (3+ bilateral lower extremity pitting edema up to his thighs), Irregular heart rate/rhythm Gastrointestinal: Normal bowel sounds, Soft and benign, Non-distended, No tenderness Musculoskeletal: Erythema (Bilateral lower extremity erythema) Integumentary: Other (Bilateral venous stasis dermatitis.) Neurological: Normal speech, Normal strength at 5/5 x4 extr - Studies Laboratory Data (last 24 hrs) 06/17/20 16:09: PT 49.0 H, INR 4.27 H* 06/17/20 16:09: WBC 5.6, Hgb 8.3 L, Hct 25.5 L, Plt Count 152 06/17/20 16:09: Sodium 135 L, Potassium 4.6, BUN 18, Creatinine 0.99, Glucose 153 H, Magnesium 2.2, Total Bilirubin 0.4, AST 11 L, ALT 14, Alkaline Phosphatase 96 Assessment and Plan - Problems (Diagnosis) (1) Acute on chronic diastolic heart failure Current Visit: Yes Status: Acute (2) Lower extremity edema Current Visit: Yes Status: Acute (3) Warfarin anticoagulation Current Visit: Yes Status: Acute (4) Atrial fibrillation Onset Date: 01/08/17 Current Visit: No Status: Chronic Qualifiers: Atrial fibrillation type: chronic (5) Diabetes mellitus Onset Date: 01/26/17 Current Visit: No Status: Chronic Qualifiers: Diabetes mellitus type: type 2 Diabetes mellitus skilled nursing insulin use: with skilled nursing use Diabetes mellitus complication status: with hypoglycemia Diabetes mellitus complication detail: without coma Qualified Code(s): E11.649 - Type 2 diabetes mellitus with hypoglycemia without coma; Z79.4 - intermediate (current) use of insulin (6) Cutaneous candidiasis Current Visit: Yes Status: Acute - Plan Admit to the medical floor. Start IV lasix. Consider metolazone to aid diuresis. Monitor daily weight, intake and output. Optimize electrolytes. Obtain echocardiogram. Continue atrial fibrillation rate control medications. Topical antifungal for groin sari infection. - Advance Directives Does patient have a Living Will: No Does patient have a Durable POA for Healthcare: No
[2020-06-17] MEDS ORDERED: FENTANYL CITR 100 MCG/2 ML ONE (18:43)
[2020-06-17] MEDS: INSULIN -REGULAR HUMAN 50 UNIT/0.5 ML ML SQ SCH (21:00)
[2020-06-17] MEDS: CLOTRIMAZOLE 1% CREAM 15 GM TOP SCH (21:00)
[2020-06-18] MEDS ORDERED: DIPHENHYDRAMINE 25 MG TAB/CAP PO PRN (00:52)
[2020-06-18] MEDS ORDERED: guaiFENesin 100 MG/5 ML UCUP PO PRN (00:52)
[2020-06-18] MEDS ORDERED: MELATONIN 3 MG TABLET PO PRN (00:52)
[2020-06-18] MEDS ORDERED: HYDROCODONE/APAP 5/325 MG TAB PO PRN (04:09)
[2020-06-18 04:35] LABS: Absolute Lymphocytes (CBC) 0.8 K/uL (0.7-4.9); Basophils % 1.9 % (0-1.3); Hematocrit 23.6 % (39.6-49.0); Lymphocytes % 18.4 % (15.3-44.8); MPV 7.4 fL (7.6-11.3); RBC Red Blood Cell Count 2.86 M/uL (4.33-5.43)
[2020-06-18 04:44] LABS: Protime INR 3.74
[2020-06-18 04:48] LABS: Phosphorus 3.3 mg/dL (2.5-4.9); Potassium 4.2 mmol/L (3.5-5.1)
[2020-06-18 06:35] VITALS: BMI 33.1
[2020-06-18] MEDS: INSULIN -REGULAR HUMAN 50 UNIT/0.5 ML ML SQ SCH ×4 (07:30→22:02)
[2020-06-18] MEDS: CLOTRIMAZOLE 1% CREAM 15 GM TOP SCH ×2 (09:38→22:00)
[2020-06-18] MEDS: GABAPENTIN 300 MG CAP PO SCH ×3 (09:38→22:01)
[2020-06-18] MEDS: FERROUS SULFATE 325 MG TAB PO SCH (09:38)
[2020-06-18] MEDS: SPIRONOLACTONE 25 MG TABLET PO SCH (09:39)
[2020-06-18] MEDS: DOCUSATE NA 100 MG CAP PO SCH ×2 (09:39→22:01)
[2020-06-18] MEDS: FAMOTIDINE 20 MG TAB PO SCH ×2 (09:39→22:01)
[2020-06-18] MEDS: FUROSEMIDE 40 MG/4 ML VIAL IV SCH ×2 (09:39→16:15)
--- NOTE | 2020-06-18 10:09 | EKG ---
Test Date: 2020-06-17 Test Time: 16:15:24 [place] Secretary: MARITZA MEASUREMENT RESULTS: Intervals: Rate: 46 UT: QRSD: 152 QT: 476 QTc: 416 Gay: P: UT: QRS: 37 T: 94 INTERPRETIVE STATEMENTS: Atrial fibrillation with slow ventricular response Left bundle branch block Abnormal ECG Compared to ECG 02/14/2020 01:27:51 No significant changes Electronically Signed On 06-18-20 10:06:46 CDT by August Pelayo
--- NOTE | 2020-06-18 12:42 | P.PN ---
Subjective Date of Service: 06/18/20 Chief Complaint: Bilateral leg swelling Subjective: Improving (overall feeling better, continues with some SOB/GUERRERO and significant lower leg edema) Physical Examination - Vital Signs Temperature: 97.4 F Blood Pressure: 152/66 Pulse: 64 Respirations: 19 Pulse Ox (%): 94 - Physical Exam General: Alert, Oriented x2 HEENT: Sclerae nonicteric Respiratory: Diminished (at bases bilaterally) Cardiovascular: Edema (2+ to knees, 1+ posterior thighs), Irregular heart rate/rhythm (afib, rate controlled) Gastrointestinal: Soft and benign, Non-distended, No tenderness Musculoskeletal: Tenderness (mild soreness with palpation of lower extremities) Integumentary: Rash(es) (b/l groin erythema) Neurological: Normal speech, Normal affect - Studies Laboratory Data (last 24 hrs) 06/17/20 16:09: PT 49.0 H, INR 4.27 H* 06/17/20 16:09: WBC 5.6, Hgb 8.3 L, Hct 25.5 L, Plt Count 152 06/17/20 16:09: Sodium 135 L, Potassium 4.6, BUN 18, Creatinine 0.99, Glucose 153 H, Magnesium 2.2, Total Bilirubin 0.4, AST 11 L, ALT 14, Alkaline Phosphatase 96 Assessment & Plan Physician Review Additional Text: Acute on chronic diastolic heart failure Lower extremity edema Chronic atrial fibrillation, on warfarin Diabetes mellitus, type 2, insulin dependent Cutaneous candidiasis continue IV lasix 40mg BID. good UOP, continue home spironolactone Monitor daily weight, strict intake and output. f/u echocardiogram. Continue home cardiac/afib medications. continue warfarin, was supratherapeutic, improving. Topical antifungal for groin sari infection. Dispo: anticipate dc back home, in 24-48hrs Time Spent Managing Pts Care (In Minutes): 35
[2020-06-18 12:53] LABS: Hematocrit 24.9 % (39.6-49.0)
--- NOTE | 2020-06-18 14:19 | RAD REPORT ---
EXAM DESCRIPTION: US - Extrem Venous W Compress Jordan - 06/18/2020 2:08 pm CLINICAL HISTORY: R/O DVT Bilateral leg edema and swelling. COMPARISON: Extrem Venous W Compress Jordan dated 12/28/2018 TECHNIQUE: Real-time sonographic interrogation of the left and right lower extremity deep venous sys tems was performed. FINDINGS: Normal compressibility, flow augmentation, phasic flow and spontaneous flow is identified in both the left and right lower extremity deep venous systems. IMPRESSION: No sonographic evidence of left or right lower extremity deep venous thrombosis.
[2020-06-18] MEDS ORDERED: WARFARIN SODIUM 3 MG TAB PO SCH (17:00)
[2020-06-18] MEDS ORDERED: WARFARIN SODIUM 5 MG TAB PO SCH (17:00)
[2020-06-18] MEDS: JUVEN PACKET PO SCH (21:00)
[2020-06-18] MEDS: FINASTERIDE 5 MG TAB PO SCH (22:01)
[2020-06-18] MEDS: TAMSULOSIN 0.4 MG SR CAP PO SCH (22:01)
[2020-06-18] MEDS: ATORVASTATIN 10 MG TAB PO SCH (22:03)
[2020-06-19 04:03] LABS: Absolute Lymphocytes (CBC) 0.8 K/uL (0.7-4.9); Basophils % 2.4 % (0-1.3); Hematocrit 25.5 % (39.6-49.0); Lymphocytes % 18.2 % (15.3-44.8); MPV 7.4 fL (7.6-11.3); RBC Red Blood Cell Count 3.07 M/uL (4.33-5.43)
[2020-06-19 04:16] LABS: Protime INR 2.41
[2020-06-19 04:23] LABS: Magnesium 2.1 mg/dL (1.8-2.4); Potassium 3.9 mmol/L (3.5-5.1)
[2020-06-19] MEDS: INSULIN -REGULAR HUMAN 50 UNIT/0.5 ML ML SQ SCH ×4 (07:30→21:00)
[2020-06-19] MEDS: FAMOTIDINE 20 MG TAB PO SCH ×2 (08:38→21:39)
[2020-06-19] MEDS: DOCUSATE NA 100 MG CAP PO SCH ×2 (08:38→21:38)
[2020-06-19] MEDS: GABAPENTIN 300 MG CAP PO SCH ×3 (08:38→21:39)
[2020-06-19] MEDS: SPIRONOLACTONE 25 MG TABLET PO SCH (08:38)
[2020-06-19] MEDS: FERROUS SULFATE 325 MG TAB PO SCH (08:39)
[2020-06-19] MEDS: JUVEN PACKET PO SCH ×2 (08:39→21:30)
[2020-06-19] MEDS: CLOTRIMAZOLE 1% CREAM 15 GM TOP SCH ×2 (08:40→21:00)
[2020-06-19] MEDS: FUROSEMIDE 40 MG/4 ML VIAL IV SCH ×2 (08:45→17:08)
[2020-06-19] MEDS ORDERED: POTASSIUM 25 MEQ EFFERV TAB PO ONE (09:00)
--- NOTE | 2020-06-19 09:37 | ECHO ---
HEIGHT: 6 ft 5 in WEIGHT: 285 lb 11.2 oz DATE OF STUDY: 06/18/[address]: tiff aldridge 2-DIMENSIONAL: YES M.MODE: YES DOPPLER: YES COLOR FLOW: YES TDS: YES PORTABLE: NO DEFINITY: NO BUBBLE STUDY: NO DIAGNOSIS: CONGESTIVE HEART FAILURE CARDIAC HISTORY: CATHERIZATION: SURGERY: PROSTHETIC VALVE: PACEMAKER: MEASUREMENTS (cm) DIASTOLIC (NORMALS) SYSTOLIC (NORMALS) IVSd 1.1 (0.6-1.2) LA Diam 6.5 (1.9-4.0) LVEF 60% LVIDd 5.9 (3.5-5.7) LVIDs 4.0 (2.0-3.5) %FS 33% LVPWd 1.3 (0.6-1.2) Ao Diam 3.2 (2.0-3.7) 2 DIMENSIONAL ASSESSMENT: RIGHT ATRIUM: NORMAL LEFT ATRIUM: DILATED RIGHT VENTRICLE: NORMAL LEFT VENTRICLE: LEFT VENTRICULAR HYPERTROPHY TRICUSPID VALVE: NORMAL MITRAL VALVE: MITRAL ANNULAR CALCIFICATION PULMONIC VALVE: NORMAL AORTIC VALVE: STENOTIC PERICARDIAL EFFUSION: NONE AORTIC ROOT: NORMAL LEFT VENTRICULAR WALL MOTION: NORMAL EJECTION FRACTION. DOPPLER/COLOR FLOW: MODERATE AORTIC STENOSIS - AREA 1.4 CENTIMETERS SQUARED. MILD TRICUSPID REGURGITATION - RIGHT VENTRICULAR SYSTOLIC PRESSURE 33mmHg. COMMENTS: TECHNICALLY DIFFICULT STUDY. LEFT VENTRICULAR HYPERTROPHY. MITRAL ANNULAR CALCIFICATION. DECREASED LEFT VENTRICULAR COMPLIANCE LEFT ATRIAL ENLARGEMENT. MODERATE AORTIC STENOSIS 1.4 CENTIMETERS SQUARED. MILD TRICUSPID REGURGITATION - NORMAL RIGHT VENTRICULAR SYSTOLIC PRESSURE. TECHNOLOGIST: BELEN JAMISON
--- NOTE | 2020-06-19 13:15 | P.PN ---
Subjective Date of Service: 06/19/20 Chief Complaint: Bilateral leg swelling Subjective: Improving (Pale little better, stents more strength back, it feels bilateral swelling somewhat improved) Review of Systems 10-point ROS is otherwise unremarkable Physical Examination - Vital Signs Temperature: 97.7 F Blood Pressure: 123/57 Pulse: 59 Respirations: 16 Pulse Ox (%): 96 - Physical Exam General: Alert, In no apparent distress, Oriented x2, Confused (Mild, chronic) Respiratory: Clear to auscultation bilaterally, Diminished (At bases bilaterally) Cardiovascular: Regular rate/rhythm, Edema (1-2+ up to the knees bilaterally, and trace-1+ posterior thighs bilaterally), Systolic murmur Gastrointestinal: Soft and benign, Non-distended, No tenderness Integumentary: No erythema Neurological: Normal speech, Normal affect Assessment & Plan Physician Review Additional Text: Acute on chronic diastolic heart failure Lower extremity edema Chronic atrial fibrillation, on warfarin Diabetes mellitus, type 2, insulin dependent Cutaneous candidiasis continue IV lasix 40mg BID. good UOP, continue home spironolactone ~1.5L daily UOP Monitor daily weight, strict intake and output. TTE (06/18): Technically difficult study. LVH. Decreased LV compliance, left atrial enlargement. Moderate aortic stenosis (1.4 cm squared) prior echo with aortic sclerosis, AoS is new, and likely contributing to GUERRERO Continue home cardiac/afib medications. was supratherapeutic, improving after Coumadin held for 2 nights Topical antifungal for groin sari infection. Dispo: anticipate dc back home, in 24-48hrs, with home health/PT Time Spent Managing Pts Care (In Minutes): 35
[2020-06-19 16:55] LABS: RBC Red Blood Cell Count 2.97 M/uL (4.33-5.43)
[2020-06-19 17:16] LABS: Ferritin 26.3 ng/mL (26-388)
[2020-06-19] MEDS: FINASTERIDE 5 MG TAB PO SCH (21:39)
[2020-06-19] MEDS: TAMSULOSIN 0.4 MG SR CAP PO SCH (21:39)
[2020-06-19] MEDS: ATORVASTATIN 10 MG TAB PO SCH (21:39)
[2020-06-20 06:18] LABS: Absolute Lymphocytes (CBC) 0.9 K/uL (0.7-4.9); Basophils % 1.8 % (0-1.3); Hematocrit 25.3 % (39.6-49.0); Lymphocytes % 21.8 % (15.3-44.8); MPV 7.2 fL (7.6-11.3); Protime INR 1.74; RBC Red Blood Cell Count 3.05 M/uL (4.33-5.43)
[2020-06-20] MEDS: INSULIN -REGULAR HUMAN 50 UNIT/0.5 ML ML SQ SCH ×2 (09:00→11:48)
[2020-06-20] MEDS: DOCUSATE NA 100 MG CAP PO SCH (09:00)
[2020-06-20] MEDS ORDERED: SOD FERRIC GLUC COMPLX/SUCROSE 125 MG in NA CHLORIDE 0.9% 100 ML IV SCH (09:00)
[2020-06-20] MEDS: SPIRONOLACTONE 25 MG TABLET PO SCH (09:01)
[2020-06-20] MEDS: GABAPENTIN 300 MG CAP PO SCH (09:01)
[2020-06-20] MEDS: FERROUS SULFATE 325 MG TAB PO SCH (09:02)
[2020-06-20] MEDS: FUROSEMIDE 40 MG/4 ML VIAL IV SCH (09:03)
[2020-06-20] MEDS: FAMOTIDINE 20 MG TAB PO SCH (09:03)
[2020-06-20] MEDS: JUVEN PACKET PO SCH (09:04)
[2020-06-20] MEDS: CLOTRIMAZOLE 1% CREAM 15 GM TOP SCH (09:04)
[2020-06-20 12:25] VITALS: O2SAT 97
[2020-06-20 13:18] VITALS: BP 127/56; TEMP 97.5
--- NOTE | 2020-06-20 18:01 | P.DS ---
Admission Date: 06/17/20 Discharge Date: 06/20/20 Disposition: DC HOME/HOME HEALTH CARE Discharge Condition: FAIR Reason for Admission: acute on chronic diastolic heart failure Consultations: Cardiology - Dr. Pelayo Procedures: TTE (06/18): Technically difficult study. LVH. Decreased LV compliance, left atrial enlargement. Moderate aortic stenosis (1.4 cm squared) B/l extremity venous doppler (06/17): no evidence of DVT in either leg CXR (06/17): Moderate severity CHF/volume overload.; pronounced enlargement of the cardiac silhouette. Central vascular engorgement is present and there is diffuse interstitial opacification throughout the lung weiss. Trachea is midline. Right costophrenic angle blunting is present much of it due to prominent overlying soft tissues. No acute bony abnormality seen. No acute aortic findings suspected Problem list Acute on chronic diastolic heart failure Lower extremity edema Iron deficiency anemia +Hemoccult Chronic atrial fibrillation, on warfarin Diabetes mellitus, type 2, insulin dependent Cutaneous candidiasis Brief History of Present Illness: 89yo, PMH: chronic diastolic heart failure, chronic Afib on Coumadin, DM2 on insulin therapy, who presented to the ED due to progressive swelling of bilateral legs and shortness of breath. Associated with weeping sores on lower extremities. In the ED he was noted to have anemia with Hgb: 8.3, CXR: vascular congestion. INR: 4.2. He was admitted further management of CHF exacerbation that has failed outpatient treatment. Hospital Course: Patient diuresed well with IV Lasix 40mg BID. He slowly improved during his hospitalization. PT was consulted and patient was able to ambulate with a walker with less dyspnea. An echocardiogram was performed which revealed decreased LV compliance, LA enlargement, and new moderate aortic stenosis as noted above. During his hospitalization patient was noted to have brief a few beats of bradycardia into the high 30s. An EKG was performed and consistent with afib with slow response. Cardiology was consulted and recommended no intervention at this time. Patient can follow up as outpatient for possible event monitor with possible pacemaker placement if noted to drop more consistently or becoming symptomatic. He was also noted to have inguinal sari infection which was treated with topical antifungal therapy. Of note, he was anemic (8.3) on admission and remained stable at 8.0. Workup was consistent with known iron deficiency anemia as well as +stool hemoccult. Findings were reviewed with patient and his son. Given that patient came in with supratherapeutic INR, iron deficiency, and +hemoccult, he likely has a slow GI bleed. Due to his hgb remaining stable during his hospitalization, it was decided that patient should be worked up further as an outpatient. He was recommended to f/u with a GI specialist for EGD/C-scope in the near future. His coumadin was held for 2 days due to the supratherapeutic INR, and he is discharged on 10mg daily, decreased from 13mg daily that he was taking prior admission. He also received 1 dose of IV iron on day of discharge as well. Vital Signs/Physical Exam: Temp Pulse Resp BP Pulse Ox 97.5 F 57 16 127/56 L 97 06/20/20 12:00 06/20/20 12:00 06/20/20 12:00 06/20/20 12:00 06/20/20 12:00 General: Alert, In no apparent distress, Oriented x2 HEENT: Sclerae nonicteric Respiratory: Clear to auscultation bilaterally, Diminished (slightly at bases) Cardiovascular: Edema (1+ to knees bilaterally, trace from knees to lower po sterior thigh), Irregular heart rate/rhythm (afib with slow response) Gastrointestinal: Soft and benign, Non-distended, No tenderness Neurological: Normal speech, Normal affect, Dementia Laboratory Data at Discharge: WBC 4.0 K/uL (4.3-10.9) L 06/20/20 05:54 Hgb 8.0 g/dL (13.6-17.9) L 06/20/20 05:54 Hct 25.3 % (39.6-49.0) L 06/20/20 05:54 Plt Count 133 K/uL (152-406) L 06/20/20 05:54 PT 20.3 SECONDS (9.5-12.5) H 06/20/20 05:54 INR 1.74 06/20/20 05:54 Sodium 139 mmol/L (136-145) 06/20/20 05:54 Potassium 4.0 mmol/L (3.5-5.1) 06/20/20 05:54 BUN 23 mg/dL (7-18) H 06/20/20 05:54 Creatinine 0.95 mg/dL (0.55-1.3) 06/20/20 05:54 Glucose 174 mg/dL (74-106) H 06/20/20 05:54 Phosphorus 3.0 mg/dL (2.5-4.9) 06/20/20 05:54 Magnesium 2.1 mg/dL (1.8-2.4) 06/19/20 03:41 Total Bilirubin 0.4 mg/dL (0.2-1.0) 06/17/20 16:09 AST 11 U/L (15-37) L 06/17/20 16:09 ALT 14 U/L (12-78) 06/17/20 16:09 Alkaline Phosphatase 96 U/L (45-117) 06/17/20 16:09 Home Medications: Gabapentin 600 mg PO TID 01/06/19 Atorvastatin Calcium [Lipitor*] 10 mg PO BEDTIME #30 tab 09/08/19 Docusate [Colace Cap*] 100 mg PO BID #60 cap 09/08/19 Famotidine [Pepcid*] 20 mg PO BID #60 tab 09/08/19 Ferrous Sulfate [Ferrous Sulfate*] 325 mg PO DAILY #30 tab 09/08/19 Finasteride [Proscar*] 5 mg PO BEDTIME #30 tab 09/08/19 Melatonin [Melatonin*] 3 mg PO BEDTIME PRN PRN #30 tablet 09/08/19 Metformin HCl [Glucophage*] 1,000 mg PO BIDWM #120 tab 09/08/19 Ondansetron [Zofran (Odt)*] 4 mg PO Q6H PRN #30 tab 09/08/19 Spironolactone [Aldactone] 50 mg PO DAILY #30 tablet 09/08/19 Acetaminophen [Tylenol Extra Strength] 500 mg PO Q4HP PRN 06/17/20 Bumetanide [Bumex*] 2 mg PO BIDP PRN 06/17/20 Diphenhydramine [Benadryl*] 25 mg PO BEDTIME PRN PRN 06/17/20 Insulin Aspart [Novolog Flexpen] 5 unit SQ AC 06/17/20 Insulin Detemir [Levemir Flextouch] 15 unit SQ BID 06/17/20 Lactulose 10 gm PO Q12HP PRN 06/17/20 Potassium Chloride 20 meq PO BID 06/17/20 Tamsulosin [Flomax*] 0.4 mg PO BEDTIME 06/17/20 Warfarin Sodium [Coumadin*] 10 mg PO DAILY 5 PM 06/17/20 guaiFENesin [Jennifer-Tussin] 10 ml PO QIDP PRN 06/17/20 Clotrimazole [Lotrimin 1% Cream*] 1 sharonda TOP BID 30 Days #1 tube 06/20/20 Patient Discharge Instructions: Follow up with your PCP within 3-5 days - to check your blood counts (hemoglobin and INR). Resume home medications. Take 10mg Warfarin at night, (Decreased from 13mg). Recommend recheck INR in 3-5 days Diet: AHA Activity: Fall precautions Followup: Unknown,U [Primary Care Provider] - Time spent managing pt's care (in minutes): 35
--- NOTE | 2020-06-21 09:15 | CON ---
Date of Consultation: 06/20/2020 Reason For Consultation: Bradycardia and aortic stenosis. History Of Present Illness: Mr. Díaz is an 89-year-old white male. He is a resident of [facility]. He had come in with congestive heart failure, shortness of breath, edema, and celluliti s. He normally sees Dr. Torres in [place]. He does have a past medical history of diabetes, atrial fibrillation, chronic diastolic congestive heart failure, benign prostatic hypertrophy. He c maddy in with cellulitis and CHF exacerbation. He was found on an echocardiogram to have a valve area of 1.4 cm2, decreased left ventricular compliance with normal ejection fraction. The patient denied any syncope or palpitation. He did have shortness of breath and pedal edema when he came in. Past Medical History: As stated above. Allergies: NONE. Review of Systems: Negative. Social History: Negative. Medications: Medications at home include ciprofloxacin, Lasix, Flomax, finasteride, insulin, Coumadi n, and Aldactone. Physical Examination: Vital Signs: Were noted to have atrial fibrillation, rate of 66. He was afebrile. General: He was in no acute distress. HEENT: Negative. Neck: Supple with no bruit. Chest: Clear. Cardiac Exam: Revealed a regular rhythm and rate with a 2/6 systolic ejection murmur at the third ri ght intercostal space that radiated to the carotid with a positive S4 gallop. Abdomen: Benign. Extremities: Revealed 1+ edema with improved cellulitis. Diagnostic Data: His diagnostic data was stated earlier. Also include a hemoglobin of 8.0, creatini ne of 1.0, glucose was 190. Chest x-ray showed CHF. Venous Doppler was negative. Impression And Plan: 1.Acute on chronic diastolic congestive heart failure. 2.Aortic stenosis, moderate, 1.4 cm2. 3.Chronic atrial fibrillation with slow ventricular response. No hemodynamic compromise. 4.Anemia. 5.Diabetes. The case was discussed in detail with Dr. Hamilton and his family. The patient's heart rate does not ca use him any hypotension and he is not a candidate for a pacemaker at this point. His valve area is o nly moderate and he is not a candidate for aortic valve replacement at this point. The last time Mr. Díaz had general anesthesia, he had some very difficult recovery as far as his mental status is co ncerned and he still has not recovered according to the family. I would do my best to avoid any inva sive workup and/or surgical procedure on him. I am comfortable with him going home whenever it is ok ay with Dr. Hamilton. I will make an arrangement for him to see me in the office as an outpatient. I w ill get an event monitor then and, if he is having pauses greater than 3.3 seconds that are frequent, we will discuss the possibility of the pacemaker. SWATI/CALEB Voice ID: [id number] Report ID: [id number]
== END 2020-06-20 12:49 | disposition home health service (06) | DRG 292 ==
LOC: ER 15:15 → ERHOLD 17:46 → 2ND 19:37
PROVIDERS: ADMIT Internal Medicine; ATTEND Hospitalist
DX: I11.0 Hypertensive heart disease with heart failure (principal); I48.20 Chronic atrial fibrillation, unspecified; L03.116 Cellulitis of left lower limb; L03.115 Cellulitis of right lower limb; I50.33 Acute on chronic diastolic (congestive) heart failure; E11.51 Type 2 diabetes mellitus with diabetic peripheral angiopathy without gangrene; E11.649 Type 2 diabetes mellitus with hypoglycemia without coma; E78.5 Hyperlipidemia, unspecified; B37.9 Candidiasis, unspecified; D50.9 Iron deficiency anemia, unspecified; I35.0 Nonrheumatic aortic (valve) stenosis; J44.9 Chronic obstructive pulmonary disease, unspecified; Z79.4 Long term (current) use of insulin; Z79.899 Other long term (current) drug therapy; Z79.01 Long term (current) use of anticoagulants; Z90.49 Acquired absence of other specified parts of digestive tract; Z20.828 Contact with and (suspected) exposure to other viral communicable diseases
CPT/HCPCS: 36415; 71045; 80048; 80076; 82274; 82607; 82728; 82747; 82947; 83010; 83540; 83615; 83735; 83880; 84100; 84466; 84484; 85014; 85018; 85025; 85044; 85610; 87040; 93005; 93306; 93970; 96365; 96367; 96375; 97116; 97161; 97530; 99285; J1940; J2543; J2916; J3010; J3370; U0002